=== PATIENT | male | born 1935 | race Caucasian/White ===

== ENCOUNTER 2017-01-06 14:02 | Emergency (ER) | payer OTHER ==
[~2017-01-06] VITALS: Ht 182.9 cm; Wt 70.0 kg
[~2017-01-06 14:02] MED LIST: FENO145T26 PO; FERR1TAB13 PO; GABA-113 PO; LNX125 PO; LPR25 PO; LPT40 PO; NRV5 PO; PLV75 PO; VALS320T PO
[2017-01-06 14:04] VITALS: TEMP 36.6; Ht 182.9 cm; Wt 70.0 kg
[2017-01-06] MEDS ORDERED: FOLI1TAB7 PO (15:15)
[2017-01-06] MEDS ORDERED: ASPI-435 PO (15:15)
[2017-01-06 15:21] LABS: BASO % 0.4 %; BASO ABS # 0.02 K/uL (0-0.2); COMPLETE YES; EOS % 1.8 %; HEMATOCRIT 36.4 % (42-52); IG% 0.2 %; LYMPH % 31.1 %; LYMPH ABS # 1.71 K/uL (1.2-3.4); MEAN CELL VOLUME 93.3 fL (80-100); MEAN CORPUSCULAR HGB CONC 32.1 g/dl (32-36); MEAN PLATELET VOLUME 10.1 fL (7.4-10.4); MONO % 9.7 %; NEUT % 56.8 %; PLATELET COUNT 312 K/uL (130-400); WHITE BLOOD COUNT 5.49 K/uL (4.8-10.8)
[2017-01-06] MEDS ORDERED: AMLO-110 PO (15:25)
[2017-01-06] MEDS ORDERED: CLOP1TAB15 PO (15:25)
[2017-01-06] MEDS ORDERED: FENO145T26 PO (15:25)
[2017-01-06] MEDS ORDERED: VALS320T PO (15:25)
[2017-01-06] MEDS ORDERED: ATOR-24 PO (15:25)
[2017-01-06] MEDS ORDERED: METO25TA56 PO (15:25)
[2017-01-06] MEDS ORDERED: LNX125 PO (15:25)
[2017-01-06] MEDS ORDERED: NRN/300 PO (15:25)
[2017-01-06 15:37] LABS: BUN/CREATININE RATIO 13.9 (10-20); CALCIUM 9.1 mg/dl (8.5-10.1); CREATININE 1.5 mg/dl (0.60-1.40); POTASSIUM 5.3 mmol/L (3.5-5.1)
[2017-01-06] MEDS ORDERED: SODIUM CHLORIDE 0.9% 500ML 500 ML IV STA (15:41)
[2017-01-06 16:03] VITALS: BP 170/72; PULSE 49; O2SAT 98
--- NOTE | 2017-01-06 21:47 | EMERGENCY ROOM VISIT NOTE ---
History Report prepared by Roxie: Irene Ventura Under the Supervision of: Dr. Nathen Rojas D.O. First contact with patient: 14:46 Chief Complaint: GROIN PAIN Stated Complaint: HERNIA History of Present Illness The patient is an 81 year old male who presents to the Emergency Room with complaints of intermittent groin pain for the past 3 years. He has had a hernia for the past 3 years. The hernia has gotten bigger. His PCP told him that nothing had to be done for his hernia as long as it was not causing him pain. He reports some pain on occasion, but no pain today. His last normal bowel movement was this morning. He is normally able to reduce his hernia when he lays down. He has absolutely no abdominal pain at this time he came in to see if he should follow-up with a surgeon for this. He denies any dysuria, nausea, vomiting, or diarrhea. He denies any previous abdominal surgeries. He is on Plavix. Source of History: patient Onset: 3 years ago Position: other (groin) Quality: other (pain from hernia) Timing: intermittent Associated Symptoms: No diarrhea, No nausea, No urinary symptoms, No vomiting Review of Systems See HPI for pertinent positives & negatives. A total of 10 systems reviewed and were otherwise negative. Past Medical & Surgical Medical Problems: (1) Abscess of right foot (2) Altered mental status (3) Cellulitis of right foot (4) Dehydration (5) Encounter for wound re-check (6) Fall (7) Hypertension (8) Neuropathy (9) Non-ST elevation [place] (NSTEMI) (10) Paroxysmal Atrial Fibrillation (11) Pure Hypercholesterolemia (12) S/p bare metal coronary artery stent Family History Patient reports no known family medical history. Non contributory secondary to age. Social History Smoking Status: Former Smoker Drug Use: none Marital Status: Occupation Status: retired Current/Historical Medications Scheduled Amlodipine (Norvasc), 5 MG PO DAILY Aspirin (Aspirin 81), 81 MG PO QAM Atorvastatin (Lipitor), 40 MG PO DAILY Clopidogrel (Plavix), 75 MG PO DAILY Digoxin (Digoxin), 0.125 MG PO DAILY Fenofibrate (Tricor ), 145 MG PO DAILY Folic Acid (Folvite), 1 MG PO QAM Gabapentin (Neurontin), 300 MG PO BID Metoprolol Tartrate (Lopressor) (Lopressor), 25 MG PO BID Valsartan (Diovan), 320 MG PO DAILY Allergies Coded Allergies: No Known Allergies (Unverified , 12/18/16) Physical Exam Vital Signs Date Time Temp Pulse Resp B/P Pulse Ox O2 Delivery O2 Flow Rate FiO2 01/06/17 16:03 49 18 170/72 98 Room Air 01/06/17 14:04 36.6 68 20 152/69 97 Room Air Physical Exam GENERAL: alert, well appearing, well nourished, no distress, non-toxic EYE EXAM: normal conjunctiva, PERRL and EOM's grossly intact OROPHARYNX: no exudate, no erythema, lips, buccal mucosa, and tongue normal and mucous membranes are moist NECK: supple, no nuchal rigidity, no adenopathy, non-tender LUNGS: Clear to auscultation. Normal chest wall mechanics HEART: no murmurs, S1 normal and S2 normal ABDOMEN: right groin with large mass with audible bowel sounds, nontender BACK: Back is symmetrical on inspection and there is no deformity, no midline tenderness, no CVA tenderness. SKIN: no rashes and no bruising UPPER EXTREMITIES: upper extremities are grossly normal. LOWER EXTREMITIES: No pitting edema. NEURO EXAM: Normal sensorium, cranial nerves II-XII grossly intact, normal speech, no gross weakness of arms, no gross weakness of legs. Medical Decision & Procedures Laboratory Results 01/06/17 15:11 Red Blood Count 3.90, Mean Corpuscular Volume 93.3, Mean Corpuscular Hemoglobin 30.0, Mean Corpuscular Hemoglobin Concent 32.1, Mean Platelet Volume 10.1, Neutrophils (%) (Auto) 56.8, Lymphocytes (%) (Auto) 31.1, Monocytes (%) (Auto) 9.7, Eosinophils (%) (Auto) 1.8, Basophils (%) (Auto) 0.4, Neutrophils # (Auto) 3.12, Lymphocytes # (Auto) 1.71, Monocytes # (Auto) 0.53, Eosinophils # (Auto) 0.10, Basophils # (Auto) 0.02 01/06/17 15:11 Test 01/06/17 15:11 White Blood Count 5.49 K/uL (4.8-10.8) Red Blood Count 3.90 M/uL (4.7-6.1) Hemoglobin 11.7 g/dL (14.0-18.0) Hematocrit 36.4 % (42-52) Mean Corpuscular Volume 93.3 fL (80-100) Mean Corpuscular Hemoglobin 30.0 pg (25-34) Mean Corpuscular Hemoglobin Concent 32.1 g/dl (32-36) Platelet Count 312 K/uL (130-400) Mean Platelet Volume 10.1 fL (7.4-10.4) Neutrophils (%) (Auto) 56.8 % Lymphocytes (%) (Auto) 31.1 % Monocytes (%) (Auto) 9.7 % Eosinophils (%) (Auto) 1.8 % Basophils (%) (Auto) 0.4 % Neutrophils # (Auto) 3.12 K/uL (1.4-6.5) Lymphocytes # (Auto) 1.71 K/uL (1.2-3.4) Monocytes # (Auto) 0.53 K/uL (0.11-0.59) Eosinophils # (Auto) 0.10 K/uL (0-0.5) Basophils # (Auto) 0.02 K/uL (0-0.2) RDW Standard Deviation 48.6 fL (36.4-46.3) RDW Coefficient of Variation 14.1 % (11.5-14.5) Immature Granulocyte % (Auto) 0.2 % Immature Granulocyte # (Auto) 0.01 K/uL (0.00-0.02) Anion Gap 4.0 mmol/L (3-11) Est Creatinine Clear Calc Drug Dose 36.9 ml/min Estimated GFR () 49.2 Estimated GFR (Non- 42.4 BUN/Creatinine Ratio 13.9 (10-20) Calcium Level 9.1 mg/dl (8.5-10.1) Total Bilirubin 0.6 mg/dl (0.2-1) Direct Bilirubin 0.2 mg/dl (0-0.2) Aspartate Amino Transf (AST/SGOT) 24 U/L (15-37) Alanine Aminotransferase (ALT/SGPT) 23 U/L (12-78) Alkaline Phosphatase 55 U/L (45-117) Total Protein 7.4 gm/dl (6.4-8.2) Albumin 4.2 gm/dl (3.4-5.0) Lipase 262 U/L (73-393) Laboratory results per my review. ED Course ED COURSE: Vital signs were reviewed and showed hypertension. The patients medical record was reviewed The above diagnostic studies were performed and reviewed. ED treatments and interventions as stated above. 1451: The patient was evaluated in room C10. A complete history and physical examination was performed. 1705: The patient has eloped. Medical Decision Differential diagnoses includes but is not limited to gastritis, peptic ulcer disease, GERD, gallbladder disease, pancreatitis, small bowel obstruction, acute coronary syndrome, pericarditis, ischemic bowel, irritable bowel disease, irritable bowel syndrome, appendicitis, diverticulitis, malignancy, hernia, urinary tract infection, torsion, perforation, trauma, infectious. Patient is an 81-year-old male who presents the ER for right groin mass. He notes that this has been present for the past 3 years and gradually getting bigger. He currently has no abdominal pain. He notes that it only bothers him when he walks long distances. He came in today to see if he should have this followed up by a surgeon. Labs and ultrasound were obtained. CBC was unremarkable. BMP was remarkable for potassium of 5.3 along with a creatinine of 1.5. Creatinine was slightly elevated at 1.5 off of the baseline of 1. LFTs and bilirubin were normal. Lipase is normal. I was going into reevaluate him following his ultrasound that he had but he had eloped. Skin no chest pain or shortness of breath. He has been moving his bowels without difficulty. Ultrasound of his abdomen was unremarkable. Patient eloped and nursing staff noted that he became impatient and left. He was not called back as he had no acute medical issues and no complaints. Prior to him eloping I did stress the importance of him following back up with a general surgeon Impression Primary Impression: Right inguinal hernia Additional Impression: Hyperkalemia Scribe Attestation The scribe's documentation has been prepared under my direction and personally reviewed by me in its entirety. I confirm that the note above accurately reflects all work, treatment, procedures, and medical decision making performed by me. Departure Information Dispostion Other (elopement) Referrals No Doctor, Assigned (PCP) Patient Instructions My [facility] Problem Qualifiers
--- NOTE | 2017-01-06 22:03 | DIAGNOSTIC IMAGING REPORT ---
Limited abdominal ultrasound ABDOMEN FOR HERNIA CLINICAL HISTORY: right groin mass mass TECHNIQUE: Real-time ultrasound COMPARISON STUDY: None FINDINGS: Right inguinal hernia containing a combination of fat and bowel. This is a nonobstructive finding. No free fluid is seen. The hernia is reducible IMPRESSION: 1. Reducible fat and bowel containing right inguinal hernia. 2. No free fluid is identified Electronically signed by: Hira Matthews M.D. 01/06/2017 10:01 PM Dictated Date/Time: 01/06/2017 10:00 PM
== END 2017-01-06 17:00 | disposition left against medical advice (07) ==
LOC: C.EDB 14:03 → C.EDC 17:00
DX: K40.90 Unilateral inguinal hernia, without obstruction or gangrene, not specified as recurrent (principal); E87.5 Hyperkalemia; I10 Essential (primary) hypertension; I21.4 Non-ST elevation (NSTEMI) myocardial infarction; I48.0 Paroxysmal atrial fibrillation; Z87.891 Personal history of nicotine dependence; Z79.82 Long term (current) use of aspirin

== ENCOUNTER 2017-05-23 20:51 | Inpatient (IN) | payer OTHER ==
[~2017-05-23] VITALS: Ht 182.9 cm; Wt 67.9 kg
[~2017-05-23 20:51] MED LIST changes: +AMLO-110 PO; +ASPI-435 PO; +ATOR-24 PO; +CLOP1TAB15 PO; -FERR1TAB13 PO; +FOLI1TAB7 PO; -GABA-113 PO; -LPR25 PO; -LPT40 PO; +METO25TA56 PO; +NRN/300 PO; -NRV5 PO; -PLV75 PO
[2017-05-23 22:03] LABS: BUN/CREATININE RATIO 19.2 (10-20); CALCIUM 10.1 mg/dl (8.5-10.1); CREATININE 2.3 mg/dl (0.60-1.40)
[2017-05-23 22:30] LABS: BENZODIAZEPINE, URINE NEG (NEG); COCAINE,URINE NEG (NEG); PHENCYCLIDINE, URINE NEG (NEG)
[2017-05-23 22:33] LABS: BASO % 0.1 %; BASO ABS # 0.01 K/uL (0-0.2); COMPLETE YES; EOS % 0.1 %; HEMATOCRIT 33.9 % (42-52); IG% 0.3 %; LYMPH % 6.5 %; LYMPH ABS # 1.11 K/uL (1.2-3.4); MEAN CELL VOLUME 91.9 fL (80-100); MEAN CORPUSCULAR HEMOGLOBIN 30.4 pg (25-34); MEAN PLATELET VOLUME 10.8 fL (7.4-10.4); PLATELET COUNT 336 K/uL (130-400); RED BLOOD COUNT 3.69 M/uL (4.7-6.1); WHITE BLOOD COUNT 17.16 K/uL (4.8-10.8)
[2017-05-23 22:36] LABS: PARTIAL THROMBOPLASTIN RATIO 1.3; PROTHROMBIN TIME (PATIENT) 10.6 SECONDS (9.0-12.0)
[2017-05-23 22:38] LABS: MANUAL MICROSCOPIC REQUIRED? NO; REVIEW REQ? YES; URINE APPEARANCE TURBID (CLEAR); URINE COLOR DK YELLOW; URINE EPITHELIAL CELL AUTO 20-30 /lpf (0-5); URINE NITRITE POS (NEG); URINE SPECIFIC GRAVITY 1.023 (1.000-1.030); UROBILINOGEN NEG (NEG)
--- NOTE | 2017-05-23 22:38 | DIAGNOSTIC IMAGING REPORT ---
CHEST ONE VIEW PORTABLE CLINICAL HISTORY: 81 years-old Male presenting with eval for pna; GI bleed, altered mental status. TECHNIQUE: Portable upright AP view of the chest was obtained. COMPARISON: 05/24/2016. FINDINGS: The patient is BENJAMIN rotated. Atherosclerosis of aortic arch. Cardiac silhouette normal in size. Mild hyperinflation. Lungs and pleural spaces clear. Osseous structures normal. Upper abdomen normal. IMPRESSION: 1. No acute cardiopulmonary disease. Electronically signed by: Freddie Guevara M.D. 05/23/2017 10:37 PM Dictated Date/Time: 05/23/2017 10:36 PM
[2017-05-23 22:40] LABS: URINE BILIRUBIN NEG (NEG)
--- NOTE | 2017-05-23 22:42 | DIAGNOSTIC IMAGING REPORT ---
HEAD WITHOUT CONTRAST (CT) CLINICAL HISTORY: 81 years-old Male presenting with AMS eval for bleed. TECHNIQUE: Multidetector CT imaging of the head was performed without the use of intravenous contrast. IV contrast: None. A dose lowering technique was used consistent with the principles of ALARA (as low as reasonably achievable). COMPARISON: 05/24/2016. CT DOSE (mGy.cm): The estimated cumulative dose is 614.27 mGy.cm. 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 Proportional ventricular and sulcal prominence except at the vertex, which demonstrates gyral crowding with relative sulcal effacement. Slight decreased callosal angle. Brain parenchyma normal in appearance with preserved barksdale-white differentiation. No mass effect or midline shift. No hemorrhage or acute territorial infarct. Mucosal thickening of the left maxillary sinus. Paranasal sinuses and mastoid air cells clear. Calvarium intact. IMPRESSION: 1. No acute intracranial pathology. 2. Findings could raise suspicion for normal pressure hydrocephalus. Correlate clinically. Electronically signed by: Freddie Guevara M.D. 05/23/2017 10:41 PM Dictated Date/Time: 05/23/2017 10:37 PM
[2017-05-23] MEDS ORDERED: IMIPENEM/CILASTATIN IV 500 MG in DEXTROSE 5% 100ML 100 ML IV STA (22:50)
[2017-05-23 22:55] LABS: ACETAMINOPHEN < 2 ug/ml (10-30)
--- NOTE | 2017-05-23 23:16 | History and Physical ---
History & Physical Date & Time of Service: May 23, 2017 at 23:16 Chief Complaint: Gi Bleed Primary Care Physician: No Doctor, Assigned Past Medical/Surgical History Medical Problems: (1) Abscess of right foot Status: Resolved (2) Altered mental status Status: Resolved (3) Cellulitis of right foot Status: Resolved (4) Dehydration Status: Resolved (5) Encounter for wound re-check Status: Resolved (6) Fall Status: Resolved (7) Hypertension Status: Chronic (8) Neuropathy Status: Chronic (9) Non-ST elevation [place] (NSTEMI) Status: Resolved (10) Paroxysmal Atrial Fibrillation Status: Chronic (11) Pure Hypercholesterolemia Status: Chronic (12) S/p bare metal coronary artery stent Status: Chronic Family History Patient reports no known family medical history. Allergies Coded Allergies: No Known Allergies (Unverified , 12/18/16) Home Medications Scheduled Amlodipine (Norvasc), 5 MG PO DAILY Aspirin (Aspirin 81), 81 MG PO QAM Atorvastatin (Lipitor), 40 MG PO DAILY Clopidogrel (Plavix), 75 MG PO DAILY Digoxin (Digoxin), 0.125 MG PO DAILY Fenofibrate (Tricor ), 145 MG PO DAILY Folic Acid (Folvite), 1 MG PO QAM Gabapentin (Neurontin), 300 MG PO BID Metoprolol Tartrate (Lopressor) (Lopressor), 25 MG PO BID Valsartan (Diovan), 320 MG PO DAILY Physical Exam Vital Signs Date Time Temp Pulse Resp B/P (MAP) Pulse Ox O2 Delivery O2 Flow Rate FiO2 05/23/17 21:18 74 18 129/50 97 Room Air 05/23/17 21:01 96 Room Air 05/23/17 21:01 36.9 80 16 110/56 96 Room Air Diagnostics Laboratory Results Results Past 24 Hours Test 05/23/17 20:30 05/23/17 21:43 05/23/17 21:58 05/23/17 22:01 Range/Units Sodium Level 139 136-145 mmol/L Potassium Level 4.0 3.5-5.1 mmol/L Chloride Level 106 98-107 mmol/L Carbon Dioxide Level 24 21-32 mmol/L Anion Gap 10.0 3-11 mmol/L Blood Urea Nitrogen 44 7-18 mg/dl Creatinine 2.30 0.60-1.40 mg/dl Est Creatinine Clear Calc Drug Dose 23.8 ml/min Estimated GFR () 29.3 Estimated GFR (Non- 25.3 BUN/Creatinine Ratio 19.2 10-20 Random Glucose 149 70-99 mg/dl Calcium Level 10.1 8.5-10.1 mg/dl Total Bilirubin 0.7 0.2-1 mg/dl Direct Bilirubin 0.3 0-0.2 mg/dl Aspartate Amino Transf (AST/SGOT) 71 15-37 U/L Alanine Aminotransferase (ALT/SGPT) 35 12-78 U/L Alkaline Phosphatase 51 45-117 U/L Total Protein 7.2 6.4-8.2 gm/dl Albumin 3.6 3.4-5.0 gm/dl Bedside Glucose 123 70-99 mg/dl Urine Color DK YELLOW Urine Appearance TURBID CLEAR Urine pH 5.0 4.5-7.5 Urine Specific [place] 1.023 1.000-1.030 Urine Protein 2+ NEG Urine Glucose (UA) NEG NEG Urine Ketones TRACE NEG Urine Occult Blood 3+ NEG Urine Nitrite POS NEG Urine Bilirubin NEG NEG Urine Urobilinogen NEG NEG Urine Leukocyte Esterase LARGE NEG Urine WBC (Auto) >30 0-5 /hpf Urine RBC (Auto) 10-30 0-4 /hpf Urine Hyaline Casts (Auto) 10-30 0-5 /lpf Urine Epithelial Cells (Auto) 20-30 0-5 /lpf Urine Bacteria (Auto) 4+ NEG Urine Pathogenic Casts 0 /lpf Urine Yeast (Auto) PRESENT NONE PRSENT Urine Opiates Screen NEG NEG Urine Methadone, Qualitative NEG NEG Urine Barbiturates NEG NEG Urine Phencyclidine (PCP) Level NEG NEG Ur Amphetamine/Methamphetamine NEG NEG MDMA (Ecstasy) Screen NEG NEG Urine Benzodiazepines Screen NEG NEG Urine Cocaine Metabolite NEG NEG Urine Marijuana (THC) NEG NEG Bedside Troponin I 0.110 0-0.045 ng/ml Test 05/23/17 22:09 Range/Units White Blood Count 17.16 4.8-10.8 K/uL Red Blood Count 3.69 4.7-6.1 M/uL Hemoglobin 11.2 14.0-18.0 g/dL Hematocrit 33.9 42-52 % Mean Corpuscular Volume 91.9 80-100 fL Mean Corpuscular Hemoglobin 30.4 25-34 pg Mean Corpuscular Hemoglobin Concent 33.0 32-36 g/dl Platelet Count 336 130-400 K/uL Mean Platelet Volume 10.8 7.4-10.4 fL Neutrophils (%) (Auto) 83.0 % Lymphocytes (%) (Auto) 6.5 % Monocytes (%) (Auto) 10.0 % Eosinophils (%) (Auto) 0.1 % Basophils (%) (Auto) 0.1 % Neutrophils # (Auto) 14.26 1.4-6.5 K/uL Lymphocytes # (Auto) 1.11 1.2-3.4 K/uL Monocytes # (Auto) 1.71 0.11-0.59 K/uL Eosinophils # (Auto) 0.01 0-0.5 K/uL Basophils # (Auto) 0.01 0-0.2 K/uL RDW Standard Deviation 46.0 36.4-46.3 fL RDW Coefficient of Variation 13.7 11.5-14.5 % Immature Granulocyte % (Auto) 0.3 % Immature Granulocyte # (Auto) 0.06 0.00-0.02 K/uL Prothrombin Time 10.6 9.0-12.0 SECONDS Prothromb Time International Ratio 1.0 0.9-1.1 Activated Partial Thromboplast Time 32.9 21.0-31.0 SECONDS Partial Thromboplastin Ratio 1.3 Salicylates Level < 1.7 2.8-20 mg/dl Acetaminophen Level < 2 10-30 ug/ml Ethyl Alcohol mg/dL < 3.0 0-3 mg/dl Microbiology Results 05/23/17 Blood Culture, Ordered Pending 05/23/17 Blood Culture, Ordered Pending
[2017-05-24] VITALS (7 sets, daily range): BP systolic 136–170; BP diastolic 52–80; PULSE 51–82; TEMP 36.4–37; O2SAT 97–100; Ht 182.9 cm; Wt 67.9 kg
[2017-05-24] MEDS ORDERED: VANCOMYCIN INJ 1,000 MG in SODIUM CHLORIDE 0.9% 250ML 250 ML IV STA (00:06)
--- NOTE | 2017-05-24 00:22 | EMERGENCY ROOM VISIT NOTE ---
History Report prepared by Roxie: Irene Ventura Under the Supervision of: Dr. Rigo Contreras M.D. First contact with patient: 21:30 Chief Complaint: WEAKNESS Stated Complaint: GI BLEED Nursing Triage Summary: Patient arrived via EMS from home. EMS reports patient has had increased weakness over the past three days. Patient was unable to walk from couch to stretcher for EMS. Patient had episodes of incontinence of urine and stool in his home. Patient stated this has only started today. Patient has history of stent and hiatal hernia. Patient stool darker than usual, patient states he recently started taking two medicines that would darken his stool. He can only remember that one is Iron suppliment. History of Present Illness The patient is an 81 year old male who presents to the Emergency Room with complaints of persistent weakness starting today. The patient presents to the ED by EMS. EMS reports that there was stool on the floor. The patient told them that he was feeling too weak to clean it up. He was unable to get up from the couch. He states that two nights ago, he went to sleep in [email or web address] in [place] and woke up in his home office. He is unsure where he went to sleep last night, but he again woke up in his office. He has abdominal pain at times, but currently does not have any. He denies any headache, chest pain, fever, numbness, or weakness on one side of his body. He has a history of stents. The history is limited due to the patient's altered mental status. Source of History: patient, EMS History Limited By: AMS Onset: today Position: other (global) Quality: other (weakness) Timing: other (persistent) Associated Symptoms: No fevers, No headache, No chest pain, No abdominal pain, No weakness (on one side), No numbness Review of Systems See HPI for pertinent positives & negatives. A total of 10 systems reviewed and were otherwise negative. Past Medical & Surgical Medical Problems: (1) Abscess of right foot (2) Altered mental status (3) Cellulitis of right foot (4) Dehydration (5) Elevated troponin I level (6) Encounter for wound re-check (7) Fall (8) Hypertension (9) Neuropathy (10) Non-ST elevation ME (NSTEMI) (11) Paroxysmal Atrial Fibrillation (12) Pure Hypercholesterolemia (13) S/p bare metal coronary artery stent (14) Sepsis secondary to UTI Family History Patient reports no known family medical history. Social History Smoking Status: Never Smoker Drug Use: none Marital Status: Occupation Status: retired Current/Historical Medications Scheduled Amlodipine (Norvasc), 5 MG PO DAILY Aspirin (Aspirin 81), 81 MG PO QAM Atorvastatin (Lipitor), 40 MG PO DAILY Clopidogrel (Plavix), 75 MG PO DAILY Digoxin (Digoxin), 0.125 MG PO DAILY Fenofibrate (Tricor ), 145 MG PO DAILY Folic Acid (Folvite), 1 MG PO QAM Gabapentin (Neurontin), 300 MG PO BID Metoprolol Tartrate (Lopressor) (Lopressor), 25 MG PO BID Valsartan (Diovan), 320 MG PO DAILY Allergies Coded Allergies: No Known Allergies (Unverified , 12/18/16) Physical Exam Vital Signs Date Time Temp Pulse Resp B/P (MAP) Pulse Ox O2 Delivery O2 Flow Rate FiO2 05/23/17 23:24 73 14 141/69 96 Nasal Cannula 2.0 05/23/17 22:50 77 05/23/17 21:18 74 18 129/50 97 Room Air 05/23/17 21:01 96 Room Air 05/23/17 21:01 36.9 80 16 110/56 96 Room Air Physical Exam Constitutional: Vital signs reviewed. Eyes: Pupils are equal round reactive to light. Conjunctiva are noninjected. ENT: Pharynx is clear without erythema or exudate. Mucous membranes are moist. Neck supple without meningeal signs. Respiratory: Clear to auscultation bilaterally. Breath sounds are equal bilaterally. Cardiovascular: Regular rate and rhythm. No rubs or gallops. GI: Soft, nondistended and nontender. Bowel sounds are present. Musculoskeletal: No peripheral edema. No lower extremity tenderness. Integumentary: No cyanosis. Neurological: The patient is awake and alert. Cranial nerves II-XII are intact. Motor is 4 out of 5 all extremities. Sensation is intact to light touch all extremities. Normal speech. No pronator drift. Psychiatric: Normal affect. Medical Decision & Procedures ER Provider Diagnostic Interpretation: X-ray results as stated below per interpretation by me and the radiologist. Radiology results as stated below per my review and the radiologist's interpretation: CHEST ONE VIEW PORTABLE CLINICAL HISTORY: 81 years-old Male presenting with eval for pna; GI bleed, altered mental status. TECHNIQUE: Portable upright AP view of the chest was obtained. COMPARISON: 05/24/2016. FINDINGS: The patient is BENJAMIN rotated. Atherosclerosis of aortic arch. Cardiac silhouette normal in size. Mild hyperinflation. Lungs and pleural spaces clear. Osseous structures normal. Upper abdomen normal. IMPRESSION: 1. No acute cardiopulmonary disease. Electronically signed by: Freddie Guevara M.D. 05/23/2017 10:37 PM Dictated Date/Time: 05/23/2017 10:36 PM HEAD WITHOUT CONTRAST (CT) CLINICAL HISTORY: 81 years-old Male presenting with AMS eval for bleed. TECHNIQUE: Multidetector CT imaging of the head was performed without the use of intravenous contrast. IV contrast: None. A dose lowering technique was used consistent with the principles of ALARA (as low as reasonably achievable). COMPARISON: 05/24/2016. CT DOSE (mGy.cm): The estimated cumulative dose is 614.27 mGy.cm. FINDINGS: Outboard [employer] topogram: Unremarkable. Proportional ventricular and sulcal prominence except at the vertex, which demonstrates gyral crowding with relative sulcal effacement. Slight decreased callosal angle. Brain parenchyma normal in appearance with preserved barksdale-white differentiation. No mass effect or midline shift. No hemorrhage or acute territorial infarct. Mucosal thickening of the left maxillary sinus. Paranasal sinuses and mastoid air cells clear. Calvarium intact. IMPRESSION: 1. No acute intracranial pathology. 2. Findings could raise suspicion for normal pressure hydrocephalus. Correlate clinically. Electronically signed by: Freddie Guevara M.D. 05/23/2017 10:41 PM Dictated Date/Time: 05/23/2017 10:37 PM Laboratory Results 05/23/17 22:09 Red Blood Count 3.69, Mean Corpuscular Volume 91.9, Mean Corpuscular Hemoglobin 30.4, Mean Corpuscular Hemoglobin Concent 33.0, Mean Platelet Volume 10.8, Neutrophils (%) (Auto) 83.0, Lymphocytes (%) (Auto) 6.5, Monocytes (%) (Auto) 10.0, Eosinophils (%) (Auto) 0.1, Basophils (%) (Auto) 0.1, Neutrophils # (Auto ) 14.26, Lymphocytes # (Auto) 1.11, Monocytes # (Auto) 1.71, Eosinophils # (Auto ) 0.01, Basophils # (Auto) 0.01 05/23/17 20:30 Test 05/23/17 20:30 05/23/17 21:43 05/23/17 21:58 05/23/17 22:01 Anion Gap 10.0 mmol/L (3-11) Est Creatinine Clear Calc Drug Dose 23.8 ml/min Estimated GFR () 29.3 Estimated GFR (Non- 25.3 BUN/Creatinine Ratio 19.2 (10-20) Calcium Level 10.1 mg/dl (8.5-10.1) Total Bilirubin 0.7 mg/dl (0.2-1) Direct Bilirubin 0.3 mg/dl (0-0.2) Aspartate Amino Transf (AST/SGOT) 71 U/L (15-37) Alanine Aminotransferase (ALT/SGPT) 35 U/L (12-78) Alkaline Phosphatase 51 U/L (45-117) Total Protein 7.2 gm/dl (6.4-8.2) Albumin 3.6 gm/dl (3.4-5.0) Bedside Glucose 123 mg/dl (70-99) Urine Color DK YELLOW Urine Appearance TURBID (CLEAR) Urine pH 5.0 (4.5-7.5) Urine Specific [place] 1.023 (1.000-1.030) Urine Protein 2+ (NEG) Urine Glucose (UA) NEG (NEG) Urine Ketones TRACE (NEG) Urine Occult Blood 3+ (NEG) Urine Nitrite POS (NEG) Urine Bilirubin NEG (NEG) Urine Urobilinogen NEG (NEG) Urine Leukocyte Esterase LARGE (NEG) Urine WBC (Auto) >30 /hpf (0-5) Urine RBC (Auto) 10-30 /hpf (0-4) Urine Hyaline Casts (Auto) 10-30 /lpf (0-5) Urine Epithelial Cells (Auto) 20-30 /lpf (0-5) Urine Bacteria (Auto) 4+ (NEG) Urine Pathogenic Casts /lpf (0) Urine Yeast (Auto) PRESENT (NONE PRSENT) Urine Opiates Screen NEG (NEG) Urine Methadone, Qualitative NEG (NEG) Urine Barbiturates NEG (NEG) Urine Phencyclidine (PCP) Level NEG (NEG) Ur Amphetamine/Methamphetamine NEG (NEG) MDMA (Ecstasy) Screen NEG (NEG) Urine Benzodiazepines Screen NEG (NEG) Urine Cocaine Metabolite NEG (NEG) Urine Marijuana (THC) NEG (NEG) Bedside Troponin I 0.110 ng/ml (0-0.045) Test 05/23/17 22:09 05/23/17 23:28 White Blood Count 17.16 K/uL (4.8-10.8) Red Blood Count 3.69 M/uL (4.7-6.1) Hemoglobin 11.2 g/dL (14.0-18.0) Hematocrit 33.9 % (42-52) Mean Corpuscular Volume 91.9 fL (80-100) Mean Corpuscular Hemoglobin 30.4 pg (25-34) Mean Corpuscular Hemoglobin Concent 33.0 g/dl (32-36) Platelet Count 336 K/uL (130-400) Mean Platelet Volume 10.8 fL (7.4-10.4) Neutrophils (%) (Auto) 83.0 % Lymphocytes (%) (Auto) 6.5 % Monocytes (%) (Auto) 10.0 % Eosinophils (%) (Auto) 0.1 % Basophils (%) (Auto) 0.1 % Neutrophils # (Auto) 14.26 K/uL (1.4-6.5) Lymphocytes # (Auto) 1.11 K/uL (1.2-3.4) Monocytes # (Auto) 1.71 K/uL (0.11-0.59) Eosinophils # (Auto) 0.01 K/uL (0-0.5) Basophils # (Auto) 0.01 K/uL (0-0.2) RDW Standard Deviation 46.0 fL (36.4-46.3) RDW Coefficient of Variation 13.7 % (11.5-14.5) Immature Granulocyte % (Auto) 0.3 % Immature Granulocyte # (Auto) 0.06 K/uL (0.00-0.02) Prothrombin Time 10.6 SECONDS (9.0-12.0) Prothromb Time International Ratio 1.0 (0.9-1.1) Activated Partial Thromboplast Time 32.9 SECONDS (21.0-31.0) Partial Thromboplastin Ratio 1.3 Salicylates Level < 1.7 mg/dl (2.8-20) Acetaminophen Level < 2 ug/ml (10-30) Ethyl Alcohol mg/dL < 3.0 mg/dl (0-3) Bedside Lactic Acid Venous 1.11 mmol/L (0.90-1.70) Laboratory results as reviewed by me. Medications Administered Medications (Trade) Dose Ordered Sig/Brian Route Start Time Stop Time Status Last Admin Dose Admin Imipenem/ Cilastatin Sodium 500 mg/Dextrose 110 ml @ 100 mls/hr NOW STAT IV 05/23/17 22:50 05/23/17 23:55 DC 05/23/17 23:27 100 MLS/HR ECG Indication: weakness Rate (beats per minute): 78 Rhythm: normal sinus Findings: Q waves (Inferior), left axis deviation ED Course 2130: The patient was evaluated in room C1B. A complete history and physical exam was performed. 2249: Imipenem/Cilastatin Sodium 500 mg/Dextrose 110 ml @ 100 mls/hr IV. 2304: I reevaluated the patient. He has no complaints. He is still confused. I discussed the results with him. He will be evaluated for further management. 2306: I spoke with Dr. Romero of [facility] hospitalist service. We discussed the patient and his results. The patient will be further evaluated by him. Medical Decision This is an 81-year-old male who presents with altered mental status and weakness. Differential diagnosis includes intracranial hemorrhage, CVA, metabolic derangement, infection, sepsis, UTI, pneumonia. I did perform a limited focused review of portions of the patient's old chart on the electronic medical record. The patient's hemoglobin in December was 11.7. I did evaluate the patient as noted above. The patient is presenting with generalized weakness but he is also confused. He thinks he woke up in [place]. He has no focal neurologic deficits other than some generalized weakness throughout his extremities. IV access was established. The patient was placed on a continuous zoning assistant. I did order and personally review the patient' s 12-lead EKG and chest x-ray as described above. I did order and review the patient's blood work as noted in the electronic medical record. He does have acute kidney injury with an elevated troponin. He did not have any chest pain or shortness of breath. The troponin elevation is likely secondary to his acute kidney injury. His 12-lead EKG did not show any acute ischemic changes. I did order a CT of the head. I did review the images myself as well as the radiology report as described above. There is no evidence of acute process. There is a question of possible normal pressure hydrocephalus. I did check a urinalysis which did show significant signs of infection. It seems most likely that his altered mental status is secondary to his infection. Blood cultures were obtained. PSA lactic acid was not elevated. I did treat patient with Primaxin IV. I did discuss the case with the hospitalist and case technician. Medication Reconcilliation Current Medication List: was personally reviewed by me Blood Pressure Screening Patient's blood pressure: Normal blood pressure Blood pressure disposition: Did not require urgent referral Consults Time Called: [phone] Consulting Physician: Dr. Romero of [facility] hospitalist service Returned Call: [phone] I spoke with him. We discussed the patient and his results. The patient will be further evaluated by him. Impression Primary Impression: Altered mental status Additional Impressions: UTI (urinary tract infection) SELINA (acute kidney injury) Elevated troponin Scribe Attestation The scribe's documentation has been prepared under my direct and personally reviewed by me in its entirety. I confirm that the note above accurately reflects all work, treatment, procedures, and medical decision making performed by me. Departure Information Dispostion Being Evaluated By Hospitalist Referrals No Doctor, Assigned (PCP) Patient Instructions My [facility] Problem Qualifiers Primary Impression: Altered mental status Altered mental status type: unspecified Qualified Codes: R41.82 - Altered mental status, unspecified Additional Impressions: UTI (urinary tract infection) Urinary tract infection type: site unspecified Hematuria presence: without hematuria Qualified Codes: N39.0 - Urinary tract infection, site not specified
[2017-05-24] MEDS ORDERED: VANCOMYCIN INJ 1,500 MG in SODIUM CHLORIDE 0.9% 500ML 500 ML IV SCH (01:30)
[2017-05-24] MEDS ORDERED: PIPERACILL/TAZOBAC CONSULT ACTIVE PRN (01:45)
[2017-05-24] MEDS: SODIUM CHLORIDE 0.9% 1000ML 1,000 ML IV SCH ×3 (01:49→22:29)
[2017-05-24] MEDS ORDERED: VANCOMYCIN CONSULT ACTIVE PRN (02:00)
[2017-05-24] MEDS ORDERED: PIPERACILL/TAZOBAC IV 3.375 GM in DEXTROSE 5% 100ML IV ONE (02:00)
[2017-05-24] MEDS ORDERED: INFLUENZA VACCINE HIGH DOSE 65+ 0.5 ML SYR IM. ONE (02:30)
[2017-05-24] MEDS ORDERED: INFLUENZA ADMINISTRATION CHARGE ONE (02:30)
[2017-05-24] MEDS: PIPERACILL/TAZOBAC IV 3.375 GM in DEXTROSE 5% 100ML IV SCH ×3 (05:46→22:29)
[2017-05-24] MEDS ORDERED: PIPERACILL/TAZOBAC IV 3.375 GM in DEXTROSE 5% 100ML 100 ML IV SCH (06:00)
[2017-05-24 07:20] LABS: CREATININE 1.9 mg/dl (0.60-1.40)
--- NOTE | 2017-05-24 07:34 | History and Physical ---
History & Physical Date & Time of Service: May 24, 2017 at 07:10 Chief Complaint: Elevated Troponin I Level, Sepsis Secondary To Uti Primary Care Physician: No Doctor, Assigned History of Present Illness Source: patient The patient is an 81-year-old male who presented to the Emergency Department via EMS with complaint of persistent weakness that began earlier in the day. EMS reports that when they arrived at his home there was stool on the floor that the patient reports he was feeling too weak to clean up. When he awoke night before last, he thought he was at a [email or web address] estate in [place], however he was still asleep in his office. Last night, he again woke up in his office. By the time I interviewed the patient, he had been sedated and somnolent, and therefore his history of present illness was severely limited. Past Medical/Surgical History Medical Problems: (1) Abscess of right foot Status: Resolved (2) Altered mental status Status: Resolved (3) Cellulitis of right foot Status: Resolved (4) Dehydration Status: Resolved (5) Encounter for wound re-check Status: Resolved (6) Fall Status: Resolved (7) Hypertension Status: Chronic (8) Neuropathy Status: Chronic (9) Non-ST elevation [place] (NSTEMI) Status: Resolved (10) Paroxysmal Atrial Fibrillation Status: Chronic (11) Pure Hypercholesterolemia Status: Chronic (12) S/p bare metal coronary artery stent Status: Chronic Family History Patient reports no known family medical history. Social History Smoking Status: Former Smoker Smokeless Tobacco Use: No Alcohol Use: none Drug Use: none Marital Status: Housing status: lives alone Occupational Status: retired Immunizations History of Influenza Vaccine: Unknown History of Tetanus Vaccine?: Unknown History of Pneumococcal: Unknown History of Hepatitis B Vaccine: Unknown Multi-Drug Resistant Organisms History of MDRO: No Allergies Coded Allergies: No Known Allergies (Unverified , 12/18/16) Home Medications Scheduled Amlodipine (Norvasc), 5 MG PO DAILY Aspirin (Aspirin 81), 81 MG PO QAM Atorvastatin (Lipitor), 40 MG PO DAILY Clopidogrel (Plavix), 75 MG PO DAILY Digoxin (Digoxin), 0.125 MG PO DAILY Fenofibrate (Tricor ), 145 MG PO DAILY Folic Acid (Folvite), 1 MG PO QAM Gabapentin (Neurontin), 300 MG PO BID Metoprolol Tartrate (Lopressor) (Lopressor), 25 MG PO BID Valsartan (Diovan), 320 MG PO DAILY Review of Systems Review of systems is severely limited due to altered mental state. Physical Exam Vital Signs Date Time Temp Pulse Resp B/P (MAP) Pulse Ox O2 Delivery O2 Flow Rate FiO2 05/24/17 04:00 Nasal Cannula 2.0 05/24/17 03:50 36.8 66 20 137/80 (99) 98 Nasal Cannula 2.0 05/24/17 02:00 Nasal Cannula 2.0 05/24/17 01:27 36.5 70 16 168/56 Nasal Cannula 2.0 05/24/17 00:47 79 14 147/69 96 05/23/17 23:24 73 14 141/69 96 Nasal Cannula 2.0 05/23/17 22:50 77 05/23/17 21:18 74 18 129/50 97 Room Air 05/23/17 21:01 96 Room Air 05/23/17 21:01 36.9 80 16 110/56 96 Room Air The patient is somnolent, normocephalic and atraumatic, lying in bed and in no acute distress. HEENT--PERRL, EOMI, mucous membranes and oropharynx dry. Neck--supple, no JVD or bruits, thyroid normal, trachea midline, no adenopathy. Heart--normal S1 and S2, no extra beats, no murmurs, rubs or gallops. Lungs--decreased breath sounds throughout , no respiratory distress, no accessory muscle use. Abdomen--normal bowel sounds and soft, nontender and nondistended, no hernias or masses, no organomegaly. Extremities--no cyanosis, clubbing or edema. There are good distal pulses b/l. Dermatologic--normal skin turgor, normal color, warm and dry, no abnormal lymph nodes, no rash. Neurologic--cranial nerves II through XII grossly intact, motor and sensory examination normal. Rheumatologic--normal range of motion, nontender, muscles and joints. Psychiatric--somnolent Diagnostics Laboratory Results Results Past 24 Hours Test 05/23/17 20:30 05/23/17 21:43 05/23/17 21:58 05/23/17 22:01 Range/Units Sodium Level 139 136-145 mmol/L Potassium Level 4.0 3.5-5.1 mmol/L Chloride Level 106 98-107 mmol/L Carbon Dioxide Level 24 21-32 mmol/L Anion Gap 10.0 3-11 mmol/L Blood Urea Nitrogen 44 7-18 mg/dl Creatinine 2.30 0.60-1.40 mg/dl Est Creatinine Clear Calc Drug Dose 23.8 ml/min Estimated GFR () 29.3 Estimated GFR (Non- 25.3 BUN/Creatinine Ratio 19.2 10-20 Random Glucose 149 70-99 mg/dl Calcium Level 10.1 8.5-10.1 mg/dl Total Bilirubin 0.7 0.2-1 mg/dl Direct Bilirubin 0.3 0-0.2 mg/dl Aspartate Amino Transf (AST/SGOT) 71 15-37 U/L Alanine Aminotransferase (ALT/SGPT) 35 12-78 U/L Alkaline Phosphatase 51 45-117 U/L Total Protein 7.2 6.4-8.2 gm/dl Albumin 3.6 3.4-5.0 gm/dl Bedside Glucose 123 70-99 mg/dl Urine Color DK YELLOW Urine Appearance TURBID CLEAR Urine pH 5.0 4.5-7.5 Urine Specific [place] 1.023 1.000-1.030 Urine Protein 2+ NEG Urine Glucose (UA) NEG NEG Urine Ketones TRACE NEG Urine Occult Blood 3+ NEG Urine Nitrite POS NEG Urine Bilirubin NEG NEG Urine Urobilinogen NEG NEG Urine Leukocyte Esterase LARGE NEG Urine WBC (Auto) >30 0-5 /hpf Urine RBC (Auto) 10-30 0-4 /hpf Urine Hyaline Casts (Auto) 10-30 0-5 /lpf Urine Epithelial Cells (Auto) 20-30 0-5 /lpf Urine Bacteria (Auto) 4+ NEG Urine Pathogenic Casts 0 /lpf Urine Yeast (Auto) PRESENT NONE PRSENT Urine Opiates Screen NEG NEG Urine Methadone, Qualitative NEG NEG Urine Barbiturates NEG NEG Urine Phencyclidine (PCP) Level NEG NEG Ur Amphetamine/Methamphetamine NEG NEG MDMA (Ecstasy) Screen NEG NEG Urine Benzodiazepines Screen NEG NEG Urine Cocaine Metabolite NEG NEG Urine Marijuana (THC) NEG NEG Bedside Troponin I 0.110 0-0.045 ng/ml Test 05/23/17 22:09 05/23/17 23:28 05/24/17 06:21 Range/Units White Blood Count 17.16 4.8-10.8 K/uL Red Blood Count 3.69 4.7-6.1 M/uL Hemoglobin 11.2 14.0-18.0 g/dL Hematocrit 33.9 42-52 % Mean Corpuscular Volume 91.9 80-100 fL Mean Corpuscular Hemoglobin 30.4 25-34 pg Mean Corpuscular Hemoglobin Concent 33.0 32-36 g/dl Platelet Count 336 130-400 K/uL Mean Platelet Volume 10.8 7.4-10.4 fL Neutrophils (%) (Auto) 83.0 % Lymphocytes (%) (Auto) 6.5 % Monocytes (%) (Auto) 10.0 % Eosinophils (%) (Auto) 0.1 % Basophils (%) (Auto) 0.1 % Neutrophils # (Auto) 14.26 1.4-6.5 K/uL Lymphocytes # (Auto) 1.11 1.2-3.4 K/uL Monocytes # (Auto) 1.71 0.11-0.59 K/uL Eosinophils # (Auto) 0.01 0-0.5 K/uL Basophils # (Auto) 0.01 0-0.2 K/uL RDW Standard Deviation 46.0 36.4-46.3 fL RDW Coefficient of Variation 13.7 11.5-14.5 % Immature Granulocyte % (Auto) 0.3 % Immature Granulocyte # (Auto) 0.06 0.00-0.02 K/uL Prothrombin Time 10.6 9.0-12.0 SECONDS Prothromb Time International Ratio 1.0 0.9-1.1 Activated Partial Thromboplast Time 32.9 21.0-31.0 SECONDS Partial Thromboplastin Ratio 1.3 Salicylates Level < 1.7 2.8-20 mg/dl Acetaminophen Level < 2 10-30 ug/ml Ethyl Alcohol mg/dL < 3.0 0-3 mg/dl Bedside Lactic Acid Venous 1.11 0.90-1.70 mmol/L Microbiology Results 05/23/17 Blood Culture, Received Pending 05/23/17 Blood Culture, Received Pending Diagnostic Radiology Patient Name: BLANCA MURDOCK Unit Number: [id number] Dictated: 05/23/172236 Transcribed: 05/23/172236 PBS Printed Date/Time: [~ rep prt dt]/[~ rep prt tm] [~ rep ct labl] - [~ rep ct ivnm] [facility] Radiology Department [place], [place] [id number] Dictated: 05/23/172236 Transcribed: 05/23/172236 PBS Printed Date/Time: [~ rep prt dt]/[~ rep prt tm] [~ rep ct labl] - [~ rep ct ivnm] DIAGNOSTIC IMAGING [~ rep ct add3]] HEAD WITHOUT CONTRAST (CT) CLINICAL HISTORY: 81 years-old Male presenting with AMS eval for bleed. TECHNIQUE: Multidetector CT imaging of the head was performed without the use of intravenous contrast. IV contrast: None. A dose lowering technique was used consistent with the principles of ALARA (as low as reasonably achievable). COMPARISON: 05/24/2016. CT DOSE (mGy.cm): The estimated cumulative dose is 614.27 mGy.cm. 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 Proportional ventricular and sulcal prominence except at the vertex, which demonstrates gyral crowding with relative sulcal effacement. Slight decreased callosal angle. Brain parenchyma normal in appearance with preserved barksdale-white differentiation. No mass effect or midline shift. No hemorrhage or acute territorial infarct. Mucosal thickening of the left maxillary sinus. Paranasal sinuses and mastoid air cells clear. Calvarium intact. IMPRESSION: 1. No acute intracranial pathology. 2. Findings could raise suspicion for normal pressure hydrocephalus. Correlate clinically. Electronically signed by: Freddie Guevara M.D. 05/23/2017 10:41 PM Dictated Date/Time: 05/23/2017 10:37 PM The status of this report is Signed. Draft = Not yet reviewed or approved by Radiologist. Signed = Reviewed and approved by Radiologist. <AttendingPhy></AttendingPhy> <FamilyPhy>No Doctor, Assigned</FamilyPhy> < PrimaryPhy>No Doctor, Assigned</PrimaryPhy> <UnitNumber>[id number]</UnitNumber> <VisitNumber>[id number]</VisitNumber> <PatientName>BLANCA MURDOCK</ PatientName> <DateOfBirth>1935</DateOfBirth> <Location>[facility]</Location> < ServiceDate>05/23/17</ServiceDate> <MNE>ESINDI</MNE> <OrderingPhy>Rigo Contreras MD</OrderingPhy> <OrderingPhyMNE>f rep ord dr parham</OrderingPhyMNE> < DictatingPhyMNE>f rep dict dr parham</DictatingPhyMNE> <CCListMNE>f rep ct mne</ CCListMNE> <AdmittingPhyMNE>f pt admit dr parham</AdmittingPhyMNE> <AttendingPhyMNE >f pt attend dr parham</AttendingPhyMNE> <ConsultingPhyMNE>f pt consult dr parham</ConsultingPhyMNE> <FamilyPhyMNE>f pt fam dr parham</FamilyPhyMNE> <OtherPhyMNE>f pt other dr parham</OtherPhyMNE> < PrimaryPhyMNE>f pt prim care dr parham</PrimaryPhyMNE> <ReferringPhyMNE>f pt referring dr parham</ReferringPhyMNE> Patient Name: BLANCA MURDOCK Unit Number: [id number] Dictated: 05/23/172235 Transcribed: 05/23/172235 PBS Printed Date/Time: [~ rep prt dt]/[~ rep prt tm] [~ rep ct labl] - [~ rep ct ivnm] [facility] [place] [place] [address] Dictated: 05/23/172235 Transcribed: 05/23/172235 PBS Printed Date/Time: [~ rep prt dt]/[~ rep prt tm] [~ rep ct labl] - [~ rep ct ivnm] CHEST ONE VIEW PORTABLE CLINICAL HISTORY: 81 years-old Male presenting with eval for pna; GI bleed, altered mental status. TECHNIQUE: Portable upright AP view of the chest was obtained. COMPARISON: 05/24/2016. FINDINGS: The patient is BENJAMIN rotated. Atherosclerosis of aortic arch. Cardiac silhouette normal in size. Mild hyperinflation. Lungs and pleural spaces clear. Osseous structures normal. Upper abdomen normal. IMPRESSION: 1. No acute cardiopulmonary disease. Electronically signed by: Freddie Guevara M.D. 05/23/2017 10:37 PM Dictated Date/Time: 05/23/2017 10:36 PM The status of this report is Signed. Draft = Not yet reviewed or approved by Radiologist. Signed = Reviewed and approved by Radiologist. <AttendingPhy></AttendingPhy> <FamilyPhy>No Doctor, Assigned</FamilyPhy> < PrimaryPhy>No Doctor, Assigned</PrimaryPhy> <UnitNumber>[id number]</UnitNumber> <VisitNumber>[id number]</VisitNumber> <PatientName>BLANCA MURDOCK</ PatientName> <DateOfBirth>1935</DateOfBirth> <Location>[facility]</Location> < ServiceDate>05/23/17</ServiceDate> <MNE>ESINDI</MNE> <OrderingPhy>Rigo Contreras MD</OrderingPhy> <OrderingPhyMNE>f rep ord dr parham</OrderingPhyMNE> < DictatingPhyMNE>f rep dict dr parham</DictatingPhyMNE> <CCListMNE>f rep ct mne</ CCListMNE> <AdmittingPhyMNE>f pt admit dr parham</AdmittingPhyMNE> <AttendingPhyMNE >f pt attend dr parham</AttendingPhyMNE> <ConsultingPhyMNE>f pt consult dr parham</ConsultingPhyMNE> <FamilyPhyMNE>f pt fam dr parham</FamilyPhyMNE> <OtherPhyMNE>f pt other dr parham</OtherPhyMNE> < PrimaryPhyMNE>f pt prim care dr parham</PrimaryPhyMNE> <ReferringPhyMNE>f pt referring dr parham</ReferringPhyMNE> EKG EKG shows normal sinus rhythm at 70 bpm, left axis deviation, no acute ST-T changes. Impression Assessment and Plan Sepsis secondary to Urinary tract infection/acute kidney injury-- Vancomycin IV, Zosyn IV. Follow urine culture and sensitivity report. Normal saline at 100 mils per hour. Ulloa catheter. Creatinine baseline is 0.91,and upon entry was 2.30. Follow serial BMP and magnesium levels. CAD/hypertension/history of NSTEMI/paroxysmal atrial fibrillation/coronary artery stents-- Troponin mildly elevated at 0.110. Follow serial troponins. Likely an issue of supply demand mismatch. Continue aspirin 81 mg by mouth daily, clopidogrel 75 mg by mouth daily, amlodipine 5 mg by mouth daily, digoxin 0.125 mg by mouth daily, and metoprolol tartrate 25 mg by mouth twice a day, and split losartan from 320 mg by mouth daily to 160 mg by mouth twice a day. Hyperlipidemia-- Continue atorvastatin 40 mg by mouth daily and fenofibrate 145 mg by mouth daily. Peripheral neuropathy--Pilgrim continue gabapentin 3 mg by mouth twice a day. Level of Care Telemetry Advanced Directives Existing Advance Directive: No Existing Living Will: No Existing Power of Industrial Boilermaker: Yes (Earnest Murdock) Resuscitation Status FULL RESUSCITATION VTE Prophylaxis VTE Risk Assessment Done? Y/N: Yes Risk Level: High Given or contraindicated: Enoxaparin (Lovenox)SQ, SCD's
[2017-05-24 09:23] LABS: BASO % 0.2 %; BASO ABS # 0.02 K/uL (0-0.2); COMPLETE YES; EOS % 0.2 %; HEMATOCRIT 30.1 % (42-52); IG% 0.5 %; LYMPH % 12.3 %; LYMPH ABS # 1.54 K/uL (1.2-3.4); MEAN CELL VOLUME 91.5 fL (80-100); MEAN CORPUSCULAR HEMOGLOBIN 30.7 pg (25-34); MEAN CORPUSCULAR HGB CONC 33.6 g/dl (32-36); MEAN PLATELET VOLUME 10.4 fL (7.4-10.4); MONO % 11.6 %; NEUT % 75.2 %; PLATELET COUNT 311 K/uL (130-400); RED BLOOD COUNT 3.29 M/uL (4.7-6.1); WHITE BLOOD COUNT 12.53 K/uL (4.8-10.8)
[2017-05-24] MEDS: AMLODIPINE BESYLATE 5 MG TAB PO SCH (09:52)
[2017-05-24] MEDS: FENOFIBRATE 145 MG TAB PO SCH (09:52)
[2017-05-24] MEDS: VALSARTAN 80 MG TAB PO SCH ×2 (09:53→20:31)
[2017-05-24] MEDS: GABAPENTIN 300 MG CAP PO SCH ×2 (09:53→20:31)
[2017-05-24] MEDS: METOPROLOL TARTRATE 25 MG TAB PO SCH ×2 (09:53→20:31)
[2017-05-24] MEDS: ATORVASTATIN 20 MG TAB PO SCH (09:53)
[2017-05-24 09:59] LABS: CKMB/CK RATIO 0.5 (0-3.0)
[2017-05-24] MEDS: ACETAMINOPHEN 325 MG TAB PO PRN (10:02)
[2017-05-24 16:07] LABS: CKMB/CK RATIO 0.5 (0-3.0)
[2017-05-24] MEDS: DIGOXIN 0.125 MG TAB PO SCH (17:02)
[2017-05-24] MEDS ORDERED: NURSING VERBAL MED ORDER ONE (17:15)
[2017-05-24] MEDS: CLOPIDOGREL BISULFATE 75 MG TAB PO SCH (18:09)
[2017-05-24] MEDS: ASPIRIN 81 MG ECTAB PO SCH (18:09)
--- NOTE | 2017-05-24 20:06 | Hospitalist Progress Note ---
Hospitalist Progress Note Date of Service May 24, 2017. Subjective Pt evaluation today including: conversation w/ patient Voiding: no voiding problems Pt feeling better. Denies any problems. No chest pain, not SOB, no abd pain. Is making urine and one episode of incontinence today as per RN. Afebrile. NSR on tele All Other Systems: Reviewed and Negative Objective Vital Signs Date Time Temp Pulse Resp B/P (MAP) Pulse Ox O2 Delivery O2 Flow Rate FiO2 05/24/17 19:16 36.8 62 18 157/71 (99) 100 Nasal Cannula 2.0 05/24/17 17:02 63 05/24/17 16:00 Room Air 05/24/17 15:45 36.6 51 19 170/65 (100) 100 Nasal Cannula 2.0 05/24/17 12:23 36.6 53 17 136/57 (83) 99 Nasal Cannula 2.0 05/24/17 12:00 Room Air 05/24/17 09:00 Room Air 05/24/17 08:00 36.4 61 18 155/52 (86) 100 Room Air 05/24/17 04:00 Nasal Cannula 2.0 05/24/17 03:50 36.8 66 20 137/80 (99) 98 Nasal Cannula 2.0 05/24/17 02:00 Nasal Cannula 2.0 05/24/17 01:27 36.5 70 16 168/56 Nasal Cannula 2.0 05/24/17 00:47 79 14 147/69 96 05/23/17 23:24 73 14 141/69 96 Nasal Cannula 2.0 05/23/17 22:50 77 05/23/17 21:18 74 18 129/50 97 Room Air 05/23/17 21:01 96 Room Air 05/23/17 21:01 36.9 80 16 110/56 96 Room Air Physical Exam General Appearance: WD/WN, no apparent distress Eyes: normal inspection, sclerae normal ENT: hearing grossly normal Neck: trachea midline Respiratory/Chest: lungs clear, normal breath sounds, no respiratory distress, no accessory muscle use Cardiovascular: regular rate, rhythm, no edema, no gallop, + systolic murmur (2 /6 at LUSB) Abdomen: normal bowel sounds, non tender, soft, + hernia (large RIH) Extremities: non-tender, normal inspection, no pedal edema, no calf tenderness Neurologic/Psychiatric: alert, + disoriented (oriented to person, place, but off on Month and date, got year) Skin: normal color, warm/dry, no rash Laboratory Results Last 24 Hours Test 05/23/17 20:30 05/23/17 21:43 05/23/17 21:58 05/23/17 22:01 Sodium Level 139 mmol/L Potassium Level 4.0 mmol/L Chloride Level 106 mmol/L Carbon Dioxide Level 24 mmol/L Anion Gap 10.0 mmol/L Blood Urea Nitrogen 44 mg/dl Creatinine 2.30 mg/dl Est Creatinine Clear Calc Drug Dose 23.8 ml/min Estimated GFR () 29.3 Estimated GFR (Non- 25.3 BUN/Creatinine Ratio 19.2 Random Glucose 149 mg/dl Calcium Level 10.1 mg/dl Total Bilirubin 0.7 mg/dl Direct Bilirubin 0.3 mg/dl Aspartate Amino Transf (AST/SGOT) 71 U/L Alanine Aminotransferase (ALT/SGPT) 35 U/L Alkaline Phosphatase 51 U/L Total Protein 7.2 gm/dl Albumin 3.6 gm/dl Bedside Glucose 123 mg/dl Urine Color DK YELLOW Urine Appearance TURBID Urine pH 5.0 Urine Specific [place] 1.023 Urine Protein 2+ Urine Glucose (UA) NEG Urine Ketones TRACE Urine Occult Blood 3+ Urine Nitrite POS Urine Bilirubin NEG Urine Urobilinogen NEG Urine Leukocyte Esterase LARGE Urine WBC (Auto) >30 /hpf Urine RBC (Auto) 10-30 /hpf Urine Hyaline Casts (Auto) 10-30 /lpf Urine Epithelial Cells (Auto) 20-30 /lpf Urine Bacteria (Auto) 4+ Urine Pathogenic Casts /lpf Urine Yeast (Auto) PRESENT Urine Opiates Screen NEG Urine Methadone, Qualitative NEG Urine Barbiturates NEG Urine Phencyclidine (PCP) Level NEG Ur Amphetamine/Methamphetamine NEG MDMA (Ecstasy) Screen NEG Urine Benzodiazepines Screen NEG Urine Cocaine Metabolite NEG Urine Marijuana (THC) NEG Bedside Troponin I 0.110 ng/ml Test 05/23/17 22:09 05/23/17 23:28 05/24/17 06:21 05/24/17 08:51 White Blood Count 17.16 K/uL 12.53 K/uL Red Blood Count 3.69 M/uL 3.29 M/uL Hemoglobin 11.2 g/dL 10.1 g/dL Hematocrit 33.9 % 30.1 % Mean Corpuscular Volume 91.9 fL 91.5 fL Mean Corpuscular Hemoglobin 30.4 pg 30.7 pg Mean Corpuscular Hemoglobin Concent 33.0 g/dl 33.6 g/dl Platelet Count 336 K/uL 311 K/uL Mean Platelet Volume 10.8 fL 10.4 fL Neutrophils (%) (Auto) 83.0 % 75.2 % Lymphocytes (%) (Auto) 6.5 % 12.3 % Monocytes (%) (Auto) 10.0 % 11.6 % Eosinophils (%) (Auto) 0.1 % 0.2 % Basophils (%) (Auto) 0.1 % 0.2 % Neutrophils # (Auto) 14.26 K/uL 9.44 K/uL Lymphocytes # (Auto) 1.11 K/uL 1.54 K/uL Monocytes # (Auto) 1.71 K/uL 1.45 K/uL Eosinophils # (Auto) 0.01 K/uL 0.02 K/uL Basophils # (Auto) 0.01 K/uL 0.02 K/uL RDW Standard Deviation 46.0 fL 46.6 fL RDW Coefficient of Variation 13.7 % 13.9 % Immature Granulocyte % (Auto) 0.3 % 0.5 % Immature Granulocyte # (Auto) 0.06 K/uL 0.06 K/uL Prothrombin Time 10.6 SECONDS Prothromb Time International Ratio 1.0 Activated Partial Thromboplast Time 32.9 SECONDS Partial Thromboplastin Ratio 1.3 Salicylates Level < 1.7 mg/dl Acetaminophen Level < 2 ug/ml Ethyl Alcohol mg/dL < 3.0 mg/dl Bedside Lactic Acid Venous 1.11 mmol/L Creatinine 1.90 mg/dl Est Creatinine Clear Calc Drug Dose 28.3 ml/min Estimated GFR () 37.0 Estimated GFR (Non- 31.9 Total Creatine Kinase 404 U/L Creatine Kinase MB 2.0 ng/ml Creatine Kinase MB Ratio 0.5 Troponin I 0.045 ng/ml Test 05/24/17 15:11 Total Creatine Kinase 327 U/L Creatine Kinase MB 1.7 ng/ml Creatine Kinase MB Ratio 0.5 Troponin I 0.030 ng/ml Assessment and Plan The patient is an 81-year-old male who presented via EMS with complaint of persistent weakness that began earlier in the day. EMS reports that when they arrived at his home there was stool on the floor that the patient reports he was feeling too weak to clean up. When he awoke night before last, he thought he was at a [employer] estate in [place], however he was still asleep in his office. Last night, he again woke up in his office. He was found to have a UTI and leukocytosis with WBC count 17k. No fevers, no sepsis. He did also have SELINA with household appliance assembler 2.3 on admission up from baseline of 0.9. Acute metabolic encephalopathy, UTI--> UA grossly abnormal, Ur cx not collected prior to starting abx. WBC count trending downward from 17k-->12k. Remains afebrile. Mentation improved today as per RN who had him on admission last night. 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 could be dehydration as BUN/household appliance assembler ration increased at 19.3. With UTI, could be some intrinsic renal failure as well. Improved to household appliance assembler 1.9 today -continue treating UTI -continue IVFs -follow PRP -renally dose meds and avoid nephrotoxins -check renal US CAD/hypertension/history of NSTEMI with BMS placement/paroxysmal atrial fibrillation--remains in NSR here on tele Troponin mildly elevated at 0.110 and trended downward for next 2 sets-likely demand ischemia and also with decreased renal function Continue aspirin 81, clopidogrel 75 -continue amlodipine 5 mg by mouth daily and split losartan from 320 mg by mouth daily to 160 mg by mouth twice a day in acute setting -for A-fib, continue digoxin 0.125 mg by mouth daily, and metoprolol tartrate 25 mg by mouth twice a day, Hyperlipidemia-- Continue atorvastatin 40 mg by mouth daily and fenofibrate 145 mg by mouth daily. Peripheral neuropathy--stable - continue gabapentin 3 mg by mouth twice a day. 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 Could be followed as an outpatient but will need more accurate history, pt still a bit confused today -follow as outpt -consider Neuro consult Elevated AST-mild elevateion at 71, could be from mild rhabdo -follow LFTs in AM -IVF hydration Proph-heparin SQ Dispo-PT/OT consults, may need SNF or acute rehab but pt delcining at this time , son does not want pt living alone Full CODE
[2017-05-24] MEDS: HEPARIN SOD 5000 UNIT/0.5 ML CARP SQ SCH (22:31)
[2017-05-25] VITALS (8 sets, daily range): BP systolic 149–183; BP diastolic 63–76; PULSE 54–62; TEMP 36.2–36.8; O2SAT 97–99
--- NOTE | 2017-05-25 05:44 | DIAGNOSTIC IMAGING REPORT ---
(RENAL)RETROPERITON COMP CLINICAL HISTORY: 81 years-old Male presenting with acute kidney injury. TECHNIQUE: Real-time grayscale and limited color Doppler ultrasound imaging of the kidneys and bladder was performed. COMPARISON: None. FINDINGS: Right kidney: Mildly increased parenchymal echogenicity. Right kidney measures 11.3 cm. No hydronephrosis. 2.8 cm lower pole well-defined simple appearing cyst. Normal perfusion. Left kidney: Mildly increased parenchymal echogenicity. Left kidney measures 10.9 cm. No hydronephrosis. 3.1 cm anechoic well-defined lesion consistent with a simple cyst. Normal perfusion. Bladder: No bladder wall thickening. Bilateral ureteral jets not visualized. Other: None. IMPRESSION: 1. Mildly increased renal parenchymal echogenicity could suggest medical renal disease. No obstruction. Electronically signed by: Freddie Guevara M.D. 05/25/2017 5:43 AM Dictated Date/Time: 05/25/2017 5:41 AM
[2017-05-25] MEDS: PIPERACILL/TAZOBAC IV 3.375 GM in DEXTROSE 5% 100ML IV SCH ×3 (06:06→22:16)
[2017-05-25] MEDS: HEPARIN SOD 5000 UNIT/0.5 ML CARP SQ SCH ×3 (06:08→21:04)
[2017-05-25 07:54] LABS: BUN/CREATININE RATIO 23.5 (10-20); CREATININE 1.5 mg/dl (0.60-1.40); MAGNESIUM 2.2 mg/dl (1.8-2.4); POTASSIUM 3.9 mmol/L (3.5-5.1)
[2017-05-25 08:23] LABS: BASO % 0.1 %; BASO ABS # 0.01 K/uL (0-0.2); COMPLETE YES; EOS % 1.9 %; HEMATOCRIT 32.6 % (42-52); IG% 0.1 %; LYMPH % 16.6 %; LYMPH ABS # 1.24 K/uL (1.2-3.4); MEAN CELL VOLUME 92.9 fL (80-100); MEAN CORPUSCULAR HEMOGLOBIN 30.2 pg (25-34); MEAN CORPUSCULAR HGB CONC 32.5 g/dl (32-36); MEAN PLATELET VOLUME 10.6 fL (7.4-10.4); MONO % 12.9 %; NEUT % 68.4 %; PLATELET COUNT 330 K/uL (130-400); RED BLOOD COUNT 3.51 M/uL (4.7-6.1); WHITE BLOOD COUNT 7.45 K/uL (4.8-10.8)
[2017-05-25] MEDS: METOPROLOL TARTRATE 25 MG TAB PO SCH ×2 (09:00→21:03)
[2017-05-25] MEDS: ATORVASTATIN 20 MG TAB PO SCH (09:23)
[2017-05-25] MEDS: CLOPIDOGREL BISULFATE 75 MG TAB PO SCH (09:24)
[2017-05-25] MEDS: ASPIRIN 81 MG ECTAB PO SCH (09:24)
[2017-05-25] MEDS: VALSARTAN 80 MG TAB PO SCH ×2 (09:24→21:04)
[2017-05-25] MEDS: GABAPENTIN 300 MG CAP PO SCH ×2 (09:25→21:04)
[2017-05-25] MEDS: AMLODIPINE BESYLATE 5 MG TAB PO SCH (09:25)
[2017-05-25] MEDS: FENOFIBRATE 145 MG TAB PO SCH (09:25)
[2017-05-25] MEDS ORDERED: METOPROLOL TARTRATE 1 MG/ML VIAL ONE (10:29)
--- NOTE | 2017-05-25 11:49 | Hospitalist Progress Note ---
Hospitalist Progress Note Date of Service May 25, 2017. Subjective Pt evaluation today including: conversation w/ patient, conversation w/ family Voiding: no voiding problems (no further incontinence) Feeling much better today, is OOB to chair, mentally clear, son present and says his dad is back to his normal mental status. Pt denies any pain except in knees at site of abrasions from fall. Afebrile. All Other Systems: Reviewed and Negative Objective Vital Signs Date Time Temp Pulse Resp B/P (MAP) Pulse Ox O2 Delivery O2 Flow Rate FiO2 05/25/17 08:00 Nasal Cannula 2.0 05/25/17 07:40 36.3 58 16 151/63 (92) 99 2.0 05/25/17 04:08 36.2 59 20 159/65 (96) 98 Nasal Cannula 2.0 05/25/17 04:00 Nasal Cannula 2.0 05/25/17 00:00 Nasal Cannula 2.0 05/24/17 23:27 37.0 55 20 160/54 (89) 99 Nasal Cannula 2.0 160/70 (100) 05/24/17 20:00 Nasal Cannula 2.0 05/24/17 19:16 36.8 62 18 157/71 (99) 100 Nasal Cannula 2.0 05/24/17 17:02 63 05/24/17 16:00 Room Air 05/24/17 15:45 36.6 51 19 170/65 (100) 100 Nasal Cannula 2.0 05/24/17 12:23 36.6 53 17 136/57 (83) 99 Nasal Cannula 2.0 05/24/17 12:00 Room Air Physical Exam General Appearance: WD/WN, no apparent distress Eyes: normal inspection, sclerae normal ENT: hearing grossly normal Neck: trachea midline Respiratory/Chest: lungs clear, normal breath sounds, no respiratory distress, no accessory muscle use Cardiovascular: regular rate, rhythm, no edema, no murmur Abdomen: normal bowel sounds, non tender, soft, no organomegaly Extremities: normal range of motion, no pedal edema, no calf tenderness, + pertinent finding (right knee with abrasion and scab, left knee with small ecchymosis, mild tenderness) Neurologic/Psychiatric: alert, normal mood/affect, oriented x 3 Skin: normal color, warm/dry Laboratory Results Last 24 Hours Test 05/24/17 15:11 05/25/17 07:01 05/25/17 09:14 Total Creatine Kinase 327 U/L Creatine Kinase MB 1.7 ng/ml Creatine Kinase MB Ratio 0.5 Troponin I 0.030 ng/ml White Blood Count 7.45 K/uL Red Blood Count 3.51 M/uL Hemoglobin 10.6 g/dL Hematocrit 32.6 % Mean Corpuscular Volume 92.9 fL Mean Corpuscular Hemoglobin 30.2 pg Mean Corpuscular Hemoglobin Concent 32.5 g/dl Platelet Count 330 K/uL Mean Platelet Volume 10.6 fL Neutrophils (%) (Auto) 68.4 % Lymphocytes (%) (Auto) 16.6 % Monocytes (%) (Auto) 12.9 % Eosinophils (%) (Auto) 1.9 % Basophils (%) (Auto) 0.1 % Neutrophils # (Auto) 5.09 K/uL Lymphocytes # (Auto) 1.24 K/uL Monocytes # (Auto) 0.96 K/uL Eosinophils # (Auto) 0.14 K/uL Basophils # (Auto) 0.01 K/uL RDW Standard Deviation 47.4 fL RDW Coefficient of Variation 14.0 % Immature Granulocyte % (Auto) 0.1 % Immature Granulocyte # (Auto) 0.01 K/uL Sodium Level 142 mmol/L Potassium Level 3.9 mmol/L Chloride Level 110 mmol/L Carbon Dioxide Level 26 mmol/L Anion Gap 6.0 mmol/L Blood Urea Nitrogen 35 mg/dl Creatinine 1.50 mg/dl Est Creatinine Clear Calc Drug Dose 35.8 ml/min Estimated GFR () 49.2 Estimated GFR (Non- 42.4 BUN/Creatinine Ratio 23.5 Random Glucose 91 mg/dl Calcium Level 9.0 mg/dl Magnesium Level 2.2 mg/dl Total Bilirubin 0.5 mg/dl Direct Bilirubin 0.2 mg/dl Aspartate Amino Transf (AST/SGOT) 47 U/L Alanine Aminotransferase (ALT/SGPT) 26 U/L Alkaline Phosphatase 37 U/L Total Protein 5.7 gm/dl Albumin 2.7 gm/dl Stool Occult Blood POSITIVE Assessment and Plan The patient is an 81-year-old male who presented via EMS with complaint of persistent weakness that began earlier in the day. EMS reports that when they arrived at his home there was urine and stool all over the floor that the patient reports he was feeling too weak to clean up. When he awoke, he thought he was at a [employer] [place] in [place], however he was still asleep in his office. He was found to have a UTI and leukocytosis with WBC count 17k. No fevers, no sepsis. He did also have SELINA with hotel director 2.3 on admission up from baseline of 0.9. Acute metabolic encephalopathy, UTI--> UA grossly abnormal, Ur cx not collected prior to starting abx. WBC count trending downward from 17k-->12k->7. Remains afebrile. Mentation completely improved today CPK mildly elevated at 404 and now trending downward, likely from being found down on ground for unknown length of time-mild rhabdomyolysis -follow Ur cx and BCxs -continue Zosyn, dcd Vanco--> will switch to po abx after Ur cx resulted likely tomorrow -dc IVFs Acute kidney injury--hotel director 2.3 on admission up from baseline 0.9. could be dehydration as BUN/hotel director ration increased at 19.3. With UTI, could be some intrinsic renal failure as well. Improved to hotel director 1.5 today after IVFs and tx UTI Renal US medical renal disease, no obstruction -continue treating UTI -dc IVFs, taking po -follow PRP -renally dose meds and avoid nephrotoxins CAD/hypertension/history of NSTEMI with BMS placement 05/2016/paroxysmal atrial fibrillation--continues to remain in NSR here on tele with occasional PVCs, some SB mid-high 50s Troponin mildly elevated at 0.110 and trended downward for next 2 sets-likely demand ischemia and also with decreased renal function Not on AC for PAF as per Cardiology notes 05/2016 for fall risk, remains in NSR here anyway so will not introduce AC at this time -Continue aspirin 81, clopidogrel 75 -continue amlodipine 5 mg by mouth daily and split losartan from 320 mg by mouth daily to 160 mg by mouth twice a day in acute setting -for A-fib, continue digoxin 0.125 mg by mouth daily, and metoprolol tartrate 25 mg by mouth twice a day Hyperlipidemia-- Continue atorvastatin 40 mg by mouth daily and fenofibrate 145 mg by mouth daily. Peripheral neuropathy--stable - continue gabapentin 3 mg by mouth twice a day. 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 Could be followed as an outpatient -follow as outpt -consider Neuro consult/referral as outpt Elevated AST-mild elevation at 71, could be from mild rhabdo--> now improved to 41 Received IVF hydration with improvement -no need to repeat LFTs Normocytic anemia- Heme+ stool today occult, never had colonoscopy and does not want one, stable for the most part since Hgb last year. Had GI consult last year and determined no need for scopes unless had heavy gross bleeding. -Discussed with pt and his son today who are in agreement -he is on Fe pill at home and has dark stools -Fe tab not on home med rec? -restart Fe tab here -check Fe studies, B12, folate although normal 1 yr ago Proph-heparin SQ Dispo-PT/OT consults, will need SNF or rehab--> pt and son requesting [facility] in [place] near where son lives which is where he went last year after an admission here Likely dc tomorrow if possible and if Ur cx returned and renal function continues to improve Full CODE
[2017-05-25] MEDS: DIGOXIN 0.125 MG TAB PO SCH (15:53)
[2017-05-26] VITALS (8 sets, daily range): BP systolic 143–180; BP diastolic 66–73; PULSE 57–98; TEMP 36.4–37; O2SAT 95–98
[2017-05-26] MEDS: PIPERACILL/TAZOBAC IV 3.375 GM in DEXTROSE 5% 100ML IV SCH ×3 (05:22→21:31)
[2017-05-26] MEDS: HEPARIN SOD 5000 UNIT/0.5 ML CARP SQ SCH ×3 (05:29→20:16)
[2017-05-26 06:35] LABS: BASO % 0.5 %; BASO ABS # 0.03 K/uL (0-0.2); COMPLETE YES; EOS % 4.1 %; HEMATOCRIT 29.8 % (42-52); IG% 0.7 %; LYMPH % 28.8 %; LYMPH ABS # 1.61 K/uL (1.2-3.4); MEAN CELL VOLUME 92.5 fL (80-100); MEAN CORPUSCULAR HEMOGLOBIN 31.4 pg (25-34); MEAN CORPUSCULAR HGB CONC 33.9 g/dl (32-36); MEAN PLATELET VOLUME 10.3 fL (7.4-10.4); MONO % 16.3 %; NEUT % 49.6 %; PLATELET COUNT 313 K/uL (130-400); RED BLOOD COUNT 3.22 M/uL (4.7-6.1)
[2017-05-26 06:58] LABS: BUN/CREATININE RATIO 23.2 (10-20); CREATININE 1.4 mg/dl (0.60-1.40); POTASSIUM 4.1 mmol/L (3.5-5.1)
[2017-05-26 07:07] LABS: FERRITIN 323.8 ng/ml (8.0-388.0); MAGNESIUM 2.1 mg/dl (1.8-2.4)
[2017-05-26] MEDS: FENOFIBRATE 145 MG TAB PO SCH (07:59)
[2017-05-26] MEDS: AMLODIPINE BESYLATE 5 MG TAB PO SCH (08:00)
[2017-05-26] MEDS: CLOPIDOGREL BISULFATE 75 MG TAB PO SCH (08:00)
[2017-05-26] MEDS: ASPIRIN 81 MG ECTAB PO SCH (08:01)
[2017-05-26] MEDS: ATORVASTATIN 20 MG TAB PO SCH (08:01)
[2017-05-26] MEDS: METOPROLOL TARTRATE 25 MG TAB PO SCH ×2 (08:02→20:14)
[2017-05-26] MEDS: GABAPENTIN 300 MG CAP PO SCH ×2 (08:02→20:14)
[2017-05-26] MEDS: VALSARTAN 80 MG TAB PO SCH (08:03)
--- NOTE | 2017-05-26 08:14 | Family Medicine Progress Note ---
Progress Note Date of Service May 26, 2017. Subjective Pt evaluation today including: conversation w/ patient, physical exam, chart review, lab review, review of studies, conversation w/ client support consultant, review of inpatient medication list patient doing well, denies daily acute overnight events. he is alert and oriented today, and denies any chest pain, shortness of breath, abdominal pain or back pain. plans of rehabilitation were discussed and patient believes that a short time incidence during rehabilitation would be beneficial for him. Otherwise patient is tolerating diet, voiding and stooling appropriately. All Other Systems: Reviewed and Negative Objective Vital Signs Date Time Temp Pulse Resp B/P (MAP) Pulse Ox O2 Delivery O2 Flow Rate FiO2 05/26/17 07:26 36.8 59 20 176/69 (104) 97 Room Air 05/26/17 00:18 37.0 71 16 143/72 (95) 95 Room Air 05/25/17 23:45 Room Air 05/25/17 21:02 62 183/65 (104) 05/25/17 16:21 97 Room Air 05/25/17 15:53 54 05/25/17 15:53 54 05/25/17 15:49 36.4 58 18 149/76 (100) 97 Room Air 05/25/17 14:52 36.8 61 16 97 2.0 05/25/17 12:00 Room Air 05/25/17 11:45 36.8 61 16 149/67 (94) 97 Room Air Physical Exam General Appearance: WD/WN, no apparent distress ENT: hearing grossly normal Neck: supple, no adenopathy Respiratory/Chest: lungs clear, normal breath sounds, no respiratory distress, no accessory muscle use Cardiovascular: regular rate, rhythm, no murmur Abdomen: normal bowel sounds, non tender, soft Extremities: normal inspection, no pedal edema, no calf tenderness Neurologic/Psychiatric: alert, normal mood/affect, oriented x 3 Skin: normal color, warm/dry, no rash Laboratory Results Results Past 24 Hours Test 05/26/17 06:03 05/26/17 19:35 05/27/17 04:44 Range/Units White Blood Count 5.60 4.8-10.8 K/uL Red Blood Count 3.22 4.7-6.1 M/uL Hemoglobin 10.1 14.0-18.0 g/dL Hematocrit 29.8 42-52 % Mean Corpuscular Volume 92.5 80-100 fL Mean Corpuscular Hemoglobin 31.4 25-34 pg Mean Corpuscular Hemoglobin Concent 33.9 32-36 g/dl Platelet Count 313 130-400 K/uL Mean Platelet Volume 10.3 7.4-10.4 fL Neutrophils (%) (Auto) 49.6 % Lymphocytes (%) (Auto) 28.8 % Monocytes (%) (Auto) 16.3 % Eosinophils (%) (Auto) 4.1 % Basophils (%) (Auto) 0.5 % Neutrophils # (Auto) 2.78 1.4-6.5 K/uL Lymphocytes # (Auto) 1.61 1.2-3.4 K/uL Monocytes # (Auto) 0.91 0.11-0.59 K/uL Eosinophils # (Auto) 0.23 0-0.5 K/uL Basophils # (Auto) 0.03 0-0.2 K/uL RDW Standard Deviation 46.9 36.4-46.3 fL RDW Coefficient of Variation 13.7 11.5-14.5 % Immature Granulocyte % (Auto) 0.7 % Immature Granulocyte # (Auto) 0.04 0.00-0.02 K/uL Sodium Level 142 136-145 mmol/L Potassium Level 4.1 3.5-5.1 mmol/L Chloride Level 109 98-107 mmol/L Carbon Dioxide Level 25 21-32 mmol/L Anion Gap 8.0 3-11 mmol/L Blood Urea Nitrogen 33 7-18 mg/dl Creatinine 1.40 0.60-1.40 mg/dl Est Creatinine Clear Calc Drug Dose 38.4 ml/min Estimated GFR () 53.5 Estimated GFR (Non- 46.1 BUN/Creatinine Ratio 23.2 10-20 Random Glucose 106 70-99 mg/dl Calcium Level 9.0 8.5-10.1 mg/dl Magnesium Level 2.1 1.8-2.4 mg/dl Iron Level 87 35-175 mcg/dl Total Iron Binding Capacity 193 250-450 mcg/dl Transferrin 156 200-360 mg/dl Transferrin % Saturation 40 20-50 % Ferritin 323.8 8.0-388.0 ng/ml Vitamin B12 Level 286 211-911 pg/mL Folate 16.30 >5.38 ng/mL Bedside Glucose 125 70-99 mg/dl Assessment and Plan 81 year old male who presented via EMS with complaint of persistent weakness that began earlier in the day. EMS reports that when they arrived at his home there was urine and stool all over the floor that the patient reports he was feeling too weak to clean up. When he awoke, he thought he was at a [employer] estate in [place], however he was still asleep in his office. He was found to have a UTI and leukocytosis with WBC count 17k. No fevers, no sepsis. He did also have SELINA with Cr 2.3 on admission up from baseline of 0.9. Empiric antibiotics have led to improved cell count and improved mentation. Acute metabolic encephalopathy likely secondary to UTI --> UA grossly abnormal, Ur cx not collected prior to starting abx, and thus cultures show little growth. Prelim BCx negative. WBC count trending downward from 17k-->12k->7. Remains afebrile. Mentation completely improved today CPK mildly elevated at 404 and now trending downward, likely from being found down on ground for unknown length of time-mild rhabdomyolysis -continue Zosyn, dc'd Vanco, with plans to switch to po Levaquin for 14 day course total -dc IVFs Acute kidney injury--> Cr 2.3 on admission up from baseline 0.9. 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 With UTI, could be some intrinsic renal failure as well. Renal US medical renal disease, no obstruction. Cr continues to improve after IVFs and tx UTI -continue UTI treatment -trend BMP -renally dose meds and avoid nephrotoxins Normocytic anemia- Heme+ stool today occult, never had colonoscopy and does not want one, stable for the most part since Hgb last year. Had GI consult last year and determined no need for scopes unless had heavy gross bleeding. Discussed with pt and his son who are in agreement. He is on Fe pill at home and has dark stools -Fe tab not on home med rec? Fe studies consistent with anemia of chronic disease and B12 deficiency -continue Fe supplementation -IM B12 supplementation given today, and for PO cobalamin 1000mcg daily CAD/hypertension/history of NSTEMI s/p BMS placement (05/2016)/paroxysmal atrial fibrillation--continues to remain in NSR here on tele with occasional PVCs, some SB mid-high 50s. Troponin mildly elevated at 0.110 and trended downward for next 2 sets-likely demand ischemia and also with decreased renal function Not on AC for PAF as per Cardiology notes 05/2016 for fall risk, remains in NSR here anyway so will not introduce AC at this time -continue aspirin 81mg, clopidogrel 75mg -continue PO amlodipine 5mg and losartan 160 mg BID in acute setting. Change back to losartan 320mg daily on dc. -for A-fib, continue digoxin 0.125mg daily and metoprolol tartrate 25 mg BID Hyperlipidemia-- -continue atorvastatin 40mg daily and fenofibrate 145mg daily. Peripheral neuropathy--stable -continue gabapentin 3mg BID. 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 Could be followed as an outpatient -Neuro consult/referral as outpt for further evaluation in 1-2 weeks from discharge Elevated AST-mild elevation at 71, could be from mild rhabdo--> now improved to 41. Received IVF hydration with improvement -no need to repeat LFTs VTE PPx -heparin SQ Dispo -PT/OT consults, will need SNF or rehab--> pt and son requesting [facility] in [place] near where son lives which is where he went last year after an admission here -dc pending insurance approval Full CODE Continued [facility] stay due to: home environment unsafe for pt Discharge planning: long-term facility Resident Tracking Resident Involvement: Resident Care Provided Care Provided: Adult Hospital Medicine Reviewed: Pt Seen/Exam by Me History Resident Physician Supervision Note: I interviewed and examined the patient. Discussed with Dr. Beckwith and agree with findings and plan as documented in the note. Any exceptions or clarifications are listed here: Pt doing very well, no complaints, anxious for discharge Vitals reviewed Physical Exam General Appearance: WD/WN, no apparent distress Eyes: normal inspection, sclerae normal ENT: hearing grossly normal Neck: trachea midline Respiratory/Chest: lungs clear, normal breath sounds, no respiratory distress, no accessory muscle use Cardiovascular: regular rate, rhythm, no edema, no murmur Abdomen: normal bowel sounds, non tender, soft, no organomegaly Extremities: normal range of motion, no pedal edema, no calf tenderness, + pertinent finding (right knee with abrasion and scab, left knee with small ecchymosis, mild tenderness) Neurologic/Psychiatric: alert, normal mood/affect, oriented x 3 Skin: normal color, warm/dry 81 yo male here with acute encephalopathy and UTI, sepsis. Greatly improved -discharge as soon as arrangements can be made on po Levaquin for total 14 days -all other plan as per Resident note Documented by Joyce Howard M.D.
[2017-05-26] MEDS ORDERED: FERROUS SULFATE 325 MG TAB PO SCH (09:00)
[2017-05-26] MEDS ORDERED: VALSARTAN 80 MG TAB PO ONE (11:30)
[2017-05-26] MEDS ORDERED: CYANOCOBALAMIN 1000 MCG/ML VIAL IM ONE (11:30)
[2017-05-26] MEDS: DIGOXIN 0.125 MG TAB PO SCH (15:27)
[2017-05-27] VITALS (8 sets, daily range): BP systolic 114–176; BP diastolic 63–73; PULSE 56–67; TEMP 36.6–36.8; O2SAT 95–98
[2017-05-27] MEDS: PIPERACILL/TAZOBAC IV 3.375 GM in DEXTROSE 5% 100ML IV SCH ×3 (05:57→21:49)
[2017-05-27] MEDS: HEPARIN SOD 5000 UNIT/0.5 ML CARP SQ SCH ×3 (06:00→21:52)
[2017-05-27 07:58] LABS: BASO % 0.2 %; BASO ABS # 0.01 K/uL (0-0.2); COMPLETE YES; IG% 1.3 %; LYMPH % 32.8 %; LYMPH ABS # 2.03 K/uL (1.2-3.4); MEAN CELL VOLUME 92.5 fL (80-100); MEAN CORPUSCULAR HEMOGLOBIN 30.9 pg (25-34); MEAN CORPUSCULAR HGB CONC 33.4 g/dl (32-36); MEAN PLATELET VOLUME 10.1 fL (7.4-10.4); MONO % 12.1 %; NEUT % 49.6 %; PLATELET COUNT 363 K/uL (130-400); RED BLOOD COUNT 3.46 M/uL (4.7-6.1); WHITE BLOOD COUNT 6.18 K/uL (4.8-10.8)
[2017-05-27] MEDS: GABAPENTIN 300 MG CAP PO SCH ×2 (08:11→21:49)
[2017-05-27] MEDS: VALSARTAN 80 MG TAB PO SCH (08:11)
[2017-05-27] MEDS: ATORVASTATIN 20 MG TAB PO SCH (08:12)
[2017-05-27] MEDS: FENOFIBRATE 145 MG TAB PO SCH (08:12)
[2017-05-27] MEDS: AMLODIPINE BESYLATE 5 MG TAB PO SCH (08:12)
[2017-05-27] MEDS: CYANOCOBALAMIN 500 MCG TAB (VIT B-12) PO SCH (08:12)
[2017-05-27] MEDS: CLOPIDOGREL BISULFATE 75 MG TAB PO SCH (08:13)
[2017-05-27] MEDS: ASPIRIN 81 MG ECTAB PO SCH (08:13)
[2017-05-27] MEDS: ACETAMINOPHEN 325 MG TAB PO PRN (08:17)
[2017-05-27 08:41] LABS: BUN/CREATININE RATIO 14.6 (10-20); CALCIUM 9.8 mg/dl (8.5-10.1); CREATININE 1.5 mg/dl (0.60-1.40); POTASSIUM 4.1 mmol/L (3.5-5.1)
[2017-05-27] MEDS: METOPROLOL TARTRATE 25 MG TAB PO SCH ×2 (11:27→21:49)
--- NOTE | 2017-05-27 11:48 | Clinical Documentation Query ---
Dr. CONSTANTINO, [facility] : CLINICAL DOCUMENTATION QUERY Please document the POA status of the diagnosis of "sepsis". In your clinical opinion is this patient being managed for: ( x ) Sepsis secondary to UTI, POA ( ) Sepsis secondary to UTI, not POA The medical record reflects the following clinical findings, treatment, and risk factors. Please clarify and document your clinical opinion in the progress notes and discharge summary. Terms such as "probable", "suspected", "likely", "questionable", "possible", or "still to be ruled out" are acceptable. IF IN AGREEMENT, YOU MUST DOCUMENT ABOVE DIAGNOSTIC STATEMENT IN DAILY PROGRESS NOTES AND DISCHARGE SUMMARY. This document is not part of the patient's record. Thank You, Jamir Boyer RN [phone]
[2017-05-27] MEDS ORDERED: DIGOXIN 0.125 MG TAB PO SCH (16:00)
[2017-05-28 00:44] VITALS: BP 138/62; PULSE 57; TEMP 36.4; O2SAT 94
--- NOTE | 2017-05-28 03:35 | Family Medicine Progress Note ---
Progress Note Date of Service May 27, 2017. Subjective Pt evaluation today including: conversation w/ patient, physical exam, chart review, lab review, review of studies, conversation w/ [employer] ebs consultant, review of inpatient medication list Patient is well this morning,he denies acute overnight events. He is slightly agitated at still being in the hospital and says that he would like to get to a SNF so he can be rehabilitated, as he does not feel that he is getting adequate rehabilitation here. He otherwise denies chest pain, shortness of breath, abdominal pain, back pain, or urinary symptoms. All Other Systems: Reviewed and Negative Objective Vital Signs Date Time Temp Pulse Resp B/P (MAP) Pulse Ox O2 Delivery O2 Flow Rate FiO2 05/28/17 00:44 36.4 57 18 138/62 (87) 94 Room Air 05/28/17 00:00 Room Air 05/27/17 19:59 36.8 67 20 154/66 (95) 96 Room Air 05/27/17 16:00 98 Room Air 05/27/17 16:00 59 05/27/17 15:28 36.6 62 20 114/65 (81) 96 Room Air 05/27/17 11:43 98 Room Air 05/27/17 09:41 36.7 66 18 162/64 (96) 98 Room Air 05/27/17 08:00 95 Room Air 05/27/17 07:18 36.7 56 18 176/63 (100) 95 Room Air Physical Exam General Appearance: WD/WN, no apparent distress Eyes: normal inspection ENT: hearing grossly normal Neck: supple Respiratory/Chest: lungs clear, normal breath sounds, no respiratory distress, no accessory muscle use Cardiovascular: regular rate, rhythm, no edema, no murmur Abdomen: normal bowel sounds, non tender, soft Extremities: no pedal edema, no calf tenderness, + pertinent finding (scabbed abrasions on both knees) Neurologic/Psychiatric: alert, normal mood/affect, oriented x 3 Skin: normal color, warm/dry, no rash Laboratory Results Results Past 24 Hours Test 05/27/17 07:17 05/27/17 11:06 Range/Units White Blood Count 6.18 4.8-10.8 K/uL Red Blood Count 3.46 4.7-6.1 M/uL Hemoglobin 10.7 14.0-18.0 g/dL Hematocrit 32.0 42-52 % Mean Corpuscular Volume 92.5 80-100 fL Mean Corpuscular Hemoglobin 30.9 25-34 pg Mean Corpuscular Hemoglobin Concent 33.4 32-36 g/dl Platelet Count 363 130-400 K/uL Mean Platelet Volume 10.1 7.4-10.4 fL Neutrophils (%) (Auto) 49.6 % Lymphocytes (%) (Auto) 32.8 % Monocytes (%) (Auto) 12.1 % Eosinophils (%) (Auto) 4.0 % Basophils (%) (Auto) 0.2 % Neutrophils # (Auto) 3.06 1.4-6.5 K/uL Lymphocytes # (Auto) 2.03 1.2-3.4 K/uL Monocytes # (Auto) 0.75 0.11-0.59 K/uL Eosinophils # (Auto) 0.25 0-0.5 K/uL Basophils # (Auto) 0.01 0-0.2 K/uL RDW Standard Deviation 47.0 36.4-46.3 fL RDW Coefficient of Variation 13.8 11.5-14.5 % Immature Granulocyte % (Auto) 1.3 % Immature Granulocyte # (Auto) 0.08 0.00-0.02 K/uL Sodium Level 142 136-145 mmol/L Potassium Level 4.1 3.5-5.1 mmol/L Chloride Level 108 98-107 mmol/L Carbon Dioxide Level 29 21-32 mmol/L Anion Gap 6.0 3-11 mmol/L Blood Urea Nitrogen 22 7-18 mg/dl Creatinine 1.50 0.60-1.40 mg/dl Est Creatinine Clear Calc Drug Dose 35.8 ml/min Estimated GFR () 49.2 Estimated GFR (Non- 42.4 BUN/Creatinine Ratio 14.6 10-20 Random Glucose 98 70-99 mg/dl Calcium Level 9.8 8.5-10.1 mg/dl Digoxin Level 0.5 0.8-2.0 ng/ml Assessment and Plan 81 year old male who presented via EMS with complaint of persistent weakness that began earlier in the day. EMS reports that when they arrived at his home there was urine and stool all over the floor that the patient reports he was feeling too weak to clean up. When he awoke, he thought he was at a [employer] in [place], however he was still asleep in his office. He was found to have a UTI and leukocytosis with WBC count 17k. No fevers, no sepsis. He did also have SELINA with Cr 2.3 on admission up from baseline of 0.9. Empiric antibiotics have led to improved cell count and improved mentation. Acute metabolic encephalopathy likely secondary to UTI --> UA grossly abnormal, Ur cx not collected prior to starting abx, and thus cultures show little growth. Prelim BCx negative. WBC count trending downward from 17k-->12k->7. Remains afebrile. Mentation completely improved today CPK mildly elevated at 404 and now trending downward, likely from being found down on ground for unknown length of time-mild rhabdomyolysis. dc'd IVFs -continue Zosyn, dc'd Vanco, with plans to switch to PO Levaquin for 14 day course total Acute kidney injury--> Cr 2.3 on admission up from baseline 0.9. 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 With UTI, could be some intrinsic renal failure as well. Renal US medical renal disease, no obstruction. Cr continues to improve after IVFs and tx UTI -continue UTI treatment -trend BMP -renally dose meds and avoid nephrotoxins Normocytic anemia- Heme+ stool today occult, never had colonoscopy and does not want one, stable for the most part since Hgb last year. Had GI consult last year and determined no need for scopes unless had heavy gross bleeding. Discussed with pt and his son who are in agreement. He is on Fe pill at home and has dark stools -Fe tab not on home med rec? Fe studies consistent with anemia of chronic disease and B12 deficiency -continue Fe supplementation -continue PO cobalamin 1000mcg daily CAD/hypertension/history of NSTEMI s/p BMS placement (05/2016)/paroxysmal atrial fibrillation--continues to remain in NSR here on tele with occasional PVCs, some SB mid-high 50s. Troponin mildly elevated at 0.110 and trended downward for next 2 sets-likely demand ischemia and also with decreased renal function. Not on AC for PAF as per Cardiology notes 05/2016 for fall risk, remains in NSR here anyway so will not introduce AC at this time -continue aspirin 81mg, clopidogrel 75mg -continue PO amlodipine 5mg and losartan 320mg daily -for A-fib, continue digoxin 0.125mg daily and metoprolol tartrate 25 mg BID -check dig level tomorrow Hyperlipidemia-- -continue atorvastatin 40mg daily and fenofibrate 145mg daily. Peripheral neuropathy--stable -continue gabapentin 3mg BID. 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 Could be followed as an outpatient -Neuro consult/referral as outpt for further evaluation in 1-2 weeks from discharge Elevated AST-mild elevation at 71, could be from mild rhabdo--> now improved to 41. Received IVF hydration with improvement -no need to repeat LFTs VTE PPx -heparin SQ Dispo -PT/OT consults, will need SNF or rehab--> pt and son requesting [facility] in [place] near where son lives which is where he went last year after an admission here -dc pending insurance approval Full CODE Continued [facility] stay due to: home environment unsafe for pt Discharge planning: snf facility Continued [facility] stay due to: home environment unsafe for pt Discharge planning: snf facility Resident Tracking Resident Involvement: Resident Care Provided Care Provided: Adult Hospital Medicine Reviewed: Pt Seen/Exam by Me History Resident Physician Supervision Note: I interviewed and examined the patient. Discussed with Dr. Beckwith and agree with findings and plan as documented in the note. Any exceptions or clarifications are listed here: Pt doing very well, no complaints, still awaiting placement. Still feeling weak with ambulation Vitals reviewed Physical Exam General Appearance: WD/WN, no apparent distress Eyes: normal inspection, sclerae normal ENT: hearing grossly normal Neck: trachea midline Respiratory/Chest: lungs clear, normal breath sounds, no respiratory distress, no accessory muscle use Cardiovascular: regular rate, rhythm, no edema, no murmur Abdomen: normal bowel sounds, non tender, soft, no organomegaly Extremities: normal range of motion, no pedal edema, no calf tenderness, + pertinent finding (right knee with abrasion and scab, left knee with small ecchymosis, mild tenderness) Neurologic/Psychiatric: alert, normal mood/affect, oriented x 3 Skin: normal color, warm/dry 81 yo male here with acute encephalopathy and UTI, sepsis. Greatly improved but deconditioned, awaiting placement for PT -discharge as soon as arrangements can be made on po Levaquin for total 14 days -all other plan as per Resident note Documented by Joyce Howard M.D.
[2017-05-28] MEDS: HEPARIN SOD 5000 UNIT/0.5 ML CARP SQ SCH (05:54)
[2017-05-28] MEDS: PIPERACILL/TAZOBAC IV 3.375 GM in DEXTROSE 5% 100ML IV SCH (05:54)
[2017-05-28 07:02] VITALS: BP 144/65; PULSE 58; TEMP 36.6; O2SAT 95
[2017-05-28] MEDS ORDERED: VTMB12 PO (07:37)
[2017-05-28] MEDS ORDERED: LEVO-17 PO (07:37)
--- NOTE | 2017-05-28 07:48 | Discharge Instructions ---
Discharge Instructions Date of Service May 28, 2017. Admission Reason for Admission: Elevated Troponin I Level, Sepsis Secondary To Uti Discharge Discharge Diagnosis / Problem: UTI with sepsis Discharge Goals Goal(s): Decrease discomfort, Diagnostic testing, Therapeutic intervention Activity Recommendations Activity Limitations: resume your previous activity . Instructions / Follow-Up Instructions / Follow-Up 81 year old male who presented via EMS with complaint of persistent weakness that began earlier in the day. EMS reports that when they arrived at his home there was urine and stool all over the floor that the patient reports he was feeling too weak to clean up. When he awoke, he thought he was at a [employer] estate in [place], however he was still asleep in his office. He was found to have a UTI and leukocytosis with WBC count 17k. No fevers, no sepsis. He did also have SELINA with Cr 2.3 on admission up from baseline of 0.9. Empiric antibiotics have led to improved cell count and improved mentation. Acute metabolic encephalopathy likely secondary to UTI --> UA grossly abnormal, Ur cx not collected prior to starting abx, and thus cultures show little growth. Prelim BCx negative. WBC count trending downward from 17k-->12k->7. Remains afebrile. Mentation completely improved today CPK mildly elevated at 404 and now trending downward, likely from being found down on ground for unknown length of time-mild rhabdomyolysis. dc'd IVFs. Treated with Zosyn empirically. - On discharge transitioned to PO Levaquin 250mg daily (renally dosed) x 10 days (for 14 day course total) Acute kidney injury--> Cr 2.3 on admission up from baseline 0.9. Could be dehydration as BUN/mural painter ratio increased at 19.3. With UTI, could be some intrinsic renal failure as well. Renal US medical renal disease, no obstruction. Cr continues to improve after IVFs and tx UTI - On discharge, continue UTI treatment, check BMP in 1 week, encourage oral hydration, renally dose meds and avoid nephrotoxins Normocytic anemia- Heme+ stool today occult, never had colonoscopy and does not want one, stable for the most part since Hgb last year. Had GI consult last year and determined no need for scopes unless had heavy gross bleeding. Discussed with pt and his son who are in agreement. He is on Fe pill at home and has dark stools -Fe tab not on home med rec? Fe studies consistent with anemia of chronic disease and B12 deficiency - On discharge, continue Fe and B12 supplementation CAD/hypertension/history of NSTEMI s/p BMS placement (05/2016)/paroxysmal atrial fibrillation--continues to remain in NSR here on tele with occasional PVCs, some SB mid-high 50s. Troponin mildly elevated at 0.110 and trended downward for next 2 sets-likely demand ischemia and also with decreased renal function. Not on AC for PAF as per Cardiology notes 05/2016 for fall risk, remains in NSR here anyway so will not introduce AC at this time - On discharge, continue aspirin 81mg, clopidogrel 75mg for CAD. Continue amlodipine 5mg and losartan 320mg daily for HTN. For A-fib, continue digoxin 0.125mg daily and metoprolol tartrate 25 mg BID. Dig level was mildly low, likely due to several doses skipped second to bradycardia. Monitor HR, recheck dig level in ~2 weeks (post acute illness) Hyperlipidemia-- -continue atorvastatin 40mg daily and fenofibrate 145mg daily. Peripheral neuropathy--stable -continue gabapentin 3mg BID. 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 - Neuro consult/referral as outpatient for further evaluation in 1-2 weeks from discharge Elevated AST - mild elevation at 71, could be from mild rhabdo--> now improved to 41. Received IVF hydration with improvement -no need to repeat LFTs VTE PPx -heparin SQ Current Hospital Diet Patient's current hospital diet: AHA Diet (Heart Healthy) Discharge Diet Recommended Diet: AHA Diet (Heart Healthy) Pending Studies Studies pending at discharge: yes List of pending studies: Final blood culture report (prelim x 4 days) Medical Emergencies . Who to Call and When: Medical Emergencies: If at any time you feel your situation is an emergency, please call 911 immediately. . Non-Emergent Contact Non-Emergency issues call your: Primary Care Provider . . "Provider Documentation" section prepared by Sandy Beckwith. . VTE Core Measure Inpt VTE Proph given/why not?: Enoxaparin (Lovenox)SQ, SCD's
--- NOTE | 2017-05-28 07:48 | Discharge Summary ---
Discharge Summary Date of Service May 28, 2017. Discharge Summary Admission Date: May 23, 2017 at 23:17 Discharge Date: May 26, 2017 Discharge Disposition: Home Principal Diagnosis: UTI with sepsis Problems/Secondary Diagnoses: (1) Hypertension Status: Chronic (2) Neuropathy Status: Chronic (3) Paroxysmal Atrial Fibrillation Status: Chronic (4) Pure Hypercholesterolemia Status: Chronic (5) S/p bare metal coronary artery stent Status: Chronic Immunizations: Have You Had Influenza Vaccine: Unknown History of Tetanus Vaccine?: Unknown History of Pneumococcal: Unknown History of Hepatitis B Vaccine: Unknown Medication Reconciliation New Medications: Levofloxacin (Levaquin) 250 Mg Tab 250 MG PO DAILY for 10 Days, #10 TAB Cyanocobalamin (Vitamin B-12) 500 Mcg Tab 1000 MCG PO QAM, #30 TAB 2 Refills Continued Medications: Amlodipine (Norvasc) 5 Mg Tab 5 MG PO DAILY, TAB Aspirin (Aspirin 81) 81 Mg Tab 81 MG PO QAM Atorvastatin (Lipitor) 40 Mg Tab 40 MG PO DAILY, TAB Clopidogrel (Plavix) 75 Mg Tab 75 MG PO DAILY, TAB Digoxin (Digoxin) 0.125 Mg Tab 0.125 MG PO DAILY Fenofibrate (Tricor ) 145 Mg Tab 145 MG PO DAILY, TAB Folic Acid (Folvite) 1 Mg Tab 1 MG PO QAM, TAB Gabapentin (Neurontin) 300 Mg Cap 300 MG PO BID, CAP Metoprolol Tartrate (Lopressor) (Lopressor) 25 Mg Tab 25 MG PO BID, TAB Valsartan (Diovan) 320 Mg Tab 320 MG PO DAILY, TAB Discharge Exam Patient well, lying comfortably in bed. He denies acute overnight events. In fact he is bored and keen to be discharged to SNF. He denies chest pain, shortness of breath, abdominal pain, back pain or urinary symptoms. Bowels are moving and he is tolerating diet. ROS unremarkable except as noted above. Physical Exam: General Appearance: WD/WN, no apparent distress Eyes: normal inspection ENT: hearing grossly normal Neck: supple Respiratory/Chest: lungs clear, normal breath sounds, no respiratory distress, no accessory muscle use Cardiovascular: regular rate, rhythm, no murmur, normal peripheral pulses Abdomen / GI: normal bowel sounds, non tender, soft, + pertinent finding ( no CVA tenderness) Extremities: no calf tenderness, normal capillary refill, no pedal edema, + pertinent finding (scabbed abrasions on knees bilaterally) Neurologic/Psychiatric: alert, normal mood/affect, oriented x 3 Skin: normal color, warm/dry Hospital Course 81 year old male who presented via EMS with complaint of persistent weakness that began earlier in the day. EMS reports that when they arrived at his home there was urine and stool all over the floor that the patient reports he was feeling too weak to clean up. When he awoke, he thought he was at a [employer] estate in [place], however he was still asleep in his office. He was found to have a UTI and leukocytosis with WBC count 17k. No fevers, no sepsis. He did also have SELINA with Cr 2.3 on admission up from baseline of 0.9. Empiric antibiotics have led to improved cell count and improved mentation. Acute metabolic encephalopathy likely secondary to UTI --> UA grossly abnormal, Ur cx not collected prior to starting abx, and thus cultures show little growth. Prelim BCx negative. WBC count trending downward from 17k-->12k->7. Remains afebrile. Mentation completely improved today CPK mildly elevated at 404 and now trending downward, likely from being found down on ground for unknown length of time-mild rhabdomyolysis. dc'd IVFs. Treated with Zosyn empirically. - On discharge transitioned to PO Levaquin 250mg daily (renally dosed) x 10 days (for 14 day course total) Acute kidney injury--> Cr 2.3 on admission up from baseline 0.9. 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 With UTI, could be some intrinsic renal failure as well. Renal US medical renal disease, no obstruction. Cr continues to improve after IVFs and tx UTI - On discharge, continue UTI treatment, check BMP in 1 week, encourage oral hydration, renally dose meds and avoid nephrotoxins Normocytic anemia- Heme+ stool today occult, never had colonoscopy and does not want one, stable for the most part since Hgb last year. Had GI consult last year and determined no need for scopes unless had heavy gross bleeding. Discussed with pt and his son who are in agreement. He is on Fe pill at home and has dark stools -Fe tab not on home med rec? Fe studies consistent with anemia of chronic disease and B12 deficiency - On discharge, continue Fe and B12 supplementation CAD/hypertension/history of NSTEMI s/p BMS placement (05/2016)/paroxysmal atrial fibrillation--continues to remain in NSR here on tele with occasional PVCs, some SB mid-high 50s. Troponin mildly elevated at 0.110 and trended downward for next 2 sets-likely demand ischemia and also with decreased renal function. Not on AC for PAF as per Cardiology notes 05/2016 for fall risk, remains in NSR here anyway so will not introduce AC at this time - On discharge, continue aspirin 81mg, clopidogrel 75mg for CAD. Continue amlodipine 5mg and losartan 320mg daily for HTN. For A-fib, continue digoxin 0.125mg daily and metoprolol tartrate 25 mg BID. Dig level was mildly low, likely due to several doses skipped second to bradycardia. Monitor HR, recheck dig level in ~2 weeks (post acute illness) Hyperlipidemia-- -continue atorvastatin 40mg daily and fenofibrate 145mg daily. Peripheral neuropathy--stable -continue gabapentin 3mg BID. 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 - Neuro consult/referral as outpatient for further evaluation in 1-2 weeks from discharge Elevated AST - mild elevation at 71, could be from mild rhabdo--> now improved to 41. Received IVF hydration with improvement -no need to repeat LFTs VTE PPx -heparin SQ Total Time Spent: Less than 30 minutes This includes examination of the patient, discharge planning, medication reconciliation, and communication with other providers. Discharge Instructions Please refer to the electronic Patient Visit Report (Discharge Instructions) for additional information. Resident Tracking Resident Involvement: Resident Care Provided Care Provided: Adult Hospital Medicine
[2017-05-28] MEDS: AMLODIPINE BESYLATE 5 MG TAB PO SCH (07:52)
[2017-05-28] MEDS: CYANOCOBALAMIN 500 MCG TAB (VIT B-12) PO SCH (07:52)
[2017-05-28] MEDS: FENOFIBRATE 145 MG TAB PO SCH (07:52)
[2017-05-28] MEDS: CLOPIDOGREL BISULFATE 75 MG TAB PO SCH (07:52)
[2017-05-28] MEDS: VALSARTAN 80 MG TAB PO SCH (07:53)
[2017-05-28] MEDS: METOPROLOL TARTRATE 25 MG TAB PO SCH (07:53)
[2017-05-28] MEDS: ASPIRIN 81 MG ECTAB PO SCH (07:53)
[2017-05-28] MEDS: ATORVASTATIN 20 MG TAB PO SCH (07:53)
[2017-05-28] MEDS: GABAPENTIN 300 MG CAP PO SCH (07:53)
[2017-05-28 14:07] VITALS: BP 144/65; PULSE 58; TEMP 36.6; O2SAT 95
== END 2017-05-28 15:09 | DRG 871 ==
LOC: EDBD 20:51 → C.EDC 20:52 → C.2T 23:17 → ENRESERV 05-24 00:37 → C.MED 05-25 15:05 → C.MS2W 05-27 22:02
PROVIDERS: ADMIT Hospitalist; ATTEND Family Medicine
DX: A41.9 Sepsis, unspecified organism (principal); G93.41 Metabolic encephalopathy; N39.0 Urinary tract infection, site not specified; N17.9 Acute kidney failure, unspecified; M62.82 Rhabdomyolysis; I10 Essential (primary) hypertension; I48.0 Paroxysmal atrial fibrillation; I25.2 Old myocardial infarction; E78.5 Hyperlipidemia, unspecified; D64.9 Anemia, unspecified; G62.9 Polyneuropathy, unspecified; Z79.82 Long term (current) use of aspirin; Z79.899 Other long term (current) drug therapy; Z79.02 Long term (current) use of antithrombotics/antiplatelets; Z95.5 Presence of coronary angioplasty implant and graft

== ENCOUNTER → 2017-07-31 | Day surgery (SDC) | payer OTHER ==
[~2017-07-31] VITALS: Ht 373.4 cm; Wt 74.0 kg
[~2017-07-31] MED LIST changes: +ATROPINE SULFATE 0.1 MG/ML 5ML SYR IV PRN; +BUPIVACAINE/EPINEPHRINE 0.5% MPF 1:200,000 30 ML VIAL ONE; +CEFAZOLIN 2000MG IV PUSH 10 ML IV SCH; +DEXAMETHASONE SOD INJ 4 MG/ML VIAL ONE; +EpHEDrine SULFATE 50MG/5ML SYR ONE; +EpHEDrine SULFATE INJ 50 MG/ML AMP IV PRN; +FENTANYL CITRATE INJ 50 MCG/1 ML 2 ML VIAL ONE; -FOLI1TAB7 PO; +FOLI1TAB8 PO; +HYDR-5688 PO; +HYDROCODONE/ACETAMOPHEN 5/325MG TAB PO PRN; +LACTATED RINGER'S 1000ML 1,000 ML IV SCH; +LIDOCAINE HCL 2% 2 ML VIAL (20MG/ML) ONE; +MoRPHine SULFATE 2 MG/ML CARP IV PRN; +ONDANSETRON INJ 2 MG/ML 2 ML VIAL IV PRN; +ONDANSETRON INJ 2 MG/ML 2 ML VIAL ONE; +PROMETHAZINE HCL INJ 6.25 MG in SODIUM CHLORIDE 0.9% 50ML 50 ML IV PRN; +PROPOFOL IV EMULSION 10 MG/ML 20 ML VIAL IV ONE; +SODIUM CHLORIDE 0.9% 1000ML 1,000 ML IV SCH; +SODIUM CHLORIDE 0.9% INJ 10 ML VIAL ONE
[2017-07-31 12:25] VITALS: BP 176/74; PULSE 52; TEMP 36.4; O2SAT 98; Ht 373.4 cm; Wt 74.0 kg
--- NOTE | 2017-07-31 13:30 | History & Physical Bridge Note ---
H&P Re-Evaluation Bridge Note: I have examined the patient, reviewed the History & Physical and in the interval since the performance of the History & Physical I have noted the following changes of clinical significance: No changes noted
--- NOTE | 2017-07-31 15:00 | Anesthesiology Progress Note ---
Anesthesia Post Op Note Date & Time Jul 31, 2017 at 15:00 Vital Signs Vital Signs Past 12 Hours Date Time Temp Pulse Resp B/P (MAP) Pulse Ox O2 Delivery O2 Flow Rate FiO2 07/31/17 12:25 36.4 52 22 176/74 (108) 98 Room Air Notes Mental Status: alert / awake / arousable, participated in evaluation Pt Amnestic to Procedure: Yes Nausea / Vomiting: adequately controlled Pain: adequately controlled Airway Patency, RR, SpO2: stable & adequate BP & HR: stable & adequate Hydration State: stable & adequate Anesthetic Complications: no major complications apparent
--- NOTE | 2017-07-31 15:15 | Discharge Instructions ---
Discharge Instructions Date of Service Jul 31, 2017. Visit Reason for Visit: Right Inguinal Hernia Discharge Discharge Diagnosis / Problem: Right Inguinal Hernia Discharge Goals Goal(s): Decrease discomfort, Improve function Activity Recommendations Activity Limitations: as noted below Lifting Limitations: no more than 10 pounds, until after follow-up appointment Exercise/Sports Limitations: until after follow-up appointment Shower/Bathe: tomorrow Driving or Machine Use: resume 3 days after discharge (Do not drive while using narcotic pain medication) Anesthesia . Post Anesthesia Instructions: If you have had General Anesthesia or IV Sedation: * Do not drive today. * Resume driving when surgeon permits. * Do not make important decisions or sign legal documents today. * Call surgeon for: 1. Temperature elevations greater than 101 degrees F. 2. Uncontrollable pain. 3. Excessive bleeding. 4. Persistent nausea and vomiting. 5. Medication intolerance (nausea, vomiting or rash). * For nausea and vomiting use only clear liquids such as: tea, soda, bouillon until nausea subsides, then gradually increase diet as tolerated. * If you have any concerns or questions, call your surgeon's office. If physician is unavailable and it is an emergency, call 911 or go to the nearest emergency room. . Instructions / Follow-Up Instructions / Follow-Up You have surgical glue covering your incision. Please allow this to fall off on its own. You have been prescribed [place] which you may use as needed for pain relief. You may alternate this with ibuprofen for better pain relief if needed. You may ice your incision site as needed to reduce swelling and pain. 20 minutes on, 20 minutes off. Please follow-up with Dr. Shields in 2 weeks. Please contact our office at to schedule an appointment if you have not done so already. Please contact our office with any questions or concerns. [facility]. [address] [place] [address] Diet Recommendations Recommended Home Diet: no limitations, resume previous diet Procedures Procedures Performed: Right inguinal hernia repair with mesh Pending Studies Studies pending at discharge: no Medical Emergencies . Who to Call and When: Medical Emergencies: If at any time you feel your situation is an emergency, please call 911 immediately. . Non-Emergent Contact Non-Emergency issues call your: Primary Care Provider, Surgeon Call Non-Emergent contact if: you have a fever, temperature is above 101.5, your pain is not controlled, your pain is worsening, wound has increased drainage, wound has increased redness, you have any medication questions . . "Provider Documentation" section prepared by Jamir De La Rosa. . [place] Drug Monitoring [place] Search Results: patient reviewed within database, no issues identified
--- NOTE | 2017-07-31 16:30 | [facility] Operative Report ---
Operative Report Operative Date Jul 31, 2017. Pre-Operative Diagnosis right inguinal hernia Post-Operative Diagnosis right inguinal hernia Procedure(s) Performed open right inguinal hernia with plug/patch mesh Surgeon Dr. Tavon Shields [employer] Director Surgeon(s) Jamir HAYWARD Estimated Blood Loss 5ML Findings very large indirect inguinal hernia Specimens none per surgeon Anesthesia LMA Complication(s) None Disposition Recovery Room / PACU Description of Procedure After informed consent was obtained the patient was taken the operating room and placed in supine position. After successful placement of the laryngeal mask airway attempt was made by nursing staff at [place] catheter placement. There was no urine return so we opted to remove the [place] catheter. We then shaved and sterilely prepped and draped the lower abdomen. A right inguinal incision was made with a 10 blade scalpel and carried down through the soft tissues electrocautery. The external oblique aponeurosis was skeletonized and opened with a fresh blade. This was extended through the external ring distally as well as for several centimeters proximally with a Metzenbaum scissor. Once in the inguinal canal we used primarily blunt dissection to delineate the cord and cord structures. I gently elevated them with a Christiano and brought a blunt finger to tease them off the pubic bone. A [place] drain was placed around the cord structures to help with manipulation and identification. There was no evidence of a direct hernia. We inspected the cord structures with traction and small amounts electrocautery and found extremely large hernia sac was some bowel incarceration. We able to take down the sac from surrounding structures again using light cautery. Once we had it dissected back to its neck we were able to easily reduce it into the abdominal cavity however it was extremely large defect and and kept reincarcerating. I therefore opted to use a plug and patch technique. I will note that his cord structures and blood supply to testicle were extremely thin and tenuous. I did have Dr. Villavicencio evaluate this and he had atrophic testicles which would explain this finding. We placed a polypropylene plug into the large defect and secured it to the shelving portion of Poupart's ligament laterally and the midline musculature medially. We then used a keyhole piece of polypropylene mesh as an onlay secured it distally to Domenic's ligament laterally along the shelving portion of Poupart's ligament and medially along the midline musculature. The "arms" of the mesh were wrapped around behind the cord and cord structures and again secured underlying muscle. We used 0 Ethibond for the suturing. It laid nice and tension free and did not appear to impinge on the cord and cord structures. There was adequate hemostasis. We thoroughly irrigated the wound. I closed the external oblique aponeurosis with 2-0 Vicryl and running fashion. Soft tissue was irrigated and closed with 3-0 Vicryl and 4 -0 Monocryl for the skin. Marcaine was injected around the area for postoperative analgesia and Dermabond glue used as a dressing. The patient was awaken extubated and transferred recovery in stable condition I attest to the content of the Intraoperative Record and any orders documented therein. Any exceptions are noted below.
[2017-07-31] MEDS: FENTANYL CITRATE INJ 50 MCG/1 ML 2 ML VIAL IV PRN ×2 (17:00→17:05)
--- NOTE | 2017-07-31 17:02 | Anesthesiology Progress Note ---
Anesthesia Post Op Note Date & Time Jul 31, 2017 at 17:02 Vital Signs Pain Intensity: 0 Vital Signs Past 12 Hours Date Time Temp Pulse Resp B/P (MAP) Pulse Ox O2 Delivery O2 Flow Rate FiO2 07/31/17 16:56 160/85 07/31/17 16:54 75 17 100 07/31/17 16:54 74 17 07/31/17 16:53 77 17 100 07/31/17 16:53 76 17 07/31/17 16:51 156/61 07/31/17 16:48 70 23 100 07/31/17 16:48 71 23 07/31/17 16:46 157/57 07/31/17 16:44 169/61 07/31/17 16:43 36.9 69 16 169/61 100 Oxymask 10 07/31/17 12:25 36.4 52 22 176/74 (108) 98 Room Air Notes Mental Status: alert / awake / arousable, participated in evaluation Pt Amnestic to Procedure: Yes Nausea / Vomiting: adequately controlled Pain: adequately controlled Airway Patency, RR, SpO2: stable & adequate BP & HR: stable & adequate Hydration State: stable & adequate Anesthetic Complications: no major complications apparent
[2017-07-31 17:30] VITALS: BP 165/55; PULSE 81; TEMP 36.4; O2SAT 98
[2017-07-31 18:00] VITALS: BP 166/62; PULSE 78; O2SAT 96
[2017-07-31 18:30] VITALS: BP 165/65; PULSE 93; TEMP 36.6; O2SAT 96
== END | disposition home or self-care (01) ==
LOC: C.ACU 11:48
PROVIDERS: ATTEND Surgery
DX: K40.90 Unilateral inguinal hernia, without obstruction or gangrene, not specified as recurrent (principal); I48.91 Unspecified atrial fibrillation; I25.2 Old myocardial infarction; I10 Essential (primary) hypertension; E78.00 Pure hypercholesterolemia, unspecified; G62.9 Polyneuropathy, unspecified; Z79.82 Long term (current) use of aspirin; Z79.899 Other long term (current) drug therapy; I25.10 Atherosclerotic heart disease of native coronary artery without angina pectoris; Z95.5 Presence of coronary angioplasty implant and graft; D64.9 Anemia, unspecified; N40.0 Benign prostatic hyperplasia without lower urinary tract symptoms; Z87.891 Personal history of nicotine dependence

== ENCOUNTER 2017-08-07 21:13 | Inpatient (IN) | payer OTHER ==
[~2017-08-07] VITALS: Ht 182.9 cm; Wt 67.3 kg
[~2017-08-07 21:13] MED LIST changes: -ATROPINE SULFATE 0.1 MG/ML 5ML SYR IV PRN; -BUPIVACAINE/EPINEPHRINE 0.5% MPF 1:200,000 30 ML VIAL ONE; -CEFAZOLIN 2000MG IV PUSH 10 ML IV SCH; -DEXAMETHASONE SOD INJ 4 MG/ML VIAL ONE; -EpHEDrine SULFATE 50MG/5ML SYR ONE; -EpHEDrine SULFATE INJ 50 MG/ML AMP IV PRN; -FENTANYL CITRATE INJ 50 MCG/1 ML 2 ML VIAL ONE; -HYDROCODONE/ACETAMOPHEN 5/325MG TAB PO PRN; -LACTATED RINGER'S 1000ML 1,000 ML IV SCH; -LIDOCAINE HCL 2% 2 ML VIAL (20MG/ML) ONE; -MoRPHine SULFATE 2 MG/ML CARP IV PRN; -ONDANSETRON INJ 2 MG/ML 2 ML VIAL IV PRN; -ONDANSETRON INJ 2 MG/ML 2 ML VIAL ONE; -PROMETHAZINE HCL INJ 6.25 MG in SODIUM CHLORIDE 0.9% 50ML 50 ML IV PRN; -PROPOFOL IV EMULSION 10 MG/ML 20 ML VIAL IV ONE; -SODIUM CHLORIDE 0.9% 1000ML 1,000 ML IV SCH; -SODIUM CHLORIDE 0.9% INJ 10 ML VIAL ONE
[2017-08-07] MEDS ORDERED: HYDR-5688 PO (21:51)
[2017-08-07] MEDS ORDERED: SODIUM CHLORIDE 0.9% 1000ML 1,000 ML IV STA (21:52)
[2017-08-07] MEDS ORDERED: FENTANYL CITRATE INJ 50 MCG/1 ML 2 ML VIAL IV STA (21:52)
[2017-08-07] MEDS ORDERED: OPTIRAY 320 IV PRN (22:00)
--- NOTE | 2017-08-07 22:44 | EMERGENCY ROOM VISIT NOTE ---
History Report prepared by Roxie: Irene Ventura Under the Supervision of: Dr. Wilfred Gunderson M.D. First contact with patient: 21:37 Chief Complaint: OTHER COMPLAINT Stated Complaint: UNABLE TO AMBULATE,WEAK History of Present Illness The patient is an 82 year old male who presents to the Emergency Room with complaints of worsening lower abdominal pain starting 1 week ago. The patient had hernia surgery 1 week ago. He was feeling well for a couple days, but then started feeling unwell. He is having pain around the surgical site. He has not felt a pop. He has been taking O[place] to no significant relief. He has not contacted his surgeon. He reports feeling weak. He has been unable to eat. The patient denies any nausea, vomiting, chest pain, SOB, black stools, or bloody stools. His last bowel movement was harder than usual. Source of History: patient Onset: 1 week ago Position: abdomen (lower) Quality: other (pain) Timing: worsening Associated Symptoms: + weakness, No chest pain, No SOB, No nausea, No vomiting, No melena, No hematochezia Note: Pt reports hard stool. Review of Systems See HPI for pertinent positives and negatives. A total of ten systems were reviewed and were otherwise negative. Past Medical & Surgical Medical Problems: (1) Abscess of right foot (2) Altered mental status (3) Cellulitis of right foot (4) Dehydration (5) Elevated troponin I level (6) Encounter for wound re-check (7) Fall (8) Fluid collection at surgical site (9) Hypertension (10) Neuropathy (11) Non-ST elevation [place] (NSTEMI) (12) Paroxysmal Atrial Fibrillation (13) Pure Hypercholesterolemia (14) S/p bare metal coronary artery stent (15) Sepsis secondary to UTI (16) Weakness Family History Patient reports no known family medical history. Social History Smoking Status: Former Smoker Drug Use: none Marital Status: Occupation Status: retired Current/Historical Medications Scheduled Amlodipine (Norvasc), 5 MG PO DAILY Aspirin (Aspirin 81), 81 MG PO QAM Atorvastatin (Lipitor), 40 MG PO DAILY Clopidogrel (Plavix), 75 MG PO DAILY Digoxin (Digoxin), 0.125 MG PO DAILY Fenofibrate (Tricor ), 145 MG PO DAILY Folic Acid (Folvite), 1 MG PO QAM Gabapentin (Neurontin), 300 MG PO BID Metoprolol Tartrate (Lopressor) (Lopressor), 25 MG PO BID Valsartan (Diovan), 320 MG PO DAILY Scheduled PRN Hydrocodone/Acetaminophen 5MG/325MG ([place] 5MG/325MG), 1-2 TABLETS PO Q4H PRN for Pain Allergies Coded Allergies: No Known Allergies (Unverified , 08/07/17) Physical Exam Vital Signs Date Time Temp Pulse Resp B/P (MAP) Pulse Ox O2 Delivery O2 Flow Rate FiO2 08/08/17 01:22 65 18 182/63 97 Room Air 08/08/17 01:10 62 08/08/17 00:00 70 18 103/65 96 Room Air 08/07/17 23:08 64 18 172/63 97 Room Air 08/07/17 21:33 67 08/07/17 21:14 36.6 78 18 159/75 98 Room Air Physical Exam GENERAL: Awake, alert, uncomfortable-appearing, in no distress HENT: Normocephalic, atraumatic. Dry cracked mucous membranes. EYES: Normal conjunctiva. Sclera non-icteric. NECK: Supple. No nuchal rigidity. FROM. No JVD. RESPIRATORY: Clear to auscultation. CARDIAC: Regular rate, normal rhythm. Extremities warm and well perfused. Pulses equal. ABDOMEN: Soft, non-distended. Mild lower abdominal tenderness to palpation. Mild fullness around the surgical site, but no erythema or warmth. No rebound or guarding. No masses. RECTAL: Deferred. MUSCULOSKELETAL: Chest examination reveals no tenderness. The back is symmetrical on inspection without obvious abnormality. There is no CVA tenderness to palpation. No joint edema. LOWER EXTREMITIES: Calves are equal size bilaterally and non-tender. No edema. No discoloration. NEURO: Normal sensorium. No sensory or motor deficits noted. SKIN: No rash or jaundice noted. Medical Decision & Procedures ER Provider Diagnostic Interpretation: Radiology results as stated below per my review and radiologist interpretation: CHEST ONE VIEW PORTABLE HISTORY: Generalized abdominal pain. COMPARISON: Chest 05/23/2017. FINDINGS: The lungs are clear. Cardiac silhouette is normal in size. No pleural effusions. No pneumothorax. IMPRESSION: No acute process. Electronically signed by: Jitendra Ingram M.D. 08/07/2017 11:04 PM Dictated Date/Time: 08/07/2017 11:[address] abd/pelvis - STATRAD read: Preliminary Findings Only See Final Report For Complete Findings CT ABDOMEN & PELVIS With Contrast: Right inguinal hernia repair. Loculated fluid in the right inguinal canal and the scrotum. Fluid collection fluid also in the right groin. Small collection of fluid and air in the pelvis near the iliac vessels. May be postsurgical. Infection can be considered in the proper clinical setting. Query of region of inflammation or ischemia in the fat in the right pelvis. Gallbladder distention. No radiodense gallstones. Renal cysts. Heterogeneous prostate. Colonic tic colonic diverticula without diverticulitis. Appendix not identified. 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 Laboratory Results 08/07/17 22:49 Red Blood Count 3.10, Mean Corpuscular Volume 94.8, Mean Corpuscular Hemoglobin 30.3, Mean Corpuscular Hemoglobin Concent 32.0, Mean Platelet Volume 10.2, Neutrophils (%) (Auto) 60.7, Lymphocytes (%) (Auto) 23.7, Monocytes (%) (Auto) 12.8, Eosinophils (%) (Auto) 2.2, Basophils (%) (Auto) 0.2, Neutrophils # (Auto ) 4.86, Lymphocytes # (Auto) 1.90, Monocytes # (Auto) 1.03, Eosinophils # (Auto ) 0.18, Basophils # (Auto) 0.02 08/07/17 22:49 Test 08/07/17 22:46 08/07/17 22:49 08/07/17 23:35 Lactic Acid Level 0.4 mmol/L (0.4-2.0) White Blood Count 8.02 K/uL (4.8-10.8) Red Blood Count 3.10 M/uL (4.7-6.1) Hemoglobin 9.4 g/dL (14.0-18.0) Hematocrit 29.4 % (42-52) Mean Corpuscular Volume 94.8 fL (80-100) Mean Corpuscular Hemoglobin 30.3 pg (25-34) Mean Corpuscular Hemoglobin Concent 32.0 g/dl (32-36) Platelet Count 333 K/uL (130-400) Mean Platelet Volume 10.2 fL (7.4-10.4) Neutrophils (%) (Auto) 60.7 % Lymphocytes (%) (Auto) 23.7 % Monocytes (%) (Auto) 12.8 % Eosinophils (%) (Auto) 2.2 % Basophils (%) (Auto) 0.2 % Neutrophils # (Auto) 4.86 K/uL (1.4-6.5) Lymphocytes # (Auto) 1.90 K/uL (1.2-3.4) Monocytes # (Auto) 1.03 K/uL (0.11-0.59) Eosinophils # (Auto) 0.18 K/uL (0-0.5) Basophils # (Auto) 0.02 K/uL (0-0.2) RDW Standard Deviation 47.4 fL (36.4-46.3) RDW Coefficient of Variation 13.8 % (11.5-14.5) Immature Granulocyte % (Auto) 0.4 % Immature Granulocyte # (Auto) 0.03 K/uL (0.00-0.02) Anion Gap 6.0 mmol/L (3-11) Estimated GFR () 61.5 Estimated GFR (Non- 53.1 BUN/Creatinine Ratio 21.0 (10-20) Calcium Level 8.7 mg/dl (8.5-10.1) Total Bilirubin 0.8 mg/dl (0.2-1) Direct Bilirubin 0.2 mg/dl (0-0.2) Aspartate Amino Transf (AST/SGOT) 25 U/L (15-37) Alanine Aminotransferase (ALT/SGPT) 26 U/L (12-78) Alkaline Phosphatase 75 U/L (45-117) Troponin I < 0.015 ng/ml (0-0.045) Total Protein 6.1 gm/dl (6.4-8.2) Albumin 3.1 gm/dl (3.4-5.0) Lipase 138 U/L (73-393) Urine Color YELLOW Urine Appearance CLEAR (CLEAR) Urine pH 5.0 (4.5-7.5) Urine Specific [place] 1.018 (1.000-1.030) Urine Protein NEG (NEG) Urine Glucose (UA) NEG (NEG) Urine Ketones NEG (NEG) Urine Occult Blood NEG (NEG) Urine Nitrite NEG (NEG) Urine Bilirubin NEG (NEG) Urine Urobilinogen NEG (NEG) Urine Leukocyte Esterase SMALL (NEG) Urine WBC (Auto) 1-5 /hpf (0-5) Urine RBC (Auto) 0-4 /hpf (0-4) Urine Hyaline Casts (Auto) 1-5 /lpf (0-5) Urine Epithelial Cells (Auto) 5-10 /lpf (0-5) Urine Bacteria (Auto) NEG (NEG) Laboratory results reviewed by me Medications Administered Medications (Trade) Dose Ordered Sig/Brian Route Start Time Stop Time Status Last Admin Dose Admin Sodium Chloride 1,000 ml @ 999 mls/hr Q1H1M STAT IV 08/07/17 21:52 08/07/17 22:52 DC 08/07/17 22:26 999 MLS/HR Fentanyl Citrate (Fentanyl Inj) 50 mcg NOW STAT IV 08/07/17 21:52 08/07/17 21:58 DC 08/07/17 22:25 50 MCG ECG Indication: weakness Rate (beats per minute): 58 Rhythm: sinus bradycardia Findings: 1st degree AV block, no acute ischemic change, other (normal axis) ED Course 2150: The patient was evaluated in room B7. A complete history and physical exam was performed. 00:55: discussed case with Dr. Lozada, general surgery on-call. 01:10: discussed [place] Wel[place], [facility] who will evaluate the patient for admission. Medical Decision I reviewed the patient's past medical history, medications, and the nursing notes as described above. Differential diagnosis: post surgical complication, infection, intraabdominal infection/abscess, obstruction. The patient is a 82-year-old gentleman with a past medical history of a open right inguinal hernia repair on 08/[address] Shields who presents emergency Department with persistent worsening abdominal pain since his surgery with decreased appetite 2/2 unable to eat per hpi. Ill the patient is uncomfortable and cachectic-appearing, dry cracked mucous membranes right hernia repair site with mild fullness but no discrete tenderness or fluctuance, no warmth. WBC and lactate wnl. CT abdomen and pelvis demonstrates patient's prior recent right inguinal hernia repair and identifies a loculated fluid in the right inguinal canal and scrotum. Also small collection of fluid and air in the pelvis and iliac vessels but could be postsurgical. Question of region of inflammation vs ischemia in the fat in the right pelvis. Case was discussed with Dr. Lozada general surgery on-call, although he is the [facility] surgeon and patient's surgery was done by Dr. Shields with [facility]. He agrees that admission for pain control and observation is reasonable given the findings of the CT scan , patient can then be evaluated by his surgeon Dr. Shields in the morning. Given the patient is afebrile and has reassuring lab work including WBC and lactate within normal limits no need for surgical intervention and will defer antibiotics at this time. Case d/w [place] Wel[place], [facility] [place], who will admit the patient for further management. Medication Reconcilliation Current Medication List: was personally reviewed by me Blood Pressure Screening Patient's blood pressure: Elevated blood pressure Impression Primary Impression: Abdominal pain Scribe Attestation The scribe's documentation has been prepared under my direction and personally reviewed by me in its entirety. I confirm that the note above accurately reflects all work, treatment, procedures, and medical decision making performed by me. Departure Information Referrals No Doctor, Assigned (PCP) Patient Instructions My [facility]
[2017-08-07 23:03] LABS: BASO % 0.2 %; BASO ABS # 0.02 K/uL (0-0.2); EOS % 2.2 %; EOS ABS # 0.18 K/uL (0-0.5); HEMATOCRIT 29.4 % (42-52); HEMOGLOBIN 9.4 g/dL (14.0-18.0); IG# 0.03 K/uL (0.00-0.02); LYMPH % 23.7 %; MEAN CELL VOLUME 94.8 fL (80-100); MEAN CORPUSCULAR HEMOGLOBIN 30.3 pg (25-34); MEAN PLATELET VOLUME 10.2 fL (7.4-10.4); MONO % 12.8 %; MONO ABS # 1.03 K/uL (0.11-0.59); NEUT % 60.7 %; NEUT ABS # 4.86 K/uL (1.4-6.5); PLATELET COUNT 333 K/uL (130-400); RED CELL DISTRIBUTION WIDTH CV 13.8 % (11.5-14.5); RED CELL DISTRIBUTION WIDTH SD 47.4 fL (36.4-46.3); WHITE BLOOD COUNT 8.02 K/uL (4.8-10.8)
--- NOTE | 2017-08-07 23:05 | DIAGNOSTIC IMAGING REPORT ---
CHEST ONE VIEW PORTABLE HISTORY: Generalized abdominal pain. COMPARISON: Chest 05/23/2017. FINDINGS: The lungs are clear. Cardiac silhouette is normal in size. No pleural effusions. No pneumothorax. IMPRESSION: No acute process. Electronically signed by: Jitendra Ingram M.D. 08/07/2017 11:04 PM Dictated Date/Time: 08/07/2017 11:03 PM
[2017-08-07 23:22] LABS: ALBUMIN 3.1 gm/dl (3.4-5.0); ALT/SGPT 26 U/L (12-78); BLOOD UREA NITROGEN 26 mg/dl (7-18); CALCIUM 8.7 mg/dl (8.5-10.1); CARBON DIOXIDE 25 mmol/L (21-32); CREATININE 1.24 mg/dl (0.60-1.40); GLUCOSE 103 mg/dl (70-99); LIPASE 138 U/L (73-393); POTASSIUM 4.4 mmol/L (3.5-5.1); SODIUM 142 mmol/L (136-145)
[2017-08-07 23:27] LABS: ALKALINE PHOSPHATASE 75 U/L (45-117); AST/SGOT 25 U/L (15-37); TOTAL PROTEIN 6.1 gm/dl (6.4-8.2)
--- NOTE | 2017-08-08 01:32 | History and Physical ---
History & Physical Date & Time of Service: Aug 08, 2017 at 01:16 Chief Complaint: Unable To Ambulate,Weak Primary Care Physician: No Doctor, Assigned History of Present Illness Source: patient 82 y/o M Hx CAD, HTN, HPL, PAF. Underwent R inguinal hernia repair 08/01. Presents with progressive weakness and pain at the surgical site. A CT obtained in the ER reveals a loculated fluid collection in the inguinal canal and scrotum in addition to fluid and air in the R pelvis proximal to the iliac vessel. This may represent infection or more likely a seroma. The pt denies SOB, CP, nausea/vomiting, fevers or dysuria. He is unable to ambulate at present as it greatly exacerbated the pain in his groin. Past Medical/Surgical History 1) CAD - NSTEMI 06/02 - underwent PCI and a stent was placed in the RCA 2) HTN 3) HPL 4) PAF 5) Neuropathy 6) R inguinal hernia repair - outpatient procedure 08/01/17 7) Chronic anemia - Hb - Family History Patient reports no known family medical history. 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 - does not smoke or drink - maintains independence Smoking Status: Former Smoker Drug Use: none Marital Status: Housing status: lives alone Occupational Status: retired Immunizations History of Influenza Vaccine: Unknown History of Tetanus Vaccine?: Unknown History of Pneumococcal: Unknown History of Hepatitis B Vaccine: Unknown Multi-Drug Resistant Organisms History of MDRO: No Allergies Coded Allergies: No Known Allergies (Unverified , 08/07/17) Home Medications Scheduled Amlodipine (Norvasc), 5 MG PO DAILY Aspirin (Aspirin 81), 81 MG PO QAM Atorvastatin (Lipitor), 40 MG PO DAILY Clopidogrel (Plavix), 75 MG PO DAILY Digoxin (Digoxin), 0.125 MG PO DAILY Fenofibrate (Tricor ), 145 MG PO DAILY Folic Acid (Folvite), 1 MG PO QAM Gabapentin (Neurontin), 300 MG PO BID Metoprolol Tartrate (Lopressor) (Lopressor), 25 MG PO BID Valsartan (Diovan), 320 MG PO DAILY Scheduled PRN Hydrocodone/Acetaminophen 5MG/325MG ([place] 5MG/325MG), 1-2 TABLETS PO Q4H PRN for Pain Review of Systems Constitutional: + weakness, + problem reported (Mobility is very limited due to groin pain), No fever, No chills, No sweats Eyes: No worsening of vision ENT: No hearing loss, No nasal symptoms Respiratory: No cough, No sputum, No wheezing Cardiovascular: No chest pain, No orthopnea, No PND Abdomen: No pain, No nausea, No vomiting Musculoskeletal: + problem reported (R groin pain), No joint pain Genitourinary - Male: No hematuria, No dysuria Neurologic: + weakness, No memory loss, No paralysis Endocrine: + fatigue Integumentary: No rash Allergic / Immunologic: No environmental allergies Physical Exam Vital Signs Date Time Temp Pulse Resp B/P (MAP) Pulse Ox O2 Delivery O2 Flow Rate FiO2 08/08/17 01:10 62 08/08/17 00:00 70 18 103/65 96 Room Air 08/07/17 23:08 64 18 172/63 97 Room Air 08/07/17 21:33 67 08/07/17 21:14 36.6 78 18 159/75 98 Room Air General Appearance: WD/WN, no apparent distress, + pertinent finding (Irritable , elderly male in no distress - awake and oriented) Head: normocephalic Eyes: normal inspection ENT: normal ENT inspection, pharynx normal Neck: supple, no JVD Respiratory/Chest: chest non-tender, lungs clear, normal breath sounds Cardiovascular: regular rate, rhythm, no edema, no gallop Abdomen/GI: normal bowel sounds, non tender, soft Genitourinary - Male: + pertinent finding (Incision is clean - there is swelling at the R groin and minimal overlying erythema - the area is tender to palpation) Back: normal inspection, no CVA tenderness Extremities/Musculoskelatal: normal inspection, no calf tenderness Neurologic/Psych: carbon brush maker II-XII nml as tested, no motor/sensory deficits, alert Skin: + pertinent finding Diagnostics Laboratory Results Results Past 24 Hours Test 08/07/17 22:46 08/07/17 22:49 08/07/17 23:35 Range/Units Lactic Acid Level 0.4 0.4-2.0 mmol/L White Blood Count 8.02 4.8-10.8 K/uL Red Blood Count 3.10 4.7-6.1 M/uL Hemoglobin 9.4 14.0-18.0 g/dL Hematocrit 29.4 42-52 % Mean Corpuscular Volume 94.8 80-100 fL Mean Corpuscular Hemoglobin 30.3 25-34 pg Mean Corpuscular Hemoglobin Concent 32.0 32-36 g/dl Platelet Count 333 130-400 K/uL Mean Platelet Volume 10.2 7.4-10.4 fL Neutrophils (%) (Auto) 60.7 % Lymphocytes (%) (Auto) 23.7 % Monocytes (%) (Auto) 12.8 % Eosinophils (%) (Auto) 2.2 % Basophils (%) (Auto) 0.2 % Neutrophils # (Auto) 4.86 1.4-6.5 K/uL Lymphocytes # (Auto) 1.90 1.2-3.4 K/uL Monocytes # (Auto) 1.03 0.11-0.59 K/uL Eosinophils # (Auto) 0.18 0-0.5 K/uL Basophils # (Auto) 0.02 0-0.2 K/uL RDW Standard Deviation 47.4 36.4-46.3 fL RDW Coefficient of Variation 13.8 11.5-14.5 % Immature Granulocyte % (Auto) 0.4 % Immature Granulocyte # (Auto) 0.03 0.00-0.02 K/uL Sodium Level 142 136-145 mmol/L Potassium Level 4.4 3.5-5.1 mmol/L Chloride Level 111 98-107 mmol/L Carbon Dioxide Level 25 21-32 mmol/L Anion Gap 6.0 3-11 mmol/L Blood Urea Nitrogen 26 7-18 mg/dl Creatinine 1.24 0.60-1.40 mg/dl Estimated GFR () 61.5 Estimated GFR (Non- 53.1 BUN/Creatinine Ratio 21.0 10-20 Random Glucose 103 70-99 mg/dl Calcium Level 8.7 8.5-10.1 mg/dl Total Bilirubin 0.8 0.2-1 mg/dl Direct Bilirubin 0.2 0-0.2 mg/dl Aspartate Amino Transf (AST/SGOT) 25 15-37 U/L Alanine Aminotransferase (ALT/SGPT) 26 12-78 U/L Alkaline Phosphatase 75 45-117 U/L Troponin I < 0.015 0-0.045 ng/ml Total Protein 6.1 6.4-8.2 gm/dl Albumin 3.1 3.4-5.0 gm/dl Lipase 138 73-393 U/L Urine Color YELLOW Urine Appearance CLEAR CLEAR Urine pH 5.0 4.5-7.5 Urine Specific [place] 1.018 1.000-1.030 Urine Protein NEG NEG Urine Glucose (UA) NEG NEG Urine Ketones NEG NEG Urine Occult Blood NEG NEG Urine Nitrite NEG NEG Urine Bilirubin NEG NEG Urine Urobilinogen NEG NEG Urine Leukocyte Esterase SMALL NEG Urine WBC (Auto) 1-5 0-5 /hpf Urine RBC (Auto) 0-4 0-4 /hpf Urine Hyaline Casts (Auto) 1-5 0-5 /lpf Urine Epithelial Cells (Auto) 5-10 0-5 /lpf Urine Bacteria (Auto) NEG NEG Diagnostic Radiology CT pelvis: R inguinal hernia repair - loculated fluid in R inguinal canal and scrotum - fluid and air in pelvis near iliac vessel - inflammation or ischemia in fat R pelvis EKG Sinus tom - 1st degree AV block Impression Assessment and Plan 82 y/o M Hx CAD, HTN, HPL, PAF. Underwent R inguinal hernia repair 08/01. Presents with progressive weakness and pain at the surgical site. A CT obtained in the ER reveals a loculated fluid collection in the inguinal canal and scrotum in addition to fluid and air in the R pelvis proximal to the iliac vessel. This may represent infection or more likely a seroma. The pt denies SOB, CP, nausea/vomiting, fevers or dysuria. He is unable to ambulate at present as it greatly exacerbated the pain in his groin. 1) Post-op pain - fluid collection - possible seroma - there is no clinical evidence of acute infection. He will be evaluated by surgery AM and the surgeon fashion journalist has reviewed the CT result. We will provide pain control and IVF. He will be kept NPO pending surgery evaluation as he may require drainage and revision. 2) CAD - no evidence of ACS - we will continue a B alexander and Statin - ASA and Plavix held pending surgery eval and should be resumed at the earliest possible time. 3) PAF - sinus rhythm at present - does not take anticoagulation despite a high CJ score - cont B alexander and Dig - ASA held 4) HTN - cont Metoprolol, Norvasc - Valsartan held pending possible procedure 5) HPL - cont Statin 6) There is anemia on current labs which appears to be chronic and approximately a unit off baseline - this is expected as he had recent surgery Level of Care Med/Surg Resuscitation Status FULL RESUSCITATION VTE Prophylaxis Given or contraindicated: SCD's
--- NOTE | 2017-08-08 01:41 | EMERGENCY ROOM VISIT NOTE ---
ED Visit Note This case was signed out to me at change of shift awaiting evaluation by Dr. Lozada. Dr. winston spoke with Dr. Lozada with regards to this patient and the CAT scan. Dr. Lozada evaluated the patient's CAT scan and felt that the findings are most likely postsurgical and not infectious. He reviewed the patient's chart and felt that he could be admitted to medicine with a surgical consult. I discussed those thoughts with Dr. Weldon and he will admit the patient in the hospital.
[2017-08-08] MEDS ORDERED: ONDANSETRON INJ 2 MG/ML 2 ML VIAL IV PRN (01:45)
[2017-08-08] MEDS ORDERED: ZOLPIDEM TARTRATE 5 MG TAB PO PRN (01:45)
[2017-08-08] MEDS ORDERED: ACETAMINOPHEN 325 MG TAB PO PRN (01:45)
[2017-08-08] MEDS ORDERED: ALUMINUM/MAGNESIUM/SIMETH (MAALOX MAX) 30 ML UDC PO PRN (01:45)
[2017-08-08] MEDS ORDERED: MAGNESIUM HYDROXIDE SUSP 30 ML UDC PO PRN (01:45)
[2017-08-08] MEDS ORDERED: POLYETHYLENE (MIRALAX) 17 GM PACK PO PRN (02:00)
[2017-08-08] MEDS ORDERED: IV FLUIDS COMPLETED PRN (03:00)
[2017-08-08 03:07] VITALS: BP 198/62; PULSE 72; TEMP 36.6; O2SAT 99; Ht 182.9 cm; Wt 67.3 kg
[2017-08-08] MEDS ORDERED: HYDROmorphone INJ 0.5 MG/0.5 ML SYR IV PRN (03:15)
[2017-08-08] MEDS ORDERED: PNEUMOCOCCAL POLYSACCHARIDES 25 MCG/0.5 ML VIAL/SYR IM. ONE (04:30)
[2017-08-08] MEDS ORDERED: PNEUMOCOCCAL ADMINISTRATION CHARGE ONE (04:30)
[2017-08-08 05:10] VITALS: BP 158/62
[2017-08-08 07:01] VITALS: BP 158/63; PULSE 59; TEMP 36.6; O2SAT 96
--- NOTE | 2017-08-08 07:10 | DIAGNOSTIC IMAGING REPORT ---
ABD/PELVIS IV CONTRAST ONLY CLINICAL HISTORY: 82 years-old Male presenting with abd pain s/p hernia repair. TECHNIQUE: Multidetector CT of the abdomen and pelvis was performed after the administration of intravenous contrast. IV contrast: 93 mL of Optiray 320. A dose lowering technique was used consistent with the principles of ALARA (as low as reasonably achievable). COMPARISON: Ultrasound from 01/06/2017. CT DOSE (mGy.cm): The estimated cumulative dose is 293.76 mGy.cm. FINDINGS: Net Making Supervisor topogram: Unremarkable. Lung bases: Minimal basilar opacities. No pleural effusion or pneumothorax. Coronary artery calcification. Normal heart size. No pericardial or pleural effusion. Liver: Normal morphology. No liver lesion. Patent hepatic vasculature. Biliary: Minimal central intrahepatic bladder ductal dilatation suggested. No extra hepatobiliary ductal dilatation. Gallbladder physiologically distended. Pancreas: Normal. Spleen: Normal. Adrenal glands: Normal. Kidneys and ureters: Exophytic hypodensity arising from the posterior interpolar region of the left kidney likely simple cyst. Additional simple cyst likely at the lower pole of the right kidney. No hydronephrosis. Mild urothelial thickening suggested right greater than left. Ureters not dilated. No nephrolithiasis. Bladder: Circumferential bladder wall thickening. Pelvic organs: Prostate enlargement likely secondary to benign prostatic hyperplasia. Bowel: Diverticulosis of the descending and proximal sigmoid colon. Focal encapsulated fat in the right lower quadrant with a thin rim of soft tissue density and minimal inflammatory change. Foci of gas noted in this region and extending towards the right inguinal canal. Fluid in the right inguinal canal as well as superficial to the anterior abdominal wall in the right lower quadrant. Fluid more distally in the right inguinal canal also noted. Varicocele may be present. Thickening of the patent processes vaginalis likely reactive. No bowel obstruction. Duodenal diverticulum noted at the level of the pancreatic head as well as a second diverticulum near the junction of the third and fourth portions of the duodenum. Peritoneal cavity: No free fluid or intraperitoneal gas. Lymph nodes: No enlarged lymph nodes in the abdomen or pelvis. Vasculature: Atherosclerosis of the normal caliber abdominal aorta. IVC patent. Abdominal wall: Abnormality of the right lower quadrant as above mild subcutaneous edema in the right lower quadrant. Musculoskeletal: Degenerative changes of the spine. Bilateral pars defects of L5 with resultant anterolisthesis of L5 on S1. IMPRESSION: 1. Extensive changes in the right lower quadrant of the abdomen and right lower quadrant abdominal wall. Possible omental infarct in the right lower quadrant associated with trace gas and fluid, which may be reactive in the reported postsurgical setting. However, a greater amount of fluid and reactive change in the right inguinal canal is noted that expected status post right internal hernia repair. This could suggest exuberant reactive postsurgical change versus developing infection. No radiopaque mass or other foreign body is evident. 2. Suggestion of right varicocele. Electronically signed by: Freddie Guevara M.D. 08/08/2017 7:09 AM Dictated Date/Time: 08/08/2017 6:39 AM
[2017-08-08] MEDS: AMLODIPINE BESYLATE 5 MG TAB PO SCH (10:06)
[2017-08-08] MEDS: ATORVASTATIN 40 MG TAB PO SCH (10:07)
[2017-08-08] MEDS: METOPROLOL TARTRATE 25 MG TAB PO SCH ×2 (10:07→21:23)
[2017-08-08] MEDS: ASPIRIN 81 MG ECTAB PO SCH (10:07)
[2017-08-08] MEDS: GABAPENTIN 300 MG CAP PO SCH ×2 (10:07→21:23)
--- NOTE | 2017-08-08 11:42 | Medical Consult ---
Consultation Date of Consultation: Aug 08, 2017. Attending Physician: Joyce Howard MD History of Present Illness 82 y/o male returned to ED 1 week s/p open repair of large right inguinal hernia with plug and patch complaining of groin pain, decreased appetite. Does not feel as though he was making any progress at home, where he is primarily alone. No N/V, no fevers or chills. no urinary complaints. Has been taking norco as prescribed. Admitted last evening, CT shows fluid collection at operative site. Past Medical/Surgical History Medical Problems: (1) Abscess of right foot (2) Altered mental status (3) Cellulitis of right foot (4) Dehydration (5) Elevated troponin I level (6) Encounter for wound re-check (7) Fall (8) Fluid collection at surgical site (9) Hypertension (10) Neuropathy (11) Non-ST elevation [place] (NSTEMI) (12) Paroxysmal Atrial Fibrillation (13) Pure Hypercholesterolemia (14) S/p bare metal coronary artery stent (15) Sepsis secondary to UTI (16) Weakness Family History Patient reports no known family medical history. Social History Smoking Status: Former Smoker Drug Use: none Marital Status: Occupation Status: retired Allergies Coded Allergies: No Known Allergies (Unverified , 08/07/17) Current Inpatient Medications Current Inpatient Medications Medications (Trade) Dose Ordered Sig/Brian Route Start Time Stop Time Status Last Admin Dose Admin Ioversol (Optiray 320) 100 ml UD PRN IV 08/07/17 22:00 08/11/17 21:59 Amlodipine Besylate (Norvasc Tab) 5 mg DAILY PO 08/08/17 09:00 09/07/17 08:59 08/08/17 10:06 5 MG Aspirin (Ecotrin Tab) 81 mg QAM PO 08/08/17 09:00 09/07/17 08:59 08/08/17 10:07 81 MG Atorvastatin Calcium (Lipitor Tab) 40 mg DAILY PO 08/08/17 09:00 09/07/17 08:59 08/08/17 10:07 40 MG Clopidogrel Bisulfate (plAVix TAB) 75 mg DAILY PO 08/08/17 09:00 09/07/17 08:59 Digoxin (Lanoxin Tab) 0.125 mg DAILY@1600 PO 08/08/17 16:00 09/07/17 15:59 Folic Acid (Folvite Tab) 1 mg QAM PO 08/08/17 09:00 09/07/17 08:59 08/08/17 10:08 1 MG Gabapentin (Neurontin Cap) 300 mg BID PO 08/08/17 09:00 09/07/17 08:59 08/08/17 10:07 300 MG Metoprolol Tartrate (Lopressor Tab) 25 mg BID PO 08/08/17 09:00 09/07/17 08:59 08/08/17 10:07 25 MG Acetaminophen (Tylenol Tab) 650 mg Q4H PRN PO 08/08/17 01:45 09/07/17 01:44 Al Hydrox/Mg Hydrox/Simethicone (Maalox Max Susp) 15 ml Q4H PRN PO 08/08/17 01:45 09/07/17 01:44 Magnesium Hydroxide (Milk Of Magnesia Susp) 30 ml Q6H PRN PO 08/08/17 01:45 09/07/17 01:44 Polyethylene (Miralax Powder Packet) 17 gm DAILY PRN PO 08/08/17 02:00 09/07/17 01:59 Zolpidem Tartrate (Ambien Tab) 5 mg HSZ PRN PO 08/08/17 01:45 09/07/17 01:44 Ondansetron HCl (Zofran Inj) 4 mg Q6H PRN IV 08/08/17 01:45 09/07/17 01:44 Miscellaneous (Iv Fluids Completed) 1 ea PRN PRN N/A 08/08/17 03:00 08/08/18 02:59 Hydromorphone HCl (Dilaudid Inj) 0.5 mg Q3H PRN IV 08/08/17 03:15 08/22/17 03:14 08/08/17 08:18 0.5 MG Ciprofloxacin/ Dextrose 400 mg/ Prmx 200 ml @ 100 mls/hr Q12 IV 08/08/17 21:00 08/18/17 20:59 UNV Ibuprofen (Motrin Tab) 600 mg TID PO 08/08/17 12:00 09/07/17 11:59 UNV Review of Systems Constitutional: No fever, No chills Abdomen: + constipation, No diarrhea Physical Exam Date Time Temp Pulse Resp B/P (MAP) Pulse Ox O2 Delivery O2 Flow Rate FiO2 08/08/17 07:01 36.6 59 16 158/63 (94) 96 Room Air 08/08/17 05:10 158/62 (94) 08/08/17 03:13 Room Air 08/08/17 03:07 36.6 72 20 198/62 99 Room Air 08/08/17 02:31 65 18 182/63 97 08/08/17 01:22 65 18 182/63 97 Room Air 08/08/17 01:10 62 08/08/17 00:00 70 18 103/65 96 Room Air 08/07/17 23:08 64 18 172/63 97 Room Air 08/07/17 21:33 67 08/07/17 21:14 36.6 78 18 159/75 98 Room Air General Appearance: no apparent distress Abdomen/GI: non tender, soft Genitourinary - Male: + testicular tenderness (right), + pertinent finding ( incision is healing well, no erythema, scrotum and testes appear normal although tender on the right, swelling along inguinal canal) Laboratory Results Last 24 Hours Test 08/07/17 22:46 08/07/17 22:49 08/07/17 23:35 08/08/17 07:07 Lactic Acid Level 0.4 mmol/L White Blood Count 8.02 K/uL Red Blood Count 3.10 M/uL Hemoglobin 9.4 g/dL 9.4 g/dL Hematocrit 29.4 % Mean Corpuscular Volume 94.8 fL Mean Corpuscular Hemoglobin 30.3 pg Mean Corpuscular Hemoglobin Concent 32.0 g/dl Platelet Count 333 K/uL Mean Platelet Volume 10.2 fL Neutrophils (%) (Auto) 60.7 % Lymphocytes (%) (Auto) 23.7 % Monocytes (%) (Auto) 12.8 % Eosinophils (%) (Auto) 2.2 % Basophils (%) (Auto) 0.2 % Neutrophils # (Auto) 4.86 K/uL Lymphocytes # (Auto) 1.90 K/uL Monocytes # (Auto) 1.03 K/uL Eosinophils # (Auto) 0.18 K/uL Basophils # (Auto) 0.02 K/uL RDW Standard Deviation 47.4 fL RDW Coefficient of Variation 13.8 % Immature Granulocyte % (Auto) 0.4 % Immature Granulocyte # (Auto) 0.03 K/uL Sodium Level 142 mmol/L Potassium Level 4.4 mmol/L Chloride Level 111 mmol/L Carbon Dioxide Level 25 mmol/L Anion Gap 6.0 mmol/L Blood Urea Nitrogen 26 mg/dl Creatinine 1.24 mg/dl Estimated GFR () 61.5 Estimated GFR (Non- 53.1 BUN/Creatinine Ratio 21.0 Random Glucose 103 mg/dl Calcium Level 8.7 mg/dl Total Bilirubin 0.8 mg/dl Direct Bilirubin 0.2 mg/dl Aspartate Amino Transf (AST/SGOT) 25 U/L Alanine Aminotransferase (ALT/SGPT) 26 U/L Alkaline Phosphatase 75 U/L Troponin I < 0.015 ng/ml Total Protein 6.1 gm/dl Albumin 3.1 gm/dl Lipase 138 U/L Urine Color YELLOW Urine Appearance CLEAR Urine pH 5.0 Urine Specific [place] 1.018 Urine Protein NEG Urine Glucose (UA) NEG Urine Ketones NEG Urine Occult Blood NEG Urine Nitrite NEG Urine Bilirubin NEG Urine Urobilinogen NEG Urine Leukocyte Esterase SMALL Urine WBC (Auto) 1-5 /hpf Urine RBC (Auto) 0-4 /hpf Urine Hyaline Casts (Auto) 1-5 /lpf Urine Epithelial Cells (Auto) 5-10 /lpf Urine Bacteria (Auto) NEG CT IMPRESSION: 1. Extensive changes in the right lower quadrant of the abdomen and right lower quadrant abdominal wall. Possible omental infarct in the right lower quadrant associated with trace gas and fluid, which may be reactive in the reported postsurgical setting. However, a greater amount of fluid and reactive change in the right inguinal canal is noted that expected status post right internal hernia repair. This could suggest exuberant reactive postsurgical change versus developing infection. No radiopaque mass or other foreign body is evident. 2. Suggestion of right varicocele. Electronically signed by: Freddie Guevara M.D. 08/08/2017 7:09 AM Dictated Date/Time: 08/08/2017 6:39 AM Assessment & Plan s/p right inguinal hernia repair, likely seroma ? epididymitis/orchitis does not have an acute surgical issue, ok to resume diet will start on NSAIDS and cipro, discussed with Dr. Shields also seen this morning by Dr. Delong who will be covering the weekend pt seen as above. pt was doing well until about 3 days post opt then began having worse pain. per son, he has not been eating/ambulating well on his own. no sign of infection but there is considerable swelling/fluid/pain. I spoke regarding the case with Dr. Burns. US of testicle was done which shows normal blood flow to atrophic testes. for now, will try anti-inflammatories, pain control, PT/OT. I spoke with son who plans on re-securing patients prior assisted living arrangements which is in [place]. I agree pt should be placed somewhere and should not be discharged to home alone. occ confused per nursing. will likely need to stay over the weekend for symptom control and for son to obtain assisted living arrangements.
[2017-08-08] MEDS ORDERED: HydrALAZINE HCL 20 MG/ML VIAL IV. PRN (12:45)
--- NOTE | 2017-08-08 13:07 | Hospitalist Progress Note ---
Hospitalist Progress Note Date of Service Aug 08, 2017. (Yamileth Singh ., TERRY) Subjective Pt evaluation today including: conversation w/ patient, physical exam, lab review, review of studies, review of inpatient medication list Voiding: no voiding problems Patient is resting in bed. No signs of acute distress. Eating and drinking OK. Notes significant pain to R hernia repair site with movement/activity. Denies any pain with movement. Patient denies any fever, chills, sweats, lightheadedness, dizziness, vision changes, CP, palpitations, edema, SOB, wheezing, cough, nausea, vomiting, diarrhea, urinary symptoms, melena, numbness/tingling, weakness, muscle/joint pain, anxiety/depression, active bleeding, or new skin discoloration/changes. (Yamileth Singh ., REC) Medications Current Inpatient Medications Medications (Trade) Dose Ordered Sig/Brian Route Start Time Stop Time Status Last Admin Dose Admin Ioversol (Optiray 320) 100 ml UD PRN IV 08/07/17 22:00 08/11/17 21:59 Amlodipine Besylate (Norvasc Tab) 5 mg DAILY PO 08/08/17 09:00 09/07/17 08:59 08/08/17 10:06 5 MG Aspirin (Ecotrin Tab) 81 mg QAM PO 08/08/17 09:00 09/07/17 08:59 08/08/17 10:07 81 MG Atorvastatin Calcium (Lipitor Tab) 40 mg DAILY PO 08/08/17 09:00 09/07/17 08:59 08/08/17 10:07 40 MG Clopidogrel Bisulfate (plAVix TAB) 75 mg DAILY PO 08/08/17 09:00 09/07/17 08:59 Digoxin (Lanoxin Tab) 0.125 mg DAILY@1600 PO 08/08/17 16:00 09/07/17 15:59 Folic Acid (Folvite Tab) 1 mg QAM PO 08/08/17 09:00 09/07/17 08:59 08/08/17 10:08 1 MG Gabapentin (Neurontin Cap) 300 mg BID PO 08/08/17 09:00 09/07/17 08:59 08/08/17 10:07 300 MG Metoprolol Tartrate (Lopressor Tab) 25 mg BID PO 08/08/17 09:00 09/07/17 08:59 08/08/17 10:07 25 MG Acetaminophen (Tylenol Tab) 650 mg Q4H PRN PO 08/08/17 01:45 09/07/17 01:44 Al Hydrox/Mg Hydrox/Simethicone (Maalox Max Susp) 15 ml Q4H PRN PO 08/08/17 01:45 09/07/17 01:44 Magnesium Hydroxide (Milk Of Magnesia Susp) 30 ml Q6H PRN PO 08/08/17 01:45 09/07/17 01:44 Polyethylene (Miralax Powder Packet) 17 gm DAILY PRN PO 08/08/17 02:00 09/07/17 01:59 Zolpidem Tartrate (Ambien Tab) 5 mg HSZ PRN PO 08/08/17 01:45 09/07/17 01:44 Ondansetron HCl (Zofran Inj) 4 mg Q6H PRN IV 08/08/17 01:45 09/07/17 01:44 Miscellaneous (Iv Fluids Completed) 1 ea PRN PRN N/A 08/08/17 03:00 08/08/18 02:59 Hydromorphone HCl (Dilaudid Inj) 0.5 mg Q3H PRN IV 08/08/17 03:15 08/22/17 03:14 08/08/17 08:18 0.5 MG Ciprofloxacin/ Dextrose 400 mg/ Prmx 200 ml @ 100 mls/hr Q12H IV 08/08/17 12:00 08/18/17 11:59 Ibuprofen (Motrin Tab) 600 mg TID PO 08/08/17 12:00 09/07/17 11:59 (Yamileth Singh, TERRY) Objective Vital Signs Date Time Temp Pulse Resp B/P (MAP) Pulse Ox O2 Delivery O2 Flow Rate FiO2 08/08/17 07:01 36.6 59 16 158/63 (94) 96 Room Air 08/08/17 05:10 158/62 (94) 08/08/17 03:13 Room Air 08/08/17 03:07 36.6 72 20 198/62 99 Room Air 08/08/17 02:31 65 18 182/63 97 08/08/17 01:22 65 18 182/63 97 Room Air 08/08/17 01:10 62 08/08/17 00:00 70 18 103/65 96 Room Air 08/07/17 23:08 64 18 172/63 97 Room Air 08/07/17 21:33 67 08/07/17 21:14 36.6 78 18 159/75 98 Room Air (Yamileth Singh, PA-C) Physical Exam General Appearance: no apparent distress Eyes: normal inspection, PERRL ENT: hearing grossly normal Neck: supple Respiratory/Chest: lungs clear, no respiratory distress, no accessory muscle use Cardiovascular: regular rate, rhythm Abdomen: normal bowel sounds, soft, + tenderness (around incision site ), + pertinent finding (RLQ incision site C/D/I- no obvious erythema, warmth, or drainage- noted swelling below incision site ) Extremities: no pedal edema, no calf tenderness Neurologic/Psychiatric: alert, normal mood/affect, oriented x 3 Skin: normal color, warm/dry, no rash (Yamileth Singh ., PA-C) Laboratory Results Last 24 Hours Test 08/07/17 22:46 08/07/17 22:49 08/07/17 23:35 08/08/17 07:07 Lactic Acid Level 0.4 mmol/L White Blood Count 8.02 K/uL Red Blood Count 3.10 M/uL Hemoglobin 9.4 g/dL 9.4 g/dL Hematocrit 29.4 % Mean Corpuscular Volume 94.8 fL Mean Corpuscular Hemoglobin 30.3 pg Mean Corpuscular Hemoglobin Concent 32.0 g/dl Platelet Count 333 K/uL Mean Platelet Volume 10.2 fL Neutrophils (%) (Auto) 60.7 % Lymphocytes (%) (Auto) 23.7 % Monocytes (%) (Auto) 12.8 % Eosinophils (%) (Auto) 2.2 % Basophils (%) (Auto) 0.2 % Neutrophils # (Auto) 4.86 K/uL Lymphocytes # (Auto) 1.90 K/uL Monocytes # (Auto) 1.03 K/uL Eosinophils # (Auto) 0.18 K/uL Basophils # (Auto) 0.02 K/uL RDW Standard Deviation 47.4 fL RDW Coefficient of Variation 13.8 % Immature Granulocyte % (Auto) 0.4 % Immature Granulocyte # (Auto) 0.03 K/uL Sodium Level 142 mmol/L Potassium Level 4.4 mmol/L Chloride Level 111 mmol/L Carbon Dioxide Level 25 mmol/L Anion Gap 6.0 mmol/L Blood Urea Nitrogen 26 mg/dl Creatinine 1.24 mg/dl Estimated GFR () 61.5 Estimated GFR (Non- 53.1 BUN/Creatinine Ratio 21.0 Random Glucose 103 mg/dl Calcium Level 8.7 mg/dl Total Bilirubin 0.8 mg/dl Direct Bilirubin 0.2 mg/dl Aspartate Amino Transf (AST/SGOT) 25 U/L Alanine Aminotransferase (ALT/SGPT) 26 U/L Alkaline Phosphatase 75 U/L Troponin I < 0.015 ng/ml Total Protein 6.1 gm/dl Albumin 3.1 gm/dl Lipase 138 U/L Urine Color YELLOW Urine Appearance CLEAR Urine pH 5.0 Urine Specific [place] 1.018 Urine Protein NEG Urine Glucose (UA) NEG Urine Ketones NEG Urine Occult Blood NEG Urine Nitrite NEG Urine Bilirubin NEG Urine Urobilinogen NEG Urine Leukocyte Esterase SMALL Urine WBC (Auto) 1-5 /hpf Urine RBC (Auto) 0-4 /hpf Urine Hyaline Casts (Auto) 1-5 /lpf Urine Epithelial Cells (Auto) 5-10 /lpf Urine Bacteria (Auto) NEG (Yamileth Singh, PA-C) Assessment and Plan 82 y/o male Hx CAD, HTN, HPL, PAF. Underwent R inguinal hernia repair 08/01. Presents with progressive weakness and pain at the surgical site. A CT obtained in the ER reveals a loculated fluid collection in the inguinal canal and scrotum in addition to fluid and air in the R pelvis proximal to the iliac vessel. This may represent infection or more likely a seroma. The pt denies SOB, CP, nausea/vomiting, fevers or dysuria. He is unable to ambulate at present as it greatly exacerbated the pain in his groin. s/p R inguinal hernia repair by Dr. Shields on 07/31, post-op pain w/ fluid collection, ?possible seroma vs infection: - Admitted to med/surg - IV Dilaudid PRN - General surgery consulted, appreciate recommendations -- No acute surgical need at this time -- IV Cipro BID- started on 08/08 -- Motrin 600 mg TID CAD s/p STEMI w/ BMS stenting, paroxysmal a.fib, HTN, HLD- follows w/ Dr. Davey : - Continue Lopressor 25 mg BID, Lipitor 40 mg daily, Digoxin 0.125 mg daily, ASA 81 mg daily, Norvasc 5 mg daily - Plavix 75 mg daily and Valsartan 320 mg daily held due to ?need for surgical intervention -- Will resume Valsartan at this time due to elevating BPs -- Continue to hold Plavix CKD, stage III- STABLE Neuropathy: Continue Gabapentin 300 mg BID Chronic anemia, baseline hgb 10-11- STABLE DVT prophylaxis: TEDs/SCDs, ambulation; hold chemical anticoagulation pending ? need for surgical intervention Code Status: LEVEL I, FULL Dispo: From personal care, lives alone- PT/OT and CM consulted (Yamileth Singh, PA-C) Reviewed: Pt Seen/Exam by Me (Joyce Howard MD) History Physician [employer] Supervision Note: I interviewed and examined the patient. Discussed with and agree with findings and plan as documented in the note. Any exceptions or clarifications are listed here: Patient still having pain in the right groin that is the same as when he arrived. Testicular ultrasound results was reviewed and nothing urgent is present. He denies any chest pain or shortness of breath. Vitals reviewed NAD, alert and awake Regular rate and rhythm, no murmurs gallops rubs Lungs clear to auscultation bilaterally, no wheezes crackles or rhonchi Abdomen positive hyperactive bowel sounds, soft, right inguinal region with open hernia repair incision with scab in place and no drainage, moderate amount of edema and exquisite tenderness to palpation in the right inguinal region with no erythema Extremities no edema 82-year-old male with history as above, here 1 week status post open right inguinal hernia repair with increased pain and swelling in the area, with loculated fluid collection-infection versus seroma present on CT scan. -Appreciate surgery recommendations for IV Cipro and NSAIDs at this time, no surgery planned at this time -Continue [place] and IV Dilaudid as needed for pain -Bowel regimen as he has not had a bowel movement in several days - Documented By: Joyce Howard (Joyce Howard MD)
[2017-08-08] MEDS: IBUPROFEN 600 MG TAB PO SCH ×2 (13:20→21:22)
[2017-08-08] MEDS: CIPROFLOXACIN / D5W 400 MG in PREMIXED IN D5W 200 ML IV SCH (13:20)
[2017-08-08] MEDS: CLOPIDOGREL BISULFATE 75 MG TAB PO SCH (13:25)
[2017-08-08] MEDS ORDERED: NURSING VERBAL MED ORDER ONE (13:45)
[2017-08-08 15:29] VITALS: BP 147/50; PULSE 58; TEMP 36.9; O2SAT 99
--- NOTE | 2017-08-08 15:44 | DIAGNOSTIC IMAGING REPORT ---
TESTICULAR ULTRASOUND HISTORY: testicular pain COMPARISON: None. FINDINGS: Right testis: 4.0 x 2.3 x 3.1 cm. Heterogeneous testis with normal color flow. No definite testicular masses. Small hydrocele. Small appendix testis. A 3 mm epididymal head cyst. Left testis: 3.8 x 2.1 x 1.8 cm. Heterogeneous testis with normal blood flow. 6 mm cystic focus along the periphery which may represent a tunica albuginea cyst given the location. Trace hydrocele. Normal epididymis. There is diffuse scrotal thickening/edema. IMPRESSION: 1. Heterogeneous and slightly atrophic testes which may be age-related. No definite masses. There is symmetric color flow. 2. Diffuse scrotal thickening/edema. 3. Small right and trace left hydrocele. Electronically signed by: Jitendra Ingram M.D. 08/08/2017 3:43 PM Dictated Date/Time: 08/08/2017 3:40 PM
[2017-08-08] MEDS: DIGOXIN 0.125 MG TAB PO SCH (15:49)
[2017-08-08] MEDS: BOOST VANILLA PO SCH (17:15)
[2017-08-08 21:24] VITALS: BP 167/64; PULSE 58
[2017-08-08] MEDS ORDERED: DOCUSATE SODIUM/SENNA 50/8.6MG TAB PO ONE (21:30)
[2017-08-08 22:46] VITALS: BP 161/64; PULSE 58; TEMP 36.7; O2SAT 97
[2017-08-09] MEDS: CIPROFLOXACIN / D5W 400 MG in PREMIXED IN D5W 200 ML IV SCH (00:27)
[2017-08-09 08:17] VITALS: BP 148/63; PULSE 55; TEMP 36.3; O2SAT 97
[2017-08-09] MEDS: GABAPENTIN 300 MG CAP PO SCH ×2 (08:52→21:33)
[2017-08-09] MEDS: DOCUSATE SODIUM/SENNA 50/8.6MG TAB PO SCH (08:52)
[2017-08-09] MEDS: METOPROLOL TARTRATE 25 MG TAB PO SCH ×2 (08:52→21:33)
[2017-08-09] MEDS: BOOST VANILLA PO SCH ×3 (08:52→17:15)
[2017-08-09] MEDS: ATORVASTATIN 40 MG TAB PO SCH (08:53)
[2017-08-09] MEDS: AMLODIPINE BESYLATE 5 MG TAB PO SCH (08:53)
[2017-08-09] MEDS: IBUPROFEN 600 MG TAB PO SCH ×3 (08:53→21:33)
[2017-08-09] MEDS: ASPIRIN 81 MG ECTAB PO SCH (08:53)
[2017-08-09] MEDS: VALSARTAN 80 MG TAB PO SCH (08:54)
[2017-08-09 09:15] LABS: BASO % 0.2 %; BASO ABS # 0.01 K/uL (0-0.2); EOS % 5.2 %; HEMATOCRIT 31.6 % (42-52); HEMOGLOBIN 10.1 g/dL (14.0-18.0); LYMPH % 23.1 %; LYMPH ABS # 1.33 K/uL (1.2-3.4); MEAN CORPUSCULAR HEMOGLOBIN 30.1 pg (25-34); MEAN PLATELET VOLUME 9.4 fL (7.4-10.4); MONO % 11.6 %; MONO ABS # 0.67 K/uL (0.11-0.59); NEUT % 59.9 %; NEUT ABS # 3.45 K/uL (1.4-6.5); PLATELET COUNT 325 K/uL (130-400); RED CELL DISTRIBUTION WIDTH CV 13.4 % (11.5-14.5); RED CELL DISTRIBUTION WIDTH SD 46.1 fL (36.4-46.3); WHITE BLOOD COUNT 5.76 K/uL (4.8-10.8)
[2017-08-09 09:31] LABS: CALCIUM 9.1 mg/dl (8.5-10.1); CREATININE 1.45 mg/dl (0.60-1.40); POTASSIUM 4.1 mmol/L (3.5-5.1)
--- NOTE | 2017-08-09 09:36 | Surgery Progress Note ---
Surgery Progress Note Date of Service Aug 09, 2017. Subjective + feeling well, + pain controlled, No nausea, No vomiting Patient in bed for examination- reports no new concerns or issues overnight. Objective Vital Signs: Date Time Temp Pulse Resp B/P (MAP) Pulse Ox O2 Delivery O2 Flow Rate FiO2 08/09/17 08:17 36.3 55 18 148/63 (91) 97 Room Air 08/08/17 23:45 Room Air 08/08/17 22:46 36.7 58 16 161/64 (96) 97 Room Air 08/08/17 21:24 58 167/64 (98) 08/08/17 15:49 56 08/08/17 15:29 36.9 58 18 147/50 (82) 99 Room Air 08/08/17 15:25 Room Air General Appearance: WD/WN, no apparent distress Head: normocephalic, atraumatic Abdomen: non tender, non distended, soft Incision(s): clean, dry, intact, no drainage, findings (scrotum and testes continue to appear normal- tenderness improving on right. Swelling improving along inguinal canal. ) Laboratory Results: Results Past 24 Hours Test 08/09/17 09:04 Range/Units White Blood Count 5.76 4.8-10.8 K/uL Red Blood Count 3.36 4.7-6.1 M/uL Hemoglobin 10.1 14.0-18.0 g/dL Hematocrit 31.6 42-52 % Mean Corpuscular Volume 94.0 80-100 fL Mean Corpuscular Hemoglobin 30.1 25-34 pg Mean Corpuscular Hemoglobin Concent 32.0 32-36 g/dl Platelet Count 325 130-400 K/uL Mean Platelet Volume 9.4 7.4-10.4 fL Neutrophils (%) (Auto) 59.9 % Lymphocytes (%) (Auto) 23.1 % Monocytes (%) (Auto) 11.6 % Eosinophils (%) (Auto) 5.2 % Basophils (%) (Auto) 0.2 % Neutrophils # (Auto) 3.45 1.4-6.5 K/uL Lymphocytes # (Auto) 1.33 1.2-3.4 K/uL Monocytes # (Auto) 0.67 0.11-0.59 K/uL Eosinophils # (Auto) 0.30 0-0.5 K/uL Basophils # (Auto) 0.01 0-0.2 K/uL RDW Standard Deviation 46.1 36.4-46.3 fL RDW Coefficient of Variation 13.4 11.5-14.5 % Immature Granulocyte % (Auto) 0.0 % Immature Granulocyte # (Auto) 0.00 0.00-0.02 K/uL Assessment & Plan s/p Right Inguinal Hernia Repair with Likely Seroma Patient seen and examined with Dr. Delong. Testicular US reviewed- IMPRESSION: 1. Heterogeneous and slightly atrophic testes which may be age-related. No definite masses. There is symmetric color flow. 2. Diffuse scrotal thickening/edema. 3. Small right and trace left hydrocele. Discussed patient with Dr. Shields. Dr. Shields has been in contact with patient's son. Will continue to keep patient through weekend for pain control and monitoring. PT consult. We will continue to follow.
--- NOTE | 2017-08-09 14:24 | Hospitalist Progress Note ---
Hospitalist Progress Note Date of Service Aug 09, 2017. Subjective Pt evaluation today including: conversation w/ patient, conversation w/ family (Son) Pt says pain in rt inguinal region is improved, he is walking more around room but PT recommending supervision. Afebrile. Discussed case with his son on phone who lives in [place], pt lives alone and appeared dehydrated on admission as per ER notes. Son reports he probably wasn' t taking any of his heart meds prior to arrival either. I have great concern about pt going home alone. Son says he can probably drive up tomorrow and pick him up to bring him back to [place] [facility]. Pt reports he planned on driving to [place] himself if he were to be discharged today. I advised strongly against this given his seroma and pain, as well as some intermittent confusion and memory problems. All Other Systems: Reviewed and Negative Objective Vital Signs Date Time Temp Pulse Resp B/P (MAP) Pulse Ox O2 Delivery O2 Flow Rate FiO2 08/09/17 08:17 36.3 55 18 148/63 (91) 97 Room Air 08/09/17 07:30 Room Air 08/08/17 23:45 Room Air 08/08/17 22:46 36.7 58 16 161/64 (96) 97 Room Air 08/08/17 21:24 58 167/64 (98) 08/08/17 15:49 56 08/08/17 15:29 36.9 58 18 147/50 (82) 99 Room Air 08/08/17 15:25 Room Air Physical Exam General Appearance: WD/WN, no apparent distress (sitting in chair with rtight LE crossed over left) Eyes: normal inspection, sclerae normal ENT: hearing grossly normal Neck: trachea midline Respiratory/Chest: lungs clear, normal breath sounds, no respiratory distress, no accessory muscle use Cardiovascular: regular rate, rhythm, no edema, no gallop, no murmur Abdomen: normal bowel sounds, + pertinent finding (Right inguinal region with reduced edema, only minimal tenderness to palpation, no erythema) Extremities: normal inspection, no pedal edema, no calf tenderness Neurologic/Psychiatric: alert Skin: normal color, warm/dry, + pertinent finding (RIH repair incision is scabbed, Dermabond in place, no drainage or erythema) Laboratory Results Last 24 Hours Test 08/09/17 09:04 White Blood Count 5.76 K/uL Red Blood Count 3.36 M/uL Hemoglobin 10.1 g/dL Hematocrit 31.6 % Mean Corpuscular Volume 94.0 fL Mean Corpuscular Hemoglobin 30.1 pg Mean Corpuscular Hemoglobin Concent 32.0 g/dl Platelet Count 325 K/uL Mean Platelet Volume 9.4 fL Neutrophils (%) (Auto) 59.9 % Lymphocytes (%) (Auto) 23.1 % Monocytes (%) (Auto) 11.6 % Eosinophils (%) (Auto) 5.2 % Basophils (%) (Auto) 0.2 % Neutrophils # (Auto) 3.45 K/uL Lymphocytes # (Auto) 1.33 K/uL Monocytes # (Auto) 0.67 K/uL Eosinophils # (Auto) 0.30 K/uL Basophils # (Auto) 0.01 K/uL RDW Standard Deviation 46.1 fL RDW Coefficient of Variation 13.4 % Immature Granulocyte % (Auto) 0.0 % Immature Granulocyte # (Auto) 0.00 K/uL Sodium Level 140 mmol/L Potassium Level 4.1 mmol/L Chloride Level 107 mmol/L Carbon Dioxide Level 27 mmol/L Anion Gap 6.0 mmol/L Blood Urea Nitrogen 25 mg/dl Creatinine 1.45 mg/dl Est Creatinine Clear Calc Drug Dose 36.1 ml/min Estimated GFR () 50.9 Estimated GFR (Non- 43.9 BUN/Creatinine Ratio 17.4 Random Glucose 133 mg/dl Calcium Level 9.1 mg/dl Magnesium Level 2.1 mg/dl Assessment and Plan 82 y/o male Hx CAD with bare metal stent, HTN, HPL, PAF not on AC for fall risk , normocytic anemia. Underwent R inguinal hernia repair 08/01. Presents with progressive weakness and pain at the surgical site. A CT obtained in the ER reveals a loculated fluid collection in the inguinal canal and scrotum in addition to fluid and air in the R pelvis proximal to the iliac vessel. This may represent infection or more likely a seroma. The pt denies SOB, CP, nausea/ vomiting, fevers or dysuria. S/p R inguinal hernia repair by Dr. Shields on 07/31, post-op pain w/ fluid collection, ?possible seroma vs infection: Improved today -Appreciate surgery recommendations for Cipro and NSAIDs at this time, no surgery planned at this time -Continue pain control as needed-advised not to drive on opioids-but not even requiring opioids today, only ibuprofen -continue Bowel regimen as he has not had a bowel movement in several days -can likely be discharged tomorrow if continues to improve CAD s/p STEMI w/ BMS stenting, paroxysmal a.fib, HTN, HLD- follows w/ Dr. 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 -caution with NSAIDs but angie continue to watch -follow PRP Neuropathy: Continue Gabapentin 300 mg BID Chronic anemia, baseline hgb 10-11- STABLE DVT prophylaxis: TEDs/SCDs, ambulation; hold chemical anticoagulation pending ? need for surgical intervention Code Status: LEVEL I, FULL Dispo: lives alone, will return to [facility] in [place] tomorrow but I advised son to pick him up as I do not feel pt should be driving to [facility] tomorrow given his condition
[2017-08-09 15:05] VITALS: BP 114/69; PULSE 56; TEMP 36.6; O2SAT 98
[2017-08-09] MEDS: DIGOXIN 0.125 MG TAB PO SCH (16:00)
[2017-08-09] MEDS: CIPROFLOXACIN 500 MG TAB PO SCH (21:33)
[2017-08-09 23:40] VITALS: BP 117/75; PULSE 66; TEMP 36.6; O2SAT 99
[2017-08-10 00:10] VITALS: O2SAT 99
[2017-08-10 06:05] LABS: CALCIUM 8.9 mg/dl (8.5-10.1); CREATININE 1.68 mg/dl (0.60-1.40)
--- NOTE | 2017-08-10 07:25 | Surgery Progress Note ---
Surgery Progress Note Date of Service Aug 10, 2017. Subjective + feeling well, + flatus, + pain controlled, No complaints, No nausea, No vomiting Was sleeping when I entered the room- took a few minutes for him to realize that he was in the hospital. Discussed son who may be coming up today from [place]- patient unsure and unable to give me a definite answer. Objective Vital Signs: Date Time Temp Pulse Resp B/P (MAP) Pulse Ox O2 Delivery O2 Flow Rate FiO2 08/10/17 00:10 99 Room Air 08/09/17 23:40 36.6 66 17 117/75 (89) 99 Room Air 08/09/17 16:25 Room Air 08/09/17 16:00 57 08/09/17 15:05 36.6 56 16 114/69 (84) 98 Room Air 08/09/17 08:17 36.3 55 18 148/63 (91) 97 Room Air 08/09/17 07:30 Room Air General Appearance: WD/WN, no apparent distress Head: normocephalic, atraumatic Respiratory/Chest: no respiratory distress, no accessory muscle use Incision(s): clean, dry, intact, no drainage, findings (swelling near inguinal canal still present, but continues to improve. ) Laboratory Results: Results Past 24 Hours Test 08/09/17 09:04 08/10/17 05:03 Range/Units White Blood Count 5.76 4.8-10.8 K/uL Red Blood Count 3.36 4.7-6.1 M/uL Hemoglobin 10.1 14.0-18.0 g/dL Hematocrit 31.6 42-52 % Mean Corpuscular Volume 94.0 80-100 fL Mean Corpuscular Hemoglobin 30.1 25-34 pg Mean Corpuscular Hemoglobin Concent 32.0 32-36 g/dl Platelet Count 325 130-400 K/uL Mean Platelet Volume 9.4 7.4-10.4 fL Neutrophils (%) (Auto) 59.9 % Lymphocytes (%) (Auto) 23.1 % Monocytes (%) (Auto) 11.6 % Eosinophils (%) (Auto) 5.2 % Basophils (%) (Auto) 0.2 % Neutrophils # (Auto) 3.45 1.4-6.5 K/uL Lymphocytes # (Auto) 1.33 1.2-3.4 K/uL Monocytes # (Auto) 0.67 0.11-0.59 K/uL Eosinophils # (Auto) 0.30 0-0.5 K/uL Basophils # (Auto) 0.01 0-0.2 K/uL RDW Standard Deviation 46.1 36.4-46.3 fL RDW Coefficient of Variation 13.4 11.5-14.5 % Immature Granulocyte % (Auto) 0.0 % Immature Granulocyte # (Auto) 0.00 0.00-0.02 K/uL Sodium Level 140 139 136-145 mmol/L Potassium Level 4.1 4.0 3.5-5.1 mmol/L Chloride Level 107 109 98-107 mmol/L Carbon Dioxide Level 27 26 21-32 mmol/L Anion Gap 6.0 4.0 3-11 mmol/L Blood Urea Nitrogen 25 37 7-18 mg/dl Creatinine 1.45 1.68 0.60-1.40 mg/dl Est Creatinine Clear Calc Drug Dose 36.1 31.2 ml/min Estimated GFR () 50.9 42.6 Estimated GFR (Non- 43.9 36.7 BUN/Creatinine Ratio 17.4 22.1 10-20 Random Glucose 133 103 70-99 mg/dl Calcium Level 9.1 8.9 8.5-10.1 mg/dl Magnesium Level 2.1 1.8-2.4 mg/dl Assessment & Plan 08/10/17 s/p Right Inguinal Hernia Repair with Seroma Pain controlled at this time. Patient tolerating diet. PO antibiotics- continue outpatient Cipro and NSAID for pain. Discharge pending discussion with son- called this AM to speak with son, but no answer- will attempt later. Please wait to discharge until definite plans are made after speaking with son. Patient seen and examined with Dr. Delong. 08/09/17 s/p Right Inguinal Hernia Repair with Likely Seroma Patient seen and examined with Dr. Delong. Testicular US reviewed- IMPRESSION: 1. Heterogeneous and slightly atrophic testes which may be age-related. No definite masses. There is symmetric color flow. 2. Diffuse scrotal thickening/edema. 3. Small right and trace left hydrocele. Discussed patient with Dr. Shields. Dr. Shields has been in contact with patient's son. Will continue to keep patient through weekend for pain control and monitoring. PT consult. We will continue to follow.
[2017-08-10 07:40] VITALS: BP 164/69; PULSE 47; TEMP 36.3; O2SAT 97
[2017-08-10] MEDS: CIPROFLOXACIN 500 MG TAB PO SCH (07:43)
[2017-08-10] MEDS: METOPROLOL TARTRATE 25 MG TAB PO SCH ×2 (07:44→20:47)
[2017-08-10] MEDS: DOCUSATE SODIUM/SENNA 50/8.6MG TAB PO SCH (07:44)
[2017-08-10] MEDS: IBUPROFEN 600 MG TAB PO SCH (07:44)
[2017-08-10] MEDS: AMLODIPINE BESYLATE 5 MG TAB PO SCH (07:45)
[2017-08-10] MEDS: ATORVASTATIN 40 MG TAB PO SCH (07:45)
[2017-08-10] MEDS: GABAPENTIN 300 MG CAP PO SCH ×2 (07:45→20:47)
[2017-08-10] MEDS: ASPIRIN 81 MG ECTAB PO SCH (07:45)
[2017-08-10] MEDS: VALSARTAN 80 MG TAB PO SCH (07:45)
[2017-08-10] MEDS: BOOST VANILLA PO SCH ×3 (07:49→17:15)
[2017-08-10] MEDS: CLOPIDOGREL BISULFATE 75 MG TAB PO SCH (09:00)
[2017-08-10] MEDS ORDERED: SODIUM CHLORIDE 0.9% 1000ML 500 ML IV ONE (13:00)
[2017-08-10] MEDS ORDERED: IBUPROFEN 600 MG TAB PO PRN (14:00)
--- NOTE | 2017-08-10 14:34 | Hospitalist Progress Note ---
Hospitalist Progress Note Date of Service Aug 10, 2017. (Yamileth Singh ., PA-C) Subjective Pt evaluation today including: conversation w/ patient, physical exam, lab review, review of inpatient medication list Voiding: no voiding problems Patient resting in bed. Alert/oriented w/ times of confusion. Discussed discharge plans w/ patient States he does NOT want his son to come and get him, and would go to his apartment here in counts include [facility] beds [facility] Discussed the need for patient to go back to personal care with family close - patient states he would prefer rehab at this time PT is recommending rehab- discussed w/ CM, going to start process and look for places close to [place] Eating and drinking OK. Denies any current pain. Had a BM today. Patient denies any fever, chills, sweats, lightheadedness, dizziness, vision changes, CP, palpitations, edema, SOB, wheezing, cough, abdominal pain, nausea, vomiting, diarrhea, urinary symptoms, melena, numbness/tingling, weakness, muscle/joint pain, anxiety/depression, active bleeding, or new skin discoloration/changes. (Yamileth Singh ., PA-C) Medications Current Inpatient Medications Medications (Trade) Dose Ordered Sig/Brian Route Start Time Stop Time Status Last Admin Dose Admin Ioversol (Optiray 320) 100 ml UD PRN IV 08/07/17 22:00 08/11/17 21:59 Amlodipine Besylate (Norvasc Tab) 5 mg DAILY PO 08/08/17 09:00 09/07/17 08:59 08/10/17 07:45 5 MG Aspirin (Ecotrin Tab) 81 mg QAM PO 08/08/17 09:00 09/07/17 08:59 08/10/17 07:45 81 MG Atorvastatin Calcium (Lipitor Tab) 40 mg DAILY PO 08/08/17 09:00 09/07/17 08:59 08/10/17 07:45 40 MG Clopidogrel Bisulfate (plAVix TAB) 75 mg DAILY PO 08/08/17 09:00 09/07/17 08:59 Future hold 08/08/17 13:25 75 MG Digoxin (Lanoxin Tab) 0.125 mg DAILY@1600 PO 08/08/17 16:00 09/07/17 15:59 Folic Acid (Folvite Tab) 1 mg QAM PO 08/08/17 09:00 09/07/17 08:59 08/10/17 07:44 1 MG Gabapentin (Neurontin Cap) 300 mg BID PO 08/08/17 09:00 09/07/17 08:59 08/10/17 07:45 300 MG Metoprolol Tartrate (Lopressor Tab) 25 mg BID PO 08/08/17 09:00 09/07/17 08:59 08/10/17 07:44 25 MG Acetaminophen (Tylenol Tab) 650 mg Q4H PRN PO 08/08/17 01:45 09/07/17 01:44 Al Hydrox/Mg Hydrox/Simethicone (Maalox Max Susp) 15 ml Q4H PRN PO 08/08/17 01:45 09/07/17 01:44 Magnesium Hydroxide (Milk Of Magnesia Susp) 30 ml Q6H PRN PO 08/08/17 01:45 09/07/17 01:44 Polyethylene (Miralax Powder Packet) 17 gm DAILY PRN PO 08/08/17 02:00 09/07/17 01:59 Zolpidem Tartrate (Ambien Tab) 5 mg HSZ PRN PO 08/08/17 01:45 09/07/17 01:44 Ondansetron HCl (Zofran Inj) 4 mg Q6H PRN IV 08/08/17 01:45 09/07/17 01:44 Miscellaneous (Iv Fluids Completed) 1 ea PRN PRN N/A 08/08/17 03:00 08/08/18 02:59 Hydromorphone HCl (Dilaudid Inj) 0.5 mg Q3H PRN IV 08/08/17 03:15 08/22/17 03:14 08/08/17 08:18 0.5 MG Hydralazine HCl (HydrALAZINE INJ) 10 mg Q6H PRN IV. 08/08/17 12:45 09/07/17 12:44 Valsartan (Diovan Tab) 320 mg DAILY PO 08/09/17 09:00 09/08/17 08:59 08/10/17 07:45 320 MG Enteral Nutritional Formula (Boost) 1 can AC PO 08/08/17 17:15 09/07/17 17:14 08/09/17 08:52 1 CAN Acetaminophen/ Hydrocodone Bitart (Ozawkie 5/325 Tab) `1-2 tabs for pain 1 tab ... Q4H PRN PO 08/08/17 14:00 08/22/17 13:59 Senna/Docusate Sodium (Senokot S Tab) 1 tab QAM PO 08/09/17 09:00 09/08/17 08:59 08/10/17 07:44 1 TAB Ciprofloxacin (Cipro Tab) 500 mg BID PO 08/09/17 21:00 08/10/17 20:59 08/10/17 07:43 500 MG Ibuprofen (Motrin Tab) 600 mg TID PRN PO 08/10/17 14:00 09/07/17 11:59 Sodium Chloride 500 ml @ 100 mls/hr Q5H ONCE IV 08/10/17 13:00 08/10/17 17:59 08/10/17 13:00 100 MLS/HR (Yamileth Singh PA-C) Objective Vital Signs Date Time Temp Pulse Resp B/P (MAP) Pulse Ox O2 Delivery O2 Flow Rate FiO2 08/10/17 08:31 Room Air 08/10/17 07:40 36.3 47 16 164/69 (100) 97 Room Air 08/10/17 00:10 99 Room Air 08/09/17 23:40 36.6 66 17 117/75 (89) 99 Room Air 08/09/17 16:25 Room Air 08/09/17 16:00 57 08/09/17 15:05 36.6 56 16 114/69 (84) 98 Room Air (Yamileth Singh PA-C) Physical Exam General Appearance: no apparent distress Eyes: normal inspection, PERRL ENT: hearing grossly normal Neck: supple Respiratory/Chest: lungs clear, no respiratory distress, no accessory muscle use Cardiovascular: regular rate, rhythm Abdomen: normal bowel sounds, non tender, soft, + pertinent [facility] ) Extremities: no pedal edema, no calf tenderness Neurologic/Psychiatric: alert, normal mood/affect, oriented x 3 Skin: normal color, warm/dry, no rash (Yamileth Singh PA-C) Laboratory Results Last 24 Hours Test 08/10/17 05:03 Sodium Level 139 mmol/L Potassium Level 4.0 mmol/L Chloride Level 109 mmol/L Carbon Dioxide Level 26 mmol/L Anion Gap 4.0 mmol/L Blood Urea Nitrogen 37 mg/dl Creatinine 1.68 mg/dl Est Creatinine Clear Calc Drug Dose 31.2 ml/min Estimated GFR () 42.6 Estimated GFR (Non- 36.7 BUN/Creatinine Ratio 22.1 Random Glucose 103 mg/dl Calcium Level 8.9 mg/dl (Yamileth Singh, PA-C) Assessment and Plan 82 y/o male Hx CAD, HTN, HPL, PAF. Underwent R inguinal hernia repair 08/01. Presents with progressive weakness and pain at the surgical site. A CT obtained in the ER reveals a loculated fluid collection in the inguinal canal and scrotum in addition to fluid and air in the R pelvis proximal to the iliac vessel. This may represent infection or more likely a seroma. The pt denies SOB, CP, nausea/vomiting, fevers or dysuria. He is unable to ambulate at present as it greatly exacerbated the pain in his groin. s/p R inguinal hernia repair by Dr. Shields on 07/31, post-op pain w/ fluid collection, ?possible seroma vs infection: - Admitted to med/surg - IV Dilaudid PRN - General surgery consulted, appreciate recommendations -- No acute surgical need at this time -- IV Cipro BID- started on 08/08 -- Motrin 600 mg TID changed to PRN CAD s/p STEMI w/ BMS stenting, paroxysmal a.fib, HTN, HLD- follows w/ Dr. Davey : - Continue Lopressor 25 mg BID, Lipitor 40 mg daily, Digoxin 0.125 mg daily, ASA 81 mg daily, Norvasc 5 mg daily, Plavix 75 mg daily - Valsartan 320 mg daily held due SELINA SELINA on CKD, stage III- zinc etcher 1.68 today, ?secondary to scheduled Motrin: - IV NSS @ 100 ml/hr x 500cc today - Changed Motrin to PRN and discussed w/ nursing to use Tylenol first, then Motrin if needed - Hold ARB - Follow PRP Neuropathy: Continue Gabapentin 300 mg BID Chronic anemia, baseline hgb 10-11- STABLE DVT prophylaxis: TEDs/SCDs, ambulation Code Status: LEVEL I, FULL Dispo: From personal care, lives alone- PT/OT recommending rehab- CM following (Yamileth Singh ., PAZahiraC) Reviewed: Pt Seen/Exam by Me (Sienna Berumen, DO) History Pt is feeling improved, but still with ambulation limitations due to pain related to R inguinal hernia repair and subsequent hematoma formation. Pt is very concerned about "not bothering my son" due to some social situations that the son has had recently. He would like to d/c to rehab, but prefers this to be near [place] where his son lives. Otherwise stable. No chest pain or SOB. Tolerating PO without issue. Agree with HPI/ROS as noted by PAC. (Sienna Berumen, ) General Appearance: no apparent distress, thin Respiratory: normal breath sounds, no respiratory distress Cardiovascular: normal peripheral pulses, regular rate, rhythm Gastrointestinal: non tender, soft Extremities: non-tender, no pedal edema Neurologic/Psychiatric: alert, normal mood/affect, oriented x 3 Skin Characteristics: normal color, warm/dry (Sienna Berumen, ) Assessment/Plan Agree with plan as outlined above R inguinal hernia repair on 08/01, now with hematoma Ambulation restricted due to pain Planning for rehab, prefers near [place] if able. ARF: hx of same, however cr is somewhat higher today than from admission Pt has been on scheduled motrin, will change to PRN and give 500cc IVF, monitor cr d/c to rehab once stable Multiple attempts to contact son by surgery, medicine, CM and all calls have gone unanswered. (Sienna Berumen, DO)
[2017-08-10 15:25] VITALS: PULSE 56
[2017-08-10] MEDS: DIGOXIN 0.125 MG TAB PO SCH (15:26)
[2017-08-10 15:45] VITALS: BP 124/58; PULSE 57; TEMP 36.8; O2SAT 96
[2017-08-10 20:43] VITALS: BP 156/62; PULSE 60
[2017-08-11 00:14] VITALS: BP 161/66; PULSE 63; TEMP 36.6; O2SAT 98
[2017-08-11] MEDS: HYDROCODONE/ACETAMOPHEN 5/325MG TAB PO PRN (05:36)
[2017-08-11 06:12] LABS: CALCIUM 8.7 mg/dl (8.5-10.1); CREATININE 1.65 mg/dl (0.60-1.40); POTASSIUM 4.2 mmol/L (3.5-5.1)
--- NOTE | 2017-08-11 07:27 | Surgery Progress Note ---
Surgery Progress Note Date of Service Aug 11, 2017. Subjective + feeling well, + bowel movement, + flatus, + pain controlled, No complaints, No nausea, No vomiting Objective Vital Signs: Date Time Temp Pulse Resp B/P (MAP) Pulse Ox O2 Delivery O2 Flow Rate FiO2 08/11/17 00:14 36.6 63 16 161/66 (97) 98 Room Air 08/10/17 23:15 Room Air 08/10/17 20:43 60 156/62 (93) 08/10/17 15:45 36.8 57 16 124/58 (80) 96 Room Air 08/10/17 15:32 Room Air 08/10/17 15:26 56 08/10/17 15:25 56 08/10/17 08:31 Room Air 08/10/17 07:40 36.3 47 16 164/69 (100) 97 Room Air General Appearance: WD/WN, no apparent distress Head: normocephalic, atraumatic Respiratory/Chest: no respiratory distress, no accessory muscle use Incision(s): clean, dry, intact, findings (dermabond still intact- no signs of infection. Swelling improving gradually each day. ) Laboratory Results: Results Past 24 Hours Test 08/11/17 05:17 Range/Units Sodium Level 141 136-145 mmol/L Potassium Level 4.2 3.5-5.1 mmol/L Chloride Level 111 98-107 mmol/L Carbon Dioxide Level 25 21-32 mmol/L Anion Gap 5.0 3-11 mmol/L Blood Urea Nitrogen 37 7-18 mg/dl Creatinine 1.65 0.60-1.40 mg/dl Est Creatinine Clear Calc Drug Dose 31.7 ml/min Estimated GFR () 43.5 Estimated GFR (Non- 37.6 BUN/Creatinine Ratio 22.3 10-20 Random Glucose 98 70-99 mg/dl Calcium Level 8.7 8.5-10.1 mg/dl Assessment & Plan 08/11/2017-s/p Right Inguinal Hernia Repair with Seroma No new concerns or complaints overnight. Pain controlled, swelling improving. Called Son several times yesterday with no response and no return phone call. Discharge date still uncertain. Case management on board- per PT, patient will require rehab at discharge. Will continue to follow. 08/10/17 s/p Right Inguinal Hernia Repair with Seroma Pain controlled at this time. Patient tolerating diet. PO antibiotics- continue outpatient Cipro and NSAID for pain. Discharge pending discussion with son- called this AM to speak with son, but no answer- will attempt later. Please wait to discharge until definite plans are made after speaking with son. Patient seen and examined with Dr. Delong. 08/09/17 s/p Right Inguinal Hernia Repair with Likely Seroma Patient seen and examined with Dr. Delong. Testicular US reviewed- IMPRESSION: 1. Heterogeneous and slightly atrophic testes which may be age-related. No definite masses. There is symmetric color flow. 2. Diffuse scrotal thickening/edema. 3. Small right and trace left hydrocele. Discussed patient with Dr. Shields. Dr. Shields has been in contact with patient's son. Will continue to keep patient through weekend for pain control and monitoring. PT consult. We will continue to follow.
[2017-08-11 07:43] VITALS: BP 132/54; PULSE 53; TEMP 36.3; O2SAT 97
[2017-08-11] MEDS: DOCUSATE SODIUM/SENNA 50/8.6MG TAB PO SCH (08:42)
[2017-08-11] MEDS: ASPIRIN 81 MG ECTAB PO SCH (08:42)
[2017-08-11] MEDS: ATORVASTATIN 40 MG TAB PO SCH (08:43)
[2017-08-11] MEDS: GABAPENTIN 300 MG CAP PO SCH (08:47)
[2017-08-11] MEDS: METOPROLOL TARTRATE 25 MG TAB PO SCH ×2 (08:47→21:14)
[2017-08-11] MEDS: AMLODIPINE BESYLATE 5 MG TAB PO SCH (08:48)
[2017-08-11] MEDS: CLOPIDOGREL BISULFATE 75 MG TAB PO SCH (08:48)
[2017-08-11] MEDS: BOOST VANILLA PO SCH ×3 (08:53→17:15)
--- NOTE | 2017-08-11 10:01 | Hospitalist Progress Note ---
Hospitalist Progress Note Date of Service Aug 11, 2017. (Yamileth Singh ., PA-C) Subjective Pt evaluation today including: conversation w/ patient, physical exam, lab review, review of inpatient medication list Voiding: no voiding problems Patient resting in bed. Eating and drinking OK. Denies any pain. Pain has decreased significantly with ambulation. Waiting for rehab placement. Patient notes worsening numbness/tingling in bilateral feet. Has h/o neuropathy. States he was on 400 mg Gabapentin BID, currently on 300 mg BID here. Will increase. Patient denies any fever, chills, sweats, lightheadedness, dizziness, vision changes, CP, palpitations, edema, SOB, wheezing, cough, abdominal pain, nausea, vomiting, diarrhea, urinary symptoms, melena, weakness, muscle/joint pain, anxiety/depression, active bleeding, or new skin discoloration/changes. (Yamileth Singh ., PA-C) Medications Current Inpatient Medications Medications (Trade) Dose Ordered Sig/Brian Route Start Time Stop Time Status Last Admin Dose Admin Ioversol (Optiray 320) 100 ml UD PRN IV 08/07/17 22:00 08/11/17 21:59 Amlodipine Besylate (Norvasc Tab) 5 mg DAILY PO 08/08/17 09:00 09/07/17 08:59 08/11/17 08:48 5 MG Aspirin (Ecotrin Tab) 81 mg QAM PO 08/08/17 09:00 09/07/17 08:59 08/11/17 08:42 81 MG Atorvastatin Calcium (Lipitor Tab) 40 mg DAILY PO 08/08/17 09:00 09/07/17 08:59 08/11/17 08:43 40 MG Clopidogrel Bisulfate (plAVix TAB) 75 mg DAILY PO 08/08/17 09:00 09/07/17 08:59 Future hold 08/11/17 08:48 75 MG Digoxin (Lanoxin Tab) 0.125 mg DAILY@1600 PO 08/08/17 16:00 09/07/17 15:59 Folic Acid (Folvite Tab) 1 mg QAM PO 08/08/17 09:00 09/07/17 08:59 08/11/17 08:42 1 MG Gabapentin (Neurontin Cap) 300 mg BID PO 08/08/17 09:00 09/07/17 08:59 08/11/17 08:47 300 MG Metoprolol Tartrate (Lopressor Tab) 25 mg BID PO 08/08/17 09:00 09/07/17 08:59 08/10/17 20:47 25 MG Acetaminophen (Tylenol Tab) 650 mg Q4H PRN PO 08/08/17 01:45 09/07/17 01:44 Al Hydrox/Mg Hydrox/Simethicone (Maalox Max Susp) 15 ml Q4H PRN PO 08/08/17 01:45 09/07/17 01:44 Magnesium Hydroxide (Milk Of Magnesia Susp) 30 ml Q6H PRN PO 08/08/17 01:45 09/07/17 01:44 Polyethylene (Miralax Powder Packet) 17 gm DAILY PRN PO 08/08/17 02:00 09/07/17 01:59 Zolpidem Tartrate (Ambien Tab) 5 mg HSZ PRN PO 08/08/17 01:45 09/07/17 01:44 Ondansetron HCl (Zofran Inj) 4 mg Q6H PRN IV 08/08/17 01:45 09/07/17 01:44 Miscellaneous (Iv Fluids Completed) 1 ea PRN PRN N/A 08/08/17 03:00 08/08/18 02:59 Hydromorphone HCl (Dilaudid Inj) 0.5 mg Q3H PRN IV 08/08/17 03:15 08/22/17 03:14 08/08/17 08:18 0.5 MG Hydralazine HCl (HydrALAZINE INJ) 10 mg Q6H PRN IV. 08/08/17 12:45 09/07/17 12:44 Valsartan (Diovan Tab) 320 mg DAILY PO 08/09/17 09:00 09/08/17 08:59 Future Hold 08/10/17 07:45 320 MG Enteral Nutritional Formula (Boost) 1 can AC PO 08/08/17 17:15 09/07/17 17:14 08/11/17 08:53 1 CAN Acetaminophen/ Hydrocodone Bitart ([place] 5/325 Tab) `1-2 tabs for pain 1 tab ... Q4H PRN PO 08/08/17 14:00 08/22/17 13:59 08/11/17 05:36 1 TAB Senna/Docusate Sodium (Senokot S Tab) 1 tab QAM PO 08/09/17 09:00 09/08/17 08:59 08/11/17 08:42 1 TAB Ibuprofen (Motrin Tab) 600 mg TID PRN PO 08/10/17 14:00 09/07/17 11:59 (Yamileth Singh PA-C) Objective Vital Signs Date Time Temp Pulse Resp B/P (MAP) Pulse Ox O2 Delivery O2 Flow Rate FiO2 08/11/17 09:26 Room Air 08/11/17 07:43 36.3 53 18 132/54 (80) 97 Room Air 08/11/17 00:14 36.6 63 16 161/66 (97) 98 Room Air 08/10/17 23:15 Room Air 08/10/17 20:43 60 156/62 (93) 08/10/17 15:45 36.8 57 16 124/58 (80) 96 Room Air 08/10/17 15:32 Room Air 08/10/17 15:26 56 08/10/17 15:25 56 (Yamileth Singh, PA-C) Physical Exam General Appearance: no apparent distress Eyes: normal inspection, PERRL ENT: hearing grossly normal Neck: supple Respiratory/Chest: lungs clear, no respiratory distress, no accessory muscle use Cardiovascular: regular rate, rhythm Abdomen: normal bowel sounds, non tender, soft, + pertinent finding (RLQ incision site C/D/I- no surrounding erythema or drainage ) Extremities: no pedal edema, no calf tenderness Neurologic/Psychiatric: alert, normal mood/affect, oriented x 3 Skin: normal color, warm/dry, no rash (Yamileth Singh, PA-C) Laboratory Results Last 24 Hours Test 08/11/17 05:17 Sodium Level 141 mmol/L Potassium Level 4.2 mmol/L Chloride Level 111 mmol/L Carbon Dioxide Level 25 mmol/L Anion Gap 5.0 mmol/L Blood Urea Nitrogen 37 mg/dl Creatinine 1.65 mg/dl Est Creatinine Clear Calc Drug Dose 31.7 ml/min Estimated GFR () 43.5 Estimated GFR (Non- 37.6 BUN/Creatinine Ratio 22.3 Random Glucose 98 mg/dl Calcium Level 8.7 mg/dl (Yamileth Singh, REC) Assessment and Plan 82 y/o male Hx CAD, HTN, HPL, PAF. Underwent R inguinal hernia repair 08/01. Presents with progressive weakness and pain at the surgical site. A CT obtained in the ER reveals a loculated fluid collection in the inguinal canal and scrotum in addition to fluid and air in the R pelvis proximal to the iliac vessel. This may represent infection or more likely a seroma. The pt denies SOB, CP, nausea/vomiting, fevers or dysuria. He is unable to ambulate at present as it greatly exacerbated the pain in his groin. s/p R inguinal hernia repair by Dr. Shields on 07/31, post-op pain w/ fluid collection, ?possible seroma vs infection: - Admitted to med/surg - IV Dilaudid PRN, Tylenol PO PRN for pain management - Motrin PO TID PRN- did not require pain medication yesterday, will discontinue Motrin due to kidney function - General surgery consulted, appreciate recommendations -- No acute surgical need at this time -- IV Cipro BID- started on 08/08 CAD s/p STEMI w/ BMS stenting, paroxysmal a.fib, HTN, HLD- follows w/ Dr. 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 Ongoing groin pain that is improving and not requiring pain medications. Does have pain with ambulation but has been resting. Tolerating PO without issue. Agree with HPI/ROS as noted by PAC (Sienna Berumen, DO) General Appearance: no apparent distress, thin Respiratory: normal breath sounds, no respiratory distress Cardiovascular: normal peripheral pulses, regular rate, rhythm Gastrointestinal: non tender, soft Extremities: non-tender, no pedal edema Neurologic/Psychiatric: alert, normal mood/affect, oriented x 3 Skin Characteristics: normal color, warm/dry (Sienna Berumen, DO) Assessment/Plan Agree with plan as outlined above R inguinal hernia repair on 08/01, now with hematoma Ambulation restricted due to pain Planning for rehab, prefers near [place] if able. Increase neurontin to home dose ARF: hx of same, however cr is somewhat higher than from admission and baseline , likely related to motrin use Repeat 500cc bolus and monitor d/c to rehab once stable Multiple attempts to contact son by surgery, medicine, CM and all calls have gone unanswered. (Sienna Berumen, DO)
[2017-08-11] MEDS ORDERED: SODIUM CHLORIDE 0.9% 500ML 500 ML IV ONE (11:00)
[2017-08-11 16:00] VITALS: BP 140/52; TEMP 36.7; O2SAT 97
[2017-08-11] MEDS: DIGOXIN 0.125 MG TAB PO SCH (16:00)
[2017-08-11] MEDS: GABAPENTIN 400 MG CAP PO SCH (21:14)
[2017-08-11 21:16] VITALS: BP 152/64; PULSE 60
[2017-08-11 22:55] VITALS: BP 150/65; PULSE 56; TEMP 36.7; O2SAT 97
[2017-08-12 06:46] VITALS: BP 145/59; PULSE 50; TEMP 36.5; O2SAT 98
[2017-08-12] MEDS: HYDROCODONE/ACETAMOPHEN 5/325MG TAB PO PRN (07:36)
[2017-08-12 08:10] LABS: CALCIUM 8.8 mg/dl (8.5-10.1); CREATININE 1.27 mg/dl (0.60-1.40); POTASSIUM 4.1 mmol/L (3.5-5.1)
[2017-08-12] MEDS: BOOST VANILLA PO SCH ×3 (08:58→17:15)
[2017-08-12] MEDS: METOPROLOL TARTRATE 25 MG TAB PO SCH (09:00)
[2017-08-12] MEDS: ATORVASTATIN 40 MG TAB PO SCH (09:01)
[2017-08-12] MEDS: ASPIRIN 81 MG ECTAB PO SCH (09:01)
[2017-08-12] MEDS: GABAPENTIN 400 MG CAP PO SCH (09:02)
[2017-08-12] MEDS: AMLODIPINE BESYLATE 5 MG TAB PO SCH (09:03)
[2017-08-12] MEDS: DOCUSATE SODIUM/SENNA 50/8.6MG TAB PO SCH (09:04)
[2017-08-12] MEDS: CLOPIDOGREL BISULFATE 75 MG TAB PO SCH (09:04)
--- NOTE | 2017-08-12 09:22 | Surgery Progress Note ---
Surgery Progress Note Date of Service Aug 12, 2017. Subjective + feeling well, + bowel movement, + flatus, + pain controlled, No complaints, No nausea, No vomiting Objective Vital Signs: Date Time Temp Pulse Resp B/P (MAP) Pulse Ox O2 Delivery O2 Flow Rate FiO2 08/12/17 06:46 36.5 50 17 145/59 (87) 98 Room Air 08/11/17 23:30 Room Air 08/11/17 22:55 36.7 56 18 150/65 (93) 97 Room Air 08/11/17 21:16 60 152/64 (93) 08/11/17 16:00 36.7 16 140/52 (81) 97 Room Air 08/11/17 16:00 58 08/11/17 16:00 97 Room Air 08/11/17 09:26 Room Air General Appearance: WD/WN, no apparent distress Abdomen: non tender, non distended, soft Incision(s): clean, dry, intact, no erythema, no drainage, findings (swelling at inguinal canal continues to improve. ) Laboratory Results: Results Past 24 Hours Test 08/12/17 07:26 Range/Units Sodium Level 141 136-145 mmol/L Potassium Level 4.1 3.5-5.1 mmol/L Chloride Level 109 98-107 mmol/L Carbon Dioxide Level 26 21-32 mmol/L Anion Gap 6.0 3-11 mmol/L Blood Urea Nitrogen 31 7-18 mg/dl Creatinine 1.27 0.60-1.40 mg/dl Est Creatinine Clear Calc Drug Dose 41.2 ml/min Estimated GFR () 59.7 Estimated GFR (Non- 51.5 BUN/Creatinine Ratio 24.0 10-20 Random Glucose 88 70-99 mg/dl Calcium Level 8.8 8.5-10.1 mg/dl Assessment & Plan 08/12/2017- s/p Right Inguinal Hernia Repair with Seroma Patient continues to improve- no new concerns or complaints. Pain controlled, tolerating diet, moving bowels, passing flatus. Doing well from surgical standpoint. Still no return phone call from patient's son. Patient does not want son to be bothered with discharge issue. Case management is involved and is working on proper discharge plan for patient. 08/11/2017-s/p Right Inguinal Hernia Repair with Seroma No new concerns or complaints overnight. Pain controlled, swelling improving. Called Son several times yesterday with no response and no return phone call. Discharge date still uncertain. Case management on board- per PT, patient will require rehab at discharge. Will continue to follow. 08/10/17 s/p Right Inguinal Hernia Repair with Seroma Pain controlled at this time. Patient tolerating diet. PO antibiotics- continue outpatient Cipro and NSAID for pain. Discharge pending discussion with son- called this AM to speak with son, but no answer- will attempt later. Please wait to discharge until definite plans are made after speaking with son. Patient seen and examined with Dr. Delong. 08/09/17 s/p Right Inguinal Hernia Repair with Likely Seroma Patient seen and examined with Dr. Delong. Testicular US reviewed- IMPRESSION: 1. Heterogeneous and slightly atrophic testes which may be age-related. No definite masses. There is symmetric color flow. 2. Diffuse scrotal thickening/edema. 3. Small right and trace left hydrocele. Discussed patient with Dr. Shields. Dr. Shields has been in contact with patient's son. Will continue to keep patient through weekend for pain control and monitoring. PT consult. We will continue to follow.
[2017-08-12 15:04] VITALS: BP 138/52; PULSE 54; TEMP 36.6; O2SAT 96
[2017-08-12] MEDS: DIGOXIN 0.125 MG TAB PO SCH (15:51)
--- NOTE | 2017-08-12 16:16 | Discharge Instructions ---
Discharge Instructions Date of Service Aug 12, 2017. Admission Reason for Admission: Fluid Collection At Surgical Site, Weakness Discharge Discharge Diagnosis / Problem: Hematoma Discharge Goals Goal(s): Decrease discomfort, Improve function, Increase independence Activity Recommendations Activity Level: Up Ad Stephanie Therapies: Physical Therapy, Occupational Therapy . Additional Information Patient informed of condition: Yes Advance Directives: No DNR: No Level of Care: Other ([facility]) Communicable Disease: No Prognosis: Improving [place] Catheter: No Current Hospital Diet Patient's current hospital diet: AHA Diet (Heart Healthy) Discharge Diet Recommended Diet: Regular Diet Pending Studies Studies pending at discharge: no Physician Orders On Transfer Additional Orders: Pt should be seen by PCP to check hematoma progress late this week or early next week Medical Emergencies . Who to Call and When: Medical Emergencies: If at any time you feel your situation is an emergency, please call 911 immediately. . Non-Emergent Contact Non-Emergency issues call your: Primary Care Provider, Surgeon . . "Provider Documentation" section prepared by Sienna Berumen. . Core Measure Problem Core Measures: None
--- NOTE | 2017-08-12 16:23 | Discharge Summary ---
Discharge Summary Date of Service Aug 12, 2017. Discharge Summary Admission Date: Aug 08, 2017 at 15:10 Discharge Date: Aug 12, 2017 Discharge Disposition: Personal care Principal Diagnosis: Hematoma s/p inguinal hernia repair Problems/Secondary Diagnoses: (1) Hypertension Status: Chronic (2) Neuropathy Status: Chronic (3) Paroxysmal Atrial Fibrillation Status: Chronic (4) Pure Hypercholesterolemia Status: Chronic (5) S/p bare metal coronary artery stent Status: Chronic Immunizations: Have You Had Influenza Vaccine: Unknown History of Tetanus Vaccine?: Unknown History of Pneumococcal: Unknown History of Hepatitis B Vaccine: Unknown Consultations: General surgery, Dr. Shields Medication Reconciliation Continued Medications: Amlodipine (Norvasc) 5 Mg Tab 5 MG PO DAILY, TAB Aspirin (Aspirin 81) 81 Mg Tab 81 MG PO QAM Atorvastatin (Lipitor) 40 Mg Tab 40 MG PO DAILY, TAB Clopidogrel (Plavix) 75 Mg Tab 75 MG PO DAILY, TAB Digoxin (Digoxin) 0.125 Mg Tab 0.125 MG PO DAILY Fenofibrate (Tricor ) 145 Mg Tab 145 MG PO DAILY, TAB Folic Acid (Folvite) 1 Mg Tab 1 MG PO QAM, TAB Gabapentin (Neurontin) 300 Mg Cap 300 MG PO BID, CAP Hydrocodone/Acetaminophen 5MG/325MG ([place] 5MG/325MG) Tab 1-2 TABLETS PO Q4H PRN for Pain, TAB PRN PAIN Metoprolol Tartrate (Lopressor) (Lopressor) 25 Mg Tab 25 MG PO BID, TAB Valsartan (Diovan) 320 Mg Tab 320 MG PO DAILY, TAB Discharge Exam Pt is continuing to feel improved. He has been able to ambulate a bit better, but still with pain that is somewhat limiting. No chest pain or SOB. Pt denies fever, abd pain, n/v/c/d, LE pain or swelling. Tolerating PO without issue. Pt's main concern is the status of his car once his son takes him back to [place]. Physical Exam: General Appearance: no apparent distress, + thin Eyes: normal inspection, EOMI Respiratory/Chest: normal breath sounds, no respiratory distress Cardiovascular: regular rate, rhythm, no edema Abdomen / GI: non tender, soft Extremities: no calf tenderness, no pedal edema Neurologic/Psychiatric: alert, normal mood/affect, oriented x 3 Skin: normal color, warm/dry Hospital Course 82 y/o male Hx CAD, HTN, HPL, PAF. Underwent R inguinal hernia repair 08/01. Presents with progressive weakness and pain at the surgical site. A CT obtained in the ER reveals a loculated fluid collection in the inguinal canal and scrotum in addition to fluid and air in the R pelvis proximal to the iliac vessel. This may represent infection or more likely a seroma. The pt denies SOB, CP, nausea/vomiting, fevers or dysuria. He is unable to ambulate at present as it greatly exacerbated the pain in his groin. s/p R inguinal hernia repair by Dr. Shields on 07/31, post-op pain w/ fluid collection, hematoma noted - General surgery: -- No acute surgical need at this time -- IV Cipro BID- started on 08/08, however not felt to be an abscess and d/c' d without issue CAD s/p STEMI w/ BMS stenting, paroxysmal a.fib, HTN, HLD- follows w/ Dr. 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 Discharge Instructions Please refer to the electronic Patient Visit Report (Discharge Instructions) for additional information. Follow-Up PCP in [place] in 3-5 days
[2017-08-12 18:55] VITALS: BP 138/52; PULSE 56; TEMP 36.6; O2SAT 96
--- NOTE | 2017-08-16 06:51 | EDITING REQUIRED CODING QUERY ---
CODING QUERY To promote full compliance with coding requirements relating to patient care, provider participation is requested in all cases of infirmary attendant uncertainty. Please assist us with the question(s) below: Coding Question(s): Patient status post inguinal hernia repair - presents with abdominal pain. Surgery states patient with Seroma; D/S mentions postoperative hematoma. Please check below the diagnosis that was treated during this Inpatient stay. Thank you! DONA Gil [facility] Physician's Response(s): ____x____ Postoperative Seroma Postoperative Hematoma Cannot Clinically Correlate Other: Please document: Principal Diagnosis: "_that condition established after study, to be chiefly responsible for occasioning the admission of the patient to the hospital for care." Co-Existing Principal Diagnosis: "_when two or more diagnoses equally meet the criteria for principal diagnosis as determined by the circumstances of admission, diagnostic work up, and/or therapy provided, and the Alphabetic Index, Tabular List, or another coding guideline does not provide sequencing direction, any one of the diagnoses may be sequenced first." "When the physician has documented what appears to be a current diagnosis in the body of the record, but has not included the diagnosis in the final diagnostic statement, the physician should be asked whether the diagnosis should be added." (Source Coding [facility] 2 QTR90. p3-4)
== END 2017-08-12 19:36 | disposition home or self-care (01) | DRG 920 ==
LOC: C.EDB 21:14 → C.MSW 08-08 01:36 → EDBEDREQ 08-08 01:40 → ENRESERV 08-08 01:46 → OBSVTOIN 08-08 15:10
PROVIDERS: ADMIT Internal Medicine; ATTEND Family Medicine
DX: L76.34 Postprocedural seroma of skin and subcutaneous tissue following other procedure (principal); N17.9 Acute kidney failure, unspecified; I12.9 Hypertensive chronic kidney disease with stage 1 through stage 4 chronic kidney disease, or unspecified chronic kidney disease; G62.9 Polyneuropathy, unspecified; I25.2 Old myocardial infarction; I48.0 Paroxysmal atrial fibrillation; Z95.5 Presence of coronary angioplasty implant and graft; Z87.891 Personal history of nicotine dependence; Z79.82 Long term (current) use of aspirin; I25.10 Atherosclerotic heart disease of native coronary artery without angina pectoris; E78.00 Pure hypercholesterolemia, unspecified; D64.9 Anemia, unspecified; N18.3 Chronic kidney disease, stage 3 (moderate); Y83.8 Other surgical procedures as the cause of abnormal reaction of the patient, or of later complication, without mention of misadventure at the time of the procedure; Y92.019 Unspecified place in single-family (private) house as the place of occurrence of the external cause

== ENCOUNTER 2019-04-08 11:34 | Inpatient (IN) ==
--- OUTSIDE RECORDS SUMMARY | 2019-04-08 11:37 | External Medical Summary | Continuity of Care Document ---
:1935 Author Name Kar Littlejohn, Provider Address Unavailable Unavailable , Care Team Providers Name Role Phone Suma Littlejohn, Edgar Unavailable [email or web address], NO Unavailable Unavailable Unavailable Unavailable Unavailable Assessments Assessment Narrative:Stable coronary artery diseaseAssessed Problems:History of non-ST elevation myocardial infarction (NSTEMI) Problems Right inguinal hernia (550.90) (K40.90) History of non-ST elevation myocardial infarction (NSTEMI) ( 412) (I25.2) Afib (427.31) (I48.91) Neuropathy, peripheral (356.9) (G62.9) Hypertension (401.9) (I10) Hypercholesterolemia (272.0) (E78.00) Allergies and Adverse Reactions No Known Drug Allergies (Allergy) Medications amLODIPine Besylate 5 MG Oral Tablet; TAKE 1 TABLET DAILY. Start: 01-Apr-2017 Refills: 0 90 Tablet Bottle Aspirin 81 MG Oral Tablet Delayed Release; TAKE 1 TABLET MOISES LY. Start: 01-Apr-2017 Refills: 0 Atorvastatin Calcium 40 MG Oral Tablet; TAKE 1 TABLET DAILY. Start: 01-Apr-2017 Refills: 0 90 Tablet Bottle Plavix 75 MG Oral Tablet; TAKE 1 TABLET DAILY. Start: 01-Apr-2017 Refills: 0 Digoxin 125 MCG Oral Tablet; TAKE 1 TABLET DAILY. Start: 01-Apr-2017 Refills: 0 Fenofibrate 145 MG Oral Tablet; TAKE 1 TABLET DAILY. Start: 01-Apr-2017 Refills: 0 Folic Acid 1 MG Oral Tablet; TAKE 1 TABLET DAILY. Start: 01-Apr-2017 Refills: 0 Gabapentin 300 MG Oral Capsule; TAKE 1 CAPSULE Bedtime Start: 01-Apr-2017 Quantity: 90 Refills: 3 Valsartan 320 MG Oral Tablet; TAKE 1 TABLET ONCE DAILY. Start: 01-Apr-2017 Refills: 0 Metoprolol Succinate ER 25 MG Oral Table t Extended Release 24 Hour; TAKE 1 TABLET DAILY. Eron Moise Start: 14-Oct-2017 Quantity: 1 100 Tablet Bottle Refills: 2 Procedures History of coronary artery stent placement Status: Completed Immunizations Immunizations not documented Family History Mother Family history of No known health problems (V49.89) (Z78.9) Status: Active Father Family history of No known health problems (V49.89) (Z78.9) Status: Active Social History - Smoking Status Never smoker Interventions Medication ChangesMetoprolol Succinate ER 25 MG Oral Tablet Extended Release 24 Hour - StartDiscussion/Summary1. Coronary artery disease: No recurrent symptoms of angina or coronary insufficiency. He is on a good regimen for secondary prevention to include high-dose atorvastatin, fenofibrate, beta-alexander, ARBand dual anti-platelet therapy. Given the remote nature of his percutaneous intervention he can stopPlavix at this point. I suggested he discontinue the Plavix but he feels more comfortable continuingthis medication. 2. Atrial fibrillation: This was noted at the time of his acute illness 2 years ago. There has been no clinical recurrence. He was not started on anticoagulation at that time due to unsteadiness and falls. I do not feel that he requires anticoagulation currently in the absence of documented recurrence. Also, I suggested he stop digoxin as a not clear this has any definite benefit and there is a finite risk of toxicity. 3. Hypertension: Blood pressure well controlled today. Continue current medications. He was takingmetoprolol tartrate once daily. This appears to be under dosed. I suggested switching to a once a day formulation such as metoprolol succinate 4. Hyperlipidemia: Patient will continue on high-dose atorvastatin and fenofibrate. Plan of Treatment Planned Observations Planned Goals not documented Results No Known Results Results not documented Encounters Appointment; Tavon Shields DO 31-Jul-2017 10:00 Encounter Diagnosis: Problem not documented Appointment; Tavon Shields DO 16-Jul-2017 8:40 Encounter Diagnosis: Problem not documented Appointment; Echo/Stress, Echo/Stress 05-May-2017 13:00 Encounter Diagnosis: Problem not documented Appointment; Barbra Rao PA-C 10-Apr-2017 11:00 Encounter Diagnosis: Problem not documented Appointment; Edgar Moise M.D. 14-Oct-2017 10:15 Encounter Diagnosis: Problem not documented
[2019-04-08 12:33] LABS: Basophils # (auto) 0.01 K/uL (0-0.2); Basophils % (auto) 0.1 %; Eosinophils # (auto) 0.05 K/uL (0-0.5); Eosinophils % (auto) 0.7 %; Hematocrit (blood only) 36.3 % (42-52); Hemoglobin 12.5 g/dL (14.0-18.0); Immature Granulocytes # (auto) 0.01 K/uL (0.00-0.02); Immature Granulocytes % (auto) 0.1 %; Lymphocytes # (auto) 1.52 K/uL (1.2-3.4); Lymphocytes % (auto) 20.8 %; Mean Corpuscular Hemoglobin 31.2 pg (25-34); Mean Corpuscular Hgb Conc 34.4 g/dL (32-36); Mean Corpuscular Volume 90.5 fL (80-100); Mean Platelet Volume 10.2 fL (7.4-10.4); Monocytes # (auto) 0.54 K/uL (0.11-0.59); Monocytes % (auto) 7.4 %; Neutrophils # (auto) 5.17 K/uL (1.4-6.5); Neutrophils % (auto) 70.9 %; Platelet Count 285 K/uL (130-400); RDW Coefficient of Variation 13.3 % (11.5-14.5); RDW Standard Deviation 44.4 fL (36.4-46.3); Red Blood Count 4.01 M/uL (4.7-6.1)
--- NOTE | 2019-04-08 12:36 | XRay Report ---
SINGLE VIEW CHEST CLINICAL HISTORY: Generalized weakness. FINDINGS: An AP, portable, upright chest radiograph is compared to study dated 08/07/2017. The examin ation is degraded by portable technique and patient rotation. The cardiomediastinal silhouette is u nremarkable noting atherosclerotic calcification of the thoracic aorta. The lungs and pleural spaces are clear. No pneumothorax is seen. The skeletal structures are osteopenic. The bony thorax is grossl y intact. IMPRESSION: No active disease in the chest. Electronically signed by: Amor Peterson M.D. 04/08/2019 12:34 PM
--- NOTE | 2019-04-08 12:38 | XRay Report ---
XR foot RT min 3V routine CLINICAL HISTORY: Right foot pain COMPARISON: 01/16/2018 DISCUSSION: There is a plantar calcaneal spur. There are calcifications within the plantar fascia. Cl inical correlation regards to plantar fasciitis is recommended. The metatarsal phalangeal joints are in extension with slight flexion of the interphalangeal joints. This makes evaluation of the phalange s difficult. There are mild degenerative changes. No acute fractures are visualized. There is a stabl e nonaggressive cystic lucency identified within the distal phalanx of the great toe. IMPRESSION: 1. Degenerative change 2. No acute fractures 3. Stable plantar calcaneal spur and plantar fascial calcification 4. Stable lytic focus involving the distal phalanx of the great toe. This has nonaggressive features Electronically signed by: Osmany Agustin M.D. 04/08/2019 12:37 PM
[2019-04-08 12:43] LABS: INR 1.1 (0.9-1.1); Partial Thromboplastin Time 26.2 Seconds (21.0-31.0); Prothrombin Time 10.8 Seconds (9.0-12.0)
[2019-04-08 12:50] LABS: Albumin Level 4.3 gm/dl (3.4-5.0); Aspartate Aminotransferase 20 U/L (15-37); BUN Creatinine Ratio 24.6 (10-20); Blood Urea Nitrogen 34 mg/dl (7-18); Calcium 9.5 mg/dl (8.5-10.1); Carbon Dioxide 26 mmol/L (21-32); Chloride 112 mmol/L (98-107); Creatinine Clr Calc Pharmacy 37.2 ml/min; Est GFR (African American) 54.1; Est GFR (Non-African American) 46.7; Glucose 93 mg/dl (70-99); Magnesium 2.3 mg/dl (1.8-2.4); Potassium 4.3 mmol/L (3.5-5.1); Sodium 144 mmol/L (136-145)
[2019-04-08 13:01] LABS: Alanine Aminotransferase 17 U/L (12-78); Albumin Globulin Ratio 1.4 (0.9-2); Alkaline Phosphatase 84 U/L (45-117); Bilirubin,Total 0.8 mg/dl (0.2-1); Creatine Kinase 42 U/L (39-308); Total Protein 7.3 gm/dl (6.4-8.2); Troponin I < 0.015 ng/ml (0-0.045)
--- NOTE | 2019-04-08 13:49 | Emergency Department Note ---
Entered by Arlin Alexander acting as a scribe for Harry Spencer DO History of Present Illness General Chief complaint: Weakness Stated complaint: bilateral knee pain Time Seen by Provider: 04/08/19 11:35 Source: patient History of Present Illness Provider complaint: bilateral knee pain Onset (ago): month(s) 4 Location: lower extremity, left and right Radiation: other (feet) Pain Consistency: + other (worsening) Maximum Pain Intensity: 8 Associated symptoms: + denies other symptoms (back pain), + weakness and + other (bleeding calluses on bottom of feet, right foot hurts worse than left, numbness in legs, uses walker to move); no fever/chills and no headaches The patient is an 83 year old male who presents to the ED with complaints of worsening bilateral knee pain that started 4 months ago. The patient states that this pain radiates into his feet. The patient states that he has had calluses on the bottom of his feet 4 months ago which have been continuously bleeding ever since. The patient notes that his right foot hurts more than the left. The p atient states that his legs feel weak and numb. The patient states that he uses a walker to move. The patient denies headache, back pain, fever and chills. Home Medications Home Medications Medication Instructions Recorded Confirmed Type amlodipine 5 mg PO DAILY 04/08/19 04/08/19 History aspirin [Aspirin Low Dose] 81 mg PO DAILY 04/08/19 04/08/19 History atorvastatin 40 mg PO DAILY 04/08/19 04/08/19 History clopidogrel [Plavix] 75 mg PO DAILY 04/08/19 04/08/19 History digoxin 125 mcg PO DAILY 04/08/19 04/08/19 History fenofibrate nanocrystallized 145 mg PO DAILY 04/08/19 04/08/19 History folic acid 1 mg PO DAILY 04/08/19 04/08/19 History gabapentin 300 mg PO HS 04/08/19 04/08/19 History metoprolol succinate 25 mg PO DAILY 04/08/19 04/08/19 History valsartan 320 mg PO DAILY 04/08/19 04/08/19 History Allergies Allergy/AdvReac Type Severity Reaction Status Date / Time No Known Allergies Allergy Unverified 01/15/18 18:03 Past Med/Surg History Medical History Right foot ulcer Neuropathy Paroxysmal A-fib HLD (hyperlipidemia) History of non-ST elevation myocardial infarction (NSTEMI) CAD (coronary artery disease) Hypertensive urgency Callus of foot Family History Other Family history non-contributory Social History Preferred Language: [place] Communication Ability: Effective Labourers Required: No Beliefs That Will Affect Care: None Current Living Situation: Alone Other Information That Helps Us Care for You: No Feels Safe at Home: Yes Safety Concerns: Feels Safe At This Time Smoking Status: Former smoker Do You Dip or Chew Tobacco: No ; Second Hand Exposure: No ; Tobacco Cessation Education Requested by Patient: No Hx Alcohol Use: No Hx Substance Use: No Review of Systems See HPI for pertinent positives & negatives. and A total of 10 systems reviewed and were otherwise negative Physical Exam Vital Signs Vital Signs - 24 hr 04/08/19 11:46 04/08/19 14:27 Temperature 36.6 C Temperature Source Oral Sepsis Recent Fever Within 48 Hours No Sepsis Action Taken by Nursing No Action Required Pulse Rate 69 Pulse Rate [Right Finger] 62 Pulse Rhythm Regular Pulse Rhythm [Right Finger] Regular Pulse Strength Normal Pulse Strength [Right Finger] Normal Respiratory Rate 18 16 Respiratory Effort / Characteristics Non-Labored Non-Labored Respiratory Depth Normal Normal Respiratory Pattern Regular Regular Blood Pressure 217/84 H Blood Pressure [Right Arm] 224/113 H Blood Pressure Mean 128 Blood Pressure Mean [Right Arm] 150 Blood Pressure Position Sitting Blood Pressure Position [Right Arm] Lying Pulse Oximetry 98 97 Oxygen Delivery Method Room Air Room Air GENERAL: Patient is awake alert in no acute distress patient is resting comfortably and showing no signs of anxiety EYES: The conjunctivae are clear. The pupils are round and reactive. EARS, NOSE, MOUTH AND THROAT: The nose is without any evidence of any deformity. Mucous membranes are moist tongue is midline NECK: The neck is nontender and supple. RESPIRATORY: Normal respiratory effort is noted there is no evidence of wheezing rhonchi or rales CARDIOVASCULAR: Regular rate and rhythm noted there no murmurs rubs or gallops normal S1 normal S2 GASTROINTESTINAL: The abdomen is soft. Bowel sounds are present in all quadrants. Abdomen is nontender BACK: No midline tenderness or or step-off noted range of motion in flexion extension as well as rotation no signs of muscle spasm noted MUSCULOSKELETAL/EXTREMITIES: There is no evidence of gross deformity full range of motion is noted in the hips and shoulders SKIN: There is no obvious evidence of any rash. Trace pedal edema was noted bilaterally. There are ulcerations at the ball of each foot. The one on the right appears erythematous and swollen. There is minimal drainage noted. NEUROLOGIC: Patient is awake alert and oriented x3 strength is symmetric patellar reflexes are 1+ bilaterally Course 1136: Past medical records reviewed. The patient was evaluated in room C7. A complete history and physical exam was performed. 1451: I discussed the patient's case with Ness Gonzales IATERRY SYED. She will evaluate the patient for further management. Consultations Consultation #1: I discussed the patient's case with RE Loew. She will evaluate the patient for further management. Time: 14:51 Administered Medications Aspirin (Ecotrin Ectab) 81 mg PO DAILY DOROTHY Stop: 05/09/19 08:59 Last Admin: 04/09/19 10:08 Dose: 81 mg Documented by: [id number] Enoxaparin Sodium (Lovenox) 40 mg SQ QAM DOROTHY Stop: 05/09/19 08:59 Last Admin: 04/09/19 10:08 Dose: 40 mg Documented by: [id number] Hydralazine HCl (Hydralazine Hcl) 10 mg IV Q3H PRN PRN Reason: Hypertension Stop: 05/08/19 20:14 Last Admin: 04/09/19 03:20 Dose: 10 mg Documented by: [id number] Admin: 04/08/19 20:50 Dose: 10 mg Documented by: [id number] Discontinued Medications Hydralazine HCl (Hydralazine Hcl) 10 mg IV NOW STA Stop: 04/08/19 15:31 Last Admin: 04/08/19 15:42 Dose: 10 mg Documented by: [id number] Ceftriaxone Sodium (Rocephin) 1,000 mg in 50 mls @ 100 mls/hr IV NOW STA Stop: 04/08/19 14:41 Last Infusion: 04/08/19 15:42 Dose: 0 mls/hr Documented by: [id number] Admin: 04/08/19 15:01 Dose: 100 mls/hr Documented by: [id number] Metoprolol Tartrate (Lopressor) 12.5 mg PO NOW STA Stop: 04/08/19 15:31 Last Admin: 04/08/19 15:42 Dose: 12.5 mg Documented by: [id number] Medical Decision Making Differential Diagnosis Differential diagnosis: Etiologies such as metabolic, infection, hypo/hyperglycemia, electrolyte abnormalities, cardiac sources, intracerebral event, toxicologic, neurologic, as well as others were entertained. Medical Records Attestation: I reviewed the patient's medical records. Home Medications Current Medication List: was personally reviewed by me Laboratory Data Attestation: I reviewed the patient's lab results. Result diagrams: 04/09/19 06:55 04/09/19 06:55 Lab Results 04/08/19 04/08/19 04/08/19 Range/Units 12:20 12:20 12:20 WBC 7.30 (4.8-10.8) K/uL RBC 4.01 L (4.7-6.1) M/uL Hgb 12.5 L (14.0-18.0) g/dL Hct 36.3 L (42-52) % MCV 90.5 (80-100) fL MCH 31.2 (25-34) pg MCHC 34.4 (32-36) g/dL RDW Std Deviation 44.4 (36.4-46.3) fL RDW Coeff of Allison 13.3 (11.5-14.5) % Plt Count 285 (130-400) K/uL MPV 10.2 (7.4-10.4) fL Immature Gran % (Auto) 0.1 % Neut % (Auto) 70.9 % Lymph % (Auto) 20.8 % Towns % (Auto) 7.4 % Eos % (Auto) 0.7 % Baso % (Auto) 0.1 % Immature Gran # (Auto) 0.01 (0.00-0.02) K/uL Neut # (Auto) 5.17 (1.4-6.5) K/uL Lymph # (Auto) 1.52 (1.2-3.4) K/uL Towns # (Auto) 0.54 (0.11-0.59) K/uL Eos # (Auto) 0.05 (0-0.5) K/uL Baso # (Auto) 0.01 (0-0.2) K/uL ESR (0-14) mm/hr PT 10.8 (9.0-12.0) Seconds INR 1.1 (0.9-1.1) APTT 26.2 (21.0-31.0) Seconds PTT Ratio 1.0 Sodium 144 (136-145) mmol/L Potassium 4.3 (3.5-5.1) mmol/L Chloride 112 H (98-107) mmol/L Carbon Dioxide 26 (21-32) mmol/L Anion Gap 6.0 (3-11) BUN 34 H (7-18) mg/dl Creatinine 1.37 (0.6-1.4) mg/dl Est Cr Clr Drug Dosing 37.2 ml/min Est GFR ( Amer) 54.1 Est GFR (Non-Af Amer) 46.7 BUN/Creatinine Ratio 24.6 H (10-20) Glucose 93 (70-99) mg/dl Calcium 9.5 (8.5-10.1) mg/dl Magnesium 2.3 (1.8-2.4) mg/dl Total Bilirubin 0.8 (0.2-1) mg/dl AST 20 (15-37) U/L ALT 17 (12-78) U/L Alkaline Phosphatase 84 (45-117) U/L Total Creatine Kinase 42 (39-308) U/L Troponin I < 0.015 (0-0.045) ng/ml C-Reactive Protein (0-0.29) mg/dl Total Protein 7.3 (6.4-8.2) gm/dl Albumin 4.3 (3.4-5.0) gm/dl Globulin 3.0 (2.5-4.0) gm/dl Albumin/Globulin Ratio 1.4 (0.9-2) TSH 0.610 (0.300-4.500) uIu/ml Urine Color Urine Appearance (Clear) Urine pH (4.5-7.5) Ur Specific [place] (1.000-1.030) Urine Protein (Negative) Urine Glucose (UA) (Negative) Urine Ketones (Negative) Urine Blood (Negative) Urine Nitrite (Negative) Urine Bilirubin (Negative) Urine Urobilinogen (Negative) Ur Leukocyte Esterase (Negative) Urine WBC (Auto) (0-5) /hpf Urine RBC (Auto) (0-4) /hpf U Hyaline Cast (Auto) (0-5) /lpf U Epithel Cells (Auto) (0-5) /lpf Urine Bacteria (Auto) (Negative) Digoxin (0.8-2.0) ng/ml 04/08/19 04/08/19 04/08/19 Range/Units 12:20 13:47 14:44 WBC (4.8-10.8) K/uL RBC (4.7-6.1) M/uL Hgb (14.0-18.0) g/dL Hct (42-52) % MCV (80-100) fL MCH (25-34) pg MCHC (32-36) g/dL RDW Std Deviation (36.4-46.3) fL RDW Coeff of Allison (11.5-14.5) % Plt Count (130-400) K/uL MPV (7.4-10.4) fL Immature Gran % (Auto) % Neut % (Auto) % Lymph % (Auto) % Towns % (Auto) % Eos % (Auto) % Baso % (Auto) % Immature Gran # (Auto) (0.00-0.02) K/uL Neut # (Auto) (1.4-6.5) K/uL Lymph # (Auto) (1.2-3.4) K/uL Towns # (Auto) (0.11-0.59) K/uL Eos # (Auto) (0-0.5) K/uL Baso # (Auto) (0-0.2) K/uL ESR 8 (0-14) mm/hr PT (9.0-12.0) Seconds INR (0.9-1.1) APTT (21.0-31.0) Seconds PTT Ratio Sodium (136-145) mmol/L Potassium (3.5-5.1) mmol/L Chloride (98-107) mmol/L Carbon Dioxide (21-32) mmol/L Anion Gap (3-11) BUN (7-18) mg/dl Creatinine (0.6-1.4) mg/dl Est Cr Clr Drug Dosing ml/min Est GFR ( Amer) Est GFR (Non-Af Amer) BUN/Creatinine Ratio (10-20) Glucose (70-99) mg/dl Calcium (8.5-10.1) mg/dl Magnesium (1.8-2.4) mg/dl Total Bilirubin (0.2-1) mg/dl AST (15-37) U/L ALT (12-78) U/L Alkaline Phosphatase (45-117) U/L Total Creatine Kinase (39-308) U/L Troponin I (0-0.045) ng/ml C-Reactive Protein (0-0.29) mg/dl Total Protein (6.4-8.2) gm/dl Albumin (3.4-5.0) gm/dl Globulin (2.5-4.0) gm/dl Albumin/Globulin Ratio (0.9-2) TSH (0.300-4.500) uIu/ml Urine Color Yellow Urine Appearance Clear (Clear) Urine pH 5.0 (4.5-7.5) Ur Specific [place] 1.023 (1.000-1.030) Urine Protein 1+ H (Negative) Urine Glucose (UA) Negative (Negative) Urine Ketones Trace H (Negative) Urine Blood Negative (Negative) Urine Nitrite Negative (Negative) Urine Bilirubin Negative (Negative) Urine Urobilinogen Negative (Negative) Ur Leukocyte Esterase Negative (Negative) Urine WBC (Auto) 1-5 (0-5) /hpf Urine RBC (Auto) 0-4 (0-4) /hpf U Hyaline Cast (Auto) 5-10 H (0-5) /lpf U Epithel Cells (Auto) 5-10 H (0-5) /lpf Urine Bacteria (Auto) Negative (Negative) Digoxin 0.1 L (0.8-2.0) ng/ml 04/08/19 Range/Units 14:44 WBC (4.8-10.8) K/uL RBC (4.7-6.1) M/uL Hgb (14.0-18.0) g/dL Hct (42-52) % MCV (80-100) fL MCH (25-34) pg MCHC (32-36) g/dL RDW Std Deviation (36.4-46.3) fL RDW Coeff of Allison (11.5-14.5) % Plt Count (130-400) K/uL MPV (7.4-10.4) fL Immature Gran % (Auto) % Neut % (Auto) % Lymph % (Auto) % Towns % (Auto) % Eos % (Auto) % Baso % (Auto) % Immature Gran # (Auto) (0.00-0.02) K/uL Neut # (Auto) (1.4-6.5) K/uL Lymph # (Auto) (1.2-3.4) K/uL Towns # (Auto) (0.11-0.59) K/uL Eos # (Auto) (0-0.5) K/uL Baso # (Auto) (0-0.2) K/uL ESR (0-14) mm/hr PT (9.0-12.0) Seconds INR (0.9-1.1) APTT (21.0-31.0) Seconds PTT Ratio Sodium (136-145) mmol/L Potassium (3.5-5.1) mmol/L Chloride (98-107) mmol/L Carbon Dioxide (21-32) mmol/L Anion Gap (3-11) BUN (7-18) mg/dl Creatinine (0.6-1.4) mg/dl Est Cr Clr Drug Dosing ml/min Est GFR ( Amer) Est GFR (Non-Af Amer) BUN/Creatinine Ratio (10-20) Glucose (70-99) mg/dl Calcium (8.5-10.1) mg/dl Magnesium (1.8-2.4) mg/dl Total Bilirubin (0.2-1) mg/dl AST (15-37) U/L ALT (12-78) U/L Alkaline Phosphatase (45-117) U/L Total Creatine Kinase (39-308) U/L Troponin I (0-0.045) ng/ml C-Reactive Protein < 0.29 (0-0.29) mg/dl Total Protein (6.4-8.2) gm/dl Albumin (3.4-5.0) gm/dl Globulin (2.5-4.0) gm/dl Albumin/Globulin Ratio (0.9-2) TSH (0.300-4.500) uIu/ml Urine Color Urine Appearance (Clear) Urine pH (4.5-7.5) Ur Specific [place] (1.000-1.030) Urine Protein (Negative) Urine Glucose (UA) (Negative) Urine Ketones (Negative) Urine Blood (Negative) Urine Nitrite (Negative) Urine Bilirubin (Negative) Urine Urobilinogen (Negative) Ur Leukocyte Esterase (Negative) Urine WBC (Auto) (0-5) /hpf Urine RBC (Auto) (0-4) /hpf U Hyaline Cast (Auto) (0-5) /lpf U Epithel Cells (Auto) (0-5) /lpf Urine Bacteria (Auto) (Negative) Digoxin (0.8-2.0) ng/ml Imaging Data Radiologist's Impression: Radiology results as stated below per my review and the radiologist's interpretation: SINGLE VIEW CHEST CLINICAL HISTORY: Generalized weakness. FINDINGS: An AP, portable, upright chest radiograph is compared to study dated 08/07/2017. The examination is degraded by portable technique and patient rotation. The cardiomediastinal silhouette is unremarkable noting atherosclerotic calcification of the thoracic aorta. The lungs and pleural spaces are clear. No pneumothorax is seen. The skeletal structures are osteopenic. The bony thorax is grossly intact. IMPRESSION: No active disease in the chest. Electronically signed by: Amor Peterson M.D. 04/08/2019 12:34 PM XR foot RT min 3V routine CLINICAL HISTORY: Right foot pain COMPARISON: 01/16/2018 DISCUSSION: There is a plantar calcaneal spur. There are calcifications within the plantar fascia. Clinical correlation regards to plantar fasciitis is recommended. The metatarsal phalangeal joints are in extension with slight flexion of the interphalangeal joints. This makes evaluation of the phalanges difficult. There are mild degenerative changes. No acute fractures are visualized. There is a stable nonaggressive cystic lucency identified within the distal phalanx of the great toe. IMPRESSION: 1. Degenerative change 2. No acute fractures 3. Stable plantar calcaneal spur and plantar fascial calcification 4. Stable lytic focus involving the distal phalanx of the great toe. This has nonaggressive features Electronically signed by: Osmany Agustin M.D. 04/08/2019 12:37 PM ECG Data Attestation: I personally reviewed and interpreted this ECG as follows: Indication: weakness Rate (beats per minute): 65 Rhythm: sinus rhythm Findings: + PVC (frequent); no ST depression and no ST elevation Comparison ECG Date: from (01/15/2018) Change: the following changes noted (PVC new) Blood Pressure Blood Pressure Findings: Elevated blood pressure Blood Pressure Disposition: further management by hospitalist KARIN Narrative The patient is an 83-year-old male who presented to the emergency department for an evaluation of right foot pain and generalized weakness. The patient has had ongoing symptoms for quite some time. The patient does not have a stable primary care physician. The patient does not have significant social or medical back-up at this time. He does appear to have an ulceration on his right foot which could be infected. There is some erythema and drainage. I discussed the patient's laboratory and radiographic studies with him. He was started on IV antibiotics in the emergency department. I discussed his case with the on-call [facility] hospitalist. They have agreed to evaluate the patient in the emergency department for further management disposition. It is possible the patient may require some degree of social follow-up as well as may be some placement for short period of time. Impression & Plan Cellulitis of right foot, Right foot ulcer, Hypertension, Impaired ambulation Discharge Plan Visit Data *Final* Discharge Date/Time: 04/08/19 17:58 Chief Complaint: Weakness Stated Complaint: bilateral knee pain ED Provider: Harry Spencer Discharge Problem: Cellulitis of right foot, Right foot ulcer, Hypertension, Impaired ambulation Patient Disposition: Admitted As Inpatient Discharge Instructions Interventions: ED Discharge Assessment Last Done: 04/08/19 17:58 Discharge Problem: Right foot ulcer Qualifiers: Non-pressure ulcer stage: unspecified non-pressure ulcer stage Qualified Code(s): L97.519 - Non-pressure chronic ulcer of other part of right foot with unspecified severity Hypertension Qualifiers: Hypertension type: unspecified Qualified Code(s): I10 - Essential (primary) hypertension The scribe's documentation has been prepared under my direction and personally reviewed by me in its entirety. I confirm that the note above accurately reflects all work, treatment, procedures, and medical decision making performed by me.
[2019-04-08] MEDS ORDERED: cefTRIAXone SODIUM 1,000 MG/50 ML BAG IV STA (14:12)
[2019-04-08 14:38] LABS: Appearance Urine Clear (Clear); Bacteria Urine Automated Negative (Negative); Bilirubin Urine Negative (Negative); Blood Urine Negative (Negative); Color Urine Yellow; Glucose Urine UA Negative (Negative); Ketones Urine Trace (Negative); Leukocyte Esterase Urine Negative (Negative); Nitrite Urine Negative (Negative); Protein Urine 1+ (Negative); RBC Urine Automated 0-4 /hpf (0-4); Specific Gravity Urine 1.023 (1.000-1.030); Urobilinogen Urine Negative (Negative)
[2019-04-08] MEDS ORDERED: HydrALAZINE HCL 20 MG/ML VIAL IV STA (15:30)
[2019-04-08] MEDS ORDERED: METOPROLOL TARTRATE 50 MG TAB PO STA (15:30)
--- NOTE | 2019-04-08 15:41 | History & Physical Report ---
Date of Service April 08, 2019 Assessment & Plan (1) Hypertensive urgency: - Admit to pcu - Negative troponin - EKG reviewed as above -Patient has not taken any of his antihypertensives listed on home medication for over 1 year, likely since discharge from our facility in January 2018 -Cardiology consulted -Will give IV hydralazine now, metoprolol tartrate 12.5 mg p.o. now, will allow additional Lopressor versus IV hydralazine pending pulse which is currently at 62. - PT/OT consulted (2) History of non-ST elevation myocardial infarction (NSTEMI): (3) HLD (hyperlipidemia): (4) CAD (coronary artery disease): History of an STEMI many years ago - We will resume aspirin 81 mg daily - giving metoprolol 12.5 mg p.o. now, likely can increase this to 25 mg twice daily or can use metoprolol succinate 25 mg starting tomorrow morning - Check lipid panel with a.m. labs, consider resuming statin at that point (5) Paroxysmal A-fib: - Currently in normal sinus rhythm, -Appears that this was only documented one time per cardiology records when he was acutely ill prior to his last admission in January 2018 (6) Neuropathy: -Has not been using any medication for this -PT and OT consulted -Consider resuming gabapentin if the patient is agreeable to this (7) Right foot ulcer: -Wound culture -Wound consulted, 500 -X-ray without signs of osteomyelitis -ER administered 1 dose of ceftriaxone for possible cellulitis, does not appear to have any surrounding erythema, limited pain-no further antibiotics for now -Follow blood cultures x2 (8) DVT prophylaxis: -Teds -Lovenox subcu Disposition: Patient from home, lives alone CM consulted for placement as it appears he is unable to care for himself well at home. History of Present Illness Primary Care Provider: NO PCP This is a 83-year-old male with possible history of retention, hypertensive emergency/urgency, CAD, history of end STEMI, HLD, paroxysmal A. fib, neuropathy who presents via EMS for right foot plantar surface ulceration which has been increasingly painful and difficult for him to walk on. Anything on the foot ulcer for pain relief were ointment chamorro. He notes that there has not been any drainage coming out from it. He denies any redness spreading up his leg. He denies any fevers, chills or sweats. The patient upon coming to the ER was noted to have an elevated blood pressure and during my examination at bedside is systolically greater than 210, diastolically greater than 110. Patient tells me that he has not been taking any medication for about a year, only vitamins. He has not followed with his PCP as he is located in [place]. Patient was previously seen here in January 2018 for similar presentation involving right foot cellulitis and hypertensive emergency. Pertinent social history: Patient previously lived in [place] in an assisted living home with his , who approximately 6 months ago. He is now living in his home which he owns in [place], alone, as this is a cheaper alternative for him. He has had difficulty taking care of himself, does not cook many meals therefore eats out pizza versus Slovak on most evenings. He does use a walker at baseline for ambulation assistance. In the past 6 months he has fallen what he can remember 3 times. Allergies Allergy/AdvReac Type Severity Reaction Status Date / Time No Known Allergies Allergy Unverified 01/15/18 18:03 Home Medications Home Medications Medication Instructions Recorded Confirmed Type amlodipine 5 mg PO DAILY 04/08/19 04/08/19 History aspirin [Aspirin Low Dose] 81 mg PO DAILY 04/08/19 04/08/19 History atorvastatin 40 mg PO DAILY 04/08/19 04/08/19 History clopidogrel [Plavix] 75 mg PO DAILY 04/08/19 04/08/19 History digoxin 125 mcg PO DAILY 04/08/19 04/08/19 History fenofibrate nanocrystallized 145 mg PO DAILY 04/08/19 04/08/19 History folic acid 1 mg PO DAILY 04/08/19 04/08/19 History gabapentin 300 mg PO HS 04/08/19 04/08/19 History metoprolol succinate 25 mg PO DAILY 04/08/19 04/08/19 History valsartan 320 mg PO DAILY 04/08/19 04/08/19 History Past Med/Surg History Medical History Right foot ulcer Neuropathy Paroxysmal A-fib HLD (hyperlipidemia) History of non-ST elevation myocardial infarction (NSTEMI) CAD (coronary artery disease) Hypertensive urgency Callus of foot Family History Other Family history non-contributory Social History Preferred Language: Palauan Communication Ability: Effective Mushroom Grower Required: No Beliefs That Will Affect Care: None Current Living Situation: Alone Other Information That Helps Us Care for You: No Feels Safe at Home: Yes Safety Concerns: Feels Safe At This Time Smoking Status: Former smoker Do You Dip or Chew Tobacco: No ; Second Hand Exposure: No ; Tobacco Cessation Education Requested by Patient: No Hx Alcohol Use: No Hx Substance Use: No Review of Systems Review of Systems: Constitutional: No fever, sweats or chills Eyes: No diplopia, no worsening or blurred vision ENT: normal hearing, no trouble swallowing Respiratory: No cough, sputum, dyspnea at rest or on exertion Cardiovascular: No chest pain, tightness or palpitations Abdomen: No pain, nausea, vomiting, diarrhea or constipation Musculoskeletal: Right foot ulceration pain, no other joint pain, calf pain, swelling Neurologic: No weakness, numbness/tingling, + balance problems, uses a walker for ambulation Psychiatric: No anxiety or depression Skin: No rash or itch Physical Exam Physical Exam: General: awake, alert, no apparent distress Head: Normocephalic, atraumatic ENT: PERRL, EOMI, no pharyngeal exudate, mucous membranes moist Chest: Clear to auscultation, on room air, no adventitious breath sounds Cardiac: Regular rate and rhythm, faint murmur, no JVD, normal peripheral pulses, good capillary refill Abdominal: NABS x 4 quadrants, soft, nontender to palpation, no rebound, guarding or tenderness Extremities: Right foot, plantar surface of the great toe with ulceration which appears to be the size of a silver dollar, surrounding erythema, no drainage from the wound, erythema is nearly absent, slight warmth. Otherwise normal inspection, no peripheral edema or erythema, calfs nontender to palpation Psych: Normal mood and affect Neuro: AAO x 3, strength intact bilaterally and related 5/5, no motor deficits, speech is clear, no peripheral sensory deficits Skin: no rash or erythema Results & Data Vital Signs (Past 12 Hours) Vital Signs Temp Pulse Pulse Resp BP BP Pulse Ox 04/08/19 14:27 62 16 224/113 H 97 04/08/19 11:46 36.6 C 69 18 217/84 H 98 Diagnostic Findings XR foot RT min 3V routine CLINICAL HISTORY: Right foot pain COMPARISON: 01/16/2018 DISCUSSION: There is a plantar calcaneal spur. There are calcifications within the plantar fascia. Clinical correlation regards to plantar fasciitis is recommended. The metatarsal phalangeal joints are in extension with slight flexion of the interphalangeal joints. This makes evaluation of the phalanges difficult. There are mild degenerative changes. No acute fractures are visualized. There is a stable nonaggressive cystic lucency identified within the distal phalanx of the great toe. IMPRESSION: 1. Degenerative change 2. No acute fractures 3. Stable plantar calcaneal spur and plantar fascial calcification 4. Stable lytic focus involving the distal phalanx of the great toe. This has nonaggressive features SINGLE VIEW CHEST CLINICAL HISTORY: Generalized weakness. FINDINGS: An AP, portable, upright chest radiograph is compared to study dated 08/07/2017. The examination is degraded by portable technique and patient rotation. The cardiomediastinal silhouette is unremarkable noting atherosclerotic calcification of the thoracic aorta. The lungs and pleural spaces are clear. No pneumothorax is seen. The skeletal structures are osteopenic. The bony thorax is grossly intact. IMPRESSION: No active disease in the chest. ECG Additional Comments: 08-APR-2019 12:20:22 [facility]-EDSTAT ROUTINE RETRIEVAL Poor data quality, interpretation may be adversely affected Sinus rhythm with frequent Premature ventricular complexes Otherwise normal ECG When compared with ECG of 15-JAN-2018 19:55, Premature ventricular complexes are now Present WA interval has decreased Confirmed by Harry Davey ([id number]) on 04/08/2019 3:37:02 PM 25mm/s 10mm/mV 150Hz 9.0.9 12SL 241 HD BERENICE: 12 Confirmed By: Harry Ortega. rate 65 BPM WA interval 174 ms QRS duration 92 ms QT/QTc 400/416 ms P-R-T axes 3 21 70 Code Status & VTE Plan Code Status DNR- VTE Prophylaxis Plan VTE Prophylaxis will be ordered: Yes Supervising Physician Co-Signing Physician Notes I have seen the patient with Ness Llanos and agree with exam , assessment and plan. PG Care Time/CCT Total # of Minutes Spent Total Time Spent with Patient: Total time spent is greater than 50% in coordination of care (as documented) at patient's floor/unit and/or counseling patient:
[2019-04-08] MEDS ORDERED: METOPROLOL TARTRATE 1 MG/ML VIAL IV PRN (18:19)
[2019-04-08] MEDS ORDERED: ACETAMINOPHEN 325 MG TAB PO PRN (18:19)
[2019-04-08] MEDS ORDERED: ONDANSETRON INJ 2 MG/ML 2 ML VIAL IV PRN (18:19)
[2019-04-08] MEDS: HydrALAZINE HCL 20 MG/ML VIAL IV PRN (20:50)
[2019-04-09] MEDS: HydrALAZINE HCL 20 MG/ML VIAL IV PRN (03:20)
[2019-04-09 07:11] LABS: Hematocrit (blood only) 37.5 % (42-52); Hemoglobin 12.7 g/dL (14.0-18.0); Mean Corpuscular Hemoglobin 30.8 pg (25-34); Mean Corpuscular Hgb Conc 33.9 g/dL (32-36); Mean Platelet Volume 10.5 fL (7.4-10.4); Platelet Count 260 K/uL (130-400); RDW Coefficient of Variation 13.5 % (11.5-14.5); RDW Standard Deviation 44.9 fL (36.4-46.3); Red Blood Count 4.12 M/uL (4.7-6.1); White Blood Count 5.88 K/uL (4.8-10.8)
[2019-04-09 07:47] LABS: Albumin Level 3.7 gm/dl (3.4-5.0); BUN Creatinine Ratio 24.1 (10-20); Calcium 9.1 mg/dl (8.5-10.1); Creatinine Clr Calc Pharmacy 39.8 ml/min; Est GFR (African American) 62.3; Est GFR (Non-African American) 53.7
[2019-04-09 07:50] LABS: Albumin Globulin Ratio 1.2 (0.9-2); Bilirubin,Total 0.8 mg/dl (0.2-1); Total Protein 6.7 gm/dl (6.4-8.2)
[2019-04-09] MEDS: ASPIRIN 81 MG ECTAB PO SCH (10:08)
[2019-04-09] MEDS: ENOXAPARIN INJ 40 MG/0.4 ML SYR SQ SCH (10:08)
[2019-04-09] MEDS ORDERED: VANCOMYCIN CONSULT ACTIVE PRN (10:45)
[2019-04-09] MEDS ORDERED: PIPERACILL/TAZOBAC CONSULT ACTIVE PRN (10:46)
--- NOTE | 2019-04-09 10:57 | Pharmacy Report ---
Pharmacy Abx Initial Consult - Date of Service April 09, 2019 - Pharmacy Dosing Scope Date of Consult: 04/09/19 Consultation requested by: Dr. Keane Pharmacy is consulted to initiate Vancomycin and Zosyn IV dosing therapy, order appropriate labs and adjust drug dose/frequency. - Subjective The patient is a 83 year old M admitted on 04/08/19 15:30. - Objective Height: 6 ft Weight: 63.5 kg Vital Signs (Past 12hrs): Vital Signs Temp Pulse Pulse Resp BP BP Pulse Ox 04/09/19 07:40 36.5 C 66 16 174/71 H 96 04/09/19 04:15 63 164/64 H 04/09/19 03:08 36.4 C L 61 17 200/77 H 200/77 H 97 04/08/19 23:35 68 04/08/19 23:29 36.4 C L 66 19 160/71 H 97 Lab Results (24hrs): Laboratory Tests (24 Hours) 04/09/19 04/09/19 04/08/19 06:55 06:55 14:44 WBC 5.88 Neut # (Auto) ESR Creatinine 1.22 Est Cr Clr Drug Dosing 39.8 Total Creatine Kinase C-Reactive Protein < 0.29 04/08/19 04/08/19 04/08/19 14:44 12:20 12:20 WBC 7.30 Neut # (Auto) 5.17 ESR 8 Creatinine 1.37 Est Cr Clr Drug Dosing 37.2 Total Creatine Kinase 42 C-Reactive Protein Micro Results: Microbiology 04/08/19 13:00 Foot,Right Gram Stain - Final 04/08/19 13:00 Foot,Right Wound Culture - Preliminary Staphylococcus aureus 04/08/19 13:00 Gram Stain - Final Foot,Right 04/08/19 14:44 Aerobic Blood Culture - Pending Blood Anaerobic Blood Culture - Pending 04/08/19 14:52 Aerobic Blood Culture - Pending Blood Anaerobic Blood Culture - Pending - Risk Factors for Resistance * None - Assessment & Plan Assessment 83 year old M admitted 04/08/19 for painful ulcer on R foot Pertinent PMHx includes neuropathy and residing in an assisted living facility within the past 6 months Renal function appears to be at baseline (SCr 1.22 mg/dL), no leukocytosis, afebrile Received one dose of Ceftriaxone 1000 mg IV in the ED R foot wound culture growing S. aureus, susceptibilities pending Blood cultures still pending Plan IV Vancomycin and Zosyn for treatment of cellulitis Vancomycin IV * Estimated PK Parameters: Vd 0.7 L/kg, Kuldip 0.037 hr-1, t1/2 ~19 hrs * Loading dose: 1500 mg (~ 24 mg/kg) * Maintenance dose: 1000 mg IV (~ 16 mg/kg) every 20 hours * Goal trough level for cellulitis: 10 to 20 mcg/mL * No trough was ordered yet given long dosing interval Piperacillin/tazobactam * 3.375 g bolus administered over 30 minutes, then 3.375 g IV extended infusion every 8 hours for CrCl greater than 20 mL/min Pharmacy will continue to follow and will adjust dose/frequency as necessary. Thank you.
[2019-04-09] MEDS ORDERED: PIPERACILLIN/TAZOBACTAM 3.375 GM in DEXTROSE 5% 100 ML IV ONE (11:00)
[2019-04-09] MEDS ORDERED: VANCOMYCIN HCL 1,500 MG in SODIUM CHLORIDE 0.9% 500 ML IV ONE (11:00)
--- NOTE | 2019-04-09 14:43 | Cardiology Consultation ---
Date of Consultation April 09, 2019 Assessment & Plan (1) Hypertensive urgency: (2) CAD (coronary artery disease): (3) HLD (hyperlipidemia): (4) Paroxysmal A-fib: (5) Right foot ulcer: Patient was admitted with right foot ulceration and associated cellulitis. He is asymptomatic from a cardiac standpoint. His blood pressure has been significantly elevated secondary to noncompliance with outpatient antihypertensives. His diet is also high in sodium as he eats take out for most meals. On exam he appears well perfused without signs of heart failure or significant peripheral vascular disease. Blood pressure remains uncontrolled. Recommend resuming home medications including: metoprolol succinate 25 mg daily, valsartan 320 mg daily and amlodipine 5 mg daily. Also recommend resuming aspirin 81 mg daily in the setting of prior coronary stent placement. Concerned about patient's medication compliance after discharge. Cardiology will sign off. Call with any further questions. Supervising Physician Co-Signing Physician Notes Patient was seen and examined on 04/09/2019. Agree with plan as stated with following additions: He reported to the emergency department due to his wound. He denies chest pain or shortness of breath. He admits that he does not take his antihypertensive agents but also admits that he tolerated them well and they control his blood pressure when taking them in the past. He has remains significantly hypertensive throughout this hospital stay. Exam notable for: General: No acute distress. Alert. Cardiac: Regular. No audible murmur. Lungs: Clear to auscultation bilaterally. ECG reviewed. ASSESSMENT/PLAN: 1. Hypertension: Uncontrolled hypertension as he is noncompliant with medical therapy as an outpatient. He tolerated prior regimen well. Restart home medi cations (done earlier today by Ms Ari STEWART). His blood pressure has improved following these medications. If he has any evidence of hypotension, can adjust medications going forward. He is asymptomatic. 2. CAD: Reported prior PCI. Agree with aspirin 81 mg daily. Agree with beta- alexander. High-intensity statin therapy. He is asymptomatic. 3. Disposition: Cardiology will sign off. Please call with any other questions or concerns. History of Present Illness Attending Physician: Peter Keane MD History of Present Illness Mr. Crooks is an 83 year old male medical history significant for coronary artery disease with STEMI status post RCA PCI 05/2016, hypertension, history of atrial fibrillation and dyslipidemia. He was admitted yesterday with a right foot ulceration with associated cellulitis. He states the ulceration has been present for about 6 months and he has had worsening pain with walking which prompted him to seek medical care. He has been significantly hypertensive with blood pressures in the 200s/100s. Patient admits to not taking his outpatient antihypertensives including metoprolol succinate 20 mg daily, valsartan 320 mg daily and amlodipine 5 mg daily for at least 1 year. He did not have any side effects of the medications he just felt he no longer needed them. He is also not taking any anti-platelet therapy on a regular basis. He states "I am 82, I don't care if I tomorrow and I don't anyone anything." We discussed placing him back on his home antihypertensive medications and he states he will probably take them once he is discharged. He currently has no acute complaints. He lives at home and is able to perform his housework and activities of daily living without exertional chest pain or limiting dyspnea. No orthopnea, PND or peripheral edema. No palpitations, lightheadedness, near-syncope or syncope. No abnormal bleeding. He eats take out frequently including pizza and Bangl[place]. Blood pressure currently remains uncontrolled but so far has only been given metoprolol tartrate 12.5 mg and hydralazine 10 mg IV. Social history: . Lives alone. Denies tobacco, alcohol or drug use. Allergies Allergy/AdvReac Type Severity Reaction Status Date / Time No Known Allergies Allergy Unverified 01/15/18 18:03 Home Medications Home Medications Medication Instructions Recorded Confirmed Type amlodipine 5 mg PO DAILY 04/08/19 04/08/19 History aspirin [Aspirin Low Dose] 81 mg PO DAILY 04/08/19 04/08/19 History atorvastatin 40 mg PO DAILY 04/08/19 04/08/19 History clopidogrel [Plavix] 75 mg PO DAILY 04/08/19 04/08/19 History digoxin 125 mcg PO DAILY 04/08/19 04/08/19 History fenofibrate nanocrystallized 145 mg PO DAILY 04/08/19 04/08/19 History folic acid 1 mg PO DAILY 04/08/19 04/08/19 History gabapentin 300 mg PO HS 04/08/19 04/08/19 History metoprolol succinate 25 mg PO DAILY 04/08/19 04/08/19 History valsartan 320 mg PO DAILY 04/08/19 04/08/19 History Patient History Medical History Right foot ulcer Neuropathy Paroxysmal A-fib HLD (hyperlipidemia) History of non-ST elevation myocardial infarction (NSTEMI) CAD (coronary artery disease) Hypertensive urgency Callus of foot Family History Other Family history non-contributory Social History Preferred Language: Qatari Communication Ability: Effective Load Manager Required: No Beliefs That Will Affect Care: None Current Living Situation: Alone Feels Safe at Home: Yes Smoking Status: Former smoker Second Hand Exposure: No ; Hx Alcohol Use: No Hx Substance Use: No Review of Systems Review of Systems: All systems reviewed & are unremarkable except as noted in HPI & below Physical Exam Physical Exam: General: No acute distress, comfortable. HEENT: Head is normal. PERRLA. EOMI. Sclerae anicteric. Ears, nose and throat unremarkable. Mucous membranes moist. Neck: Normal carotid upstrokes, no bruits. No appreciable JVD. Lungs: Clear to auscultation bilaterally without rales, rhonchi or wheezes. Cardiac: Regular rate and rhythm. S1-S2 normal. No appreciable murmur, gallop or rub. Abdomen: Soft and nontender. Bowel sounds normal. No mass or organomegaly. No abdominal bruit. Extremities/vascular: -- Well perfused. No peripheral edema. --Radial, DP, PT, popliteal and femoral pulses 2+ bilaterally --ulceration plantar aspect base of right great toe, no drainage, periwound erythema Skin: No rash or abnormal lesions. Normal turgor. Neurologic: Nonfocal Psychiatric: Affect appropriate. Alert and oriented. Results & Data Vital Signs (Past 12 Hours) Vital Signs Temp Pulse Resp BP BP Pulse Ox 04/09/19 11:30 36.8 C 71 18 181/67 H 97 04/09/19 07:40 36.5 C 66 16 174/71 H 96 04/09/19 04:15 63 164/64 H 04/09/19 03:08 36.4 C L 61 17 200/77 H 200/77 H 97 Laboratory Results Laboratory Results - last 24 hr 04/08/19 04/08/19 04/09/19 14:44 14:44 06:55 WBC 5.88 RBC 4.12 L Hgb 12.7 L Hct 37.5 L MCV 91.0 MCH 30.8 MCHC 33.9 RDW Std Deviation 44.9 RDW Coeff of Allison 13.5 Plt Count 260 MPV 10.5 H ESR 8 Sodium Potassium Chloride Carbon Dioxide Anion Gap BUN Creatinine Est Cr Clr Drug Dosing Est GFR ( Amer) Est GFR (Non-Af Amer) BUN/Creatinine Ratio Glucose Calcium Total Bilirubin AST ALT Alkaline Phosphatase C-Reactive Protein < 0.29 Total Protein Albumin Globulin Albumin/Globulin Ratio 04/09/19 04/09/19 04/09/19 06:55 11:51 11:51 WBC RBC Hgb Hct MCV MCH MCHC RDW Std Deviation RDW Coeff of Allison Plt Count MPV ESR 23 H Sodium 142 Potassium 4.0 Chloride 111 H Carbon Dioxide 25 Anion Gap 6.0 BUN 29 H Creatinine 1.22 Est Cr Clr Drug Dosing 39.8 Est GFR ( Amer) 62.3 Est GFR (Non-Af Amer) 53.7 BUN/Creatinine Ratio 24.1 H Glucose 85 Calcium 9.1 Total Bilirubin 0.8 AST 14 L ALT 16 Alkaline Phosphatase 77 C-Reactive Protein < 0.29 Total Protein 6.7 Albumin 3.7 Globulin 3.0 Albumin/Globulin Ratio 1.2 Diagnostic Findings Right foot x-ray--degenerative changes. No fracture. Stable plantar calcaneal spur and plantar fascia calcification. Stable lytic focus involving distal phalanx of great toe with nonaggressive features. Chest x-ray--no active disease. ECG Additional Comments: EKG--sinus rhythm with PVCs. Telemetry reviewed--sinus rhythm, no events. PG Care Time/CCT Total # of Minutes Spent Total Time Spent with Patient: Total time spent is greater than 50% in coordination of care (as documented) at patient's floor/unit and/or counseling patient:
[2019-04-09] MEDS ORDERED: GADOBUTROL 65ML VIAL IV PRN (15:03)
--- NOTE | 2019-04-09 15:44 | Magnetic Resonance Report ---
MR foot RT wo/w con HISTORY: ulcer of the right foot TECHNIQUE: Multiplanar multisequence MRI of the right forefoot was performed both before and after th e intravenous administration of 6.3 cc of Gadavist contrast. COMPARISON STUDY: Right foot radiograph 04/08/2019. FINDINGS: No fracture or dislocation within the right forefoot. Normal marrow signal intensity seen t hroughout the visualized osseous structures. Specifically, no evidence for osteomyelitis. Focal skin ulceration along the plantar surface at the first MTP joint. Mild edema and enhancement within the un derlying soft tissues of the medial and plantar surface of the first MTP joint suggestive of a cellul itis. However, no loculated fluid collections to suggest an abscess. The sesamoid bones appear intact . Mild nonspecific soft tissue edema surrounding the second and third metatarsals. This could represe nt developing stress-related changes, however, the bones appear within normal limits at this location . IMPRESSION: 1. No evidence for osteomyelitis. 2. Focal skin ulceration along the plantar surface of the first MTP joint. There is also mild edema a nd enhancement within the medial and plantar surface of the first MTP joint suggestive of a celluliti s. No abscess identified. 3. Mild soft tissue edema surrounding the shafts of the second third metatarsals. This is nonspecific but could represent early stress-related changes. No fractures identified. Electronically signed by: Jitendra Ingram M.D. 04/09/2019 3:43 PM
[2019-04-09] MEDS ORDERED: PIPERACILLIN/TAZOBACTAM 3.375 GM in DEXTROSE 5% 100 ML IV SCH (16:00)
[2019-04-09] MEDS: METOPROLOL SUCC 25MG EXT REL TAB PO SCH (16:01)
[2019-04-09] MEDS: VALSARTAN 80 MG TAB PO SCH (16:01)
[2019-04-09] MEDS: AMLODIPINE BESYLATE 5 MG TAB PO SCH (16:01)
--- NOTE | 2019-04-09 17:00 | Hospitalist Progress Note ---
Date of Service April 09, 2019 Assessment & Plan (1) Right foot ulcer: -Wound culture -Wound consulted -Wound MD consulted -X-ray without signs of osteomyelitis-MRI confirmed cellulitis, wound culture -ER administered 1 dose of ceftriaxone, wound culture grew Staphylococcus aureus sensitivity pending -Started vancomycin and Zosyn. -blood cultures x2 negative so far Present on Admission?: Yes (2) Hypertensive urgency: - Continue admit to pcu on telemetry - Cardiology consulted and patient is back on his home medication: Continue metoprolol succinate 25 mg daily, valsartan 320 mg daily, amlodipine 5 mg daily aspirin 81 mg daily and in the setting of the prior stent placement. - No and other than ischemia - Negative troponin - EKG reviewed as above paroxysmal A. fib now in normal sinus rhythm. - Patient has not taken any of his antihypertensives listed on home medication for over 1 year, likely since discharge from our facility in January 2018 - Prophylaxis Lovenox -DNR/DNI (3) History of non-ST elevation myocardial infarction (NSTEMI): As the above Present on Admission?: Yes (4) HLD (hyperlipidemia): (5) CAD (coronary artery disease): History of an STEMI many years ago - We will resume aspirin 81 mg daily - giving metoprolol succinate 25 mg twice daily - lipid panel pending -will check A1c (6) Paroxysmal A-fib: - Currently in normal sinus rhythm, -Appears that this was only documented one time per cardiology records when he was acutely ill prior to his last admission in January 2018 (7) Neuropathy: -Has not been using any medication for this -PT and OT consulted -Consider resuming gabapentin if the patient is agreeable to this (8) DVT prophylaxis: -Teds -Lovenox subcu Disposition: Patient from home, lives alone CM consulted for placement as it appears he is unable to care for himself well at home. Subjective Patient seen and examined at the bedside. Comfortably resting in the bed. He reports having a deep ulcer in his right foot being there for approximately 6 months. 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 Wound is deep approximately 0.5 and size of the wound approximately 4 cm x 2.5. Surrounding tissue is inflamed as well patient reports pain. Patient denies fever chills chest pain shortness of breath, headache hemoptysis hematuria dysuria, nausea or vomiting abdominal discomfort bowel changes. Afebrile cooperative. Review of Systems Review of Systems: All systems reviewed & are unremarkable except as noted in HPI & below Physical Exam Constitutional: WD/WN, vitals as above + frail appearing Eyes: PERRL, conjunctivae normal, anicteric sclerae ENMT: external ear and nose normal, oropharynx normal Neck: trachea midline, no thyromegaly Respiratory: normal respiratory effort, lungs clear to auscultation Cardiovascular: RRR, no murmur, no edema Chest (Breasts): normal inspection/palpation of breasts Gastrointestinal (Abdomen): normal bowel sounds, soft, nontender, no hepatosplenomegaly Musculoskeletal: Wound is approximately 2.5 x 4 cm in size and that is 0.5 cm crater looking wide open with significant amount of necrotic tissue, does not probe to the bone, no palpable or visible tracks. No fluctuating mass. It is located below first metatarsal bone of the right lower extremity foot. Skin: + dry skin Neurologic: patellar DTR's 2+ bilat, sensation intact Psychiatric: A+Ox3, euthymic affect Genitourinary: no testicular masses, no penis abnormality Lymphatic: no cervical or axillary lymphadenopathy Results & Data Vital Signs (Past 12 Hours) Vital Signs Temp Pulse Resp BP Pulse Ox 04/09/19 11:30 36.8 C 71 18 181/67 H 97 04/09/19 07:40 36.5 C 66 16 174/71 H 96 PG Care Time/CCT Total # of Minutes Spent Total Time Spent with Patient: Total time spent is greater than 50% in coordination of care (as documented) at patient's floor/unit and/or counseling patient:
[2019-04-09] MEDS: PIPERACILLIN/TAZOBACTAM 3.375 GM in DEXTROSE 5% 100 ML IV SCH (18:27)
[2019-04-09] MEDS: CLOPIDOGREL BISULFATE 75 MG TAB PO SCH (18:27)
[2019-04-09] MEDS: GABAPENTIN 300 MG CAP PO SCH (20:12)
[2019-04-10] MEDS: PIPERACILLIN/TAZOBACTAM 3.375 GM in DEXTROSE 5% 100 ML IV SCH ×3 (02:39→17:34)
[2019-04-10 06:54] LABS: Hematocrit (blood only) 35.6 % (42-52); Hemoglobin 11.9 g/dL (14.0-18.0); Mean Corpuscular Hemoglobin 30.4 pg (25-34); Mean Corpuscular Hgb Conc 33.4 g/dL (32-36); Mean Platelet Volume 10.5 fL (7.4-10.4); Platelet Count 232 K/uL (130-400); RDW Coefficient of Variation 13.6 % (11.5-14.5); RDW Standard Deviation 44.5 fL (36.4-46.3); Red Blood Count 3.91 M/uL (4.7-6.1); White Blood Count 5.21 K/uL (4.8-10.8)
[2019-04-10 07:30] LABS: Albumin Level 3.5 gm/dl (3.4-5.0); BUN Creatinine Ratio 21.4 (10-20); Calcium 9.2 mg/dl (8.5-10.1); Creatinine Clr Calc Pharmacy 37.3 ml/min; Est GFR (African American) 57.7; Est GFR (Non-African American) 49.8; Potassium 3.9 mmol/L (3.5-5.1)
[2019-04-10 07:33] LABS: Albumin Globulin Ratio 1.3 (0.9-2); Bilirubin,Total 0.9 mg/dl (0.2-1); Globulin 2.7 gm/dl (2.5-4.0); Total Protein 6.2 gm/dl (6.4-8.2)
[2019-04-10] MEDS: CLOPIDOGREL BISULFATE 75 MG TAB PO SCH ×2 (07:44→09:11)
[2019-04-10] MEDS ORDERED: VANCOMYCIN HCL 1,000 MG in SODIUM CHLORIDE 0.9% 250 ML IV SCH (08:00)
[2019-04-10] MEDS: VANCOMYCIN HCL 1,000 MG in SODIUM CHLORIDE 0.9% 250 ML IV SCH (09:04)
[2019-04-10] MEDS: VALSARTAN 80 MG TAB PO SCH (09:08)
[2019-04-10] MEDS: ENOXAPARIN INJ 40 MG/0.4 ML SYR SQ SCH (09:09)
[2019-04-10] MEDS: ASPIRIN 81 MG ECTAB PO SCH (09:09)
[2019-04-10] MEDS: METOPROLOL SUCC 25MG EXT REL TAB PO SCH (09:10)
[2019-04-10] MEDS: AMLODIPINE BESYLATE 5 MG TAB PO SCH (09:11)
--- NOTE | 2019-04-10 14:26 | Ultrasound Report ---
US ankle/brachial index comp CLINICAL HISTORY: right foot ulcer COMPARISON STUDY: Ankle to brachial indices May 26, 2016. FINDINGS: The right ankle to brachial index measured 1.05 when using posterior tibial artery and 1.04 when using the dorsalis pedis. The left ankle-brachial index measured 1.05 when using the posterior tibial artery 1.09 when using the dorsalis pedis. IMPRESSION: Normal bilateral ankle to brachial indices. Electronically signed by: Trell Ruiz M.D. 04/10/2019 2:25 PM
--- NOTE | 2019-04-10 16:06 | Hospitalist Progress Note ---
Date of Service April 10, 2019 Assessment & Plan (1) Right foot ulcer: -Wound culture-is on Staphylococcus aureus -Blood culture x2- in 48 hours -Wound consulted -Wound MD consulted -X-ray without signs of osteomyelitis-MRI confirmed cellulitis, wound culture -ER administered 1 dose of ceftriaxone, wound culture grew Staphylococcus aureus sensitivity pending -Continue vancomycin and Zosyn. -DVT prophylaxis Lovenox 40 mg subcu every morning -PT OT pending evaluation -DNR/DNI (2) Hypertensive urgency: - Continue admit to pcu on telemetry - Cardiology consulted and patient is back on his home medication: Continue metoprolol succinate 25 mg daily, valsartan 320 mg daily, amlodipine 5 mg daily aspirin 81 mg daily and in the setting of the prior stent placement. - No and other than ischemia - Negative troponin - EKG reviewed as above paroxysmal A. fib now in normal sinus rhythm. - Patient has not taken any of his antihypertensives listed on home medication for over 1 year, likely since discharge from our facility in January 2018 - Prophylaxis Lovenox -DNR/DNI (3) History of non-ST elevation myocardial infarction (NSTEMI): As the above (4) HLD (hyperlipidemia): (5) CAD (coronary artery disease): History of an STEMI many years ago - We will resume aspirin 81 mg daily - giving metoprolol succinate 25 mg twice daily - lipid panel pending -will check A1c (6) Paroxysmal A-fib: - Currently in normal sinus rhythm, -Appears that this was only documented one time per cardiology records when he was acutely ill prior to his last admission in January 2018 (7) Neuropathy: -Has not been using any medication for this -PT and OT consulted -Consider resuming gabapentin if the patient is agreeable to this (8) DVT prophylaxis: -Teds -Lovenox subcu Disposition: Patient from home, lives alone CM consulted for placement as it abby ears he is unable to care for himself well at home. Subjective Patient seen and examined at the bedside. Comfortably resting in the bed.Patient denies fever chills chest pain shortness of breath, headache hemoptysis hematuria dysuria, nausea or vomiting abdominal discomfort bowel changes. Afebrile cooperative. Review of Systems Review of Systems: All systems reviewed & are unremarkable except as noted in HPI & below Physical Exam Constitutional: WD/WN, vitals as above well developed and + frail appearing Eyes: PERRL, conjunctivae normal, anicteric sclerae ENMT: external ear and nose normal, oropharynx normal Neck: trachea midline, no thyromegaly Respiratory: normal respiratory effort, lungs clear to auscultation Cardiovascular: RRR, no murmur, no edema Chest (Breasts): normal inspection/palpation of breasts Gastrointestinal (Abdomen): normal bowel sounds, soft, nontender, no hepatosplenomegaly Musculoskeletal: Wound is deep approximately 0.5 and size of the wound approximately 4 cm x 2.5. Results & Data Vital Signs (Past 12 Hours) Vital Signs Temp Pulse Pulse Resp BP BP Pulse Ox 04/10/19 15:33 36.8 C 60 19 139/67 97 04/10/19 11:44 36.6 C 58 L 18 162/65 H 97 04/10/19 08:00 55 L 04/10/19 07:25 36.5 C 57 L 20 127/64 97 04/10/19 04:40 36.5 C 58 L 19 153/68 H 97 PG Care Time/CCT Total # of Minutes Spent Total Time Spent with Patient: Total time spent is greater than 50% in coordination of care (as documented) at patient's floor/unit and/or counseling patient:
[2019-04-10] MEDS: GABAPENTIN 300 MG CAP PO SCH (20:02)
[2019-04-11] MEDS: PIPERACILLIN/TAZOBACTAM 3.375 GM in DEXTROSE 5% 100 ML IV SCH ×2 (02:24→09:45)
[2019-04-11] MEDS: VANCOMYCIN HCL 1,000 MG in SODIUM CHLORIDE 0.9% 250 ML IV SCH (03:31)
[2019-04-11 06:45] LABS: Hematocrit (blood only) 33.7 % (42-52); Hemoglobin 11.6 g/dL (14.0-18.0); Mean Corpuscular Hemoglobin 31.2 pg (25-34); Mean Corpuscular Hgb Conc 34.4 g/dL (32-36); Mean Corpuscular Volume 90.6 fL (80-100); Mean Platelet Volume 10.2 fL (7.4-10.4); Platelet Count 227 K/uL (130-400); RDW Coefficient of Variation 13.6 % (11.5-14.5); RDW Standard Deviation 45.5 fL (36.4-46.3); Red Blood Count 3.72 M/uL (4.7-6.1); White Blood Count 4.42 K/uL (4.8-10.8)
[2019-04-11 07:19] LABS: Albumin Level 3.1 gm/dl (3.4-5.0); BUN Creatinine Ratio 22.7 (10-20); C Reactive Protein 0.43 mg/dl (0-0.29); Calcium 8.9 mg/dl (8.5-10.1); Creatinine Clr Calc Pharmacy 37.5 ml/min; Est GFR (African American) 56.6; Est GFR (Non-African American) 48.8; Potassium 3.9 mmol/L (3.5-5.1)
[2019-04-11 07:22] LABS: Albumin Globulin Ratio 1.1 (0.9-2); Bilirubin,Total 0.6 mg/dl (0.2-1); Globulin 2.9 gm/dl (2.5-4.0); Total Protein 6.1 gm/dl (6.4-8.2)
[2019-04-11] MEDS: METOPROLOL SUCC 25MG EXT REL TAB PO SCH (08:35)
[2019-04-11] MEDS: VALSARTAN 80 MG TAB PO SCH (08:35)
[2019-04-11] MEDS: AMLODIPINE BESYLATE 5 MG TAB PO SCH (08:35)
[2019-04-11] MEDS: ENOXAPARIN INJ 40 MG/0.4 ML SYR SQ SCH (08:36)
[2019-04-11] MEDS: ASPIRIN 81 MG ECTAB PO SCH (08:36)
[2019-04-11] MEDS ORDERED: HydrALAZINE 10 MG TAB PO PRN (12:11)
--- NOTE | 2019-04-11 15:50 | Hospitalist Progress Note ---
Date of Service April 11, 2019 Assessment & Plan (1) Right foot ulcer: -Wound culture-is on Staphylococcus aureus -No MRSA -Sensitive to doxycycline -Stopped vancomycin and Zosyn. Plan to continue with doxycycline for 14 days. -Blood culture x2- in 48 hours-negative -Wound consulted -Wound MD consulted -X-ray without signs of osteomyelitis-MRI confirmed cellulitis, wound culture -DVT prophylaxis Lovenox 40 mg subcu every morning -PT OT pending evaluation -DNR/DNI (2) Hypertensive urgency: - Continue admit to pcu on telemetry - Cardiology consulted and patient is back on his home medication: Continue metoprolol succinate 25 mg daily, valsartan 320 mg daily, amlodipine 5 mg daily aspirin 81 mg daily and in the setting of the prior stent placement. - No and other than ischemia - Negative troponin - EKG reviewed as above paroxysmal A. fib now in normal sinus rhythm. - Patient has not taken any of his antihypertensives listed on home medication for over 1 year, likely since discharge from our facility in January 2018 - Prophylaxis Lovenox -DNR/DNI (3) History of non-ST elevation myocardial infarction (NSTEMI): As the above (4) HLD (hyperlipidemia): Continue low-fat diet Present on Admission?: Yes (5) CAD (coronary artery disease): History of an STEMI many years ago - We will resume aspirin 81 mg daily - giving metoprolol succinate 25 mg twice daily - lipid panel pending -will check A1c (6) Paroxysmal A-fib: - Currently in normal sinus rhythm, -Appears that this was only documented one time per cardiology records when he was acutely ill prior to his last admission in January 2018 (7) Neuropathy: -Has not been using any medication for this -PT and OT consulted -Consider resuming gabapentin if the patient is agreeable to this (8) DVT prophylaxis: -Teds -Lovenox subcu Disposition: Patient from home, lives alone CM consulted for placement as it appears he is unable to care for himself well at home. (9) Diarrhea: Patient had 2 watery diarrhea is Sent stool culture and C. difficile result pending. Not clear origin until the results are available Present on Admission?: Yes Subjective Patient seen and examined at the bedside. Comfortably resting in the bed.Patient denies fever chills chest pain shortness of breath, headache hemoptysis hematuria dysuria, nausea or vomiting abdominal discomfort bowel changes. Afebrile cooperative. Physical Exam Constitutional: WD/WN, vitals as above well developed and + frail appearing Eyes: PERRL, conjunctivae normal, anicteric sclerae ENMT: external ear and nose normal, oropharynx normal Neck: trachea midline, no thyromegaly Respiratory: normal respiratory effort, lungs clear to auscultation Cardiovascular: RRR, no murmur, no edema Chest (Breasts): normal inspection/palpation of breasts Gastrointestinal (Abdomen): normal bowel sounds, soft, nontender, no hepatosplenomegaly Skin: + dry skin Neurologic: patellar DTR's 2+ bilat, sensation intact Psychiatric: A+Ox3, euthymic affect Genitourinary: no testicular masses, no penis abnormality Lymphatic: no cervical or axillary lymphadenopathy Results & Data Vital Signs (Past 12 Hours) Vital Signs Temp Pulse Pulse Resp BP BP Pulse Ox 04/11/19 14:36 36.4 C L 53 L 18 130/57 L 98 04/11/19 11:37 36.4 C L 52 L 18 191/62 H 93 04/11/19 08:35 62 04/11/19 08:00 58 L 04/11/19 07:52 36.2 C L 50 L 18 176/55 H 97 04/11/19 04:00 36.3 C L 52 L 16 153/59 H 98 PG Care Time/CCT Total # of Minutes Spent Total Time Spent with Patient: Total time spent is greater than 50% in coordination of care (as documented) at patient's floor/unit and/or counseling patient:
[2019-04-11] MEDS: GABAPENTIN 300 MG CAP PO SCH (19:47)
[2019-04-11] MEDS: DOXYCYCLINE HYCLATE 100 MG CAP PO SCH (19:47)
[2019-04-12 07:09] LABS: Basophils # (auto) 0.02 K/uL (0-0.2); Basophils % (auto) 0.4 %; Eosinophils # (auto) 0.23 K/uL (0-0.5); Eosinophils % (auto) 4.3 %; Hematocrit (blood only) 35.3 % (42-52); Hemoglobin 11.8 g/dL (14.0-18.0); Immature Granulocytes # (auto) 0.01 K/uL (0.00-0.02); Immature Granulocytes % (auto) 0.2 %; Lymphocytes # (auto) 1.62 K/uL (1.2-3.4); Lymphocytes % (auto) 30.5 %; Mean Corpuscular Hemoglobin 30.8 pg (25-34); Mean Corpuscular Hgb Conc 33.4 g/dL (32-36); Mean Corpuscular Volume 92.2 fL (80-100); Mean Platelet Volume 10.4 fL (7.4-10.4); Monocytes # (auto) 0.75 K/uL (0.11-0.59); Monocytes % (auto) 14.1 %; Neutrophils # (auto) 2.68 K/uL (1.4-6.5); Neutrophils % (auto) 50.5 %; Platelet Count 246 K/uL (130-400); RDW Coefficient of Variation 13.7 % (11.5-14.5); RDW Standard Deviation 46.1 fL (36.4-46.3); Red Blood Count 3.83 M/uL (4.7-6.1); White Blood Count 5.31 K/uL (4.8-10.8)
[2019-04-12 07:41] LABS: Alanine Aminotransferase 18 U/L (12-78); Albumin Globulin Ratio 1.1 (0.9-2); Albumin Level 3.3 gm/dl (3.4-5.0); Alkaline Phosphatase 65 U/L (45-117); Aspartate Aminotransferase 22 U/L (15-37); Bilirubin,Total 0.4 mg/dl (0.2-1); Blood Urea Nitrogen 26 mg/dl (7-18); C Reactive Protein < 0.29 mg/dl (0-0.29); Calcium 9.1 mg/dl (8.5-10.1); Carbon Dioxide 28 mmol/L (21-32); Chloride 109 mmol/L (98-107); Creatinine Clr Calc Pharmacy 34.4 ml/min; Globulin 2.9 gm/dl (2.5-4.0); Glucose 85 mg/dl (70-99); Potassium 4.1 mmol/L (3.5-5.1); Sodium 142 mmol/L (136-145); Total Protein 6.2 gm/dl (6.4-8.2)
[2019-04-12] MEDS: AMLODIPINE BESYLATE 5 MG TAB PO SCH (08:29)
[2019-04-12] MEDS: DOXYCYCLINE HYCLATE 100 MG CAP PO SCH ×2 (08:29→20:56)
[2019-04-12] MEDS: METOPROLOL SUCC 25MG EXT REL TAB PO SCH (08:30)
[2019-04-12] MEDS: VALSARTAN 80 MG TAB PO SCH (08:30)
[2019-04-12] MEDS: ASPIRIN 81 MG ECTAB PO SCH (08:30)
[2019-04-12] MEDS: ENOXAPARIN INJ 40 MG/0.4 ML SYR SQ SCH (08:30)
[2019-04-12] MEDS: CLOPIDOGREL BISULFATE 75 MG TAB PO SCH (08:30)
[2019-04-12 12:41] LABS: Cdiff Antigen Positive
[2019-04-12 12:43] LABS: Cdiff Toxin A+B Positive Cdiff Toxin (Negative)
--- NOTE | 2019-04-12 14:27 | Wound Consultation ---
Date of Consultation April 12, 2019 Assessment & Plan (1) Right foot ulcer: Wound needed debridement. After obtaining permission topical Xylocaine was applied. Using a curette, scissors and forceps, the wound was debrided of fibrin, slough and callus. There was scant bleeding which was controlled with pressure. Patient tolerated the procedure well with no complications. This represents a non-excisional debridement of less than 20 cm. Wound will be dressed with Aquacel Ag and changed every other day. Agree with doxycycline. We will have OT see the patient to evaluate for offloading. We will see patient in the office week after discharge. Thank you for allowing us to participate in the care of this patient. Please do not hesitate to call with any questions. (2) Cellulitis of right foot: History of Present Illness Reason for Consultation: Neuropathic foot ulcer Attending Physician: and MRI of the footPeter Keane MD This 83-year-old male with a history of hypertension, hyperlipidemia, CAD, proximal A. fib and neuropathy who was admitted with hypertensive urgency and found to have a right foot ulcer. Patient was given a dose of Rocephin in the ER and then was placed on Zosyn and vancomycin. Wound culture result today was positive for staph aureus and patient was switched to doxycycline. X-ray foot showed no evidence of osteomyelitis. MRI showed focal skin ulceration along the plantar surface of the first MTP joint. There is also mild edema and enhancement within the medial and plantar surface of the first MTP joint suggestive of cellulitis. There is no abscess identified. Allergies Allergy/AdvReac Type Severity Reaction Status Date / Time No Known Allergies Allergy Unverified 01/15/18 18:03 Home Medications Home Medications Medication Instructions Recorded Confirmed Type amlodipine 5 mg PO DAILY 04/08/19 04/08/19 History aspirin [Aspirin Low Dose] 81 mg PO DAILY 04/08/19 04/08/19 History atorvastatin 40 mg PO DAILY 04/08/19 04/08/19 History clopidogrel [Plavix] 75 mg PO DAILY 04/08/19 04/08/19 History digoxin 125 mcg PO DAILY 04/08/19 04/08/19 History fenofibrate nanocrystallized 145 mg PO DAILY 04/08/19 04/08/19 History folic acid 1 mg PO DAILY 04/08/19 04/08/19 History gabapentin 300 mg PO HS 04/08/19 04/08/19 History metoprolol succinate 25 mg PO DAILY 04/08/19 04/08/19 History valsartan 320 mg PO DAILY 04/08/19 04/08/19 History Patient History Medical History Right foot ulcer Neuropathy Paroxysmal A-fib HLD (hyperlipidemia) History of non-ST elevation myocardial infarction (NSTEMI) CAD (coronary artery disease) Hypertensive urgency Callus of foot Family History Other Family history non-contributory Social History Preferred Language: [place] Communication Ability: Effective Provider Relations Coordinator Required: No Beliefs That Will Affect Care: None Current Living Situation: Alone Feels Safe at Home: Yes Smoking Status: Former smoker Second Hand Exposure: No ; Hx Alcohol Use: No Hx Substance Use: No Review of Systems Review of Systems: All systems reviewed & are unremarkable except as noted in HPI & below Physical Exam Skin: Wound measuring 0.6 x 0.4 x 0.4 cm. Wound is covered with fibrin and slough. Periwound is macerated with thick callus formation. There is moderate drainage and foul odor. Neurologic: awake; not confused Psychiatric: Orientation: alert, oriented to person, oriented to place, oriented to time and cooperative Results & Data Vital Signs (Past 12 Hours) Vital Signs Temp Pulse Pulse Resp BP BP Pulse Ox 04/12/19 12:33 36.5 C 60 18 154/66 H 99 04/12/19 07:57 62 04/12/19 07:00 36.5 C 56 L 18 138/67 97 04/12/19 05:23 36.3 C L 55 L 20 137/72 96 PG Care Time/CCT Total # of Minutes Spent Total Time Spent with Patient: Total time spent is greater than 50% in coordination of care (as documented) at patient's floor/unit and/or counseling patient: (1) Right foot ulcer Non-pressure ulcer stage: unspecified non-pressure ulcer stage Qualified Code(s): L97.519 - Non-pressure chronic ulcer of other part of right foot with unspecified severity
--- NOTE | 2019-04-12 16:49 | Hospitalist Progress Note ---
Date of Service April 12, 2019 Assessment & Plan (1) Right foot ulcer: Continue doxycycline Continue wound care as per recommendation of Dr. Stout wound MD consult X-ray no osteomyelitis which was confirmed by MRI DVT prophylaxis with Lovenox 40 mg subcu with every morning Follow-up with Dr. Stout in 1 week after discharge Patient had debridement today and tolerated well PT OT DNR (2) Cellulitis of right foot: As the above Present on Admission?: Yes (3) Hypertensive urgency: Resolved .Continue home medicine metoprolol succinate 25 mg daily, valsartan 320 mg daily, amlodipine 5 mg daily, aspirin 81 mg daily DVT prophylaxis Lovenox. Present on Admission?: Yes (4) HLD (hyperlipidemia): Stable continue low-fat diet Present on Admission?: Yes (5) Paroxysmal A-fib: Currently normal sinus rhythm Present on Admission?: Yes Subjective Patient seen and examined at the bedside. Comfortably resting in the bed.Patient denies fever chills chest pain shortness of breath, headache hemoptysis hematuria dysuria, nausea or vomiting abdominal discomfort bowel changes. Afebrile cooperative. Right foot ulcer wound debrided by Dr. Stout. And dressed with Aquacel AG every other day. Continue doxycycline. Patient would need OT training for offloading. Wound care will follow in the office 1 week after discharge they agreed to continue antibiotics. Patient tolerated procedure well. Review of Systems Review of Systems: All systems reviewed & are unremarkable except as noted in HPI & below Physical Exam Constitutional: WD/WN, vitals as above well developed and + frail appearing Eyes: PERRL, conjunctivae normal, anicteric sclerae ENMT: external ear and nose normal, oropharynx normal Neck: trachea midline, no thyromegaly Respiratory: normal respiratory effort, lungs clear to auscultation Cardiovascular: RRR, no murmur, no edema Chest (Breasts): normal inspection/palpation of breasts Gastrointestinal (Abdomen): normal bowel sounds, soft, nontender, no hepatosplenomegaly Skin: + dry skin Wound measuring 0.6 x 0.4 x 0.4 cm. Wound is covered with fibrin and slough. Periwound is macerated with thick callus formation. There is moderate drainage and foul odor. Neurologic: patellar DTR's 2+ bilat, sensation intact Psychiatric: A+Ox3, euthymic affect Genitourinary: no testicular masses, no penis abnormality Lymphatic: no cervical or axillary lymphadenopathy Results & Data Vital Signs (Past 12 Hours) Vital Signs Temp Pulse Pulse Resp BP BP Pulse Ox 04/12/19 15:40 36.7 C 72 18 121/58 L 97 04/12/19 12:33 36.5 C 60 18 154/66 H 99 04/12/19 07:57 62 04/12/19 07:00 36.5 C 56 L 18 138/67 97 04/12/19 05:23 36.3 C L 55 L 20 137/72 96 PG Care Time/CCT Total # of Minutes Spent Total Time Spent with Patient: Total time spent is greater than 50% in coordination of care (as documented) at patient's floor/unit and/or counseling patient: (1) Right foot ulcer Non-pressure ulcer stage: unspecified non-pressure ulcer stage Qualified Code(s): L97.519 - Non-pressure chronic ulcer of other part of right foot with unspecified severity
[2019-04-12] MEDS: GABAPENTIN 300 MG CAP PO SCH (20:56)
[2019-04-13] MEDS: RASPBERRY SYRUP 5 ML UDP PO SCH ×4 (00:21→18:01)
[2019-04-13] MEDS: VANCOMYCIN HCL 125 MG/2.5ML SOLN PO SCH ×4 (00:22→18:01)
[2019-04-13 06:29] LABS: Basophils # (auto) 0.02 K/uL (0-0.2); Basophils % (auto) 0.4 %; Eosinophils # (auto) 0.17 K/uL (0-0.5); Eosinophils % (auto) 3.6 %; Hematocrit (blood only) 35.2 % (42-52); Hemoglobin 11.7 g/dL (14.0-18.0); Lymphocytes # (auto) 1.54 K/uL (1.2-3.4); Lymphocytes % (auto) 32.7 %; Mean Corpuscular Hemoglobin 30.7 pg (25-34); Mean Corpuscular Hgb Conc 33.2 g/dL (32-36); Mean Corpuscular Volume 92.4 fL (80-100); Mean Platelet Volume 10.4 fL (7.4-10.4); Monocytes # (auto) 0.62 K/uL (0.11-0.59); Monocytes % (auto) 13.2 %; Neutrophils # (auto) 2.36 K/uL (1.4-6.5); Neutrophils % (auto) 50.1 %; Platelet Count 245 K/uL (130-400); RDW Coefficient of Variation 13.6 % (11.5-14.5); RDW Standard Deviation 46.2 fL (36.4-46.3); Red Blood Count 3.81 M/uL (4.7-6.1); White Blood Count 4.71 K/uL (4.8-10.8)
[2019-04-13 07:05] LABS: Alanine Aminotransferase 23 U/L (12-78); Albumin Level 3.2 gm/dl (3.4-5.0); Aspartate Aminotransferase 23 U/L (15-37); BUN Creatinine Ratio 26.3 (10-20); Blood Urea Nitrogen 34 mg/dl (7-18); Calcium 8.9 mg/dl (8.5-10.1); Carbon Dioxide 28 mmol/L (21-32); Chloride 110 mmol/L (98-107); Creatinine Clr Calc Pharmacy 37.8 ml/min; Est GFR (African American) 57.1; Est GFR (Non-African American) 49.3; Glucose 84 mg/dl (70-99); Potassium 3.9 mmol/L (3.5-5.1); Sodium 143 mmol/L (136-145)
[2019-04-13 07:06] LABS: Albumin Globulin Ratio 1.1 (0.9-2); Alkaline Phosphatase 60 U/L (45-117); Bilirubin,Total 0.5 mg/dl (0.2-1); C Reactive Protein < 0.29 mg/dl (0-0.29); Chol HDL Ratio 4; Cholesterol 129 mg/dl (0-200); HDL Cholesterol 32 mg/dl; LDL Cholesterol Calculated 75 mg/dl; Total Protein 6.2 gm/dl (6.4-8.2); Triglycerides 109 mg/dl (0-150); VLDL Cholesterol 22 mg/dl
[2019-04-13 07:54] LABS: Estimated Average Glucose 114 mg/dl; Hemoglobin A1C 5.6 % (4.5-5.6)
[2019-04-13] MEDS: METOPROLOL SUCC 25MG EXT REL TAB PO SCH (08:03)
[2019-04-13] MEDS: AMLODIPINE BESYLATE 5 MG TAB PO SCH (08:08)
[2019-04-13] MEDS: CLOPIDOGREL BISULFATE 75 MG TAB PO SCH (08:08)
[2019-04-13] MEDS: ASPIRIN 81 MG ECTAB PO SCH (08:08)
[2019-04-13] MEDS: VALSARTAN 80 MG TAB PO SCH (08:08)
[2019-04-13] MEDS: ENOXAPARIN INJ 40 MG/0.4 ML SYR SQ SCH (08:08)
[2019-04-13] MEDS: DOXYCYCLINE HYCLATE 100 MG CAP PO SCH ×2 (08:09→19:20)
--- NOTE | 2019-04-13 17:46 | Hospitalist Progress Note ---
Date of Service April 13, 2019 Assessment & Plan (1) Right foot ulcer: Continue doxycycline Continue wound care as per recommendation of Dr. Stout wound MD consult X-ray no osteomyelitis which was confirmed by MRI DVT prophylaxis with Lovenox 40 mg subcu with every morning Follow-up with Dr. Stout in 1 week after discharge Patient had debridement today and tolerated well PT OT DNR (2) Cellulitis of right foot: As the above (3) Hypertensive urgency: Resolved .Continue home medicine metoprolol succinate 25 mg daily, valsartan 320 mg daily, amlodipine 5 mg daily, aspirin 81 mg daily DVT prophylaxis Lovenox. (4) HLD (hyperlipidemia): Stable continue low-fat diet (5) Paroxysmal A-fib: Currently normal sinus rhythm (6) Diarrhea: Patient continues to report watery diarrhea at least 2-3 times a day. Stool cultures negative so far Present on Admission?: Yes Subjective Patient seen and examined at the bedside. Comfortably resting in the bed.Patient denies fever chills chest pain shortness of breath, headache hemoptysis hematuria dysuria, nausea or vomiting abdominal discomfort bowel changes. Afebrile cooperative. Right foot ulcer wound debrided by Dr. Stout. And dressed with Aquacel AG every other day. Continue doxycycline. Patient would need OT training for off loading. Wound care will follow in the office 1 week after discharge they agreed to continue antibiotics. Patient tolerated procedure well. Denies fever chills chest pain shortness of breath abdominal pain frequency and urgency. Patient reports continuation of watery diarrhea at least 1 or 2 twice a day. Stool cultures so far negative. Review of Systems Review of Systems: All systems reviewed & are unremarkable except as noted in HPI & below Physical Exam Constitutional: WD/WN, vitals as above well developed and + frail appearing Eyes: PERRL, conjunctivae normal, anicteric sclerae ENMT: external ear and nose normal, oropharynx normal Neck: trachea midline, no thyromegaly Respiratory: normal respiratory effort, lungs clear to auscultation Cardiovascular: RRR, no murmur, no edema Chest (Breasts): normal inspection/palpation of breasts Gastrointestinal (Abdomen): normal bowel sounds, soft, nontender, no hepatosplenomegaly Skin: + dry skin Neurologic: patellar DTR's 2+ bilat, sensation intact Psychiatric: A+Ox3, euthymic affect Genitourinary: no testicular masses, no penis abnormality Lymphatic: no cervical or axillary lymphadenopathy Results & Data Vital Signs (Past 12 Hours) Vital Signs Temp Pulse Pulse Resp BP BP Pulse Ox 04/13/19 15:43 36.7 C 63 20 146/62 H 97 04/13/19 11:43 36.7 C 64 18 182/74 H 94 04/13/19 08:00 68 04/13/19 07:01 36.8 C 54 L 18 182/74 H 97 PG Care Time/CCT Total # of Minutes Spent Total Time Spent with Patient: Total time spent is greater than 50% in coordination of care (as documented) at patient's floor/unit and/or counseling patient: (1) Right foot ulcer Non-pressure ulcer stage: unspecified non-pressure ulcer stage Qualified Code(s): L97.519 - Non-pressure chronic ulcer of other part of right foot with unspecified severity
[2019-04-13] MEDS: GABAPENTIN 300 MG CAP PO SCH (19:19)
[2019-04-14] MEDS: VANCOMYCIN HCL 125 MG/2.5ML SOLN PO SCH ×5 (00:18→23:45)
[2019-04-14] MEDS: RASPBERRY SYRUP 5 ML UDP PO SCH ×5 (00:19→23:45)
[2019-04-14 07:12] LABS: Basophils # (auto) 0.02 K/uL (0-0.2); Basophils % (auto) 0.3 %; Eosinophils # (auto) 0.21 K/uL (0-0.5); Hematocrit (blood only) 34.4 % (42-52); Hemoglobin 11.5 g/dL (14.0-18.0); Immature Granulocytes # (auto) 0.01 K/uL (0.00-0.02); Immature Granulocytes % (auto) 0.1 %; Lymphocytes # (auto) 1.92 K/uL (1.2-3.4); Lymphocytes % (auto) 27.6 %; Mean Corpuscular Hgb Conc 33.4 g/dL (32-36); Mean Corpuscular Volume 92.7 fL (80-100); Monocytes # (auto) 0.69 K/uL (0.11-0.59); Monocytes % (auto) 9.9 %; Neutrophils # (auto) 4.11 K/uL (1.4-6.5); Neutrophils % (auto) 59.1 %; Platelet Count 248 K/uL (130-400); RDW Coefficient of Variation 13.7 % (11.5-14.5); RDW Standard Deviation 46.4 fL (36.4-46.3); Red Blood Count 3.71 M/uL (4.7-6.1); White Blood Count 6.96 K/uL (4.8-10.8)
[2019-04-14 07:38] LABS: Alanine Aminotransferase 25 U/L (12-78); Albumin Level 3.3 gm/dl (3.4-5.0); Aspartate Aminotransferase 23 U/L (15-37); BUN Creatinine Ratio 30.8 (10-20); Blood Urea Nitrogen 43 mg/dl (7-18); C Reactive Protein < 0.29 mg/dl (0-0.29); Calcium 9.3 mg/dl (8.5-10.1); Carbon Dioxide 31 mmol/L (21-32); Chloride 111 mmol/L (98-107); Creatinine Clr Calc Pharmacy 35.9 ml/min; Est GFR (African American) 53.6; Est GFR (Non-African American) 46.3; Glucose 90 mg/dl (70-99); Potassium 4.3 mmol/L (3.5-5.1); Sodium 143 mmol/L (136-145)
[2019-04-14 07:41] LABS: Albumin Globulin Ratio 1.1 (0.9-2); Alkaline Phosphatase 62 U/L (45-117); Bilirubin,Total 0.4 mg/dl (0.2-1); Globulin 2.9 gm/dl (2.5-4.0); Total Protein 6.2 gm/dl (6.4-8.2)
[2019-04-14] MEDS: VALSARTAN 80 MG TAB PO SCH (08:34)
[2019-04-14] MEDS: DOXYCYCLINE HYCLATE 100 MG CAP PO SCH ×2 (08:34→20:53)
[2019-04-14] MEDS: METOPROLOL SUCC 25MG EXT REL TAB PO SCH (08:35)
[2019-04-14] MEDS: AMLODIPINE BESYLATE 5 MG TAB PO SCH (08:35)
[2019-04-14] MEDS: CLOPIDOGREL BISULFATE 75 MG TAB PO SCH (08:35)
[2019-04-14] MEDS: ENOXAPARIN INJ 40 MG/0.4 ML SYR SQ SCH (08:35)
[2019-04-14] MEDS: ASPIRIN 81 MG ECTAB PO SCH (08:35)
--- NOTE | 2019-04-14 10:55 | Infectious Disease Progress Nt ---
Date of Service April 14, 2019 Assessment & Plan (1) C. difficile diarrhea: continue po vanco, would give 30 day course while pt is on doxy for cellulitis. (2) Cellulitis of right foot: Subjective pt seen in consult for C. diff diarrhea. pt was admitted for right foot pain and was found in ER to have htn urgency. being treated for this. states he is anxious to go home was initially treated with IV zosyn and vanco. Developed diarrhea and incontinence of stool. C diff done on 04/12 - +. placed on vanco po and is somewhat improved today. denies bleeding or abd cramping, eating well. no gu symptoms, currently denies foot pain. on po doxy for S.aureus growing from wound culture. MRI foot negative for osteo, ESR 7. wbc 6.9. afebrile since admission. tolerating abx well. states he plan to follow with podiatry post d/c. Review of Systems Review of Systems: All systems reviewed & are unremarkable except as noted in HPI & below Physical Exam Constitutional: WD/WN, vitals as above Eyes: PERRL, conjunctivae normal, anicteric sclerae ENMT: external ear and nose normal, oropharynx normal Neck: normal visual inspection Respiratory: normal respiratory effort, lungs clear to auscultation Cardiovascular: RRR, no murmur, no edema Gastrointestinal (Abdomen): normal bowel sounds, soft, nontender, no hepatos plenomegaly Musculoskeletal: no cyanosis or clubbing, extremities motor strength 5/5 Skin: no rashes, warm and dry Psychiatric: A+Ox3, euthymic affect Results & Data Vital Signs (Past 12 Hours) Vital Signs Temp Pulse Pulse Resp BP BP Pulse Ox 04/14/19 07:39 36.4 C L 57 L 17 158/62 H 98 04/14/19 03:57 37.0 C 59 L 17 134/58 L 97 04/13/19 23:52 36.8 C 60 18 117/48 L 96 04/13/19 23:04 62 Laboratory Results Microbiology 04/12/19 11:43 Foot,Right Gram Stain - Final 04/12/19 11:43 Foot,Right Wound Culture - Preliminary Staphylococcus aureus Coag negative Staphylococcus 04/12/19 09:05 Stool Escherichia coli Shiga Toxins Test - Preliminary 04/12/19 09:05 Stool Stool Culture - Preliminary No Salmonella isolated to date, No Shigella isolated to date, No Campylobacter jejuni isolated to date. 04/08/19 14:52 Blood Aerobic Blood Culture - Final No growth in Aerobic bottle after 5 days. 04/08/19 14:52 Blood Anaerobic Blood Culture - Final No growth in Anaerobic bottle after 5 days. 04/08/19 14:44 Blood Aerobic Blood Culture - Final No growth in Aerobic bottle after 5 days. 04/08/19 14:44 Blood Anaerobic Blood Culture - Final No growth in Anaerobic bottle after 5 days. 04/08/19 13:00 Foot,Right Gram Stain - Final 04/08/19 13:00 Foot,Right Wound Culture - Final Staphylococcus aureus PG Care Time/CCT Total # of Minutes Spent Total Time Spent with Patient: Total time spent is greater than 50% in coordination of care (as documented) at patient's floor/unit and/or counseling patient:
[2019-04-14] MEDS: GABAPENTIN 300 MG CAP PO SCH (20:54)
[2019-04-15] MEDS: VANCOMYCIN HCL 125 MG/2.5ML SOLN PO SCH ×2 (05:59→11:45)
[2019-04-15] MEDS: RASPBERRY SYRUP 5 ML UDP PO SCH ×2 (05:59→11:45)
[2019-04-15 06:22] LABS: Basophils # (auto) 0.01 K/uL (0-0.2); Basophils % (auto) 0.2 %; Eosinophils # (auto) 0.19 K/uL (0-0.5); Eosinophils % (auto) 3.3 %; Hematocrit (blood only) 33.1 % (42-52); Immature Granulocytes # (auto) 0.01 K/uL (0.00-0.02); Immature Granulocytes % (auto) 0.2 %; Lymphocytes # (auto) 2.08 K/uL (1.2-3.4); Lymphocytes % (auto) 35.7 %; Mean Corpuscular Hemoglobin 30.8 pg (25-34); Mean Corpuscular Hgb Conc 33.2 g/dL (32-36); Mean Corpuscular Volume 92.7 fL (80-100); Mean Platelet Volume 10.3 fL (7.4-10.4); Monocytes # (auto) 0.61 K/uL (0.11-0.59); Monocytes % (auto) 10.5 %; Neutrophils # (auto) 2.93 K/uL (1.4-6.5); Neutrophils % (auto) 50.1 %; Platelet Count 226 K/uL (130-400); RDW Coefficient of Variation 13.5 % (11.5-14.5); RDW Standard Deviation 46.1 fL (36.4-46.3); Red Blood Count 3.57 M/uL (4.7-6.1); White Blood Count 5.83 K/uL (4.8-10.8)
[2019-04-15 06:49] LABS: Albumin Level 3.3 gm/dl (3.4-5.0); BUN Creatinine Ratio 31.5 (10-20); Calcium 9.3 mg/dl (8.5-10.1); Creatinine Clr Calc Pharmacy 36.9 ml/min; Est GFR (African American) 55.6; Potassium 4.5 mmol/L (3.5-5.1)
[2019-04-15 06:52] LABS: Albumin Globulin Ratio 1.1 (0.9-2); Bilirubin,Total 0.4 mg/dl (0.2-1); C Reactive Protein 0.42 mg/dl (0-0.29); Globulin 2.9 gm/dl (2.5-4.0); Total Protein 6.2 gm/dl (6.4-8.2)
[2019-04-15] MEDS: VALSARTAN 80 MG TAB PO SCH (07:34)
[2019-04-15] MEDS: CLOPIDOGREL BISULFATE 75 MG TAB PO SCH (07:34)
[2019-04-15] MEDS: AMLODIPINE BESYLATE 5 MG TAB PO SCH (07:34)
[2019-04-15] MEDS: METOPROLOL SUCC 25MG EXT REL TAB PO SCH (07:35)
[2019-04-15] MEDS: DOXYCYCLINE HYCLATE 100 MG CAP PO SCH (07:35)
[2019-04-15] MEDS: ASPIRIN 81 MG ECTAB PO SCH (07:35)
[2019-04-15] MEDS: ENOXAPARIN INJ 40 MG/0.4 ML SYR SQ SCH (07:36)
--- NOTE | 2019-04-15 08:44 | Hospitalist Progress Note ---
Date of Service April 14, 2019 Assessment & Plan (1) Right foot ulcer: Continue doxycycline Appreciate input from ID. Continue wound care as per recommendation of Dr. Stout wound MD consult X-ray no osteomyelitis which was confirmed by MRI DVT prophylaxis with Lovenox 40 mg subcu with every morning Follow-up with Dr. Stout in 1 week after discharge Patient had debridement today and tolerated well PT OT DNR (2) Cellulitis of right foot: As the above (3) Hypertensive urgency: Resolved .Continue home medicine metoprolol succinate 25 mg daily, valsartan 320 mg daily, amlodipine 5 mg daily, aspirin 81 mg daily DVT prophylaxis Lovenox. (4) HLD (hyperlipidemia): Stable continue low-fat diet (5) Paroxysmal A-fib: Currently normal sinus rhythm (6) Diarrhea: C. diff colitis. Patient continues to report watery diarrhea but appears to be improved. Patient is on vanco daily. Stool cultures negative so far Spent 35 minutes on management of patient. This included chart review. Subjective Late entry: 83 yo male reports being agreeable to rehab facility. He states he is concerned about his diarrhea. He reports he has had only 1 BM each day. He states his BM continue to be loose. He denies any fever, chills, nausea, vomiting. Review of Systems Review of Systems: All systems reviewed & are unremarkable except as noted in HPI & below Physical Exam Physical Exam: Constitutional: WD/WN, vitals as above well developed Eyes: PERRL, conjunctivae normal, anicteric sclerae ENMT: external ear and nose normal, oropharynx normal Neck: trachea midline, no thyromegaly Respiratory: normal respiratory effort, lungs clear to auscultation Cardiovascular: RRR, no murmur, no edema Chest (Breasts): normal inspection/palpation of breasts Gastrointestinal (Abdomen): normal bowel sounds, soft, nontender, no hepatosplenomegaly Skin: + dry skin Neurologic: patellar DTR's 2+ bilat, sensation intact Psychiatric: A+Ox3, euthymic affect Lymphatic: no cervical or axillary lymphadenopathy Results & Data Vital Signs (Past 12 Hours) Vital Signs Temp Pulse Pulse Resp BP BP Pulse Ox 04/15/19 07:32 36.6 C 57 L 18 148/58 H 96 04/15/19 03:17 36.9 C 61 19 126/56 L 95 04/14/19 23:27 36.9 C 66 16 139/62 95 04/14/19 23:00 68 PG Care Time/CCT Total # of Minutes Spent Total Time Spent with Patient: Total time spent is greater than 50% in coordination of care (as documented) at patient's floor/unit and/or counseling patient: (1) Right foot ulcer Non-pressure ulcer stage: unspecified non-pressure ulcer stage Qualified Code(s): L97.519 - Non-pressure chronic ulcer of other part of right foot with unspecified severity
--- NOTE | 2019-04-25 20:56 | Discharge Summary ---
Date of Service April 15, 2019 Admission HPI Per Admitting Provider This is a 83-year-old male with possible history of retention, hypertensive emergency/urgency, CAD, history of end STEMI, HLD, paroxysmal A. fib, neuropathy who presents via EMS for right foot plantar surface ulceration which has been increasingly painful and difficult for him to walk on. Anything on the foot ulcer for pain relief were ointment chamorro. He notes that there has not been any drainage coming out from it. He denies any redness spreading up his leg. He denies any fevers, chills or sweats. The patient upon coming to the ER was noted to have an elevated blood pressure and during my examination at bedside is systolically greater than 210, diastolically greater than 110. Patient tells me that he has not been taking any medication for about a year, only vitamins. He has not followed with his PCP as he is located in [place]. Patient was previously seen here in January 2018 for similar presentation involving right foot cellulitis and hypertensive emergency. Pertinent social history: Patient previously lived in [place] in an assisted living home with his , who approximately 6 months ago. He is now living in his home which he owns in [place], alone, as this is a cheaper alternative for him. He has had difficulty taking care of himself, does not cook many meals therefore eats out pizza versus [place] on most evenings. He does use a walker at baseline for ambulation assistance. In the past 6 months he has fallen what he can remember 3 times. Principal Diagnosis right foot ulcer Discharge Exam Constitutional: WD/WN, vitals as above well developed Eyes: PERRL, conjunctivae normal, anicteric sclerae ENMT: external ear and nose normal, oropharynx normal Neck: trachea midline, no thyromegaly Respiratory: normal respiratory effort, lungs clear to auscultation Cardiovascular: RRR, no murmur, no edema Gastrointestinal (Abdomen): normal bowel sounds, soft, nontender, no hepatosplenomegaly Skin: + dry skin Neurologic: patellar DTR's 2+ bilat, sensation intact Psychiatric: A+Ox3, euthymic affect Lymphatic: no cervical or axillary lymphadenopathy Discharge Data Allergies Allergy/AdvReac Type Severity Reaction Status Date / Time No Known Allergies Allergy Unverified 01/15/18 18:03 Consultations 04/08/19 14:49 ED Decision to Admit Stat 04/08/19 18:19 Consult Cardiology Routine Consult Case Management - Discharge Planning Routine 04/09/19 16:17 Consult Wound Care Provider Routine 04/13/19 17:33 Consult Infectious Diseases Routine Ordered Studies 04/09/19 11:24 MR foot RT wo/w con Stat 04/10/19 08:00 US ankle/brachial index comp Routine Hospital Course (1) Right foot ulcer: Continue doxycycline Appreciate input from ID. Continue wound care as per recommendation of Dr. Stout wound MD consult X-ray no osteomyelitis which was confirmed by MRI DVT prophylaxis with Lovenox 40 mg subcu with every morning Follow-up with Dr. Stout in 1 week after discharge Patient had debridement and tolerated well during hospital stay. Patient will conitnue for 27 more days of antibiotics. Had extensive discussion with patient who agreed with discharge plan. Patient will require rehab. PT OT DNR (2) Cellulitis of right foot: As the above (3) Hypertensive urgency: Resolved .Continue home medicine metoprolol succinate 25 mg daily, valsartan 320 mg daily, amlodipine 5 mg daily, aspirin 81 mg daily DVT prophylaxis Lovenox. (4) HLD (hyperlipidemia): Stable continue low-fat diet (5) Paroxysmal A-fib: Currently normal sinus rhythm (6) Diarrhea: C. diff colitis. Patient continues to report watery diarrhea but appears to be improved. Patient is on vanco daily. Stool cultures negative so far Total Time Total Time Spent Total Time Spent (In Minutes): 32 Total Time Includes: Examination of the Patient, Discharge Planning and Medication Reconciliation Discharge Plan Discharge Items Patient Disposition: Transfer Inpatient Rehab Fac Reason For Visit: HYPERTENSIVE URGENCY,CELLULITIS Discharge Diagnosis: Cellulitis/ c diff colitis Discharge Goals: Decrease discomfort Activity: Resume your previous activity Non-emergency contact: Primary Care Provider Call non-emergency contact if: you have any medication questions Diet: Regular Addtl Provider Instructions: You will followup with wound care/infectious disease in 1 week. Will recommend followup with PCP in 1-2 weeks. Continue on antibiotics for 27 days. Will defer to PCP on duration of antibiotic Prescriptions: New doxycycline hyclate 100 mg Capsule 100 mg PO BID Qty: 54 RF: 0 vancomycin 1,000 mg Recon Soln 125 mg PO Q6 Qty: 108 RF: 0 raspberry Syrup 5 ml PO Q6 Qty: 108 RF: 0 Continued atorvastatin 40 mg Tablet 40 mg PO DAILY RF: 0 clopidogrel [Plavix] 75 mg Tablet 75 mg PO DAILY RF: 0 amlodipine 5 mg Tablet 5 mg PO DAILY RF: 0 aspirin [Aspirin Low Dose] 81 mg Tablet,Delayed Release (Dr/Ec) 81 mg PO DAILY RF: 0 valsartan 320 mg Tablet 320 mg PO DAILY RF: 0 gabapentin 300 mg Capsule 300 mg PO HS RF: 0 folic acid 1 mg Tablet 1 mg PO DAILY RF: 0 metoprolol succinate 25 mg Tablet Extended Release 24 Hr 25 mg PO DAILY RF: 0 Discontinued digoxin 125 mcg Tablet 125 mcg PO DAILY RF: 0 fenofibrate nanocrystallized 145 mg Tablet 145 mg PO DAILY RF: 0 Stand-Alone Forms: Pending Sale To [facility] Discharge Orders: Discharge Order (Routine); Ordered 04/15/19 Ordered By: Eben Ramirez Skilled Items Patient informed of condition?: Yes DNR: Yes Discharge Level of Care: Skilled Communicable Disease: Yes (c. diff colitis) Discharge Prognosis: Improving Admission Data Admit Date/Time: 04/08/19 15:30 Attending Provider: Eben Ramirez Admit Provider: Peter Keane Primary Care Provider: PCP,NO Other Providers: Jenniffer Llanos ; Daisy Chapman ; Joseph Beverly ; Beni Stout ; Francesca Osman Service: Telemetry Other Interventions: Discharge Summary Assessment (RN) Last Done: 04/15/19 15:02 DC Date/Time DO NOT enter until pt leaves facility: 04/15/19 17:37
== END 2019-04-15 17:37 | DRG 305 ==
LOC: ED 11:34 → SUATTDRO 15:30 → 2S 15:30 → 2E 04-12 12:54
DX: L97.519 Non-pressure chronic ulcer of other part of right foot with unspecified severity; B95.61 Methicillin susceptible Staphylococcus aureus infection as the cause of diseases classified elsewhere; E78.5 Hyperlipidemia, unspecified; Z79.02 Long term (current) use of antithrombotics/antiplatelets; Z91.11 Patient's noncompliance with dietary regimen; I25.10 Atherosclerotic heart disease of native coronary artery without angina pectoris; I10 Essential (primary) hypertension; I25.2 Old myocardial infarction; A04.72 Enterocolitis due to Clostridium difficile, not specified as recurrent; G62.9 Polyneuropathy, unspecified; Z91.128 Patient's intentional underdosing of medication regimen for other reason; L03.115 Cellulitis of right lower limb; I48.0 Paroxysmal atrial fibrillation; I16.0 Hypertensive urgency; Z66 Do not resuscitate; Z79.82 Long term (current) use of aspirin; Z87.891 Personal history of nicotine dependence; Z79.899 Other long term (current) drug therapy

== ENCOUNTER 2020-01-11 19:11 | Inpatient (IN) ==
--- NOTE | 2020-01-11 20:10 | Emergency Department Note ---
History of Present Illness General Chief complaint: Leg Weakness, Bilateral Stated complaint: WEAKNESS Time Seen by Provider: 01/11/20 19:48 Source: patient Mode of arrival: EMS Limitations: no limitations and physical limitation History of Present Illness Provider Complaint: + generalized weakness This is a 84-year-old male who presents to the ED with a chief complaint of generalized weakness. The patient states that he has been weak for the past month. He has fallen twice in the past 24 hours. He fell 4 times this month. He states that yesterday he hit his head. The patient states that he lives alone. He has been increasingly weak especially having difficulty getting out of bed. He has used a walker up until today where he was unable to get out of bed. He came to the hospital by ambulance for evaluation. He denies any other complaints. No fevers or recent illness. No abdominal pains, chest pains or shortness of breath. Home Medications Home Medications Medication Instructions Recorded Confirmed Type amlodipine 5 mg PO DAILY 04/08/19 04/08/19 History aspirin [Aspirin Low Dose] 81 mg PO DAILY 04/08/19 04/08/19 History atorvastatin 40 mg PO DAILY 04/08/19 04/08/19 History clopidogrel [Plavix] 75 mg PO DAILY 04/08/19 04/08/19 History folic acid 1 mg PO DAILY 04/08/19 04/08/19 History gabapentin 300 mg PO HS 04/08/19 04/08/19 History metoprolol succinate 25 mg PO DAILY 04/08/19 04/08/19 History valsartan 320 mg PO DAILY 04/08/19 04/08/19 History doxycycline hyclate 100 mg PO BID #54 cap 04/15/19 Rx raspberry 5 ml PO Q6 #108 ml 04/15/19 Rx vancomycin 125 mg PO Q6 #108 ea 04/15/19 Rx Allergies Allergy/AdvReac Type Severity Reaction Status Date / Time No Known Allergies Allergy Unverified 01/15/18 18:03 Past Med/Surg History Medical History CAD (coronary artery disease) Callus of foot History of non-ST elevation myocardial infarction (NSTEMI) HLD (hyperlipidemia) Hypertensive urgency Neuropathy Paroxysmal A-fib Right foot ulcer Family History Other Family history non-contributory Social History Preferred Language: Slovenian Communication Ability: Effective Advertising Executive Required: No Beliefs That Will Affect Care: None Current Living Situation: Alone Feels Safe at Home: Yes Smoking Status: Former smoker Second Hand Exposure: No ; Hx Alcohol Use: No Hx Substance Use: No Review of Systems A total of 10 systems reviewed and were otherwise negative Physical Exam Vital Signs Vital Signs - 24 hr 01/11/20 19:17 01/11/20 19:21 01/11/20 19:28 Temperature 36.5 C Temperature Source Oral Pulse Rate 58 L 57 L 57 L Pulse Rate from SpO2 Sensor 58 L 56 L Respiratory Rate 21 19 18 Respiratory Effort / Characteristics Non-Labored Spontaneous Respiratory Depth Normal Respiratory Pattern Regular Blood Pressure 191/72 H 191/72 H Blood Pressure Mean 120 111 Blood Pressure Position Lying Pulse Oximetry 95 93 96 Oxygen Delivery Method Room Air Sepsis Recent Fever Within 48 Hours No Sepsis New/Unexplained Change in Mental Status No Sepsis Action Taken by Nursing No Action Required 01/11/20 19:30 01/11/20 20:00 01/11/20 20:04 Temperature Temperature Source Pulse Rate 57 L 57 L Pulse Rate from SpO2 Sensor 57 L 57 L Respiratory Rate 16 18 Respiratory Effort / Characteristics Respiratory Depth Respiratory Pattern Blood Pressure 196/79 H Blood Pressure Mean 94 Blood Pressure Position Pulse Oximetry 95 97 Oxygen Delivery Method Room Air Sepsis Recent Fever Within 48 Hours Sepsis New/Unexplained Change in Mental Status Sepsis Action Taken by Nursing 01/11/20 20:40 01/11/20 20:41 01/11/20 20:59 Temperature Temperature Source Pulse Rate 108 H 54 L 66 Pulse Rate from SpO2 Sensor 52 L 55 L Respiratory Rate 17 16 18 Respiratory Effort / Characteristics Respiratory Depth Respiratory Pattern Blood Pressure 198/74 H 189/79 H Blood Pressure Mean 118 131 Blood Pressure Position Pulse Oximetry 97 92 Oxygen Delivery Method Sepsis Recent Fever Within 48 Hours Sepsis New/Unexplained Change in Mental Status Sepsis Action Taken by Nursing 01/11/20 21:01 01/11/20 21:02 01/11/20 21:35 Temperature Temperature Source Pulse Rate 54 L 54 L 61 Pulse Rate from SpO2 Sensor 54 L 55 L Respiratory Rate 17 19 20 Respiratory Effort / Characteristics Respiratory Depth Respiratory Pattern Blood Pressure 189/77 H Blood Pressure Mean 101 Blood Pressure Position Pulse Oximetry 98 98 Oxygen Delivery Method Sepsis Recent Fever Within 48 Hours Sepsis New/Unexplained Change in Mental Status Sepsis Action Taken by Nursing 01/11/20 22:00 01/11/20 22:01 Temperature Temperature Source Pulse Rate 61 57 L Pulse Rate from SpO2 Sensor 57 L 57 L Respiratory Rate 17 19 Respiratory Effort / Characteristics Respiratory Depth Respiratory Pattern Blood Pressure 188/83 H Blood Pressure Mean 102 Blood Pressure Position Pulse Oximetry 95 96 Oxygen Delivery Method Sepsis Recent Fever Within 48 Hours Sepsis New/Unexplained Change in Mental Status Sepsis Action Taken by Nursing CONSTITUTIONAL/VITAL SIGNS: Reviewed / noted above. GENERAL: Non-toxic in appearance. INTEGUMENTARY: Warm, dry, and [place]. HEAD: Normocephalic. EYES: without scleral icterus or trauma. ENT/OROPHARYNX: clear and moist. LYMPHADENOPATHY/NECK: Is supple without lymphadenopathy or meningismus. RESPIRATORY: Lungs clear and equal. CARDIOVASCULAR: Regular rate and rhythm. GI/ABDOMEN: Soft and nontender. No organomegaly or pulsatile mass. No rebound or guarding. Normal bowel sounds. EXTREMITIES: Warm and well perfused. Patellar reflexes are slightly diminished although his exam was somewhat challenging. BACK: No CVA tenderness. NEUROLOGICAL: Intact without focal deficits. PSYCHIATRIC: normal affect. MUSCULOSKELETAL: Normally developed with good muscle tone. TRIAGE NURSING DOCUMENTATION REVIEWED. Course Administered Medications Discontinued Medications Sodium Chloride (Nss) 500 mls @ 999 mls/hr IV .Q31M DOROTHY Stop: 01/11/20 20:45 Last Infusion: 01/11/20 21:17 Dose: 0 mls/hr Documented by: [id number] Admin: 01/11/20 20:42 Dose: 999 mls/hr Documented by: [id number] Medical Decision Making Differential Diagnosis Differential includes acute coronary syndrome, myocardial infarction, CVA, TIA, anemia, infection, pneumonia, UTI, pyelonephritis, poor nutrition, dehydration, electrolyte disturbance,hypoglycemia. Medical Records Attestation: I reviewed the patient's medical records. Home Medications Current Medication List: was personally reviewed by me Laboratory Data Attestation: I reviewed the patient's lab results. Result diagrams: 01/11/20 19:50 01/11/20 19:50 Lab Results 01/11/20 01/11/20 01/11/20 Range/Units 19:50 19:50 21:50 WBC 6.29 (4.8-10.8) K/uL RBC 3.70 L (4.7-6.1) M/uL Hgb 11.5 L (14.0-18.0) g/dL Hct 35.3 L (42-52) % MCV 95.4 (80-100) fL MCH 31.1 (25-34) pg MCHC 32.6 (32-36) g/dL RDW Std Deviation 46.7 H (36.4-46.3) fL RDW Coeff of [place] 13.3 (11.5-14.5) % Plt Count 278 (130-400) K/uL MPV 10.4 (7.4-10.4) fL Immature Gran % (Auto) 0.2 % Neut % (Auto) 54.5 % Lymph % (Auto) 29.9 % [place] % (Auto) 11.9 % Eos % (Auto) 3.2 % Baso % (Auto) 0.3 % Immature Gran # (Auto) 0.01 (0.00-0.02) K/uL Neut # (Auto) 3.43 (1.4-6.5) K/uL Lymph # (Auto) 1.88 (1.2-3.4) K/uL [place] # (Auto) 0.75 H (0.11-0.59) K/uL Eos # (Auto) 0.20 (0-0.5) K/uL Baso # (Auto) 0.02 (0-0.2) K/uL Sodium 144 (136-145) mmol/L Potassium 4.4 (3.5-5.1) mmol/L Chloride 114 H (98-107) mmol/L Carbon Dioxide 26 (21-32) mmol/L Anion Gap 4.0 (3-11) BUN 31 H (7-18) mg/dl Creatinine 1.37 (0.6-1.4) mg/dl Est Cr Clr Drug Dosing 39.7 ml/min Est GFR ( Amer) 53.7 Est GFR (Non-Af Amer) 46.4 BUN/Creatinine Ratio 22.9 H (10-20) Glucose 136 H (70-99) mg/dl Calcium 9.4 (8.5-10.1) mg/dl Magnesium 2.5 H (1.8-2.4) mg/dl Total Bilirubin 0.7 (0.2-1) mg/dl AST 24 (15-37) U/L ALT 26 (12-78) U/L Alkaline Phosphatase 89 (45-117) U/L Total Creatine Kinase 62 (39-308) U/L Troponin I < 0.015 (0-0.045) ng/ml Total Protein 6.8 (6.4-8.2) gm/dl Albumin 3.7 (3.4-5.0) gm/dl Globulin 3.1 (2.5-4.0) gm/dl Albumin/Globulin Ratio 1.2 (0.9-2) TSH 0.376 (0.300-4.500) uIu/ml Urine Color Yellow Urine Appearance Clear (Clear) Urine pH 5.0 (4.5-7.5) Ur Specific [place] 1.018 (1.000-1.030) Urine Protein Trace H (Negative) Urine Glucose (UA) Negative (Negative) Urine Ketones Negative (Negative) Urine Blood Negative (Negative) Urine Nitrite Negative (Negative) Urine Bilirubin Negative (Negative) Urine Urobilinogen Negative (Negative) Ur Leukocyte Esterase Trace H (Negative) Urine WBC (Auto) 1-5 (0-5) /hpf Urine RBC (Auto) 0-4 (0-4) /hpf U Hyaline Cast (Auto) 1-5 (0-5) /lpf U Epithel Cells (Auto) 5-10 H (0-5) /lpf Urine Bacteria (Auto) Negative (Negative) Imaging Data Radiologist's Impression: Chest x-ray: IMPRESSION: Increased right suprahilar density overlying the medial right clavicle. However, this could be due to patient rotation. Repeat PA and lateral views of the chest or chest CT recommended to exclude a underlying pulmonary abnormality. CT scan of the brain: Impression: No significant change compared to the prior study. No acute intracranial abnormality. Mild ventriculomegaly persists. This could be due to central volume loss. Blood Pressure Blood Pressure Findings: Elevated blood pressure Blood Pressure Disposition: further management by hospitalist KARIN Navarro This is a 84-year-old male who presents to the ED with a chief complaint of generalized weakness. The patient states that he has been weak for the past month. He has fallen twice in the past 24 hours. He fell 4 times this month. He states that yesterday he hit his head. The patient states that he lives alone. He has been increasingly weak especially having difficulty getting out of bed. He has used a walker up until today where he was unable to get out of bed. He came to the hospital by ambulance for evaluation. He denies any other complaints. No fevers or recent illness. No abdominal pains, chest pains or shortness of breath. The patient's blood pressure is elevated. The patient's exam is otherwise significant for generalized weakness. A CT scan of the brain did not show acute process. Chest x-ray did not show any acute process. CBC and chemistry panel was unremarkable. BUN is 31. TSH was normal. Urine did not show infection. Because of the patient's severe weakness, he will be seen by the hospitalist for further evaluation and care. His symptoms are likely related to generalized deconditioning. Guillain-Hensley is felt to be less likely as the patient does have reflexes in his lower extremities. Also he appears to be generally weak. Impression & Plan Generalized muscle weakness, Physical deconditioning Discharge Plan Visit Data Chief Complaint: Leg Weakness, Bilateral Stated Complaint: WEAKNESS ED Provider: Reyes Ruiz Discharge Problem: Generalized muscle weakness, Physical deconditioning Patient Disposition: Being Evaluated by Hospitalist Forms Stand Alone Forms: My [facility] Prescriptions Prescriptions: No Action atorvastatin 40 mg Tablet 40 mg PO DAILY RF: 0 clopidogrel [Plavix] 75 mg Tablet 75 mg PO DAILY RF: 0 amlodipine 5 mg Tablet 5 mg PO DAILY RF: 0 aspirin [Aspirin Low Dose] 81 mg Tablet,Delayed Release (Dr/Ec) 81 mg PO DAILY RF: 0 valsartan 320 mg Tablet 320 mg PO DAILY RF: 0 gabapentin 300 mg Capsule 300 mg PO HS RF: 0 folic acid 1 mg Tablet 1 mg PO DAILY RF: 0 metoprolol succinate 25 mg Tablet Extended Release 24 Hr 25 mg PO DAILY RF: 0 doxycycline hyclate 100 mg Capsule 100 mg PO BID Qty: 54 RF: 0 vancomycin 1,000 mg Recon Soln 125 mg PO Q6 Qty: 108 RF: 0 raspberry Syrup 5 ml PO Q6 Qty: 108 RF: 0 Referrals Referrals: PCP,NO [Primary Care Provider] -
[2020-01-11 20:15] LABS: Basophils # (auto) 0.02 K/uL (0-0.2); Basophils % (auto) 0.3 %; Eosinophils % (auto) 3.2 %; Hematocrit (blood only) 35.3 % (42-52); Hemoglobin 11.5 g/dL (14.0-18.0); Immature Granulocytes # (auto) 0.01 K/uL (0.00-0.02); Immature Granulocytes % (auto) 0.2 %; Lymphocytes # (auto) 1.88 K/uL (1.2-3.4); Lymphocytes % (auto) 29.9 %; Mean Corpuscular Hemoglobin 31.1 pg (25-34); Mean Corpuscular Hgb Conc 32.6 g/dL (32-36); Mean Corpuscular Volume 95.4 fL (80-100); Mean Platelet Volume 10.4 fL (7.4-10.4); Monocytes # (auto) 0.75 K/uL (0.11-0.59); Monocytes % (auto) 11.9 %; Neutrophils # (auto) 3.43 K/uL (1.4-6.5); Neutrophils % (auto) 54.5 %; Platelet Count 278 K/uL (130-400); RDW Coefficient of Variation 13.3 % (11.5-14.5); RDW Standard Deviation 46.7 fL (36.4-46.3); White Blood Count 6.29 K/uL (4.8-10.8)
[2020-01-11] MEDS ORDERED: SODIUM CHLORIDE 0.9% 500 ML IV SCH (20:15)
[2020-01-11 20:34] LABS: Alanine Aminotransferase 26 U/L (12-78); Albumin Level 3.7 gm/dl (3.4-5.0); Aspartate Aminotransferase 24 U/L (15-37); BUN Creatinine Ratio 22.9 (10-20); Blood Urea Nitrogen 31 mg/dl (7-18); Calcium 9.4 mg/dl (8.5-10.1); Carbon Dioxide 26 mmol/L (21-32); Chloride 114 mmol/L (98-107); Creatinine Clr Calc Pharmacy 39.7 ml/min; Est GFR (African American) 53.7; Est GFR (Non-African American) 46.4; Glucose 136 mg/dl (70-99); Magnesium 2.5 mg/dl (1.8-2.4); Potassium 4.4 mmol/L (3.5-5.1); Sodium 144 mmol/L (136-145)
--- NOTE | 2020-01-11 20:37 | XRay Report ---
XR chest 1V portable HISTORY: weakness COMPARISON: Chest 04/06/2019. FINDINGS: Slightly rotated study. The heart is normal in size. No pleural effusions. No pneumothorax. Increased right suprahilar density overlying the medial right clavicle. However, this could be due t o patient rotation. Otherwise, lungs are clear. IMPRESSION: Increased right suprahilar density overlying the medial right clavicle. However, this could be due to patient rotation. Repeat PA and lateral views of the chest or chest CT recommended to exclude a unde rlying pulmonary abnormality. ACT 112: Negative or not required by law. Electronically signed by: Jitendra Ingram M.D. 01/11/2020 8:36 PM
[2020-01-11 20:45] LABS: Albumin Globulin Ratio 1.2 (0.9-2); Alkaline Phosphatase 89 U/L (45-117); Bilirubin,Total 0.7 mg/dl (0.2-1); Creatine Kinase 62 U/L (39-308); Globulin 3.1 gm/dl (2.5-4.0); Thyroid Stimulating Hormone 0.376 uIu/ml (0.300-4.500); Total Protein 6.8 gm/dl (6.4-8.2); Troponin I < 0.015 ng/ml (0-0.045)
--- NOTE | 2020-01-11 20:47 | CT Scan Report ---
HEAD CT NONCONTRAST CT DOSE: 614.27 mGy.cm HISTORY: fall, hit head, weak TECHNIQUE: Multiaxial CT images of the head were performed without the use of intravenous contrast. A utomated exposure control was utilized for this study. A dose lowering technique was utilized adheri ng to the principles of ALARA. Comparison: Head CT 05/23/2017. Findings: Mild mucosal thickening within the left maxillary sinus and a single opacified right dental service chief ior ethmoid air cell. The mastoid air cells are clear. The calvarium and skull base are intact. There is no mass, hematoma, midline shift, acute infarct. White matter hypodensity is nonspecific but sugg estive of microvascular ischemic change. The ventricles and sulci demonstrate mild age-related involu tional changes. Stable mild ventriculomegaly. Impression: No significant change compared to the prior study. No acute intracranial abnormality. Mild ventriculo megaly persists. This could be due to central volume loss. ACT 112: Negative or not required by law. Electronically signed by: Jitendra Ingram M.D. 01/11/2020 8:45 PM
[2020-01-11 22:09] LABS: Appearance Urine Clear (Clear); Bacteria Urine Automated Negative (Negative); Bilirubin Urine Negative (Negative); Blood Urine Negative (Negative); Color Urine Yellow; Glucose Urine UA Negative (Negative); Ketones Urine Negative (Negative); Leukocyte Esterase Urine Trace (Negative); Nitrite Urine Negative (Negative); Protein Urine Trace (Negative); RBC Urine Automated 0-4 /hpf (0-4); Specific Gravity Urine 1.018 (1.000-1.030); Urobilinogen Urine Negative (Negative)
[2020-01-11] MEDS ORDERED: AMLODIPINE BESYLATE 5 MG TAB PO STA (23:24)
[2020-01-11] MEDS ORDERED: ASPIRIN 81 MG ECTAB PO STA (23:24)
[2020-01-11] MEDS ORDERED: ATORVASTATIN 40 MG TAB PO STA (23:24)
[2020-01-11] MEDS ORDERED: METOPROLOL SUCC 25MG EXT REL TAB PO STA (23:25)
[2020-01-11] MEDS ORDERED: GABAPENTIN 300 MG CAP PO STA (23:25)
[2020-01-11] MEDS ORDERED: VALSARTAN 80 MG TAB PO STA (23:25)
[2020-01-11] MEDS ORDERED: CLOPIDOGREL BISULFATE 75 MG TAB PO STA (23:25)
--- NOTE | 2020-01-11 23:55 | History & Physical Report ---
Date of Service January 11, 2020 Assessment & Plan (1) Generalized muscle weakness: Patient is an 84 year old male with PMHx NSTEMI, HLD, Neuropathy, CAD, HTN, who presented with chief complaint of weakness and falls. ED Course: NSS 500ml bolus Generalized Weakness and Hx of Falls -Likely multifactorial including dehydration and deconditioning. -?UTI - UA nonspecific, culture pending -Head CT negative for acute process -PT/OT evaluation -Patient will likely require rehab upon discharge -Will continue hydration with LR 80ml/hr x1L Hypertension -Patient notes not taking any of his medications today. -Will give home meds tonight -Continue home Amlodipine 5mg QD -Continue home Metoprolol succinate 25mg QD -Continue home Valsartan 320mg QD CAD with history of NSTEMI -Continue ASA 81mg -Continue Plavix 75mg QD HLD -Continue Atorvastatin 40mg QD Neuropathy -Continue Gabapentin 300mg HS Dispo: Med/Surg FEN: HH diet, LR 80ml/hr x1L DVT: SCD Code: DNR/DNI (2) Hypertension: (3) History of non-ST elevation myocardial infarction (NSTEMI): (4) CAD (coronary artery disease): (5) HLD (hyperlipidemia): (6) Neuropathy: (7) Fall: History of Present Illness Chief Complaint: Weakness and Falls Primary Care Provider: NO PCP Patient is an 84 year old male with PMHx NSTEMI, HLD, Neuropathy, CAD, HTN, who presented with chief complaint of weakness and falls. Patient notes that he has been feeling increasingly weak in his legs below the knees for over a month now and that it has led to roughly 4 falls in the past month. He notes that in the past 24 hours he has actually fallen twice. He notes that his greatest concern is that this morning when he woke up he was unable to get out of bed secondary to weakness in his legs. He states he attempted several times, but cannot recall if he actually made it out. He lives alone and was brought in by EMT services. He denies any chest pain, pressure, SOB, dizziness, headache and notes that he just "feels weak." Of note, patient states he did not take any of his medications today as he was stuck in bed. Allergies Allergy/AdvReac Type Severity Reaction Status Date / Time No Known Allergies Allergy Unverified 01/15/18 18:03 Home Medications Home Medications Medication Instructions Recorded Confirmed Type Unobtainable 01/11/20 01/11/20 History Past Med/Surg History Medical History CAD (coronary artery disease) Callus of foot History of non-ST elevation myocardial infarction (NSTEMI) HLD (hyperlipidemia) Hypertensive urgency Neuropathy Paroxysmal A-fib Right foot ulcer Family History Other Family history non-contributory Social History Preferred Language: [place] Rican Communication Ability: Effective Director Of Strategic Communications Required: No Beliefs That Will Affect Care: None marital status: Current Living Situation: Alone Other Information That Helps Us Care for You: No Feels Safe at Home: Yes Safety Concerns: Feels Safe At This Time Smoking Status: Never smoker Second Hand Exposure: No ; Hx Alcohol Use: No Hx Substance Use: No Review of Systems Constitutional: + weakness; no fever, no chills and no body aches Eyes: no worsening vision Ear, Nose, Mouth, Throat: no tinnitus and no dizziness Respiratory: no cough, no chest congestion, no dyspnea and no pain on inspiration Cardiovascular: no chest pain, no dyspnea on exertion, no palpitations, no syncope, no edema and no calf pain Gastrointestinal: + constipation; no abdominal pain, no nausea, no vomiting and no diarrhea/loose stools Genitourinary: + urinary incontinence (notes he wears depends and that the incont has not worsened ); no dysuria Musculoskeletal: + muscle weakness (LE b/l ) Integumentary: no rash Neurologic: + unsteadiness and + falls; no headache(s) and no confusion Physical Exam Constitutional: well developed and well nourished; no acute distress Eyes: PERRL, conjunctivae normal, anicteric sclerae normal visual latham by confrontation ENMT: external ear and nose normal, oropharynx normal Neck: trachea midline, no thyromegaly Respiratory: normal respiratory effort, lungs clear to auscultation Cardiovascular: Rate/Rhythm: regular rate and regular rhythm Heart Sounds: no murmur Vessels: no JVD Extremities: no edema Gastrointestinal (Abdomen): normal bowel sounds, soft, nontender, no hepatosplenomegaly Musculoskeletal: Extremity muscle strength testing 5/5 with slight decrease in strength in LLE over RLE Skin: no rashes, warm and dry Neurologic: PERRL, EOMI, accommodation nl, no face palsy, no dysarthria Psychiatric: Orientation: alert, oriented to person, oriented to place and cooperative; + not oriented to time Results & Data Results & Data ([facility]) Vital Signs (Past 12 Hours) Vital Signs Temp Pulse Pulse Resp BP BP Pulse Ox 01/11/20 23:47 71 17 190/98 H 97 01/11/20 22:01 57 L 19 188/83 H 96 01/11/20 22:00 61 17 95 01/11/20 21:35 61 20 01/11/20 21:02 54 L 19 98 01/11/20 21:01 54 L 17 189/77 H 98 01/11/20 20:59 66 18 189/79 H 92 01/11/20 20:41 54 L 16 198/74 H 97 01/11/20 20:40 108 H 17 01/11/20 20:00 57 L 18 196/79 H 97 01/11/20 19:30 57 L 16 95 01/11/20 19:28 36.5 C 57 L 18 191/72 H 96 01/11/20 19:21 57 L 19 93 01/11/20 19:17 58 L 21 191/72 H 95 Supervising Physician Co-Signing Physician Notes Attending addendum: I have physically seen this patient, have supervised the medical residents activities, and agree with the H&P unless as otherwise noted. Assessment and Plan: Generalized weakness/increased frequency of falls- Differential including dehydration, deconditioning, infection, etc.- Follow urine culture and sensitivity. CT head negative for stroke Consult PT/OT. rehydrate with LR at 80 mils per hour CAD/history of non-STEMI/hypertension- Continue amlodipine, metoprolol succinate and valsartan with hold parameters. Continue aspirin and clopidogrel. Remainder of orders and notations as noted. PG Care Time/CCT Total # of Minutes Spent Total Time Spent with Patient: Total time spent is greater than 50% in coordination of care (as documented) at patient's floor/unit and/or counseling patient: Coding Level of Care Code 82508 Initial Inpt Care Lvl 3 Diagnoses Generalized muscle weakness M62.81 Hypertension I10 Hypertension type: unspecified History of non-ST elevation myocardial infarction (NSTEMI) I25.2 CAD (coronary artery disease) I25.10 HLD (hyperlipidemia) E78.5 Neuropathy G62.9 Fall [id number] Resident Activity Tracking Resident Involvement: Resident Care Provided Care Provided: Adult Hospital Medicine (1) Hypertension Hypertension type: unspecified Qualified Code(s): I10 - Essential (primary) hypertension
[2020-01-12] MEDS ORDERED: LACTATED RINGER'S 1,000 ML IV SCH (01:11)
[2020-01-12 07:00] LABS: Basophils # (auto) 0.01 K/uL (0-0.2); Basophils % (auto) 0.2 %; Eosinophils % (auto) 3.3 %; Hematocrit (blood only) 35.2 % (42-52); Hemoglobin 11.8 g/dL (14.0-18.0); Immature Granulocytes # (auto) 0.01 K/uL (0.00-0.02); Immature Granulocytes % (auto) 0.2 %; Lymphocytes # (auto) 1.83 K/uL (1.2-3.4); Lymphocytes % (auto) 30.6 %; Mean Corpuscular Hemoglobin 31.5 pg (25-34); Mean Corpuscular Hgb Conc 33.5 g/dL (32-36); Mean Corpuscular Volume 93.9 fL (80-100); Mean Platelet Volume 10.5 fL (7.4-10.4); Monocytes # (auto) 0.68 K/uL (0.11-0.59); Monocytes % (auto) 11.4 %; Neutrophils # (auto) 3.25 K/uL (1.4-6.5); Neutrophils % (auto) 54.3 %; Platelet Count 255 K/uL (130-400); RDW Coefficient of Variation 13.2 % (11.5-14.5); RDW Standard Deviation 45.8 fL (36.4-46.3); Red Blood Count 3.75 M/uL (4.7-6.1); White Blood Count 5.98 K/uL (4.8-10.8)
[2020-01-12 07:27] LABS: BUN Creatinine Ratio 23.5 (10-20); Creatinine Clr Calc Pharmacy 49.8 ml/min; Est GFR (African American) 74.1; Magnesium 2.2 mg/dl (1.8-2.4); Phosphorus 3.3 mg/dl (2.5-4.9); Potassium 3.8 mmol/L (3.5-5.1)
[2020-01-12] MEDS: ASPIRIN 81 MG ECTAB PO SCH (07:48)
[2020-01-12] MEDS: VALSARTAN 80 MG TAB PO SCH (07:48)
[2020-01-12] MEDS: CLOPIDOGREL BISULFATE 75 MG TAB PO SCH (07:48)
[2020-01-12] MEDS: METOPROLOL SUCC 25MG EXT REL TAB PO SCH (07:48)
[2020-01-12] MEDS: AMLODIPINE BESYLATE 5 MG TAB PO SCH (07:48)
[2020-01-12] MEDS: ATORVASTATIN 40 MG TAB PO SCH (07:49)
--- NOTE | 2020-01-12 10:37 | XRay Report ---
XR chest 2V PA/lateral HISTORY: f/u R suprahilar density seen on AP CXR COMPARISON: Chest 01/11/2020 and 08/07/2017. FINDINGS: No pneumothorax. No pleural effusions. The heart is normal in size. The right suprahilar de nsity is no longer present. The lungs are clear. IMPRESSION: The right suprahilar density is no longer present. ACT 112: Negative or not required by law. Electronically signed by: Jitendra Ingram M.D. 01/12/2020 10:35 AM
--- NOTE | 2020-01-12 13:22 | Electrocardiogram Report ---
Test Reason : Blood Pressure : / mmHG Vent. Rate : 059 BPM Atrial Rate : 059 BPM P-R Int : 248 ms QRS Dur : 088 ms QT Int : 418 ms P-R-T Axes : 018 012 063 degrees QTc Int : 413 ms Sinus bradycardia with 1st degree A-V block Otherwise normal ECG When compared with ECG of 08-APR-2019 12:20, Premature ventricular complexes are no longer Present MS interval has increased Confirmed by Harry Davey ([id number]) on 01/12/2020 1:22:25 PM Referred By: REFERRED SELF Confirmed By:Harry Davey
--- NOTE | 2020-01-12 14:28 | Family Medicine Progress Note ---
Date of Service January 12, 2020 Assessment & Plan (1) Generalized muscle weakness: Patient is an 84 year old male with PMHx NSTEMI, HLD, Neuropathy, CAD, HTN, admitted for weakness and falls likely due to deconditioning. Generalized Weakness and Hx of Falls - Likely multifactorial including dehydration and deconditioning. - UA negative for infection, CXR negative for signs of pneumonia and patient's lung exam is normal. - Head CT negative for acute process. - PT/OT evaluation suggested acute rehab; referral placed to [facility], for likely discharge tomorrow. Hypertension: - Continue home Amlodipine 5mg daily. - Continue home Metoprolol succinate 25mg daily. - Continue home Valsartan 320mg daily. CAD with history of NSTEMI: - Continue ASA 81mg. - Continue Plavix 75mg daily. HLD: - Continue Atorvastatin 40mg daily. Neuropathy: - Continue Gabapentin 300mg HS. Dispo: Med/Surg FEN: Heart Healthy diet DVT: SCD Code: DNR/DNI (2) Hypertension: (3) History of non-ST elevation myocardial infarction (NSTEMI): (4) CAD (coronary artery disease): (5) HLD (hyperlipidemia): (6) Neuropathy: (7) Fall: Admission and Anticipated Discharge Date Admission Date: January 11, 2020 Supervising Physician Co-Signing Physician Notes I personally examined the patient and verified all martell points of history and exam, discussed case, and agree with decision making with Dr Mcdonald. feeling weak. wants therapy but wants to be able to go home - after discussion accepts that he will likely need rehab. discussed with case management vitals noted nad heent nc at mmm. appears weak and frail. breathing unlabored no accessory muscles good effort weakness - appears predominantly deconditioning, appears to need rehab otherwise as above Subjective Patient without acute events overnight. On my interview today he feels sheepish over his recent falls, saying that he feels like he is "constantly tripping over his own feet". He does not feel dizzy or lightheaded causing the falls, nor does he describe weakness when standing. However, he feels weak when he falls, such that he cannot get back up to standing after falling. Does recall "bumping his head lightly" several days ago but did not lose consciousness. On talking to him I asked about his speech difficulties, which he says he has had for several years following a stroke about 5 years ago. Does not have any numbness or tingling of his face, arms, legs. Was able to successfully use the bathroom with nursing assistance. No fevers or chills, chest pain, SOB, nausea, vomiting, abdominal pain, diarrhea, constipation, urinary urgency or frequency, hematuria, dysuria. Review of Systems Review of Systems: All systems reviewed & are unremarkable except as noted in Subjective Physical Exam 2 Constitutional: WD/WN, vitals as above Respiratory: normal respiratory effort, lungs clear to auscultation Cardiovascular: RRR, no murmur, no edema Gastrointestinal (Abdomen): normal bowel sounds, soft, nontender, no hepatosplenomegaly Skin: no rashes, warm and dry Neurologic: CN II-XII intact bilaterally. Moves all extremities. No focal motor deficits. Abnormal speech, sometimes will "get stuck" on words but then move on from the word. Psychiatric: A+Ox3, euthymic affect Results & Data ([facility]) Vital Signs (Past 12 Hours) Vital Signs Temp Pulse Pulse Resp BP BP Pulse Ox 01/12/20 13:44 75 184/69 H 01/12/20 12:24 85 178/72 H 01/12/20 07:45 66 01/12/20 07:26 36.5 C 58 L 18 174/78 H 91 01/12/20 05:39 167/72 H Resident Activity Tracking Resident Involvement: Resident Care Provided Care Provided: Adult Hospital Medicine (1) Hypertension Hypertension type: unspecified Qualified Code(s): I10 - Essential (primary) hypertension
--- NOTE | 2020-01-12 19:19 | Billing Data ---
Date of Service January 12, 2020 Coding Level of Care Code 75758 Subseq Hosp Care Lvl 2
[2020-01-12] MEDS ORDERED: GABAPENTIN 300 MG CAP PO SCH (21:00)
--- NOTE | 2020-01-13 01:25 | Billing Data ---
Date of Service January 13, 2020 Coding Level of Care Code 72239 Initial Inpt Care Lvl 3
[2020-01-13] MEDS: VALSARTAN 80 MG TAB PO SCH (09:07)
[2020-01-13] MEDS: CLOPIDOGREL BISULFATE 75 MG TAB PO SCH (09:07)
[2020-01-13] MEDS: AMLODIPINE BESYLATE 5 MG TAB PO SCH (09:08)
[2020-01-13] MEDS: ASPIRIN 81 MG ECTAB PO SCH (09:08)
[2020-01-13] MEDS: METOPROLOL SUCC 25MG EXT REL TAB PO SCH (09:08)
[2020-01-13] MEDS: ATORVASTATIN 40 MG TAB PO SCH (09:08)
--- NOTE | 2020-01-13 11:50 | Discharge Summary ---
Date of Service January 13, 2020 Admission HPI Per Admitting Provider Patient is an 84 year old male with PMHx NSTEMI, HLD, Neuropathy, CAD, HTN, who presented with chief complaint of weakness and falls. Patient notes that he has been feeling increasingly weak in his legs below the knees for over a month now and that it has led to roughly 4 falls in the past month. He notes that in the past 24 hours he has actually fallen twice. He notes that his greatest concern is that this morning when he woke up he was unable to get out of bed secondary to weakness in his legs. He states he attempted several times, but cannot recall if he actually made it out. He lives alone and was brought in by EMT services. He denies any chest pain, pressure, SOB, dizziness, headache and notes that he just "feels weak." Of note, patient states he did not take any of his medications today as he was stuck in bed. Admission Exam Per Admitting Provider Constitutional: well developed and well nourished; no acute distress Eyes: PERRL, conjunctivae normal, anicteric sclerae normal visual latham by confrontation ENMT: external ear and nose normal, oropharynx normal Neck: trachea midline, no thyromegaly Respiratory: normal respiratory effort, lungs clear to auscultation Cardiovascular: Rate/Rhythm: regular rate and regular rhythm Heart Sounds: no murmur Vessels: no JVD Extremities: no edema Gastrointestinal (Abdomen): normal bowel sounds, soft, nontender, no hepatosplenomegaly Musculoskeletal: Extremity muscle strength testing 5/5 with slight decrease in strength in LLE over RLE Skin: no rashes, warm and dry Neurologic: PERRL, EOMI, accommodation nl, no face palsy, no dysarthria Psychiatric: Orientation: alert, oriented to person, oriented to place and cooperative; + not oriented to time Principal Diagnosis deconditioning vs. dehydration Discharge Exam Constitutional WD/WN, vitals as above Respiratory normal respiratory effort, lungs clear to auscultation Cardiovascular RRR, no murmur, no edema Gastrointestinal (Abdomen) normal bowel sounds, soft, nontender, no hepatosplenomegaly Skin no rashes, warm and dry Psychiatric A+Ox3, euthymic affect Discharge Data Allergies Allergy/AdvReac Type Severity Reaction Status Date / Time No Known Allergies Allergy Unverified 01/15/18 18:03 Consultations 01/11/20 20:56 ED Decision to Admit Stat 01/12/20 01:11 Consult Case Management - Discharge Planning Routine Ordered Studies 01/11/20 20:10 CT head/brain wo con Stat Hospital Course (1) Generalized muscle weakness: Patient is an 84 year old male with PMHx NSTEMI, HLD, Neuropathy, CAD, HTN, admitted for weakness and falls likely due to deconditioning. Generalized Weakness and Hx of Falls - Likely multifactorial including dehydration and deconditioning. - UA negative for infection, CXR negative for signs of pneumonia and patient's lung exam is normal. - Head CT negative for acute process. - PT/OT evaluation suggested acute rehab; referral placed to [facility], for likely discharge tomorrow. Hypertension: - Continue home Amlodipine 5mg daily. - Continue home Metoprolol succinate 25mg daily. - Continue home Valsartan 320mg daily. CAD with history of NSTEMI: - Continue ASA 81mg. - Continue Plavix 75mg daily. HLD: - Continue Atorvastatin 40mg daily. Neuropathy: - Continue Gabapentin 300mg HS. Dispo: [facility] FEN: Heart Healthy diet Code: DNR/DNI (2) Hypertension: (3) History of non-ST elevation myocardial infarction (NSTEMI): (4) CAD (coronary artery disease): (5) HLD (hyperlipidemia): (6) Neuropathy: (7) Fall: Total Time Total Time Spent Total Time Spent (In Minutes): <30 Discharge Plan Discharge Items Patient Disposition: Transfer Inpatient Rehab Fac Reason For Visit: WEAKNESS, FALLS Discharge Diagnosis: deconditioning Activity: Per Instructions section Non-emergency contact: Primary Care Provider Call non-emergency contact if: you have any medication questions and your symptoms worsen Follow-up/Referrals: PCP,NO [Primary Care Provider] - Diet: Heart Healthy Addtl Attending Provider Instructions: 84 year old male with PMHx NSTEMI, HLD, Neuropathy, CAD, HTN, admitted for weakness and falls likely due to deconditioning. Generalized Weakness and Hx of Falls: - Likely multifactorial including dehydration and deconditioning. - UA negative for infection, CXR negative for signs of pneumonia and patient's lung exam is normal. - Head CT negative for acute process. No new neurologic symptoms suggestive of new CVA. - PT/OT evaluation suggested acute rehab. Will need continued PT/OT to help with strengthening prior to return home. Patient currently lives alone and family does not live nearby (son in [place], daughter in [place]). Hypertension: - Continue home amlodipine 5mg daily. - Continue home metoprolol succinate 25mg daily. - Continue home valsartan 320mg daily. CAD with history of NSTEMI: - Continue ASA 81mg. - Continue Plavix 75mg daily. HLD: - Continue atorvastatin 40mg daily. Neuropathy: - Continue gabapentin 300mg HS. FEN: Heart Healthy diet Code: DNR/DNI Pending Studies at Discharge: No Stand-Alone Forms: My [facility] [employer] Skilled Items Patient informed of condition?: Yes DNR: Yes Discharge Level of Care: Acute rehab Communicable Disease: No Discharge Prognosis: Stable Lines: None Urinary Catheter: No Medications and DC Order Prescriptions: No Action Unobtainable RF: 0 Discharge Orders: Discharge Order (Routine); Ordered 01/13/20 Ordered By: Magdalena Brantley Admission Data Admit Date/Time: 01/11/20 23:01 Attending Provider: Nathen Avitia Admit Provider: Gregory Romero Primary Care Provider: PCP,NO Other Providers: Gregory Romero ; [facility] Other Interventions: Discharge Summary Assessment (RN) Last Done: 01/13/20 13:04 DC Date/Time DO NOT enter until pt leaves facility: 01/13/20 14:30 Supervising Physician Co-Signing Physician Notes I personally examined the patient and verified all martell points of history and exam, discussed case, and agree with decision making with Dr Mcdonald. no new complaints - ready to go to rehab, just waiting on approvals when i saw him vitals noted nad heent nc at mmm. appears weak and frail. breathing unlabored no accessory muscles good effort weakness - appears predominantly deconditioning, appears to need rehab - stable for transfer otherwise as above Resident Activity Tracking Resident Involvement: Resident Care Provided Care Provided: Adult Hospital Medicine
--- NOTE | 2020-01-13 19:54 | Billing Data ---
Date of Service January 13, 2020 Coding Level of Care Code D/C Day Management <30 mins
== END 2020-01-13 14:30 | DRG 556 ==
LOC: ED 19:11 → 3N 23:01 → SUATTDRO 23:01 → 3N 01-12 00:22

== ENCOUNTER 2021-01-29 13:02 | Inpatient (IN) ==
[2021-01-29] MEDS ORDERED: SODIUM CHLORIDE 0.9% 1000ML 1,000 ML IV SCH (14:30)
[2021-01-29 14:56] LABS: Appearance Urine Clear (Clear); Bacteria Urine Automated Negative (Negative); Bilirubin Urine Negative (Negative); Blood Urine 2+ (Negative); Color Urine Yellow; Epithelial Cell Urine Auto >30 /lpf (0-5); Glucose Urine UA Negative (Negative); Ketones Urine 1+ (Negative); Leukocyte Esterase Urine Negative (Negative); Nitrite Urine Negative (Negative); Protein Urine 3+ (Negative); Specific Gravity Urine 1.021 (1.000-1.030); Urobilinogen Urine Negative (Negative); pH Urine 6.5 (4.5-7.5)
--- NOTE | 2021-01-29 15:07 | XRay Report ---
XR chest 1V portable HISTORY: weakness COMPARISON: Chest 01/12/2020. FINDINGS: The lungs are clear. Cardiac silhouette is normal in size. No pleural effusions. No pneumot horax. IMPRESSION: No acute process. ACT 112: Negative or not required by law. Electronically signed by: Jitendra Ingram M.D. 01/29/2021 3:05 PM
[2021-01-29 15:21] LABS: Basophils # (auto) 0.01 K/uL (0-0.2); Basophils % (auto) 0.1 %; Eosinophils # (auto) 0.01 K/uL (0-0.5); Eosinophils % (auto) 0.1 %; Hematocrit (blood only) 41.2 % (42-52); Hemoglobin 14.2 g/dL (14.0-18.0); Immature Granulocytes # (auto) 0.03 K/uL (0.00-0.02); Immature Granulocytes % (auto) 0.2 %; Mean Corpuscular Hemoglobin 31.6 pg (25-34); Mean Corpuscular Hgb Conc 34.5 g/dL (32-36); Mean Corpuscular Volume 91.8 fL (80-100); Mean Platelet Volume 10.1 fL (7.4-10.4); Monocytes # (auto) 1.12 K/uL (0.11-0.59); Monocytes % (auto) 9.1 %; Neutrophils # (auto) 9.98 K/uL (1.4-6.5); Neutrophils % (auto) 81.5 %; Platelet Count 314 K/uL (130-400); RDW Coefficient of Variation 13.1 % (11.5-14.5); RDW Standard Deviation 43.9 fL (36.4-46.3); Red Blood Count 4.49 M/uL (4.7-6.1); White Blood Count 12.25 K/uL (4.8-10.8)
--- NOTE | 2021-01-29 15:37 | CT Scan Report ---
CT SCAN OF THE BRAIN WITHOUT IV CONTRAST CLINICAL HISTORY: Fall. COMPARISON STUDY: CT of the brain dated 01/11/2020. TECHNIQUE: Unenhanced axial CT scan of the brain is performed from the vertex to the skull base. A do se lowering technique was utilized adhering to the principles of ALARA. FINDINGS: Brain parenchyma: There are age-related involutional changes noting moderate subcortical and periven tricular microangiopathic change. There is no hemorrhage, mass effect, or evidence of acute territori al ischemia by CT criteria. Travis-white matter differentiation is preserved. No extra-axial fluid lucia ection is seen. Ventricles, sulci, cisterns: Prominent secondary to involutional change. Intracranial vasculature: There is atherosclerotic calcification of the cavernous carotid and vertebr al arteries. Calvarium: Unremarkable. Sinuses and mastoids: Trace mucosal thickening is seen in the left maxillary antrum and the ethmoid s inuses. The remaining visualized paranasal sinuses are clear. The mastoid air cells are well pneumati zed. Orbits: The bony orbits are grossly intact. IMPRESSION: There is no hemorrhage, mass effect, or evidence of acute territorial ischemia by CT dao tijerina. ACT 112: Negative or not required by law. Electronically signed by: Amor Peterson M.D. 01/29/2021 3:35 PM
[2021-01-29 15:38] LABS: BUN Creatinine Ratio 15.7 (10-20); Calcium 9.3 mg/dl (8.5-10.1); Est GFR (African American) 60.8 ml/min; Est GFR (Non-African American) 52.5 ml/min; Magnesium 2.2 mg/dl (1.8-2.4)
[2021-01-29 15:49] LABS: Albumin Globulin Ratio 1.1 (0.9-2); Bilirubin,Total 1.4 mg/dl (0.2-1); Globulin 3.6 gm/dl (2.5-4.0); Phosphorus 2.3 mg/dl (2.5-4.9); Thyroid Stimulating Hormone 0.532 uIu/ml (0.300-4.500); Total Protein 7.6 gm/dl (6.4-8.2)
--- NOTE | 2021-01-29 15:55 | CT Scan Report ---
CT OF THE CERVICAL SPINE CLINICAL HISTORY: fall COMPARISON STUDY: No previous studies for comparison. CT DOSE: 1086.69 mGy.cm TECHNIQUE: CT scan of the cervical spine was performed from the skull base to the thoracic inlet. Johana ges are reviewed in the axial, sagittal, and coronal planes. IV contrast was not administered for thi s examination. A dose lowering technique was utilized adhering to the principles of ALARA. FINDINGS: The visualized portions of the lung apices reveal no evidence of pneumothorax. The prevertebral soft tissues are normal. No fractures or subluxations are visualized. There are multilevel degenerative changes. Exaggerated cervical lordosis is seen. Mild diffuse osteopenia is demonstrated. Multilevel anterior o steophytes are seen. Heavy vascular calcifications are seen in the anatomical region of bilateral carotid arteries. C2-C3: Intervertebral disc space is preserved. Osseous portion of the central canal and bilateral argenis roforamina are patent. C3-C4: Mild narrowing of intervertebral disc space. Osseous portion of the central canal and right ne ural foramina are patent. Mild narrowing of the left neuroforamina. C4-C5: Intervertebral disc space is preserved. Posterior osteophytes are seen. Central canal is paten t. Bilateral neuroforamina are patent. C5-C6: Intervertebral disc space is preserved. Central canal is patent. Mild to moderate narrowing of the right neural foramina. Mild narrowing of the left neuroforamina due to osteophytes. C6-7: Intervertebral disc space narrowing and posterior osteophytes are seen. Evaluation of the centr al canal on the axial images limited due to exaggerated cervical lordosis. Central canal and right ne ural foramina is patent. Mild narrowing of the left neuroforamina. C7-T1: Intervertebral disc spaces preserved. Central canal and bilateral neuroforamina are patent. IMPRESSION: 1. No acute fracture or traumatic malalignment is seen. Evaluation is limited due to severe diffuse osteopenia. 2. Multilevel degenerative changes as detailed above. ACT 112: Negative or not required by law. The above report was generated using voice recognition software. It may contain grammatical, syntax o r spelling errors. Electronically signed by: Virginia Araiza DO 01/29/2021 3:54 PM
--- NOTE | 2021-01-29 17:07 | Electrocardiogram Report ---
Test Reason : Blood Pressure : / mmHG Vent. Rate : 066 BPM Atrial Rate : 066 BPM P-R Int : 188 ms QRS Dur : 082 ms QT Int : 412 ms P-R-T Axes : 017 021 065 degrees QTc Int : 431 ms Poor data quality, interpretation may be adversely affected Normal sinus rhythm When compared with ECG of 11-JAN-2020 19:19, [place] interval has decreased Confirmed by Edgar Moise ([id number]) on 01/29/2021 5:06:43 PM Referred By: REFERRED SELF Confirmed By:Perry Moise
--- NOTE | 2021-01-29 18:00 | History & Physical Report ---
Date of Service January 29, 2021 Assessment & Plan (1) Fall: Patient post fall and found down presumed overnight, with caregiver friend notifying EMS today - Patient continues to have poor use of his ambulatory aid as well as cognitive and muscular decline - PT evals from December consistent with recommending skilled rehab- patient has been resistant - Case management consult placed - PT/OT consult placed - High fall risk - Initial CT scan negative for acute process - neuro checks q4 hours, any acute change repeat non-con head CT (2) Bilateral leg weakness: as above- continue ambulatory aids - strengthening and coordination needed, patient unlikely to be able to perform by himself (3) Physical deconditioning: As above (4) Elevated CK: CK 788 mild Adhikari score at cutoff of 6 for low risk - Change IVF to LR at 125 ml/hr overnight - BMP in the morning (5) Hypertension: Controlled, no acute needs and does not appear to be syncopal episode - Continue amlodipine - Continue Metoprolol succinate 25mg daily - Hold ARB for now in regards to CK elevation, protein and blood in urine, follow BMP in the morning (6) Paroxysmal A-fib: Rate controlled currently NSR - per chart review found in 2019- with acute illness (7) CAD (coronary artery disease): NSTEMI history As above (8) Urinary retention: bladder scan with straight cath as needed his urine is nonspecific, but with RBC, protein and casts. - resend urine in morning following hydration if desired History of Present Illness Primary Care Provider: NO PCP 85 YOM with past medical history of: Afib (not on anticoagulation), HLD, CAD, NSTEMI, deconditioning, weakness, frequent falls, urinary retention. Patient lives by himself in a condo and has a friend who checks on him per his report. Patient comes in today after his friend found him on the ground this morning, she called EMS and he was brought to the emergency room. He recalls that "he put himself on the floor last night", because he didin't have his walker close by. Patient has been admitted in December 2020 for a falls, at that time it was recorded as 2 falls in one day an 4 falls over the month. The patient is difficult to get history out secondary to stuttering and stammering. However, when he is just talking about regular things, he has no defect in speech. He has followed up with orthopaedics in December for workup of his lower extremity weakness, was set up with physical therapy. PT evaluation with impaired cognitive and motor processing and impaired functional mobility. Was given an exercise plan that patient is unlikely able to complete on his own. Patient had cervical CT spine performed and head CT performed in the [facility] with no acute fin dings. ECG- was NSR. Labs revealed mild elevation of CPK to 788, his Adhikari score is 6. Will be admitted to continue IV resuscitation as well as PT/OT, case management consult placed. Patient will likely need rehab facility to get him to a better functional status if possible. Allergies Allergy/AdvReac Type Severity Reaction Status Date / Time No Known Allergies Allergy Unverified 01/29/21 13:56 Home Medications Medication Instructions Recorded Confirmed Type amlodipine 5 mg PO DAILY 01/29/21 01/29/21 History atorvastatin 40 mg PO DAILY 01/29/21 01/29/21 History folic acid 1 mg PO DAILY 01/29/21 01/29/21 History metoprolol succinate 25 mg PO DAILY 01/29/21 01/29/21 History valsartan 320 mg PO DAILY 01/29/21 01/29/21 History Past Med/Surg History Medical History (Updated 01/31/21 @ 09:01 by Rigo Boyd MD) CAD (coronary artery disease) Callus of foot History of non-ST elevation myocardial infarction (NSTEMI) HLD (hyperlipidemia) Hypertensive urgency Neuropathy Paroxysmal A-fib Right foot ulcer Family History Other Family history non-contributory Social History Smoking Status: Former smoker Tobacco Type: Cigarettes Second Hand Exposure: No; Do You Dip or Chew Tobacco: No; Tobacco Cessation Education Requested by Patient: No Hx Alcohol Use: No Hx Substance Use: No Preferred Language: Albanian Communication Ability: Effective Carbider Required: No Beliefs That Will Affect Care: None marital status: Current Living Situation: Alone Current Living Situation Comment: Has a chronic care nurse that comes 3 days a week Other Information That Helps Us Care for You: No Feels Safe at Home: Yes Safety Concerns: Feels Safe At This Time Assistive Devices: Walker Review of Systems Review of Systems: REVIEW OF SYSTEMS: Constitutional: No fever, sweats or chills Eyes: No diplopia, no worsening or blurred vision ENT: (+) difficulty hearing, no trouble swallowing Respiratory: No cough, sputum, dyspnea at rest or on exertion Cardiovascular: No chest pain, tightness or palpitations Abdomen: No pain, nausea, vomiting, diarrhea or constipation Musculoskeletal: No joint pain, calf pain, swelling Neurologic: (+) bilateral lower weakness, balance problems; No numbness/tingling, Psychiatric: No anxiety or depression Skin: No rash or itch Physical Exam Physical Exam: PHYSICAL EXAM: General: awake, alert, no apparent distress Head: Normocephalic, atraumatic ENT: PERRL, EOMI, no pharyngeal exudate, mucous membranes moist Neuro: AAO x 3, speech clear and appropriate, strength intact bilaterally 5/5, sensation intact and equal all extremities and dermatomes, no pronator drift Chest: equal rise and fall of the chest, no accessory muscle use, no heaves or thrills, Clear to auscultation, on room air, Cardiac: Regular rate and rhythm, telemetry reviewed, skin warm dry, cap refill <3 seconds, peripheral pulses +2 no JVD, no murmur, no edema GI: NABS x 4 quadrants, soft, nontender to palpation, no rebound, guarding or tenderness : Spontaneously voiding, no pain, no CVA tenderness, Extremities: Normal inspection, no peripheral edema or erythema, calfs nontender to palpation, scratch to dave Psych: Normal mood and affect Skin: no rash or erythema Results & Data Results & Data ([facility]) Vital Signs (Past 12 Hours) Vital Signs Temp Pulse Resp BP Pulse Ox 01/29/21 16:20 71 21 97 01/29/21 16:16 72 23 152/75 H 96 01/29/21 16:10 79 19 97 01/29/21 16:02 94 H 23 01/29/21 16:01 26 H 124/101 H 01/29/21 16:00 79 19 01/29/21 15:58 73 21 162/77 H 97 01/29/21 15:50 72 21 95 01/29/21 15:45 80 22 152/79 H 96 01/29/21 15:40 72 20 95 01/29/21 15:31 67 19 97 01/29/21 15:30 96 H 22 200/72 H 97 01/29/21 15:16 66 24 178/79 H 96 01/29/21 15:11 70 17 98 01/29/21 15:10 30 H 162/72 H 96 01/29/21 15:08 69 17 185/89 H 96 01/29/21 15:00 82 31 H 97 01/29/21 14:50 66 20 97 01/29/21 14:40 68 22 96 01/29/21 14:30 68 21 97 01/29/21 14:24 73 3 L 98 01/29/21 14:10 20 95 01/29/21 14:00 10 L 96 01/29/21 13:50 67 21 95 01/29/21 13:40 66 21 95 01/29/21 13:33 36.7 C 67 19 190/75 H 96 01/29/21 13:30 68 19 96 01/29/21 13:27 66 18 96 01/29/21 13:23 68 9 L 190/75 H 96 Laboratory Results Abnormal lab results 01/29/21 01/29/21 01/29/21 Range/Units 14:26 15:14 15:14 WBC 12.25 H (4.8-10.8) K/uL RBC 4.49 L (4.7-6.1) M/uL Hct 41.2 L (42-52) % Neut # (Auto) 9.98 H (1.4-6.5) K/uL Lymph # (Auto) 1.10 L (1.2-3.4) K/uL [place] # (Auto) 1.12 H (0.11-0.59) K/uL Immature Gran # (Auto) 0.03 H (0.00-0.02) K/uL Chloride 108 H (98-107) mmol/L BUN 19 H (7-18) mg/dl Glucose 110 H (70-99) mg/dl Phosphorus 2.3 L (2.5-4.9) mg/dl Total Bilirubin 1.4 H (0.2-1) mg/dl AST 42 H (15-37) U/L Total Creatine Kinase 788 H (39-308) U/L Urine Protein 3+ H (Negative) Urine Ketones 1+ H (Negative) Urine Blood 2+ H (Negative) Urine WBC (Auto) 5-10 H (0-5) /hpf Urine RBC (Auto) 5-10 H (0-4) /hpf U Hyaline Cast (Auto) 5-10 H (0-5) /lpf U Epithel Cells (Auto) >30 H (0-5) /lpf Diagnostic Findings Cervical Spine CT 01/29/21 14:30 CT OF THE CERVICAL SPINE CLINICAL HISTORY: fall COMPARISON STUDY: No previous studies for comparison. CT DOSE: 1086.69 mGy.cm TECHNIQUE: CT scan of the cervical spine was performed from the skull base to the thoracic inlet. Images are reviewed in the axial, sagittal, and coronal planes. IV contrast was not administered for this examination. A dose lowering technique was utilized adhering to the principles of ALARA. FINDINGS: The visualized portions of the lung apices reveal no evidence of pneumothorax. The prevertebral soft tissues are normal. No fractures or subluxations are visualized. There are multilevel degenerative changes. Exaggerated cervical lordosis is seen. Mild diffuse osteopenia is demonstrated. Multilevel anterior osteophytes are seen. Heavy vascular calcifications are seen in the anatomical region of bilateral carotid arteries. C2-C3: Intervertebral disc space is preserved. Osseous portion of the central canal and bilateral neuroforamina are patent. C3-C4: Mild narrowing of intervertebral disc space. Osseous portion of the central canal and right neural foramina are patent. Mild narrowing of the left neuroforamina. C4-C5: Intervertebral disc space is preserved. Posterior osteophytes are seen. Central canal is patent. Bilateral neuroforamina are patent. C5-C6: Intervertebral disc space is preserved. Central canal is patent. Mild to moderate narrowing of the right neural foramina. Mild narrowing of the left neuroforamina due to osteophytes. C6-7: Intervertebral disc space narrowing and posterior osteophytes are seen. Evaluation of the central canal on the axial images limited due to exaggerated cervical lordosis. Central canal and right neural foramina is patent. Mild narrowing of the left neuroforamina. C7-T1: Intervertebral disc spaces preserved. Central canal and bilateral neuroforamina are patent. IMPRESSION: 1. No acute fracture or traumatic malalignment is seen. Evaluation is limited due to severe diffuse osteopenia. 2. Multilevel degenerative changes as detailed above. Electronically signed by: DO Patti Reddy/14/2021 3:54 PM Chest X-Ray 01/29/21 14:30 XR chest 1V portable HISTORY: weakness COMPARISON: Chest 01/12/2020. FINDINGS: The lungs are clear. Cardiac silhouette is normal in size. No pleural effusions. No pneumothorax. IMPRESSION: No acute process. Electronically signed by: Jitendra Ingram M.D. 01/29/2021 3:[address] 01/29/21 14:30 CT SCAN OF THE BRAIN WITHOUT IV CONTRAST CLINICAL HISTORY: Fall. COMPARISON STUDY: CT of the brain dated 01/11/2020. TECHNIQUE: Unenhanced axial CT scan of the brain is performed from the vertex to the skull base. A dose lowering technique was utilized adhering to the principles of ALARA. FINDINGS: Brain parenchyma: There are age-related involutional changes noting moderate subcortical and periventricular microangiopathic change. There is no hemorrhage, mass effect, or evidence of acute territorial ischemia by CT criteria. Travis- white matter differentiation is preserved. No extra-axial fluid collection is seen. Ventricles, sulci, cisterns: Prominent secondary to involutional change. Intracranial vasculature: There is atherosclerotic calcification of the cavernous carotid and vertebral arteries. Calvarium: Unremarkable. Sinuses and mastoids: Trace mucosal thickening is seen in the left maxillary antrum and the ethmoid sinuses. The remaining visualized paranasal sinuses are clear. The mastoid air cells are well pneumatized. Orbits: The bony orbits are grossly intact. IMPRESSION: There is no hemorrhage, mass effect, or evidence of acute territorial ischemia by CT criteria. Electronically signed by: Amor Peterson M.D. 01/29/2021 3:35 PM Medications Administered Sodium Chloride (Nss 1000ml) 1,000 mls @ 125 mls/hr IV .Q8H DOROTHY Stop: 01/29/21 22:29 Last Admin: 01/29/21 15:12 Dose: 125 mls/hr Documented by: [id number] Home Medications amlodipine 5 mg PO DAILY 01/29/21 [History Confirmed 01/29/21] atorvastatin 40 mg PO DAILY 01/29/21 [History Confirmed 01/29/21] folic acid 1 mg PO DAILY 01/29/21 [History Confirmed 01/29/21] metoprolol succinate 25 mg PO DAILY 01/29/21 [History Confirmed 01/29/21] valsartan 320 mg PO DAILY 01/29/21 [History Confirmed 01/29/21] Active Medications Sodium Chloride (Nss 1000ml) 1,000 mls @ 125 mls/hr IV .Q8H DOROTHY Stop: 01/29/21 22:29 Last Admin: 01/29/21 15:12 Dose: 125 mls/hr Documented by: Lactated Ringer's (Lr) 1,000 mls @ 125 mls/hr IV .Q8H DOROTHY Stop: 02/28/21 17:59 ECG Additional Comments: Vent. Rate : 066 BPM Atrial Rate : 066 BPM P-R Int : 188 ms QRS Dur : 082 ms QT Int : 412 ms P-R-T Axes : 017 021 065 degrees QTc Int : 431 ms Normal sinus rhythm Code Status & VTE Plan Code Status CODE: FULL VTE: SCD's, Heparin 500 subq TID VTE Prophylaxis Plan VTE Prophylaxis will be ordered: Yes Supervising Physician Co-Signing Physician Notes Attending Attestation and Admission Note - Pt seen/examined, chart reviewed, care plan d/w CHEMA Kwok. I agree with the martell components of his admission documentation. 85yo male with ambulatory dysfunction, HTN, hyperlipidemia, PAF, CAD - presents after being found down at his home covered in stool. Was admitted in late December for similar issues (falls, weakness, etc). Declined SNF / rehab at that time. Pt adamantly tells me that he "didn't fall - but carefully lowered himself to the ground." When asked why he did that he said it was because he was weak. He then said "it's because of my knees." During the visit he was unable to provide much history. Mildly confused. Denied any dyspnea or chest pain during my rounds. PMH, PSH, allergies, meds, sochx, famhx - reviewed VSS gen - NAD, mild confusion mouth - MMM, no bite amanda on tongue neck - no JVD heart - RRR, s1 s2 lungs - CTA b/l abd - soft NT ext - no edema neuro - mild proximal muscle weakness of legs (hips); distal leg strength near 5/5; arm strength 5/5 - no proximal muscle weakness of arms psych - a/o x 2 musculo - crepitus b/l knees; no effusion; no tenderness to palpation labs reviewed imaging reviewed EKG - NSR, no ST changes A/P: 1. ambulatory dysfunction with falls - etiology? some mild proximal muscle weakness of hips - check sed rate/crp. Check B12 level. certainly OA of knees can cause locking of legs then set people up for falls. can't rule out dysrhythmia contributing to falls - does have prior h/o PAF per records. 2. h/o NSTEMI - check troponin, r/o NSTEMI as cause of presentation. Although no obvious ischemic sx's or ekg changes at this time. 3. rhabdomyolysis - mild - if CPK trends down no need to hold statin but low threshold to hold if CPK worsens. Hydrate. Repeat CPK am. 4. mild metabolic encephalopathy - supportive care. 5. h/o PAF - is in NSR at presentation today. Telemetry to watch for such. 6. CKD stage 3a - bmp in am for stability. Patient is UNSAFE to be at home alone. Needs SNF placement. I also don't believe patient - at least tonight - understands ramifications of his falls and living alone. Srinivas Turner MD PG Care Time/CCT Total # of Minutes Spent Total Time Spent with Patient: Total time spent is greater than 50% in coordination of care (as documented) at patient's floor/unit and/or counseling patient: Coding Level of Care Code 28412 Initial Inpt Care Lvl 3 Diagnoses Fall W19.XXXD Encounter type: subsequent encounter Bilateral leg weakness R29.898 Physical deconditioning R53.81 Elevated CK R74.8 Hypertension I10 Hypertension type: unspecified Paroxysmal A-fib I48.0 CAD (coronary artery disease) I25.10 Associated angina: without angina Coronary Disease-Associated Artery/Lesion type: unspecified vessel or lesion type [place] vs. transplanted heart: [place] heart Urinary retention R33.9 (1) CAD (coronary artery disease) Associated angina: without angina Coronary Disease-Associated Artery/Lesion type: unspecified vessel or lesion type [place] vs. transplanted heart: [place] heart Qualified Code(s): I25.10 - Atherosclerotic heart disease of [place] coronary artery without angina pectoris (2) Hypertension Hypertension type: unspecified Qualified Code(s): I10 - Essential (primary) hypertension (3) Fall Encounter type: subsequent encounter Qualified Code(s): W19.XXXD - Unspecified fall, subsequent encounter
[2021-01-29] MEDS ORDERED: POLYETHYLENE (MIRALAX) 17 GM PACK PO PRN (19:55)
[2021-01-29] MEDS ORDERED: ACETAMINOPHEN 325 MG TAB PO PRN (19:55)
[2021-01-29] MEDS: LACTATED RINGER'S 1,000 ML IV SCH (20:14)
[2021-01-29 22:03] LABS: C Reactive Protein 1.24 mg/dl (0-0.29); Troponin I 1.38 ng/ml (0-0.045)
[2021-01-29] MEDS: HEPARIN SOD 5,000 UNIT/0.5 ML VIAL SQ SCH (23:03)
[2021-01-30] MEDS ORDERED: LABETALOL HCL IV 5 MG/ML 20ML IV STA (01:47)
[2021-01-30] MEDS: LACTATED RINGER'S 1,000 ML IV SCH ×2 (04:55→11:09)
[2021-01-30] MEDS: HEPARIN SOD 5,000 UNIT/0.5 ML VIAL SQ SCH ×3 (06:24→21:27)
[2021-01-30 07:57] LABS: Basophils # (auto) 0.01 K/uL (0-0.2); Basophils % (auto) 0.1 %; Eosinophils # (auto) 0.03 K/uL (0-0.5); Eosinophils % (auto) 0.4 %; Hematocrit (blood only) 37.6 % (42-52); Hemoglobin 12.7 g/dL (14.0-18.0); Immature Granulocytes # (auto) 0.01 K/uL (0.00-0.02); Immature Granulocytes % (auto) 0.1 %; Lymphocytes # (auto) 1.71 K/uL (1.2-3.4); Lymphocytes % (auto) 21.8 %; Mean Corpuscular Hemoglobin 31.7 pg (25-34); Mean Corpuscular Hgb Conc 33.8 g/dL (32-36); Mean Corpuscular Volume 93.8 fL (80-100); Mean Platelet Volume 10.4 fL (7.4-10.4); Monocytes # (auto) 0.75 K/uL (0.11-0.59); Monocytes % (auto) 9.6 %; Neutrophils # (auto) 5.34 K/uL (1.4-6.5); Platelet Count 294 K/uL (130-400); RDW Coefficient of Variation 13.1 % (11.5-14.5); RDW Standard Deviation 45.1 fL (36.4-46.3); Red Blood Count 4.01 M/uL (4.7-6.1); White Blood Count 7.85 K/uL (4.8-10.8)
[2021-01-30 08:34] LABS: Calcium 9.3 mg/dl (8.5-10.1)
[2021-01-30 08:40] LABS: Phosphorus 2.6 mg/dl (2.5-4.9); Troponin I 1.45 ng/ml (0-0.045)
[2021-01-30 08:52] LABS: BUN Creatinine Ratio 18.7 (10-20); Creatinine Clr Calc Pharmacy 48.1 ml/min; Est GFR (African American) 71.1 ml/min; Est GFR (Non-African American) 61.4 ml/min; Magnesium 2.1 mg/dl (1.8-2.4)
[2021-01-30] MEDS: amLODIPine BESYLATE 5 MG TAB PO SCH (08:57)
[2021-01-30] MEDS: FOLIC ACID 1 MG TAB PO SCH (08:57)
[2021-01-30] MEDS: METOPROLOL SUCC 25MG EXT REL TAB PO SCH (08:57)
[2021-01-30] MEDS: ATORVASTATIN 40 MG TAB PO SCH (08:58)
[2021-01-30 09:02] LABS: Potassium 3.9 mmol/L (3.5-5.1)
[2021-01-30] MEDS ORDERED: LACTATED RINGER'S 1,000 ML IV ONE (10:47)
--- NOTE | 2021-01-30 11:02 | Hospitalist Progress Note ---
Date of Service January 30, 2021 Assessment & Plan (1) Fall: Patient post fall and found down presumed overnight into [id number], with caregiver friend notifying EMS yesterday - Patient continues to have poor use of his ambulatory aid as well as cognitive and muscular decline - PT evals from December consistent with recommending skilled rehab- patient has been resistant - Case management consult placed- As of this morning patient appears to be willing to go to rehab facility - PT/OT consult placed - High fall risk - Initial CT scan negative for acute process - neuro checks q4 hours, any acute change repeat non-con head CT - will discontinue neurological exams today as no acute changes overnight. (2) Bilateral leg weakness: as above- continue ambulatory aids - strengthening and coordination needed, patient unlikely to be able to perform by himself (3) Physical deconditioning: As above- await Physical therapy evaluation today - Discuss with case management as above (4) Elevated CK: CK 788 mild---down to 624 this morning. Rosales score at cutoff of 6 for low risk - Change IVF to LR at 90 ml/hr for one more liter today - BMP in the morning (5) Elevated troponin I level: Unlikely acute event with no dynamic ECG changes - Troponin may be elevated with his Mild rhabdo- as troponin may increases with this but the troponin increase is not proportionally relative to the severity of rhabdo - Will obtain ECHO today evaluate for WMA or arrythmias - Trend out Troponins with ECG - BP control as below (6) Hypertension: Controlled, no acute needs and does not appear to be syncopal episode - Continue amlodipine - Continue Metoprolol succinate 25mg daily - Restart ARB this morning. re-evaluate protein and blood in urine- His [employer] downtrended to 1.08 froom 1.23 - BUN [employer] stable, did require one dose of Labetalol last eveing (7) Paroxysmal A-fib: Rate controlled currently NSR - per chart review found in 2019- with acute illness - No events- ECG pending this morning (8) CAD (coronary artery disease): NSTEMI history As above (9) Urinary retention: bladder scan with straight cath as needed his urine is nonspecific, but with RBC, protein and casts. - resend urine in morning following hydration if desired Admission and Anticipated Discharge Date Admission Date: January 29, 2021 Supervising Physician Co-Signing Physician Notes Patient was seen and examined independently I discussed the case with Abbe BEAR I reviewed pertinent past medical social family history and also the plan of care and agree with the plan of care. Patient had some delirium in the afternoon refusing to take certain medications I am concerned about sundowning behavior tonight will offer some melatonin and have as needed Ativan and see how it goes Any exceptions will be noted below Subjective Patient sleeping upon arrival in room. Said he slept very good last night. Breakfast finished. He remains with mild delirium/confusion on date time and location. Awaiting physical therapy evaluation today. We did discuss his needs for rehab and strengthening this morning. At this time he understands that will not be at home, and will be a place to help him recover and get stronger to possibly go back home safer. At this time he said he thinks he "would like that, and he needs to get stronger." He had a Troponin I sent on admission which was 1. 3 and this morning is at 1.4. ECG is pending for this morning. Will continue to trend these out does not appear as an acute dynamic event, but unreliable historian and whether he has symptoms or not may also be unreliable. Will remain in house for the above and appreciate Case managment assistance. Review of Systems Review of Systems: REVIEW OF SYSTEMS: Constitutional: No fever, sweats or chills Eyes: No diplopia, no worsening or blurred vision ENT: (+) difficulty hearing, no trouble swallowing Respiratory: No cough, sputum, dyspnea at rest or on exertion Cardiovascular: No chest pain, tightness or palpitations Abdomen: No pain, nausea, vomiting, diarrhea or constipation Musculoskeletal: No joint pain, calf pain, swelling Neurologic: (+) bilateral lower weakness, balance problems; No numbness/tingling, Psychiatric: No anxiety or depression Skin: No rash or itch Physical Exam Physical Exam: PHYSICAL EXAM: General: awake, alert, no apparent distress Head: Normocephalic, atraumatic ENT: PERRL, EOMI, no pharyngeal exudate, mucous membranes moist Neuro: AAO x 1-2, speech clear but stammering, strength intact bilaterally 5/5, sensation intact and equal all extremities and dermatomes, no pronator drift. Did sit up on the edge of the bed but needs frequent directions. Chest: equal rise and fall of the chest, no accessory muscle use, no heaves or thrills, Clear to auscultation, on room air, Cardiac: Regular rate and rhythm, S1S2, skin warm dry, cap refill <3 seconds, peripheral pulses +2 no JVD, no murmur, no edema GI: NABS x 4 quadrants, soft, nontender to palpation, no rebound, guarding or tenderness : Spontaneously voiding, no pain, no CVA tenderness, Extremities: Normal inspection, no peripheral edema or erythema, calfs nontender to palpation, scratch to dave Psych: Normal mood and affect Skin: no rash or erythema Results & Data Results & Data ([facility]) Vital Signs (Past 12 Hours) Vital Signs Temp Pulse Pulse Resp BP BP Pulse Ox 01/30/21 07:49 36.7 C 67 18 146/75 H 97 01/30/21 02:11 36.6 C 67 20 165/64 H 97 01/30/21 00:59 208/83 H 01/29/21 23:49 68 01/29/21 23:40 36.6 C 66 18 216/71 H 200/77 H 97 01/29/21 22:58 36.8 C 72 16 176/69 H 98 Laboratory Results Abnormal lab results 01/29/21 01/29/21 01/29/21 Range/Units 14:26 15:14 15:14 WBC 12.25 H (4.8-10.8) K/uL RBC 4.49 L (4.7-6.1) M/uL Hgb (14.0-18.0) g/dL Hct 41.2 L (42-52) % Neut # (Auto) 9.98 H (1.4-6.5) K/uL Lymph # (Auto) 1.10 L (1.2-3.4) K/uL Wheeler # (Auto) 1.12 H (0.11-0.59) K/uL Immature Gran # (Auto) 0.03 H (0.00-0.02) K/uL Chloride 108 H (98-107) mmol/L BUN 19 H (7-18) mg/dl Glucose 110 H (70-99) mg/dl Phosphorus 2.3 L (2.5-4.9) mg/dl Total Bilirubin 1.4 H (0.2-1) mg/dl AST 42 H (15-37) U/L Total Creatine Kinase 788 H (39-308) U/L Troponin I (0-0.045) ng/ml C-Reactive Protein (0-0.29) mg/dl Urine Protein 3+ H (Negative) Urine Ketones 1+ H (Negative) Urine Blood 2+ H (Negative) Urine WBC (Auto) 5-10 H (0-5) /hpf Urine RBC (Auto) 5-10 H (0-4) /hpf U Hyaline Cast (Auto) 5-10 H (0-5) /lpf U Epithel Cells (Auto) >30 H (0-5) /lpf 01/29/21 01/30/21 01/30/21 Range/Units 21:06 07:11 07:11 WBC (4.8-10.8) K/uL RBC 4.01 L (4.7-6.1) M/uL Hgb 12.7 L (14.0-18.0) g/dL Hct 37.6 L (42-52) % Neut # (Auto) (1.4-6.5) K/uL Lymph # (Auto) (1.2-3.4) K/uL Wheeler # (Auto) 0.75 H (0.11-0.59) K/uL Immature Gran # (Auto) (0.00-0.02) K/uL Chloride 109 H (98-107) mmol/L BUN 20 H (7-18) mg/dl Glucose (70-99) mg/dl Phosphorus (2.5-4.9) mg/dl Total Bilirubin (0.2-1) mg/dl AST (15-37) U/L Total Creatine Kinase (39-308) U/L Troponin I 1.380 H* 1.450 H* (0-0.045) ng/ml C-Reactive Protein 1.24 H (0-0.29) mg/dl Urine Protein (Negative) Urine Ketones (Negative) Urine Blood (Negative) Urine WBC (Auto) (0-5) /hpf Urine RBC (Auto) (0-4) /hpf U Hyaline Cast (Auto) (0-5) /lpf U Epithel Cells (Auto) (0-5) /lpf 01/30/21 Range/Units 07:11 WBC (4.8-10.8) K/uL RBC (4.7-6.1) M/uL Hgb (14.0-18.0) g/dL Hct (42-52) % Neut # (Auto) (1.4-6.5) K/uL Lymph # (Auto) (1.2-3.4) K/uL Wheeler # (Auto) (0.11-0.59) K/uL Immature Gran # (Auto) (0.00-0.02) K/uL Chloride (98-107) mmol/L BUN (7-18) mg/dl Glucose (70-99) mg/dl Phosphorus (2.5-4.9) mg/dl Total Bilirubin (0.2-1) mg/dl AST (15-37) U/L Total Creatine Kinase 624 H (39-308) U/L Troponin I (0-0.045) ng/ml C-Reactive Protein (0-0.29) mg/dl Urine Protein (Negative) Urine Ketones (Negative) Urine Blood (Negative) Urine WBC (Auto) (0-5) /hpf Urine RBC (Auto) (0-4) /hpf U Hyaline Cast (Auto) (0-5) /lpf U Epithel Cells (Auto) (0-5) /lpf Diagnostic Findings Cervical Spine CT 01/29/21 14:30 CT OF THE CERVICAL SPINE CLINICAL HISTORY: fall COMPARISON STUDY: No previous studies for comparison. CT DOSE: 1086.69 mGy.cm TECHNIQUE: CT scan of the cervical spine was performed from the skull base to the thoracic inlet. Images are reviewed in the axial, sagittal, and coronal planes. IV contrast was not administered for this examination. A dose lowering technique was utilized adhering to the principles of ALARA. FINDINGS: The visualized portions of the lung apices reveal no evidence of pneumothorax. The prevertebral soft tissues are normal. No fractures or subluxations are visualized. There are multilevel degenerative changes. Exaggerated cervical lordosis is seen. Mild diffuse osteopenia is demonstrated. Multilevel anterior osteophytes are seen. Heavy vascular calcifications are seen in the anatomical region of bilateral carotid arteries. C2-C3: Intervertebral disc space is preserved. Osseous portion of the central canal and bilateral neuroforamina are patent. C3-C4: Mild narrowing of intervertebral disc space. Osseous portion of the central canal and right neural foramina are patent. Mild narrowing of the left neuroforamina. C4-C5: Intervertebral disc space is preserved. Posterior osteophytes are seen. Central canal is patent. Bilateral neuroforamina are patent. C5-C6: Intervertebral disc space is preserved. Central canal is patent. Mild to moderate narrowing of the right neural foramina. Mild narrowing of the left neuroforamina due to osteophytes. C6-7: Intervertebral disc space narrowing and posterior osteophytes are seen. Evaluation of the central canal on the axial images limited due to exaggerated cervical lordosis. Central canal and right neural foramina is patent. Mild narrowing of the left neuroforamina. C7-T1: Intervertebral disc spaces preserved. Central canal and bilateral neuroforamina are patent. IMPRESSION: 1. No acute fracture or traumatic malalignment is seen. Evaluation is limited due to severe diffuse osteopenia. 2. Multilevel degenerative changes as detailed above. ACT 112: Negative or not required by law. The above report was generated using voice recognition software. It may contain grammatical, syntax or spelling errors. Electronically signed by: Virginia Araiza DO 01/29/2021 3:54 PM Chest X-Ray 01/29/21 14:30 XR chest 1V portable HISTORY: weakness COMPARISON: Chest 01/12/2020. FINDINGS: The lungs are clear. Cardiac silhouette is normal in size. No pleural effusions. No pneumothorax. IMPRESSION: No acute process. ACT 112: Negative or not required by law. Electronically signed by: Jitendra Ingram M.D. 01/29/2021 3:[address] 01/29/21 14:30 CT SCAN OF THE BRAIN WITHOUT IV CONTRAST CLINICAL HISTORY: Fall. COMPARISON STUDY: CT of the brain dated 01/11/2020. TECHNIQUE: Unenhanced axial CT scan of the brain is performed from the vertex to the skull base. A dose lowering technique was utilized adhering to the principles of ALARA. FINDINGS: Brain parenchyma: There are age-related involutional changes noting moderate subcortical and periventricular microangiopathic change. There is no hemorrhage, mass effect, or evidence of acute territorial ischemia by CT criteria. Travis- white matter differentiation is preserved. No extra-axial fluid collection is seen. Ventricles, sulci, cisterns: Prominent secondary to involutional change. Intracranial vasculature: There is atherosclerotic calcification of the cavernous carotid and vertebral arteries. Calvarium: Unremarkable. Sinuses and mastoids: Trace mucosal thickening is seen in the left maxillary antrum and the ethmoid sinuses. The remaining visualized paranasal sinuses are clear. The mastoid air cells are well pneumatized. Orbits: The bony orbits are grossly intact. IMPRESSION: There is no hemorrhage, mass effect, or evidence of acute territorial ischemia by CT criteria. ACT 112: Negative or not required by law. Electronically signed by: Amor Peterson M.D. 01/29/2021 3:35 PM Medications Administered Home Medications amlodipine 5 mg PO DAILY 01/29/21 [History Confirmed 01/29/21] atorvastatin 40 mg PO DAILY 01/29/21 [History Confirmed 01/29/21] folic acid 1 mg PO DAILY 01/29/21 [History Confirmed 01/29/21] metoprolol succinate 25 mg PO DAILY 01/29/21 [History Confirmed 01/29/21] valsartan 320 mg PO DAILY 01/29/21 [History Confirmed 01/29/21] Active Medications Acetaminophen (Acetaminophen 325 Mg Tab) 650 mg PO Q4H PRN PRN Reason: pain/fever Stop: 02/28/21 19:54 Amlodipine Besylate (Amlodipine Besylate 5 Mg Tab) 5 mg PO DAILY DOROTHY Stop: 03/01/21 08:59 Last Admin: 01/30/21 08:57 Dose: 5 mg Documented by: Atorvastatin Calcium (Atorvastatin 40 Mg Tab) 40 mg PO DAILY DOROTHY Stop: 03/01/21 08:59 Last Admin: 01/30/21 08:58 Dose: 40 mg Documented by: Folic Acid (Folic Acid 1 Mg Tab) 1 mg PO DAILY DOROTHY Stop: 03/01/21 08:59 Last Admin: 01/30/21 08:57 Dose: 1 mg Documented by: Heparin Sodium (Porcine) (Heparin Sod 5,000 Unit/0.5 Ml Vial) 5,000 units SQ Q8 DOROTHY Stop: 02/28/21 21:59 Last Admin: 01/30/21 06:24 Dose: 5,000 units Documented by: Lactated Ringer's (Lr) 1,000 mls @ 90 mls/hr IV .[id number] ONE Stop: 01/30/21 21:53 Metoprolol Succinate (Metoprolol Succ 25mg Ext Rel Tab) 25 mg PO DAILY DOROTHY Stop: 03/01/21 08:59 Last Admin: 01/30/21 08:57 Dose: 25 mg Documented by: Polyethylene Glycol (Polyethylene (Miralax) 17 Gm Pack) 17 gm PO DAILY PRN PRN Reason: Constipation Stop: 02/28/21 19:54 PG Care Time/CCT Total # of Minutes Spent Total Time Spent with Patient: Total time spent is greater than 50% in coordination of care (as documented) at patient's floor/unit and/or counseling patient: Coding Level of Care Code 74820 Subseq Hosp Care Lvl 3 Diagnoses Fall W19.XXXD Encounter type: subsequent encounter Bilateral leg weakness R29.898 Physical deconditioning R53.81 Elevated CK R74.8 Elevated troponin I level R77.8 Hypertension I10 Hypertension type: unspecified Paroxysmal A-fib I48.0 CAD (coronary artery disease) I25.10 Associated angina: without angina Coronary Disease-Associated Artery/Lesion type: unspecified vessel or lesion type [place] vs. transplanted heart: ruby heart Urinary retention R33.9 (1) CAD (coronary artery disease) Associated angina: without angina Coronary Disease-Associated Artery/Lesion type: unspecified vessel or lesion type [place] vs. transplanted heart: ruby heart Qualified Code(s): I25.10 - Atherosclerotic heart disease of ruby coronary artery without angina pectoris (2) Hypertension Hypertension type: unspecified Qualified Code(s): I10 - Essential (primary) hypertension (3) Fall Encounter type: subsequent encounter Qualified Code(s): W19.XXXD - Unsp ecified fall, subsequent encounter
[2021-01-30] MEDS ORDERED: VALSARTAN 80 MG TAB PO SCH (11:30)
[2021-01-30 16:37] LABS: Appearance Urine Clear (Clear); Bacteria Urine Automated Negative (Negative); Bilirubin Urine Negative (Negative); Blood Urine Trace (Negative); Cast Urine Automated 0 /lpf (0-5); Color Urine Yellow; Epithelial Cell Urine Auto 0-5 /lpf (0-5); Glucose Urine UA Negative (Negative); Ketones Urine Negative (Negative); Leukocyte Esterase Urine Negative (Negative); Nitrite Urine Negative (Negative); Protein Urine 1+ (Negative); RBC Urine Automated 0-4 /hpf (0-4); Specific Gravity Urine 1.009 (1.000-1.030); Urobilinogen Urine Negative (Negative); WBC Urine Automated 0 /hpf (0-5)
--- NOTE | 2021-01-30 17:55 | Electrocardiogram Report ---
Test Reason : Blood Pressure : / mmHG Vent. Rate : 065 BPM Atrial Rate : 065 BPM P-R Int : 222 ms QRS Dur : 084 ms QT Int : 422 ms P-R-T Axes : -11 -03 045 degrees QTc Int : 438 ms Sinus rhythm with 1st degree A-V block possible Inferior infarct , age undetermined Abnormal ECG When compared with ECG of 29-JAN-2021 13:22, SC interval has increased Inferior infarct is now Present Confirmed by Edgar Moise ([id number]) on 01/30/2021 5:54:48 PM Referred By: REFERRED SELF Confirmed By:Perry Moise
--- NOTE | 2021-01-30 18:03 | Emergency Department Note ---
History of Present Illness General Chief complaint: Fall Stated complaint: Caregiver found on floor. Time Seen by Provider: 01/29/21 13:45 Source: patient, EMS and RN notes reviewed Mode of arrival: EMS Limitations: altered mental status (Some limitation to memory of recent events) History of Present Illness Provider complaint: Found on the floor Maximum Pain Intensity: 0 This patient is an 85-year-old male who presents to the emergency department after being found on the floor by his caregiver. The patient apparently lives at home by himself and has a caregiver 3 days a week. At sometime over the weekend he fell, he believes it was yesterday. Patient was found incontinent of stool and urine. He is uncertain of what happened, he denies losing consciousness or hitting his head but is unclear of the events. He believes that his legs became weak and he collapsed to the ground. Patient states he in general cooks his own food, but his caregiver grocery shops for him. He believ es he has been drinking enough fluids recently. He does not see the doctor very regularly. He denies any vomiting or diarrhea. History is somewhat limited due to his inability to remember the events preceding the visit. Home Medications Medication Instructions Recorded Confirmed Type amlodipine 5 mg PO DAILY 01/29/21 01/29/21 History atorvastatin 40 mg PO DAILY 01/29/21 01/29/21 History folic acid 1 mg PO DAILY 01/29/21 01/29/21 History metoprolol succinate 25 mg PO DAILY 01/29/21 01/29/21 History valsartan 320 mg PO DAILY 01/29/21 01/29/21 History Allergies Allergy/AdvReac Type Severity Reaction Status Date / Time No Known Allergies Allergy Unverified 01/29/21 13:56 Past Med/Surg History Medical History (Updated 01/30/21 @ 21:18 by Ginger Banda MD) CAD (coronary artery disease) Callus of foot History of non-ST elevation myocardial infarction (NSTEMI) HLD (hyperlipidemia) Hypertensive urgency Neuropathy Paroxysmal A-fib Right foot ulcer Family History Other Family history non-contributory Social History Smoking Status: Former smoker Tobacco Type: Cigarettes Second Hand Exposure: No; Do You Dip or Chew Tobacco: No; Tobacco Cessation Education Requested by Patient: No Hx Alcohol Use: No Hx Substance Use: No Preferred Language: Niuean Communication Ability: Effective Generator Repairer Required: No Beliefs That Will Affect Care: None marital status: Current Living Situation: Alone Current Living Situation Comment: Has a home care manager that comes 3 days a week Other Information That Helps Us Care for You: No Feels Safe at Home: Yes Safety Concerns: Feels Safe At This Time Assistive Devices: None Review of Systems See HPI for pertinent positives & negatives. and A total of 10 systems reviewed and were otherwise negative Physical Exam Vital signs reviewed. General: Elderly, somewhat ill-appearing 85-year-old male, in no significant distress. Noted by nursing staff to be incontinent of stool and urine. HEENT: No scleral icterus, PERRLA, neck supple. Atraumatic. Dry mucous membranes. Cardiovascular: Regular rate and rhythm, no extra sounds. Pulmonary: Crackles in the bases bilaterally, normal work of breathing. Abdomen: Soft, nontender, nondistended, positive bowel sounds. Musculoskeletal: Pressure wound, stage I to left hip of approximately 7 cm with erythema. Full range of motion of the bilateral lower extremities without difficulty. No pain with pelvic rocking. : Normal external male genitals, no swelling or rash appreciated. Neurologic: Patient awake alert and answers most questions appropriately. Memory is somewhat unclear. Skin: Warm, dry, no rash Course Administered Medications Amlodipine Besylate (Amlodipine Besylate 5 Mg Tab) 5 mg PO DAILY [facility] Stop: 03/01/21 08:59 Last Admin: 01/30/21 08:57 Dose: 5 mg Documented by: [id number] Atorvastatin Calcium (Atorvastatin 40 Mg Tab) 40 mg PO DAILY [facility] Stop: 03/01/21 08:59 Last Admin: 01/30/21 08:58 Dose: 40 mg Documented by: [id number] Folic Acid (Folic Acid 1 Mg Tab) 1 mg PO DAILY [facility] Stop: 03/01/21 08:59 Last Admin: 01/30/21 08:57 Dose: 1 mg Documented by: [id number] Heparin Sodium (Porcine) (Heparin Sod 5,000 Unit/0.5 Ml Vial) 5,000 units SQ Q8 [facility] Stop: 02/28/21 21:59 Last Admin: 01/30/21 14:50 Dose: Not Given Documented by: [id number] Admin: 01/30/21 06:24 Dose: 5,000 units Documented by: [id number] Admin: 01/29/21 23:03 Dose: 5,000 units Documented by: [id number] Lactated Ringer's (Lr) 1,000 mls @ 90 mls/hr IV .Q11H7M ONE Stop: 01/30/21 21:53 Last Admin: 01/30/21 11:11 Dose: 90 mls/hr Documented by: [id number] Metoprolol Succinate (Metoprolol Succ 25mg Ext Rel Tab) 25 mg PO DAILY [facility] Stop: 03/01/21 08:59 Last Admin: 01/30/21 08:57 Dose: 25 mg Documented by: [id number] Valsartan (Valsartan 80 Mg Tab) 320 mg PO DAILY [facility] Stop: 03/01/21 11:29 Last Admin: 01/30/21 12:31 Dose: 80 mg Documented by: [id number] Discontinued Medications Sodium Chloride (Nss 1000ml) 1,000 mls @ 125 mls/hr IV .Q8H [facility] Stop: 01/29/21 22:29 Last Infusion: 01/29/21 20:08 Dose: 0 mls/hr Documented by: [id number] Infusion: 01/29/21 20:07 Dose: 125 mls/hr Documented by: [id number] Admin: 01/29/21 15:12 Dose: 125 mls/hr Documented by: [id number] Lactated Ringer's (Lr) 1,000 mls @ 125 mls/hr IV .Q8H [facility] Stop: 02/28/21 17:59 Last Admin: 01/30/21 11:09 Dose: Not Given Documented by: [id number] Infusion: 01/30/21 11:08 Dose: 0 mls/hr Documented by: [id number] Admin: 01/30/21 04:55 Dose: 125 mls/hr Documented by: [id number] Infusion: 01/30/21 04:14 Dose: 125 mls/hr Documented by: [id number] Admin: 01/29/21 20:14 Dose: 125 mls/hr Documented by: [id number] Labetalol HCl (Labetalol Hcl Iv 5 Mg/Ml 20ml) 10 mg IV NOW STA Stop: 01/30/21 01:48 Last Admin: 01/30/21 02:21 Dose: Not Given Documented by: [id number] Medical Decision Making Differential Diagnosis Infection, dehydration, metabolic abnormality, hypo/hyperglycemia, electrolyte disturbance, anemia, hypoxia, cardiac sources, intracerebral event, toxicologic, neurologic, as well as other pathologies. Medical Records Attestation: I reviewed the patient's medical records. Home Medications Current Medication List: was personally reviewed by me Laboratory Data Attestation: I reviewed the patient's lab results. Result diagrams: 01/30/21 07:11 01/30/21 07:11 Lab Results 01/29/21 01/29/21 01/29/21 Range/Units 14:26 15:14 15:14 WBC 12.25 H (4.8-10.8) K/uL RBC 4.49 L (4.7-6.1) M/uL Hgb 14.2 (14.0-18.0) g/dL Hct 41.2 L (42-52) % MCV 91.8 (80-100) fL MCH 31.6 (25-34) pg MCHC 34.5 (32-36) g/dL RDW Std Deviation 43.9 (36.4-46.3) fL RDW Coeff of Allison 13.1 (11.5-14.5) % Plt Count 314 (130-400) K/uL MPV 10.1 (7.4-10.4) fL Immature Gran % (Auto) 0.2 % Neut % (Auto) 81.5 % Lymph % (Auto) 9.0 % [place] % (Auto) 9.1 % Eos % (Auto) 0.1 % Baso % (Auto) 0.1 % Neut # (Auto) 9.98 H (1.4-6.5) K/uL Lymph # (Auto) 1.10 L (1.2-3.4) K/uL [place] # (Auto) 1.12 H (0.11-0.59) K/uL Eos # (Auto) 0.01 (0-0.5) K/uL Baso # (Auto) 0.01 (0-0.2) K/uL Immature Gran # (Auto) 0.03 H (0.00-0.02) K/uL Sodium 141 (136-145) mmol/L Potassium 5.0 (3.5-5.1) mmol/L Chloride 108 H (98-107) mmol/L Carbon Dioxide 27 (21-32) mmol/L Anion Gap 6.0 (3-11) BUN 19 H (7-18) mg/dl Creatinine 1.23 (0.6-1.4) mg/dl Est Cr Clr Drug Dosing 43.0 ml/min Est GFR ( Amer) 60.8 ml/min Est GFR (Non-Af Amer) 52.5 ml/min BUN/Creatinine Ratio 15.7 (10-20) Glucose 110 H (70-99) mg/dl Calcium 9.3 (8.5-10.1) mg/dl Phosphorus 2.3 L (2.5-4.9) mg/dl Magnesium 2.2 (1.8-2.4) mg/dl Total Bilirubin 1.4 H (0.2-1) mg/dl AST 42 H (15-37) U/L ALT 22 (12-78) U/L Alkaline Phosphatase 83 (45-117) U/L Total Creatine Kinase 788 H (39-308) U/L Total Protein 7.6 (6.4-8.2) gm/dl Albumin 4.0 (3.4-5.0) gm/dl Globulin 3.6 (2.5-4.0) gm/dl Albumin/Globulin Ratio 1.1 (0.9-2) TSH 0.532 (0.300-4.500) uIu/ml Urine Color Yellow Urine Appearance Clear (Clear) Urine pH 6.5 (4.5-7.5) Ur Specific [place] 1.021 (1.000-1.030) Urine Protein 3+ H (Negative) Urine Glucose (UA) Negative (Negative) Urine Ketones 1+ H (Negative) Urine Blood 2+ H (Negative) Urine Nitrite Negative (Negative) Urine Bilirubin Negative (Negative) Urine Urobilinogen Negative (Negative) Ur Leukocyte Esterase Negative (Negative) Urine WBC (Auto) 5-10 H (0-5) /hpf Urine RBC (Auto) 5-10 H (0-4) /hpf U Hyaline Cast (Auto) 5-10 H (0-5) /lpf U Epithel Cells (Auto) >30 H (0-5) /lpf Urine Bacteria (Auto) Negative (Negative) Ur Renal Epithelial Cell Not Reportable COVID-19 Eval Order SARS-CoV-2 (PCR) (Negative) 01/29/21 01/29/21 Range/Units 16:06 16:06 WBC (4.8-10.8) K/uL RBC (4.7-6.1) M/uL Hgb (14.0-18.0) g/dL Hct (42-52) % MCV (80-100) fL MCH (25-34) pg MCHC (32-36) g/dL RDW Std Deviation (36.4-46.3) fL RDW Coeff of Allison (11.5-14.5) % Plt Count (130-400) K/uL MPV (7.4-10.4) fL Immature Gran % (Auto) % Neut % (Auto) % Lymph % (Auto) % [place] % (Auto) % Eos % (Auto) % Baso % (Auto) % Neut # (Auto) (1.4-6.5) K/uL Lymph # (Auto) (1.2-3.4) K/uL [place] # (Auto) (0.11-0.59) K/uL Eos # (Auto) (0-0.5) K/uL Baso # (Auto) (0-0.2) K/uL Immature Gran # (Auto) (0.00-0.02) K/uL Sodium (136-145) mmol/L Potassium (3.5-5.1) mmol/L Chloride (98-107) mmol/L Carbon Dioxide (21-32) mmol/L Anion Gap (3-11) BUN (7-18) mg/dl Creatinine (0.6-1.4) mg/dl Est Cr Clr Drug Dosing ml/min Est GFR ( Amer) ml/min Est GFR (Non-Af Amer) ml/min BUN/Creatinine Ratio (10-20) Glucose (70-99) mg/dl Calcium (8.5-10.1) mg/dl Phosphorus (2.5-4.9) mg/dl Magnesium (1.8-2.4) mg/dl Total Bilirubin (0.2-1) mg/dl AST (15-37) U/L ALT (12-78) U/L Alkaline Phosphatase (45-117) U/L Total Creatine Kinase (39-308) U/L Total Protein (6.4-8.2) gm/dl Albumin (3.4-5.0) gm/dl Globulin (2.5-4.0) gm/dl Albumin/Globulin Ratio (0.9-2) TSH (0.300-4.500) uIu/ml Urine Color Urine Appearance (Clear) Urine pH (4.5-7.5) Ur Specific [place] (1.000-1.030) Urine Protein (Negative) Urine Glucose (UA) (Negative) Urine Ketones (Negative) Urine Blood (Negative) Urine Nitrite (Negative) Urine Bilirubin (Negative) Urine Urobilinogen (Negative) Ur Leukocyte Esterase (Negative) Urine WBC (Auto) (0-5) /hpf Urine RBC (Auto) (0-4) /hpf U Hyaline Cast (Auto) (0-5) /lpf U Epithel Cells (Auto) (0-5) /lpf Urine Bacteria (Auto) (Negative) Ur Renal Epithelial Cell COVID-19 Eval Order Covid19 at [facility] SARS-CoV-2 (PCR) NEGATIVE (Negative) Imaging Data Radiologist's Impression: Cervical Spine CT 01/29/21 14:30 CT OF THE CERVICAL SPINE CLINICAL HISTORY: fall COMPARISON STUDY: No previous studies for comparison. CT DOSE: 1086.69 mGy.cm TECHNIQUE: CT scan of the cervical spine was performed from the skull base to the thoracic inlet. Images are reviewed in the axial, sagittal, and coronal planes. IV contrast was not administered for this examination. A dose lowering technique was utilized adhering to the principles of ALARA. FINDINGS: The visualized portions of the lung apices reveal no evidence of pneumothorax. The prevertebral soft tissues are normal. No fractures or subluxations are visualized. There are multilevel degenerative changes. Exaggerated cervical lordosis is seen. Mild diffuse osteopenia is demonstrated. Multilevel anterior osteophytes are seen. Heavy vascular calcifications are seen in the anatomical region of bilateral ca rotid arteries. C2-C3: Intervertebral disc space is preserved. Osseous portion of the central canal and bilateral neuroforamina are patent. C3-C4: Mild narrowing of intervertebral disc space. Osseous portion of the central canal and right neural foramina are patent. Mild narrowing of the left neuroforamina. C4-C5: Intervertebral disc space is preserved. Posterior osteophytes are seen. Central canal is patent. Bilateral neuroforamina are patent. C5-C6: Intervertebral disc space is preserved. Central canal is patent. Mild to moderate narrowing of the right neural foramina. Mild narrowing of the left neuroforamina due to osteophytes. C6-7: Intervertebral disc space narrowing and posterior osteophytes are seen. Evaluation of the central canal on the axial images limited due to exaggerated cervical lordosis. Central canal and right neural foramina is patent. Mild narrowing of the left neuroforamina. C7-T1: Intervertebral disc spaces preserved. Central canal and bilateral neurof oramina are patent. IMPRESSION: 1. No acute fracture or traumatic malalignment is seen. Evaluation is limited due to severe diffuse osteopenia. 2. Multilevel degenerative changes as detailed above. ACT 112: Negative or not required by law. The above report was generated using voice recognition software. It may contain grammatical, syntax or spelling errors. Electronically signed by: Virginia Araiza DO 01/29/2021 3:54 PM Chest X-Ray 01/29/21 14:30 XR chest 1V portable HISTORY: weakness COMPARISON: Chest 01/12/2020. FINDINGS: The lungs are clear. Cardiac silhouette is normal in size. No pleural effusions. No pneumothorax. IMPRESSION: No acute process. ACT 112: Negative or not required by law. Electronically signed by: Jitendra Ingram M.D. 01/29/2021 3:[address] 01/29/21 14:30 CT SCAN OF THE BRAIN WITHOUT IV CONTRAST CLINICAL HISTORY: Fall. COMPARISON STUDY: CT of the brain dated 01/11/2020. TECHNIQUE: Unenhanced axial CT scan of the brain is performed from the vertex to the skull base. A dose lowering technique was utilized adhering to the principles of ALARA. FINDINGS: Brain parenchyma: There are age-related involutional changes noting moderate subcortical and periventricular microangiopathic change. There is no hemorrhage, mass effect, or evidence of acute territorial ischemia by CT criteria. Travis- white matter differentiation is preserved. No extra-axial fluid collection is seen. Ventricles, sulci, cisterns: Prominent secondary to involutional change. Intracranial vasculature: There is atherosclerotic calcification of the cavernous carotid and vertebral arteries. Calvarium: Unremarkable. Sinuses and mastoids: Trace mucosal thickening is seen in the left maxillary antrum and the ethmoid sinuses. The remaining visualized paranasal sinuses are c lear. The mastoid air cells are well pneumatized. Orbits: The bony orbits are grossly intact. IMPRESSION: There is no hemorrhage, mass effect, or evidence of acute territorial ischemia by CT criteria. ACT 112: Negative or not required by law. Electronically signed by: Amor Peterson M.D. 01/29/2021 3:35 PM ECG Data Attestation: I personally reviewed and interpreted this ECG as follows: Rate (beats per minute): 66 Rhythm: + normal sinus ECG Intervals/blocks: + Normal QT-c ECG Jonancy: + Normal ECG ST segments: + Normal ST segments ECG Findings: no PACs and no PVCs Blood Pressure Blood Pressure Findings: Elevated blood pressure Blood Pressure Disposition: further management by hospitalist MDM Narrative This patient was evaluated and appeared to be in no significant distress. IV access was obtained and laboratory work was drawn. An order for cardiac monitoring was placed and the patient was noted to be in a normal sinus rhythm. Patient was hydrated with normal saline solution. Patient's total CK is 788. Head CT reveals no evidence of acute intracranial abnormality. EKG reveals no acute abnormality. Urinalysis is contaminated, unlikely to be infected. In the mean and the patient is not safe with his current living environment and will require intensive case management support for safe disposition. The hospitalist has been consulted for further management. Patient is aware of the plan and a grees. Impression & Plan Unable to care for self, Weakness, Fall Discharge Plan Visit Data Chief Complaint: Fall Stated Complaint: Caregiver found on floor. ED Provider: Ginger Banda Discharge Problem: Unable to care for self, Weakness, Fall Patient Disposition: Admitted As Inpatient Discharge Instructions Interventions: ED Discharge Assessment Last Done: 01/29/21 18:49 Discharge Problem: Fall Qualifiers: Encounter type: initial encounter Qualified Code(s): W19.XXXA - Unspecified fall, initial encounter
[2021-01-30] MEDS ORDERED: LORazepam 0.5 MG/1 ML VIAL IV PRN (18:11)
--- NOTE | 2021-01-30 18:16 | XCELERA ---
[id number]
[2021-01-30] MEDS ORDERED: MELATONIN 3 MG TAB PO ONE (21:00)
[2021-01-31] MEDS: HEPARIN SOD 5,000 UNIT/0.5 ML VIAL SQ SCH ×3 (06:00→21:52)
[2021-01-31 06:56] LABS: Basophils # (auto) 0.01 K/uL (0-0.2); Basophils % (auto) 0.1 %; Eosinophils # (auto) 0.08 K/uL (0-0.5); Eosinophils % (auto) 1.1 %; Hematocrit (blood only) 37.9 % (42-52); Hemoglobin 12.6 g/dL (14.0-18.0); Immature Granulocytes # (auto) 0.01 K/uL (0.00-0.02); Immature Granulocytes % (auto) 0.1 %; Lymphocytes # (auto) 1.96 K/uL (1.2-3.4); Lymphocytes % (auto) 26.5 %; Mean Corpuscular Hemoglobin 31.4 pg (25-34); Mean Corpuscular Hgb Conc 33.2 g/dL (32-36); Mean Corpuscular Volume 94.5 fL (80-100); Mean Platelet Volume 9.9 fL (7.4-10.4); Monocytes # (auto) 0.77 K/uL (0.11-0.59); Monocytes % (auto) 10.4 %; Neutrophils # (auto) 4.57 K/uL (1.4-6.5); Neutrophils % (auto) 61.8 %; Platelet Count 279 K/uL (130-400); RDW Coefficient of Variation 13.1 % (11.5-14.5); RDW Standard Deviation 45.4 fL (36.4-46.3); Red Blood Count 4.01 M/uL (4.7-6.1)
[2021-01-31 07:29] LABS: BUN Creatinine Ratio 21.7 (10-20); Calcium 9.4 mg/dl (8.5-10.1); Creatinine Clr Calc Pharmacy 45.5 ml/min; Est GFR (African American) 68.1 ml/min; Est GFR (Non-African American) 58.7 ml/min; Magnesium 2.1 mg/dl (1.8-2.4)
[2021-01-31] MEDS: FOLIC ACID 1 MG TAB PO SCH (08:09)
[2021-01-31] MEDS: VALSARTAN 80 MG TAB PO SCH (08:09)
[2021-01-31] MEDS: amLODIPine BESYLATE 5 MG TAB PO SCH (08:09)
[2021-01-31] MEDS: METOPROLOL SUCC 25MG EXT REL TAB PO SCH (08:09)
[2021-01-31] MEDS: ATORVASTATIN 40 MG TAB PO SCH (08:09)
--- NOTE | 2021-01-31 09:05 | Hospitalist Progress Note ---
Date of Service January 31, 2021 Assessment & Plan (1) Fall: Patient post fall and found down presumed overnight into [id number], with caregiver friend notifying EMS yesterday - Patient continues to have poor use of his ambulatory aid as well as cognitive and muscular decline - PT evals from December consistent with recommending skilled rehab- patient has been resistant - Case management consult placed- As of this morning patient appears to be willing to go to rehab facility - PT/OT consult placed - High fall risk - Initial CT scan negative for acute process - neuro checks q4 hours, any acute change repeat non-con head CT - will discontinue neurological exams today as no acute changes overnight. (2) Bilateral leg weakness: as above- continue ambulatory aids - strengthening and coordination needed, patient unlikely to be able to perform by himself (3) Physical deconditioning: As above- await Physical therapy evaluation today - Discuss with case management as above (4) Elevated CK: CK 788 mild---down to 624 this morning. Rosales score at cutoff of 6 for low risk - Change IVF to LR at 90 ml/hr for one more liter today - BMP in the morning (5) Elevated troponin I level: Unlikely acute event with no dynamic ECG changes - Troponin may be elevated with his Mild rhabdo- as troponin may increases with this but the troponin increase is not proportionally relative to the severity of rhabdo - Will obtain ECHO today evaluate for WMA or arrythmias - Trend out Troponins with ECG - BP control as below (6) Hypertension: Controlled, no acute needs and does not appear to be syncopal episode - Continue amlodipine - Continue Metoprolol succinate 25mg daily - Restart ARB this morning. re-evaluate protein and blood in urine- His WALL SCRAPER downtrended to 1.08 froom 1.23 - BUN WALL SCRAPER stable, did require one dose of Labetalol last eveing (7) Paroxysmal A-fib: Rate controlled currently NSR - per chart review found in 2019- with acute illness - No events- ECG pending this morning (8) CAD (coronary artery disease): NSTEMI history As above (9) Urinary retention: bladder scan with straight cath as needed his urine is nonspecific, but with RBC, protein and casts. - resend urine in morning following hydration if desired (10) Hypertensive crisis: initially treated with iv labetalol (11) Demand ischemia: secondary to hypertensive crisis Admission and Anticipated Discharge Date Admission Date: January 29, 2021 Results & Data Results & Data ([facility]) Vital Signs (Past 12 Hours) Vital Signs Temp Pulse Pulse Resp BP BP Pulse Ox 01/31/21 07:45 97.9 F 63 20 158/63 H 96 01/31/21 03:52 97.3 F L 64 16 197/86 H 96 01/30/21 23:42 65 01/30/21 23:33 97.5 F L 62 16 186/80 H 96 PG Care Time/CCT Total # of Minutes Spent Total Time Spent with Patient: Total time spent is greater than 50% in coordination of care (as documented) at patient's floor/unit and/or counseling patient: Coding Diagnoses Fall W19.XXXD Encounter type: subsequent encounter Bilateral leg weakness R29.898 Physical deconditioning R53.81 Elevated CK R74.8 Elevated troponin I level R77.8 Hypertension I10 Hypertension type: unspecified Paroxysmal A-fib I48.0 CAD (coronary artery disease) I25.10 Coronary Disease-Associated Artery/Lesion type: unspecified vessel or lesion type [place] vs. transplanted heart: [place] heart Associated angina: without angina Urinary retention R33.9 Hypertensive crisis I16.9 Demand ischemia I24.8 (1) Fall Encounter type: subsequent encounter Qualified Code(s): W19.XXXD - Unspecified fall, subsequent encounter (2) Hypertension Hypertension type: unspecified Qualified Code(s): I10 - Essential (primary) hypertension (3) CAD (coronary artery disease) Coronary Disease-Associated Artery/Lesion type: unspecified vessel or lesion type [place] vs. transplanted heart: [place] heart Associated angina: without angina Qualified Code(s): I25.10 - Atherosclerotic heart disease of [place] coronary artery without angina pectoris
[2021-02-01] MEDS: HEPARIN SOD 5,000 UNIT/0.5 ML VIAL SQ SCH ×2 (05:43→14:59)
[2021-02-01] MEDS: ATORVASTATIN 40 MG TAB PO SCH (08:27)
[2021-02-01] MEDS: amLODIPine BESYLATE 5 MG TAB PO SCH (08:27)
[2021-02-01] MEDS: VALSARTAN 80 MG TAB PO SCH (08:27)
[2021-02-01] MEDS: METOPROLOL SUCC 25MG EXT REL TAB PO SCH (08:28)
[2021-02-01] MEDS: FOLIC ACID 1 MG TAB PO SCH (08:28)
[2021-02-01 10:28] LABS: Basophils # (auto) 0.01 K/uL (0-0.2); Basophils % (auto) 0.2 %; Eosinophils % (auto) 1.6 %; Hemoglobin 12.3 g/dL (14.0-18.0); Immature Granulocytes # (auto) 0.01 K/uL (0.00-0.02); Immature Granulocytes % (auto) 0.2 %; Lymphocytes # (auto) 1.85 K/uL (1.2-3.4); Mean Corpuscular Hemoglobin 31.6 pg (25-34); Mean Corpuscular Hgb Conc 33.2 g/dL (32-36); Mean Corpuscular Volume 95.1 fL (80-100); Mean Platelet Volume 10.1 fL (7.4-10.4); Monocytes # (auto) 0.72 K/uL (0.11-0.59); Monocytes % (auto) 11.7 %; Neutrophils # (auto) 3.48 K/uL (1.4-6.5); Neutrophils % (auto) 56.3 %; Platelet Count 292 K/uL (130-400); RDW Coefficient of Variation 13.4 % (11.5-14.5); RDW Standard Deviation 46.5 fL (36.4-46.3); Red Blood Count 3.89 M/uL (4.7-6.1); White Blood Count 6.17 K/uL (4.8-10.8)
[2021-02-01 10:47] LABS: BUN Creatinine Ratio 26.4 (10-20); Calcium 9.4 mg/dl (8.5-10.1); Creatinine Clr Calc Pharmacy 37.8 ml/min; Est GFR (African American) 54.3 ml/min; Est GFR (Non-African American) 46.9 ml/min; Magnesium 2.1 mg/dl (1.8-2.4); Potassium 4.2 mmol/L (3.5-5.1)
--- NOTE | 2021-02-01 15:08 | Electrocardiogram Report ---
Test Reason : Blood Pressure : / mmHG Vent. Rate : 072 BPM Atrial Rate : 072 BPM P-R Int : 210 ms QRS Dur : 088 ms QT Int : 408 ms P-R-T Axes : 079 028 064 degrees QTc Int : 446 ms Poor data quality, interpretation may be adversely affected Sinus rhythm with 1st degree A-V block Otherwise normal ECG When compared with ECG of 30-JAN-2021 11:49, No significant change was found Confirmed by Edgar Moise ([id number]) on 02/01/2021 3:08:11 PM Referred By: REFERRED SELF Confirmed By:Perry Moise
--- NOTE | 2021-02-01 18:15 | Discharge Summary ---
Date of Service February 01, 2021 Admission HPI Per Admitting Provider 85 YOM with past medical history of: Afib (not on anticoagulation), HLD, CAD, NSTEMI, deconditioning, weakness, frequent falls, urinary retention. Patient lives by himself in a condo and has a friend who checks on him per his report. Patient comes in today after his friend found him on the ground this morning, she called EMS and he was brought to the emergency room. He recalls that "he put himself on the floor last night", because he didin't have his walker close by. Patient has been admitted in December 2020 for a falls, at that time it was recorded as 2 falls in one day an 4 falls over the month. The patient is difficult to get history out secondary to stuttering and stammering. However, when he is just talking about regular things, he has no defect in speech. He has followed up with orthopaedics in December for workup of his lower extremity weakness, was set up with physical therapy. PT evaluation with impaired cognitive and motor processing and impaired functional mobility. Was given an exercise plan that patient is unlikely able to complete on his own. Patient had cervical CT spine performed and head CT performed in the [facility] with no acute findings. ECG- was NSR. Labs revealed mild elevation of CPK to 788, his Adhikari score is 6. Will be admitted to continue IV resuscitation as well as PT/OT, case management consult placed. Patient will likely need rehab facility to get him to a better functional status if possible. Principal Diagnosis Mechanical fall and deconditioning Discharge Exam The patient appeared well Vital signs as documented. Lungs are clear to auscultation and appear unlabored Cardiac exam, Rhythm is regular.. No murmurs, rubs or gallops. Abdominal exam reveals normal bowel sounds, soft non tender, no masses Extremities are nonedematous and both pedal pulses are normal. Neurologic exam is alert and oriented, no focal loss of strength or sensation Skin is without bruises or rashes Psychologically is without concerns for anxiety or depression. Discharge Data Allergies Allergy/AdvReac Type Severity Reaction Status Date / Time No Known Allergies Allergy Unverified 01/29/21 13:56 Consultations 01/29/21 16:55 ED Decision to Admit Stat Ordered Studies 01/29/21 14:30 CT cervical spine wo con Stat CT head/brain wo con Stat Hospital Course (1) Fall: Patient post fall and found down presumed overnight into [id number], with caregiver friend notifying EMS yesterday - Patient continues to have poor use of his ambulatory aid as well as cognitive and muscular decline - PT evals from December consistent with recommending skilled rehab- patient has been resistant - Case management consult placed- As of this morning patient appears to be willing to go to rehab facility - PT/OT consult placed - High fall risk - Initial CT scan negative for acute process - (2) Bilateral leg weakness: as above- continue ambulatory aids - strengthening and coordination needed, patient unlikely to be able to perform by himself (3) Physical deconditioning: As above- await Physical therapy evaluation today - Discuss with case management as above (4) Elevated CK: CK 788 mild---down patient has no physical untoward effects from his elevated CK (5) Hypertension: Controlled, no acute needs and does not appear to be syncopal episode - Continue amlodipine - Continue Metoprolol succinate 25mg daily -Valsartan 320 mg a day (6) Paroxysmal A-fib: Rate controlled currently remains in NSR - per chart review found in 2019- with acute illness - (7) CAD (coronary artery disease): NSTEMI history As above (8) Urinary retention: bladder scan with straight cath as needed his urine is nonspecific, but with RBC, protein and casts. - resend urine in morning following hydration if desired Total Time Total Time Spent Total Time Spent (In Minutes): It required less than 30 minutes to prepare this patient for discharge Discharge Plan Discharge Items Patient Disposition: Transfer Prison [facility] Reason For Visit: FALL Discharge Diagnosis: mechanical fall deconditioning memory loss Activity: Per Instructions section Activity Comment: pr PT/OT Non-emergency contact: Primary Care Provider Call non-emergency contact if: you have any medication questions, your symptoms worsen and you have a fever Follow-up/Referrals: PCP,NO [Primary Care Provider] - Diet: Heart Healthy Addtl Attending Provider Instructions: please follow instructions as listed from rehab strongly consider home health Pending Studies at Discharge: No Stand-Alone Forms: My [employer] Skilled Items Patient informed of condition?: Yes DNR: No Discharge Level of Care: Acute rehab Communicable Disease: No Discharge Prognosis: Stable Lines: None Urinary Catheter: No Medications and DC Order Prescriptions: New polyethylene glycol 3350 [Miralax] 17 gram Powder In Packet 17 g PO DAILY PRN (Reason: constipation) Qty: 30 RF: 0 Continued atorvastatin 40 mg tablet 40 mg PO DAILY RF: 0 amlodipine 5 mg tablet 5 mg PO DAILY RF: 0 valsartan 320 mg tablet 320 mg PO DAILY RF: 0 folic acid 1 mg tablet 1 mg PO DAILY RF: 0 metoprolol succinate 25 mg tablet extended release 24 hr 25 mg PO DAILY RF: 0 Discharge Orders: Discharge Order (Routine); Ordered 02/01/21 Ordered By: Rigo Boyd Admission Data Admit Date/Time: 01/29/21 18:20 Attending Provider: Rigo Boyd Admit Provider: Srinivas Turner Primary Care Provider: PCP,DANIEL Other Providers: Srinivas Turner ; [facility] Other Interventions: Discharge Summary Assessment (RN) Last Done: 02/01/21 13:07 Coding Level of Care Code D/C Day Management <30 mins Diagnoses Fall W19.XXXD Encounter type: subsequent encounter Bilateral leg weakness R29.898 Physical deconditioning R53.81 Elevated CK R74.8 Hypertension I10 Hypertension type: unspecified Paroxysmal A-fib I48.0 CAD (coronary artery disease) I25.10 Coronary Disease-Associated Artery/Lesion type: unspecified vessel or lesion type [place] vs. transplanted heart: [place] heart Associated angina: without angina Urinary retention R33.9
--- NOTE | 2021-02-09 11:41 | Coding Query ---
CODING QUERY To promote full compliance with coding requirements relating to patient care, provider participation is requested in all cases of turret lathe operator uncertainty. Please assist us with the question(s) below: Coding Question(s): "Mild Metabolic Encephalopathy-supportive care" is documented on the H&P and does not make discharge summary. Please clarify below: ( ) Metabolic Encephalopathy ( xx) Metabolic Encephalopathy Ruled Out ( ) Other Please Explain: Thank you Srikanth Thompson Principal Diagnosis: "that condition established after study, to be chiefly responsible for occasioning the admission of the patient to the hospital for care." Co-Existing Principal Diagnosis: "when two or more diagnoses equally meet the criteria for principal diagnosis as determined by the circumstances of admission, diagnostic work up, and/or therapy provided, and the Alphabetic Index, Tabular List, or another coding guideline does not provide sequencing direction, any one of the diagnoses may be sequenced first." "When the physician has documented what appears to be a current diagnosis in the body of the record, but has not included the diagnosis in the final diagnostic statement, the physician should be asked whether the diagnosis should be added." (Source Coding [facility] 2 QTR90. p3-4) THERESA
== END 2021-02-01 16:16 | DRG 92 ==
LOC: ED 13:02 → SUATTDRO 18:20 → 3N 18:20 → 2N 23:20

== ENCOUNTER 2021-03-06 14:55 | Inpatient (IN) ==
[2021-03-06] MEDS ORDERED: SODIUM CHLORIDE 0.9% 500 ML IV ONE (16:05)
[2021-03-06 16:12] LABS: Basophils # (auto) 0.01 K/uL (0-0.2); Basophils % (auto) 0.2 %; Eosinophils # (auto) 0.03 K/uL (0-0.5); Eosinophils % (auto) 0.6 %; Hematocrit (blood only) 35.8 % (42-52); Hemoglobin 11.9 g/dL (14.0-18.0); Immature Granulocytes # (auto) 0.01 K/uL (0.00-0.02); Immature Granulocytes % (auto) 0.2 %; Lymphocytes # (auto) 1.19 K/uL (1.2-3.4); Lymphocytes % (auto) 24.8 %; Mean Corpuscular Hemoglobin 31.4 pg (25-34); Mean Corpuscular Hgb Conc 33.2 g/dL (32-36); Mean Corpuscular Volume 94.5 fL (80-100); Mean Platelet Volume 9.8 fL (7.4-10.4); Monocytes # (auto) 0.52 K/uL (0.11-0.59); Monocytes % (auto) 10.8 %; Neutrophils # (auto) 3.04 K/uL (1.4-6.5); Neutrophils % (auto) 63.4 %; Platelet Count 273 K/uL (130-400); RDW Coefficient of Variation 13.3 % (11.5-14.5); RDW Standard Deviation 45.5 fL (36.4-46.3); Red Blood Count 3.79 M/uL (4.7-6.1)
[2021-03-06 16:19] LABS: Alanine Aminotransferase 24 U/L (12-78); Albumin Level 3.7 gm/dl (3.4-5.0); Aspartate Aminotransferase 21 U/L (15-37); BUN Creatinine Ratio 15.1 (10-20); Blood Urea Nitrogen 20 mg/dl (7-18); Calcium 9.1 mg/dl (8.5-10.1); Carbon Dioxide 27 mmol/L (21-32); Chloride 111 mmol/L (98-107); Creatinine Clr Calc Pharmacy 39.9 ml/min; Est GFR (African American) 56.9 ml/min; Est GFR (Non-African American) 49.1 ml/min; Glucose 90 mg/dl (70-99); Lipase 196 U/L (73-393); Magnesium 2.3 mg/dl (1.8-2.4); Potassium 4.5 mmol/L (3.5-5.1); Sodium 143 mmol/L (136-145)
[2021-03-06 16:21] LABS: Partial Thromboplastin Time 27.4 Seconds (21.0-31.0); Prothrombin Time 10.4 Seconds (9.0-12.0)
[2021-03-06 16:23] LABS: Albumin Globulin Ratio 1.1 (0.9-2); Alkaline Phosphatase 74 U/L (45-117); Bilirubin,Total 0.6 mg/dl (0.2-1); Creatine Kinase 35 U/L (39-308); Globulin 3.2 gm/dl (2.5-4.0); Total Protein 6.9 gm/dl (6.4-8.2); Troponin I < 0.015 ng/ml (0-0.045)
--- NOTE | 2021-03-06 16:24 | XRay Report ---
XR chest 1V portable CLINICAL HISTORY: Atypical chest pain COMPARISON STUDY: 01/29/2021 FINDINGS: The cardiac and mediastinal contours are normal. There is no evidence of focal pulmonary co nsolidation. There is no evidence of failure. No pleural effusions are visualized.[ IMPRESSION: No active disease in the chest. ACT 112: Negative or not required by law. Electronically signed by: Osmany Agustin M.D. 03/06/2021 4:22 PM
[2021-03-06 16:55] LABS: Appearance Urine Clear (Clear); Bilirubin Urine Negative (Negative); Blood Urine Negative (Negative); Color Urine Yellow; Glucose Urine UA Negative (Negative); Ketones Urine Negative (Negative); Leukocyte Esterase Urine Negative (Negative); Nitrite Urine Negative (Negative); Protein Urine Negative (Negative); Specific Gravity Urine 1.007 (1.000-1.030); Urobilinogen Urine Negative (Negative); pH Urine 5.5 (4.5-7.5)
--- NOTE | 2021-03-06 16:58 | Emergency Department Note ---
Impression & Plan Generalized muscle weakness, Neuropathy, Impaired ambulation, Unable to care for self ED Provider Note NAME: BLANCA MURDOCK AGE: 85 SEX: M ARRIVES VIA: Ambulance INFORMANT: Patient, ED PROVIDER(S): Wilfred Gunderson MD CHIEF COMPLAINT: Weakness PLAN: Disposition: Admit MEDICAL DECISION MAKING: The patient is a pleasant 85-year-old gentleman with a past medical history of CAD, afib not on anticoagulation, history of an STEMI, hypertension, HLD, neuropathy, ambulatory dysfunction who presents to the emergency department from home for generalized weakness that he reports has progressively worsened over the past week and much more severe today where he felt he could not get out of bed due to his leg weakness. He reports to me that he contacted his son who called the ambulance for him was brought to the hospital. This occurs in the setting of admission from 01/29-02/01 for similar lower extremity weakness that led to the patient being found down by a friend who found him on the ground in his condo after a suspected prolonged period on the ground overnight, his CPK was mildly elevated at that time, and he was ultimately transferred to [facility] for acute rehab. He is a poor historian regarding any of the details of his recent medical issues and cannot remember how long he was at rehab/when he was discharged. On arrival the patient is chronically ill-appearing but no acute distress, afebrile, with BP elevated in the setting of not taking his medications today and otherwise vital signs are stable. He exhibits generalized weakness throughout without focal neurologic deficits. EKG without overt acute ischemia. Chest x-ray negative for acute cardiopulmonary process. WBC and platelets within normal limits. H/H 11.9/35.8 similar to prior range of values. Chemistry without metabolic acidosis. BUN 20 consistent with patient's clinically dry appearance. LFTs are unremarkable. CPK is not elevated. Troponin negative/undetectable. UA without convincing evidence of infection. COVID-[address] of the head negative for acute process. CT of the abdomen pelvis negative for acute process. Upon reevaluation patient denied any significant improvement following IV fluid hydration. We did inquire with [facility] acute rehab to see if they had beds available to place directly from the emergency department, however there were no beds tonight. Of note, they did confirm that his prior admission to their facility from from his [facility] discharge on 02/01 to 02/16. The patient's initial response to the possibility of returning to [facility] was that he did not want to return there but ultimately acknowledges that he would if there is "no other option". He is in agreement with plan for admission for further evaluation and likely placement. Case was discussed with Dr. Quinones, [facility] hospitalist, who will evaluate the patient for admission. Triage Nursing notes reviewed and agree them. Prior medical records reviewed Vital Signs: reviewed and remarkable for hypertension in setting of not taking his medications. Differential diagnosis: Infection, dehydration, metabolic abnormality, hypo/hyperglycemia, electrolyte disturbance, anemia, hypoxia, cardiac sources, intracerebral event, toxicologic, neurologic, as well as other pathologies. ER treatment provided: See below. Diagnostics interpreted by me: ECG: Likely atrial fibrillation, 66 bpm, no ectopy, TWA, no overt ST elevation or depression, QTC 423, QRS 74. Significant baseline artifact noted. Cardiac Monitoring: An order for continuous cardiac monitoring was placed and demonstrated atrial fibrillation, 66 bpm, no ectopy. Laboratory studies: See below Imaging studies: See below Consultation(s): Case was discussed with Dr. Quinones, [facility] hospitalist, who will evaluate the pat ient for admission. HPI: The patient is a pleasant 85-year-old gentleman with a past medical history of CAD, afib not on anticoagulation, history of an STEMI, hypertension, HLD, neuropathy, ambulatory dysfunction who presents to the emergency department from home for generalized weakness that he reports has progressively worsened over the past week and much more severe today where he felt he could not get out of bed due to his leg weakness. He reports to me that he contacted his son who called the ambulance for him was brought to the hospital. This occurs in the setting of admission from 01/29-02/01 for similar lower extremity weakness that led to the patient being found down by a friend who found him on the ground in his condo after a suspected prolonged period on the ground overnight, his CPK was mildly elevated at that time, and he was ultimately transferred to [facility] for acute rehab. He is a poor historian regarding any of the details of his recent medical issues and cannot remember how long he was at rehab/when he was discharged. ROS: See above HPI for pertinent positives & negatives. A total of 10 systems reviewed and were otherwise negative. PAST MEDICAL HISTORY:See Below PAST SURGICAL HISTORY:See Below FAMILY HISTORY:See Below SOCIAL HISTORY:See Below HOME MEDICATIONS:See Below ALLERGIES:See Below VITALS:See Below PHYSICAL EXAMINATION: GENERAL: Awake, alert, fatigued/chronically ill-appearing, in no distress HENT: Normocephalic, atraumatic. Oropharynx with dry mucous membranes and otherwise unremarkable. EYES: Normal conjunctiva. Sclera non-icteric. NECK: Supple. No nuchal rigidity. FROM. No JVD. RESPIRATORY: Clear to auscultation. CARDIAC: Regular rate, irregular rhythm. Extremities warm and well perfused. Pulses equal. ABDOMEN: Soft, non-distended. No tenderness to palpation. No rebound or guarding. No masses. RECTAL: Deferred. MUSCULOSKELETAL: Chest examination reveals no tenderness. The back is symmetrical on inspection without obvious abnormality. There is no CVA tenderness to palpation. No joint edema. LOWER EXTREMITIES: Calves are equal size bilaterally and non-tender. No edema. No discoloration. NEURO: No focal sensory or motor deficits. He has generalized weakness with 4/5 strength and SILT x 4 ext. SKIN: No rash or jaundice noted. 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 Installer Required: No Beliefs That Will Affect Care: None marital status: / Current Living Situation: Alone Current Living Situation Comment: Has a home care companion that comes 3 days a week Feels Safe at Home: No Is there a partner from a previous relationship who is making you feel unsafe now?: No Assistive Devices: Walker Allergies Allergies Allergy/AdvReac Type Severity Reaction Status Date / Time No Known Allergies Allergy Verified 03/06/21 17:08 Home Meds Home Medications Medication Instructions Recorded Confirmed amlodipine 5 mg tablet 5 mg PO DAILY 01/29/21 03/06/21 atorvastatin 40 mg tablet 40 mg PO DAILY 01/29/21 03/06/21 folic acid 1 mg tablet 1 mg PO DAILY 01/29/21 03/06/21 metoprolol succinate 25 mg 25 mg PO DAILY 01/29/21 03/06/21 tablet,extended release 24 hr valsartan 320 mg tablet 320 mg PO DAILY 01/29/21 03/06/21 Previous Rx's Medication Instructions Recorded polyethylene glycol 3350 17 gram 17 g PO DAILY PRN #30 ea 02/01/21 oral powder packet (Miralax) Results & Data (ED) Vital Signs Vital Signs - 24 hr 03/06/21 15:00 03/06/21 15:12 03/06/21 15:30 Temperature 36.8 C Temperature Source Oral Pulse Rate 71 70 68 Pulse Rate from SpO2 Sensor 69 69 Respiratory Rate 20 21 20 Respiratory Effort / Characteristics Non-Labored Respiratory Depth Normal Blood Pressure 167/75 H 167/75 H 188/88 H Blood Pressure Mean 105 105 121 Blood Pressure Position Lying Pulse Oximetry 96 96 98 Oxygen Delivery Method Room Air Sepsis Recent Fever Within 48 Hours No Sepsis New/Unexplained Change in Mental Status No Sepsis Action Taken by Nursing No Action Required 03/06/21 15:48 03/06/21 16:02 03/06/21 16:15 Temperature Temperature Source Pulse Rate 60 60 Pulse Rate from SpO2 Sensor 60 59 L Respiratory Rate 22 20 Respiratory Effort / Characteristics Respiratory Depth Blood Pressure Blood Pressure Mean Blood Pressure Position Pulse Oximetry 96 96 99 Oxygen Delivery Method Room Air Sepsis Recent Fever Within 48 Hours Sepsis New/Unexplained Change in Mental Status Sepsis Action Taken by Nursing 03/06/21 16:30 03/06/21 17:00 03/06/21 17:36 Temperature 36.7 C Temperature Source Pulse Rate 59 L 60 172 H Pulse Rate from SpO2 Sensor 60 Respiratory Rate 18 20 19 Respiratory Effort / Characteristics Respiratory Depth Blood Pressure 194/73 H Blood Pressure Mean 113 Blood Pressure Position Pulse Oximetry 97 Oxygen Delivery Method Sepsis Recent Fever Within 48 Hours Sepsis New/Unexplained Change in Mental Status Sepsis Action Taken by Nursing 03/06/21 18:00 03/06/21 18:30 Temperature Temperature Source Pulse Rate 65 79 Pulse Rate from SpO2 Sensor 66 Respiratory Rate 19 27 H Respiratory Effort / Characteristics Respiratory Depth Blood Pressure 194/84 H 215/89 H Blood Pressure Mean 120 131 Blood Pressure Position Pulse Oximetry 97 Oxygen Delivery Method Sepsis Recent Fever Within 48 Hours Sepsis New/Unexplained Change in Mental Status Sepsis Action Taken by Nursing Laboratory Data Attestation: I reviewed the patient's lab results. Result diagrams: 03/06/21 15:45 03/06/21 15:45 Lab Results 03/06/21 03/06/21 03/06/21 Range/Units 15:38 15:45 15:45 WBC (4.8-10.8) K/uL RBC (4.7-6.1) M/uL Hgb (14.0-18.0) g/dL Hct (42-52) % MCV (80-100) fL MCH (25-34) pg MCHC (32-36) g/dL RDW Std Deviation (36.4-46.3) fL RDW Coeff of Allison (11.5-14.5) % Plt Count (130-400) K/uL MPV (7.4-10.4) fL Immature Gran % (Auto) % Neut % (Auto) % Lymph % (Auto) % Morrison % (Auto) % Eos % (Auto) % Baso % (Auto) % Neut # (Auto) (1.4-6.5) K/uL Lymph # (Auto) (1.2-3.4) K/uL Morrison # (Auto) (0.11-0.59) K/uL Eos # (Auto) (0-0.5) K/uL Baso # (Auto) (0-0.2) K/uL Immature Gran # (Auto) (0.00-0.02) K/uL PT 10.4 (9.0-12.0) Seconds INR 1.0 (0.9-1.1) APTT 27.4 (21.0-31.0) Seconds PTT Ratio 1.0 Sodium 143 (136-145) mmol/L Potassium 4.5 (3.5-5.1) mmol/L Chloride 111 H (98-107) mmol/L Carbon Dioxide 27 (21-32) mmol/L Anion Gap 4.0 (3-11) BUN 20 H (7-18) mg/dl Creatinine 1.30 (0.6-1.4) mg/dl Est Cr Clr Drug Dosing 39.9 ml/min Est GFR ( Amer) 56.9 ml/min Est GFR (Non-Af Amer) 49.1 ml/min BUN/Creatinine Ratio 15.1 (10-20) Glucose 90 (70-99) mg/dl Calcium 9.1 (8.5-10.1) mg/dl Phosphorus 3.0 (2.5-4.9) mg/dl Magnesium 2.3 (1.8-2.4) mg/dl Total Bilirubin 0.6 (0.2-1) mg/dl AST 21 (15-37) U/L ALT 24 (12-78) U/L Alkaline Phosphatase 74 (45-117) U/L Total Creatine Kinase 35 L (39-308) U/L Troponin I < 0.015 (0-0.045) ng/ml Total Protein 6.9 (6.4-8.2) gm/dl Albumin 3.7 (3.4-5.0) gm/dl Globulin 3.2 (2.5-4.0) gm/dl Albumin/Globulin Ratio 1.1 (0.9-2) Lipase 196 (73-393) U/L Urine Color Yellow Urine Appearance Clear (Clear) Urine pH 5.5 (4.5-7.5) Ur Specific [place] 1.007 (1.000-1.030) Urine Protein Negative (Negative) Urine Glucose (UA) Negative (Negative) Urine Ketones Negative (Negative) Urine Blood Negative (Negative) Urine Nitrite Negative (Negative) Urine Bilirubin Negative (Negative) Urine Urobilinogen Negative (Negative) Ur Leukocyte Esterase Negative (Negative) COVID-19 Eval Order SARS-CoV-2 (PCR) (Negative) 03/06/21 03/06/21 03/06/21 Range/Units 15:45 16:24 16:24 WBC 4.80 (4.8-10.8) K/uL RBC 3.79 L (4.7-6.1) M/uL Hgb 11.9 L (14.0-18.0) g/dL Hct 35.8 L (42-52) % MCV 94.5 (80-100) fL MCH 31.4 (25-34) pg MCHC 33.2 (32-36) g/dL RDW Std Deviation 45.5 (36.4-46.3) fL RDW Coeff of Allison 13.3 (11.5-14.5) % Plt Count 273 (130-400) K/uL MPV 9.8 (7.4-10.4) fL Immature Gran % (Auto) 0.2 % Neut % (Auto) 63.4 % Lymph % (Auto) 24.8 % Morrison % (Auto) 10.8 % Eos % (Auto) 0.6 % Baso % (Auto) 0.2 % Neut # (Auto) 3.04 (1.4-6.5) K/uL Lymph # (Auto) 1.19 L (1.2-3.4) K/uL Morrison # (Auto) 0.52 (0.11-0.59) K/uL Eos # (Auto) 0.03 (0-0.5) K/uL Baso # (Auto) 0.01 (0-0.2) K/uL Immature Gran # (Auto) 0.01 (0.00-0.02) K/uL PT (9.0-12.0) Seconds INR (0.9-1.1) APTT (21.0-31.0) Seconds PTT Ratio Sodium (136-145) mmol/L Potassium (3.5-5.1) mmol/L Chloride (98-107) mmol/L Carbon Dioxide (21-32) mmol/L Anion Gap (3-11) BUN (7-18) mg/dl Creatinine (0.6-1.4) mg/dl Est Cr Clr Drug Dosing ml/min Est GFR ( Amer) ml/min Est GFR (Non-Af Amer) ml/min BUN/Creatinine Ratio (10-20) Glucose (70-99) mg/dl Calcium (8.5-10.1) mg/dl Phosphorus (2.5-4.9) mg/dl Magnesium (1.8-2.4) mg/dl Total Bilirubin (0.2-1) mg/dl AST (15-37) U/L ALT (12-78) U/L Alkaline Phosphatase (45-117) U/L Total Creatine Kinase (39-308) U/L Troponin I (0-0.045) ng/ml Total Protein (6.4-8.2) gm/dl Albumin (3.4-5.0) gm/dl Globulin (2.5-4.0) gm/dl Albumin/Globulin Ratio (0.9-2) Lipase (73-393) U/L Urine Color Urine Appearance (Clear) Urine pH (4.5-7.5) Ur Specific [place] (1.000-1.030) Urine Protein (Negative) Urine Glucose (UA) (Negative) Urine Ketones (Negative) Urine Blood (Negative) Urine Nitrite (Negative) Urine Bilirubin (Negative) Urine Urobilinogen (Negative) Ur Leukocyte Esterase (Negative) COVID-19 Eval Order Covid19 at [facility] SARS-CoV-2 (PCR) NEGATIVE (Negative) Administered Medications Discontinued Medications Amlodipine Besylate (Amlodipine Besylate 5 Mg Tab) 5 mg PO NOW ONE Stop: 03/06/21 18:54 Last Admin: 03/06/21 19:39 Dose: 5 mg Documented by: [id number] Sodium Chloride (Nss) 500 mls @ 999 mls/hr IV .Q31M ONE Stop: 03/06/21 16:35 Last Infusion: 03/06/21 16:45 Dose: 0 mls/hr Documented by: [id number] Admin: 03/06/21 16:13 Dose: 999 mls/hr Documented by: [id number] Metoprolol Succinate (Metoprolol Succ 50mg Ext Rel Tab) 25 mg PO NOW STA Stop: 03/06/21 18:54 Last Admin: 03/06/21 19:37 Dose: 25 mg Documented by: [id number] Olanzapine (Olanzapine 5 Mg Tablet) 5 mg PO NOW STA Stop: 03/06/21 20:58 Last Admin: 03/06/21 21:19 Dose: 5 mg Documented by: [id number] Valsartan (Valsartan 80 Mg Tab) 320 mg PO QAM DOROTHY Stop: 04/05/21 18:59 Last Admin: 03/06/21 19:38 Dose: 320 mg Documented by: [id number] Imaging Data Radiologist's Impression: Abdomen/Pelvis CT 03/06/21 15:59 CT abd pelvis IV con only CLINICAL HISTORY: Pain and lower extremity weakness COMPARISON STUDY: 08/07/2017 TECHNIQUE: The patient was scanned in a dynamic helical fashion during intravenous administration of 94 cc of Optiray 320 A dose lowering technique was utilized adhering to the principles of ALARA. CT DOSE: FINDINGS: Lower chest: There are mild dependent atelectatic changes. Liver: The contrast-enhanced liver is normal in size, contour, and attenuation. There is no intrahepatic biliary ductal dilatation. The hepatic veins and portal veins are patent. Gallbladder: Unremarkable. Spleen: Normal in size and attenuation. Pancreas: Unremarkable. Adrenal glands: Unremarkable. Kidneys: There are bilateral renal cortical cysts. No solid renal masses are visualized. There is no hydronephrosis. Bowel: There are no transition zones to indicate bowel obstruction. There is no evidence of acute diverticulitis. There is scattered small bowel and colonic air-fluid levels. This a nonspecific finding which can be seen in an enteritis. Peritoneum: There is no intraperitoneal free air or abdominal ascites. There are postsurgical changes are prior right inguinal hernia repair. There is a small fat-containing left inguinal hernia. Vasculature: The abdominal aorta is normal in course and caliber. Adenopathy: None. Pelvic viscera: There is mild prostatomegaly. There is borderline bladder wall thickening. Skeletal structures: No destructive osseous lesions are seen. 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 IMPRESSION: 1. No evidence of bowel obstruction. No evidence of free air 2. Colonic diverticulosis. No evidence of acute diverticulitis 3. No evidence of acute appendicitis 4. Scattered small bowel and colonic air-fluid levels. This is a nonspecific finding which can be seen in an enteritis. 5. Prostatomegaly ACT 112: Negative or not required by law. Electronically signed by: Osmany Agustin M.D. 03/06/2021 5:[address] 03/06/21 15:59 CT head/brain wo con CLINICAL HISTORY: weakness COMPARISON STUDY: 01/29/2021 TECHNIQUE: Axial CT of the brain is performed from the vertex to the skull base. IV contrast was not administered for this examination. A dose lowering technique was utilized adhering to the principles of ALARA. CT DOSE: 1054.26 mGy.cm FINDINGS: No intra or extra-axial mass lesions are visualized. There is no CT evidence of acute cortical infarction. There is no evidence of midline shift. There is no acute hemorrhage. No calvarial fractures are visualized. There are patchy white matter hypodensities likely on a small vessel basis. There is mild ventricular dilatation, finding which is likely secondary to volume loss There is an opacified right-sided ethmoid air cell. There is minor maxillary sinus mucosal thickening. IMPRESSION: No acute intracranial findings ACT 112: Negative or not required by law. Electronically signed by: Osmany Agustin M.D. 03/06/2021 5:46 PM Chest X-Ray 03/06/21 16:00 XR chest 1V portable CLINICAL HISTORY: Atypical chest pain COMPARISON STUDY: 01/29/2021 FINDINGS: The cardiac and mediastinal contours are normal. There is no evidence of focal pulmonary consolidation. There is no evidence of failure. No pleural effusions are visualized.[ IMPRESSION: No active disease in the chest. ACT 112: Negative or not required by law. Electronically signed by: Osmany Agustin M.D. 03/06/2021 4:22 PM Discharge Plan Visit Data Chief Complaint: Weakness Stated Complaint: FALL ED Provider: Wilfred Gunderson Discharge Problem: Generalized muscle weakness, Neuropathy, Impaired ambulation, Unable to care for self Discharge Instructions Interventions: ED Discharge Assessment Last Done: 03/06/21 22:19
--- NOTE | 2021-03-06 17:47 | CT Scan Report ---
CT head/brain wo con CLINICAL HISTORY: weakness COMPARISON STUDY: 01/29/2021 TECHNIQUE: Axial CT of the brain is performed from the vertex to the skull base. IV contrast was not administered for this examination. A dose lowering technique was utilized adhering to the principles of ALARA. CT DOSE: 1054.26 mGy.cm FINDINGS: No intra or extra-axial mass lesions are visualized. There is no CT evidence of acute cortical infarc tion. There is no evidence of midline shift. There is no acute hemorrhage. No calvarial fractures ar e visualized. There are patchy white matter hypodensities likely on a small vessel basis. There is mild ventricular dilatation, finding which is likely secondary to volume loss There is an opacified right-sided ethmoid air cell. There is minor maxillary sinus mucosal thickening . IMPRESSION: No acute intracranial findings ACT 112: Negative or not required by law. Electronically signed by: Osmany Agustin M.D. 03/06/2021 5:46 PM
--- NOTE | 2021-03-06 17:47 | CT Scan Report ---
CT abd pelvis IV con only CLINICAL HISTORY: Pain and lower extremity weakness COMPARISON STUDY: 08/07/2017 TECHNIQUE: The patient was scanned in a dynamic helical fashion during intravenous administration of 94 cc of Optiray 320 A dose lowering technique was utilized adhering to the principles of ALARA. CT DOSE: FINDINGS: Lower chest: There are mild dependent atelectatic changes. Liver: The contrast-enhanced liver is normal in size, contour, and attenuation. There is no intrahepa tic biliary ductal dilatation. The hepatic veins and portal veins are patent. Gallbladder: Unremarkable. Spleen: Normal in size and attenuation. Pancreas: Unremarkable. Adrenal glands: Unremarkable. Kidneys: There are bilateral renal cortical cysts. No solid renal masses are visualized. There is no hydronephrosis. Bowel: There are no transition zones to indicate bowel obstruction. There is no evidence of acute div erticulitis. There is scattered small bowel and colonic air-fluid levels. This a nonspecific finding which can be seen in an enteritis. Peritoneum: There is no intraperitoneal free air or abdominal ascites. There are postsurgical changes are prior right inguinal hernia repair. There is a small fat-containing left inguinal hernia. Vasculature: The abdominal aorta is normal in course and caliber. Adenopathy: None. Pelvic viscera: There is mild prostatomegaly. There is borderline bladder wall thickening. Skeletal structures: No destructive osseous lesions are seen. 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 IMPRESSION: 1. No evidence of bowel obstruction. No evidence of free air 2. Colonic diverticulosis. No evidence of acute diverticulitis 3. No evidence of acute appendicitis 4. Scattered small bowel and colonic air-fluid levels. This is a nonspecific finding which can be see n in an enteritis. 5. Prostatomegaly ACT 112: Negative or not required by law. Electronically signed by: Osmany Agustin M.D. 03/06/2021 5:46 PM
[2021-03-06] MEDS ORDERED: METOPROLOL SUCC 50MG EXT REL TAB PO STA (18:53)
[2021-03-06] MEDS ORDERED: amLODIPine BESYLATE 5 MG TAB PO ONE (18:53)
[2021-03-06] MEDS ORDERED: VALSARTAN 80 MG TAB PO SCH (19:00)
[2021-03-06] MEDS ORDERED: OLANZapine 5 MG TABLET PO STA (20:57)
--- NOTE | 2021-03-06 22:12 | History & Physical Report ---
Date of Service March 06, 2021 Assessment & Plan (1) Generalized muscle weakness: Plan: No objective weakness on exam. CK is low at 35. No muscle tenderness. Suspect deconditioning as primary cause for progressive weakness. -Admit to medical -Fall precautions -PT/OT evaluation (2) Hypertension: Plan: Patient with markedly elevated blood pressure in ER. Reports he has not taken his medications for >1 month. PO agents given in ER. Patient with chronic, longstanding poorly controlled hypertension -Continue Amlodipine -Continue Metoprolol -Continue Valsartan -Continue to monitor - gradual lowering of BP (3) Paroxysmal A-fib: Plan: Presently in NSR -Continue Metoprolol -No anticoagulation (4) HLD (hyperlipidemia): Plan: Chronic -Continue Atorvastatin Plan: Patient with episode of confusion in ER - became somewhat agitated and combative -Zyprexa 5mg po given F/E/N - Heplock. Monitor electrolytes. AHA diet as tolerated Ppx - SCDs Code - DNR/DNI Dispo -Observation to medical History of Present Illness Chief Complaint: weakness Primary Care Provider: NO PCP Ernesto Crooks is an 85yo male with history of CAD, HTN and HLP presenting with generalized weakness. Patient lives alone at home, has had frequent falls in the past. Most recently hospitalized in January 2021 for a fall -was discharged to [facility] where he completed rehabilitation but was unhappy with the care. He returned home. Reports generalized weakness with difficulty ambulating. Today he was unable to get out of bed due to weakness. He reports not taking his medications for > 1 months. Patient has a nut sorter come to the home 3x / week. No additional complaints. He specifically denies fever/chills/body aches/malaise/chest pain/palpitations/cough/SOB/dizziness/abdominal pain/nausea/vomiting/diarrhea/constipation. No urinary complaints. NSS 500 Allergies Allergy/AdvReac Type Severity Reaction Status Date / Time No Known Allergies Allergy Verified 03/06/21 17:08 Home Medications Medication Instructions Recorded Confirmed Type amlodipine 5 mg tablet 5 mg PO DAILY 01/29/21 03/06/21 History atorvastatin 40 mg tablet 40 mg PO DAILY 01/29/21 03/06/21 History folic acid 1 mg tablet 1 mg PO DAILY 01/29/21 03/06/21 History metoprolol succinate 25 mg 25 mg PO DAILY 01/29/21 03/06/21 History tablet,extended release 24 hr valsartan 320 mg tablet 320 mg PO DAILY 01/29/21 03/06/21 History polyethylene glycol 3350 17 gram 17 g PO DAILY PRN #30 ea 02/01/21 03/06/21 Rx oral powder packet (Miralax) Past Med/Surg History Medical History (Updated 03/06/21 @ 18:15 by Wilfred Gunderson MD) CAD (coronary artery disease) Callus of foot History of non-ST elevation myocardial infarction (NSTEMI) HLD (hyperlipidemia) Hypertensive urgency Neuropathy Paroxysmal A-fib Right foot ulcer Family History Other Family history non-contributory Social History Smoking Status: Former smoker Tobacco Type: Cigarettes Second Hand Exposure: No; Hx Alcohol Use: No Hx Substance Use: No Preferred Language: Colombian Communication Ability: Effective Technical Account Manager Required: No Beliefs That Will Affect Care: None marital status: / Current Living Situation: Alone Current Living Situation Comment: Has a career education teacher that comes 3 days a week Feels Safe at Home: No Is there a partner from a previous relationship who is making you feel unsafe now?: No Assistive Devices: Walker Review of Systems Review of Systems: All systems reviewed & are unremarkable except as noted in HPI & below Physical Exam Physical Exam: General: patient resting comfortably, NAD, non-toxic in appearance, AA&O x 4, stuttering speech Skin: warm, dry, intact, no rashes or lesions HEENT: NC/AT, PERRL, EOMI, anicteric sclera, conjunctiva without injection, external ear normal to inspection and nontender, nares patent, moist mucus membranes, dentition intact, no oropharyngeal lesions, neck supple, trachea midline, no LAD, no thyromegaly, no JVD Heart: +S1/S2, regular, no m/r/g Lungs: equal air entry bilaterally, no rales/rhonchi/wheezes Abd: +BS, soft, NT/ND, no masses/organomegaly/ascites Ext: warm, 2+ pulses in UE/LE bilaterally, no clubbing/cyanosis or edema Neuro: nonfocal, patient AA&O x 4, speech intact, no facial droop, moving all extremities on command with equal strength 5/5 Results & Data Results & Data ([facility]) Vital Signs (Past 12 Hours) Vital Signs Temp Pulse Pulse Resp BP BP Pulse Ox 03/06/21 21:47 65 20 213/91 H 96 03/06/21 20:33 68 20 220/138 H 96 03/06/21 19:41 73 20 189/64 H 92 03/06/21 18:30 79 27 H 215/89 H 03/06/21 18:00 65 19 194/84 H 97 03/06/21 17:36 172 H 19 03/06/21 17:00 36.7 C 60 20 194/73 H 97 03/06/21 16:30 59 L 18 03/06/21 16:15 60 20 99 03/06/21 16:02 60 22 96 03/06/21 15:48 96 03/06/21 15:30 68 20 188/88 H 98 03/06/21 15:12 36.8 C 70 21 167/75 H 96 03/06/21 15:00 71 20 167/75 H 96 Laboratory Results Laboratory Results WBC 4.80 K/uL (4.8-10.8) 03/06/21 15:45 RBC 3.79 M/uL (4.7-6.1) L 03/06/21 15:45 Hgb 11.9 g/dL (14.0-18.0) L 03/06/21 15:45 Hct 35.8 % (42-52) L 03/06/21 15:45 MCV 94.5 fL (80-100) 03/06/21 15:45 MCH 31.4 pg (25-34) 03/06/21 15:45 MCHC 33.2 g/dL (32-36) 03/06/21 15:45 RDW Std Deviation 45.5 fL (36.4-46.3) 03/06/21 15:45 RDW Coeff of Allison 13.3 % (11.5-14.5) 03/06/21 15:45 Plt Count 273 K/uL (130-400) 03/06/21 15:45 MPV 9.8 fL (7.4-10.4) 03/06/21 15:45 Immature Gran % (Auto) 0.2 % 03/06/21 15:45 Neut % (Auto) 63.4 % 03/06/21 15:45 Lymph % (Auto) 24.8 % 03/06/21 15:45 Greer % (Auto) 10.8 % 03/06/21 15:45 Eos % (Auto) 0.6 % 03/06/21 15:45 Baso % (Auto) 0.2 % 03/06/21 15:45 Neut # (Auto) 3.04 K/uL (1.4-6.5) 03/06/21 15:45 Lymph # (Auto) 1.19 K/uL (1.2-3.4) L 03/06/21 15:45 Greer # (Auto) 0.52 K/uL (0.11-0.59) 03/06/21 15:45 Eos # (Auto) 0.03 K/uL (0-0.5) 03/06/21 15:45 Baso # (Auto) 0.01 K/uL (0-0.2) 03/06/21 15:45 Immature Gran # (Auto) 0.01 K/uL (0.00-0.02) 03/06/21 15:45 PT 10.4 Seconds (9.0-12.0) 03/06/21 15:45 INR 1.0 (0.9-1.1) 03/06/21 15:45 APTT 27.4 Seconds (21.0-31.0) 03/06/21 15:45 PTT Ratio 1.0 03/06/21 15:45 Sodium 143 mmol/L (136-145) 03/06/21 15:45 Potassium 4.5 mmol/L (3.5-5.1) 03/06/21 15:45 Chloride 111 mmol/L (98-107) H 03/06/21 15:45 Carbon Dioxide 27 mmol/L (21-32) 03/06/21 15:45 Anion Gap 4.0 (3-11) 03/06/21 15:45 BUN 20 mg/dl (7-18) H 03/06/21 15:45 Creatinine 1.30 mg/dl (0.6-1.4) 03/06/21 15:45 Est Cr Clr Drug Dosing 39.9 ml/min 03/06/21 15:45 Est GFR ( Amer) 56.9 ml/min 03/06/21 15:45 Est GFR (Non-Af Amer) 49.1 ml/min 03/06/21 15:45 BUN/Creatinine Ratio 15.1 (10-20) 03/06/21 15:45 Glucose 90 mg/dl (70-99) 03/06/21 15:45 Calcium 9.1 mg/dl (8.5-10.1) 03/06/21 15:45 Phosphorus 3.0 mg/dl (2.5-4.9) 03/06/21 15:45 Magnesium 2.3 mg/dl (1.8-2.4) 03/06/21 15:45 Total Bilirubin 0.6 mg/dl (0.2-1) 03/06/21 15:45 AST 21 U/L (15-37) 03/06/21 15:45 ALT 24 U/L (12-78) 03/06/21 15:45 Alkaline Phosphatase 74 U/L (45-117) 03/06/21 15:45 Total Creatine Kinase 35 U/L (39-308) L 03/06/21 15:45 Troponin I < 0.015 ng/ml (0-0.045) 03/06/21 15:45 Total Protein 6.9 gm/dl (6.4-8.2) 03/06/21 15:45 Albumin 3.7 gm/dl (3.4-5.0) 03/06/21 15:45 Globulin 3.2 gm/dl (2.5-4.0) 03/06/21 15:45 Albumin/Globulin Ratio 1.1 (0.9-2) 03/06/21 15:45 Lipase 196 U/L (73-393) 03/06/21 15:45 Urine Color Yellow 03/06/21 15:38 Urine Appearance Clear (Clear) 03/06/21 15:38 Urine pH 5.5 (4.5-7.5) 03/06/21 15:38 Ur Specific [place] 1.007 (1.000-1.030) 03/06/21 15:38 Urine Protein Negative (Negative) 03/06/21 15:38 Urine Glucose (UA) Negative (Negative) 03/06/21 15:38 Urine Ketones Negative (Negative) 03/06/21 15:38 Urine Blood Negative (Negative) 03/06/21 15:38 Urine Nitrite Negative (Negative) 03/06/21 15:38 Urine Bilirubin Negative (Negative) 03/06/21 15:38 Urine Urobilinogen Negative (Negative) 03/06/21 15:38 Ur Leukocyte Esterase Negative (Negative) 03/06/21 15:38 COVID-19 Eval Order Covid19 at [facility] 03/06/21 16:24 SARS-CoV-2 (PCR) NEGATIVE (Negative) 03/06/21 16:24 Impressions Abdomen/Pelvis CT 03/06/21 15:59 CT abd pelvis IV con only CLINICAL HISTORY: Pain and lower extremity weakness COMPARISON STUDY: 08/07/2017 TECHNIQUE: The patient was scanned in a dynamic helical fashion during intravenous administration of 94 cc of Optiray 320 A dose lowering technique was utilized adhering to the principles of ALARA. CT DOSE: FINDINGS: Lower chest: There are mild dependent atelectatic changes. Liver: The contrast-enhanced liver is normal in size, contour, and attenuation. There is no intrahepatic biliary ductal dilatation. The hepatic veins and portal veins are patent. Gallbladder: Unremarkable. Spleen: Normal in size and attenuation. Pancreas: Unremarkable. Adrenal glands: Unremarkable. Kidneys: There are bilateral renal cortical cysts. No solid renal masses are visualized. There is no hydronephrosis. Bowel: There are no transition zones to indicate bowel obstruction. There is no evidence of acute diverticulitis. There is scattered small bowel and colonic air-fluid levels. This a nonspecific finding which can be seen in an enteritis. Peritoneum: There is no intraperitoneal free air or abdominal ascites. There are postsurgical changes are prior right inguinal hernia repair. There is a small fat-containing left inguinal hernia. Vasculature: The abdominal aorta is normal in course and caliber. Adenopathy: None. Pelvic viscera: There is mild prostatomegaly. There is borderline bladder wall thickening. Skeletal structures: No destructive osseous lesions are seen. 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 IMPRESSION: 1. No evidence of bowel obstruction. No evidence of free air 2. Colonic diverticulosis. No evidence of acute diverticulitis 3. No evidence of acute appendicitis 4. Scattered small bowel and colonic air-fluid levels. This is a nonspecific finding which can be seen in an enteritis. 5. Prostatomegaly ACT 112: Negative or not required by law. Electronically signed by: Osmany Agustin M.D. 03/06/2021 5:[address] 03/06/21 15:59 CT head/brain wo con CLINICAL HISTORY: weakness COMPARISON STUDY: 01/29/2021 TECHNIQUE: Axial CT of the brain is performed from the vertex to the skull base. IV contrast was not administered for this examination. A dose lowering technique was utilized adhering to the principles of ALARA. CT DOSE: 1054.26 mGy.cm FINDINGS: No intra or extra-axial mass lesions are visualized. There is no CT evidence of acute cortical infarction. There is no evidence of midline shift. There is no acute hemorrhage. No calvarial fractures are visualized. There are patchy white matter hypodensities likely on a small vessel basis. There is mild ventricular dilatation, finding which is likely secondary to volume loss There is an opacified right-sided ethmoid air cell. There is minor maxillary sinus mucosal thickening. IMPRESSION: No acute intracranial findings ACT 112: Negative or not required by law. Electronically signed by: Osmany Agustin M.D. 03/06/2021 5:46 PM Chest X-Ray 03/06/21 16:00 XR chest 1V portable CLINICAL HISTORY: Atypical chest pain COMPARISON STUDY: 01/29/2021 FINDINGS: The cardiac and mediastinal contours are normal. There is no evidence of focal pulmonary consolidation. There is no evidence of failure. No pleural effusions are visualized.[ IMPRESSION: No active disease in the chest. ACT 112: Negative or not required by law. Electronically signed by: Osmany Agustin M.D. 03/06/2021 4:22 PM PG Care Time/CCT Total # of Minutes Spent Total Time Spent with Patient: Total time spent is greater than 50% in coordination of care (as documented) at patient's floor/unit and/or counseling patient: Coding Level of Care Code INT OBSERVATION CARE 50M LVL 2 Diagnoses Generalized muscle weakness M62.81 Hypertension I10 Hypertension type: unspecified Paroxysmal A-fib I48.0 HLD (hyperlipidemia) E78.5 (1) Hypertension Hypertension type: unspecified Qualified Code(s): I10 - Essential (primary) hypertension
[2021-03-07] MEDS: FOLIC ACID 1 MG TAB PO SCH (07:36)
[2021-03-07] MEDS: METOPROLOL SUCC 25MG EXT REL TAB PO SCH (07:37)
[2021-03-07] MEDS: ATORVASTATIN 40 MG TAB PO SCH (07:37)
[2021-03-07] MEDS: VALSARTAN 80 MG TAB PO SCH (07:38)
[2021-03-07 07:43] LABS: Basophils # (auto) 0.02 K/uL (0-0.2); Basophils % (auto) 0.4 %; Eosinophils # (auto) 0.06 K/uL (0-0.5); Eosinophils % (auto) 1.1 %; Hematocrit (blood only) 38.3 % (42-52); Hemoglobin 12.7 g/dL (14.0-18.0); Immature Granulocytes # (auto) 0.01 K/uL (0.00-0.02); Immature Granulocytes % (auto) 0.2 %; Lymphocytes # (auto) 1.85 K/uL (1.2-3.4); Lymphocytes % (auto) 35.2 %; Mean Corpuscular Hemoglobin 31.4 pg (25-34); Mean Corpuscular Hgb Conc 33.2 g/dL (32-36); Mean Corpuscular Volume 94.6 fL (80-100); Monocytes # (auto) 0.62 K/uL (0.11-0.59); Monocytes % (auto) 11.8 %; Neutrophils % (auto) 51.3 %; Platelet Count 281 K/uL (130-400); RDW Coefficient of Variation 13.1 % (11.5-14.5); RDW Standard Deviation 45.7 fL (36.4-46.3); Red Blood Count 4.05 M/uL (4.7-6.1); White Blood Count 5.26 K/uL (4.8-10.8)
[2021-03-07 08:19] LABS: Calcium 9.5 mg/dl (8.5-10.1); Creatinine Clr Calc Pharmacy 44.7 ml/min; Est GFR (African American) 67.4 ml/min; Est GFR (Non-African American) 58.1 ml/min; Potassium 3.8 mmol/L (3.5-5.1)
[2021-03-07] MEDS ORDERED: amLODIPine BESYLATE 5 MG TAB PO SCH (09:00)
[2021-03-07] MEDS: amLODIPine BESYLATE 5 MG TAB PO SCH (09:31)
[2021-03-07] MEDS ORDERED: HALOPERIDOL LACTATE 5 MG/ML 1 ML VIAL IM PRN (13:45)
--- NOTE | 2021-03-07 15:15 | Hospitalist Progress Note ---
Date of Service March 07, 2021 Assessment & Plan (1) Generalized muscle weakness: Plan: * There does not appear to be an acute metabolic cause for his generalized weakness. No evidence of infection. Head CT negative. Initially was going to pursue MRI due to aphasia and stuttering speech pattern; however, patient adamantly refused and after talking with the sonthis is not new. Will hold off for now. Will add aspirin as this would be management if patient did in fact have an acute neurological event. Patient already on statin therapy. Lengthy discussion with patient regarding the importance of taking his blood pressure medications and keeping his blood pressure controlled. * His generalized weakness is likely just progressive generalized deconditioning with muscular decline * Consult PT/OT. I appreciate recommendations * I have had a lengthy discussion with the son regarding patient's disposition. Unfortunately, he is oriented and able to make his own decisions (despite making poor decisionslike not taking his medications and not excepting help). If therapy believes patient would benefit from acute rehab/short-term placementwill discuss with patient. Not sure that he would be agreeable. If not, will make all attempts to provide additional support/help at home (including visiting nurses, visiting aide, home PT/OT). (2) Hypertension: Plan: * Patient has since been resumed on his metoprolol and valsartan. I have since increased his amlodipine to 10 mg. Blood pressure now 136/61. (3) Paroxysmal A-fib: Plan: * Currently in a normal sinus rhythm with controlled ventricular rate. Continue beta-blockade (4) HLD (hyperlipidemia): Plan: Chronic -Continue Atorvastatin (5) Cognitive impairment: Plan: * This is not new and progressive (lengthy discussion with son and ongoing X 8+ years). * Patient does not carry a diagnosis of dementia. Given his history of heart disease and vascular changes seen on CT scan, he likely has vascular dementia * Prior to memory impairment, patient was very stubborn. This seems to have only been exacerbated with further decline in his cognition. Unfortunately, this is causing difficulty for appropriate care for patient. He has been having frequent hospitalizations, frequent placement to nursing facilities/personal care facilities, and acute rehab facilities. Ultimately, he does answer questions appropriately and is able to make his own decisions; however, is not always willing/agreeable to accept help. At times, he does get combative. He did require Zyprexa in the ED. He has gotten agitated with myself and nursing staff. I do have as needed Haldol ordered if needed. Will consider addition of Seroquel at night. Plan: -Continue hospitalization. Awaiting PT/OT eval. Disposition unclear at this time. Even if SNF recommended, uncertain if patient would be agreeable. Appreciate recommendations from therapy services. -Plan of care to be discussed with Dr. Sierra. Further orders as warranted. - did call and speak to both Son and [employer]. Admission and Anticipated Discharge Date Admission Date: March 06, 2021 Subjective Patient seen on daily rounds today. He is an 85-year-old white male with a past medical history of dementia, CAD, HTN, HLD, recent NSTEMI (January/2021), and paroxysmal A. fib (not on anticoagulation therapy). He was hospitalized here at [facility] following a fall. At that time, he was found to have a mildly elevated troponin and elevated CK which was thought to be supply demand ischemia. Echocardiogram completed showing an EF of 60 to 65%. There was mild concentric LV hypertrophy. Left ventricular wall motion was normal. Mild AR. Right ventricular systolic pressure was normal. He continued to display ambulatory dysfunction/generalized weakness along with cognitive and muscular decline. He was subsequently discharged to [facility] for inpatient rehab. Patient completed his rehab therapy and has been home for approximately 1 to 2 weeks. Over the course of the past 4 to 5 days, he has been unable to get out of bed. He has a hvac engineering technician that comes in 3-4 times a we ek. When she was in yesterday, she had found him on the floor. He claims that he did not fall. He was attempting to get out of bed but was "too weak" that he ended up trying to crawl to the bathroom. He had stool incontinence because he could not make it to the toilet. He did not lose consciousness. No reported injury. His work-up in the emergency department showed hypertensive urgency of 219/91 but otherwise was unremarkable. CBC and metabolic panel were essentially within normal limits. Urinalysis was not grossly infected. Covid PCR negative. CT of the abdomen and pelvis showed no acute pathology. CXR showed no acute cardiopulmonary process. CT of the head showed no acute intracranial process. When examined by myself, patient was oriented X4. He did have some mild aphasia with stuttering speech pattern. I had ordered an MRI to rule out an acute CVA. Patient adamantly refused. I have since spoken to the son who claims that this aphasia/stuttering speech pattern is not new. This has been ongoing for approximately 4 weeks. My conversation with the son was enlightening. Patient has been living alone since the of his 8 years ago. He relied primarily on her. Son pays privately for a hvac engineering technician who comes in 3-4 times a week. Patient does not drive. Son lives 3 hours away so cannot visit often. There is a behavior that checks on him daily and brings him food. Patient has lived in an assisted living facility 3 times and has moved home. He has been in multiple different [facility] facilities and most recently was in [facility]. Patient is very stubborn and refuses to take his medications. Refuses help when offered. Son is the power of real estate attorney. Patient does have mild cognitive impairment/dementia (likely vascular); however, answers all questions appropriately thus is able to currently make his own decisions. Son is very aw are of this reality. Reports he has been dealing with generalized decline and his father's stubbornness and unwillingness to accept help for the past 8 years. Review of Systems Review of Systems: All systems reviewed and are unremarkable except as noted in HPI and below Denies fevers, chills, headache, nasal congestion, sore throat, cough, chest pain, shortness of breath, abdominal pain, nausea, vomiting, dysuria, hematuria, frequency, skin lesions or rashes. Physical Exam Physical Exam: General: Resting comfortably in his hospital bed. Is easily agitated but also calms easily with redirection. Neck: No JVD. Negative hepatojugular reflex Cardiac: Currently in a normal sinus rhythm with controlled ventricular rate Lungs: CTA without W/R/R Abdomen: Normoactive X4. Soft and nontender in all quadrants. Extremities: No peripheral clubbing cyanosis or edema Neuro: A&O X4 is oriented to self/person, place, time and situation. Does have a stuttering speech pattern with some mild aphasia (not new per son). Otherwise, cranial nerves II through XII are grossly intact. No focal neuro deficits. Nutrition Professor strength equal and symmetrical bilaterally (although decreased). Negative modified Romberg/pronator drift. Downward Babinski. Skin: No obvious skin lesions or rashes Results & Data Results & Data ([facility]) Vital Signs (Past 12 Hours) Vital Signs Temp Pulse Resp BP Pulse Ox 03/07/21 07:07 36.4 C L 50 L 16 187/73 H 97 03/07/21 04:28 190/76 H Laboratory Results 03/07/21 06:39 03/07/21 06:[address] of the abdomen pelvis: IMPRESSION: 1. No evidence of bowel obstruction. No evidence of free air 2. Colonic diverticulosis. No evidence of acute diverticulitis 3. No evidence of acute appendicitis 4. Scattered small bowel and colonic air-fluid levels. This is a nonspecific finding which can be seen in an enteritis. 5. Prostatomegaly CT of the head: No intra or extra-axial mass lesions are visualized. There is no CT evidence of acute cortical infarction. There is no evidence of midline shift. There is no acute hemorrhage. No calvarial fractures are visualized. There are patchy white matter hypodensities likely on a small vessel basis. There is mild ventricular dilatation, finding which is likely secondary to volume loss There is an opacified right-sided ethmoid air cell. There is minor maxillary sinus mucosal thickening. IMPRESSION: No acute intracranial findings and no change when compared to study done 01/29/2021 CXR: No acute cardiopulmonary process EKG: Normal sinus rhythm with significant artifact. Normal axis. EKG difficult to interpret due to artifact. PG Care Time/CCT Total # of Minutes Spent Total Time Spent with Patient: Total time spent is greater than 50% in co ordination of care (as documented) at patient's floor/unit and/or counseling patient: [place] [address] Subseq Hosp Care Lvl 3 Patient Type Established History Detailed Exam Detailed Medical Decision Making High Complexity Diagnoses Generalized muscle weakness M62.81 Hypertension I10 Hypertension type: unspecified Paroxysmal A-fib I48.0 HLD (hyperlipidemia) E78.5 Cognitive impairment R41.89 Time Spent (min) 90 Comment lengthy time spent in d/w urgent care physician assistant, son and review of old records (1) Hypertension Hypertension type: unspecified Qualified Code(s): I10 - Essential (primary) hypertension
--- NOTE | 2021-03-07 16:06 | Electrocardiogram Report ---
Test Reason : Blood Pressure : / mmHG Vent. Rate : 066 BPM Atrial Rate : 072 BPM P-R Int : 000 ms QRS Dur : 074 ms QT Int : 404 ms P-R-T Axes : 000 026 053 degrees QTc Int : 423 ms Poor data quality, interpretation may be adversely affected Possible Sinus rhythm Inferior infarct , age undetermined T wave abnormality, consider lateral ischemia Abnormal ECG When compared with ECG of 31-JAN-2021 22:05, Inferior infarct is now Present Confirmed by Harry Davey ([id number]) on 03/07/2021 4:05:43 PM Referred By: REFERRED SELF Confirmed By:Harry Davey
[2021-03-07] MEDS: QUEtiapine FUMARATE 25 MG TABLET PO SCH (22:04)
[2021-03-08 07:39] LABS: Basophils # (auto) 0.01 K/uL (0-0.2); Basophils % (auto) 0.2 %; Eosinophils % (auto) 1.8 %; Hematocrit (blood only) 38.5 % (42-52); Hemoglobin 12.7 g/dL (14.0-18.0); Lymphocytes # (auto) 1.68 K/uL (1.2-3.4); Lymphocytes % (auto) 30.1 %; Mean Corpuscular Hemoglobin 31.1 pg (25-34); Mean Corpuscular Volume 94.4 fL (80-100); Mean Platelet Volume 9.8 fL (7.4-10.4); Monocytes # (auto) 0.76 K/uL (0.11-0.59); Monocytes % (auto) 13.6 %; Neutrophils # (auto) 3.04 K/uL (1.4-6.5); Neutrophils % (auto) 54.3 %; Platelet Count 275 K/uL (130-400); RDW Coefficient of Variation 13.1 % (11.5-14.5); RDW Standard Deviation 45.3 fL (36.4-46.3); Red Blood Count 4.08 M/uL (4.7-6.1); White Blood Count 5.59 K/uL (4.8-10.8)
[2021-03-08 07:41] LABS: Calcium 9.5 mg/dl (8.5-10.1); Creatinine Clr Calc Pharmacy 37.4 ml/min; Est GFR (African American) 54.3 ml/min; Est GFR (Non-African American) 46.9 ml/min; Magnesium 2.3 mg/dl (1.8-2.4); Potassium 4.1 mmol/L (3.5-5.1)
[2021-03-08] MEDS: FOLIC ACID 1 MG TAB PO SCH (08:52)
[2021-03-08] MEDS: METOPROLOL SUCC 25MG EXT REL TAB PO SCH (08:52)
[2021-03-08] MEDS: ASPIRIN 81 MG ECTAB PO SCH (08:52)
[2021-03-08] MEDS: ATORVASTATIN 40 MG TAB PO SCH (08:54)
[2021-03-08] MEDS: amLODIPine BESYLATE 5 MG TAB PO SCH (08:54)
[2021-03-08] MEDS: VALSARTAN 80 MG TAB PO SCH (08:54)
[2021-03-08] MEDS: ACETAMINOPHEN 325 MG TAB PO PRN (12:20)
[2021-03-08] MEDS: ENOXAPARIN INJ 40 MG/0.4 ML SYR SQ SCH (16:06)
--- NOTE | 2021-03-08 17:02 | Hospitalist Progress Note ---
Date of Service March 08, 2021 Assessment & Plan (1) Generalized muscle weakness: Plan: * There does not appear to be an acute metabolic cause for his generalized weakness. No evidence of infection. Head CT negative. Initially was going to pursue MRI due to aphasia and stuttering speech pattern; however, patient adamantly refused and after talking with the sonthis is not new. Will hold off for now. Aspirin as this would be management if patient did in fact have an acute neurological event. Patient already on statin therapy. Lengthy discussion with patient regarding the importance of taking his blood pressure medications and keeping his blood pressure controlled. * His generalized weakness is likely just progressive generalized deconditioning with muscular decline * PT/OT on board and recommending placement to SNF for strength training. I appreciate recommendations * Patient agreeable. Case management on board. Plan is for hopeful discharge to [facility] tomorrow * Son updated (2) Hypertension: Plan: * Patient has since been resumed on his metoprolol and valsartan. His amlo dipine has been increased to 10 mg. Blood pressure controlled (3) Paroxysmal A-fib: Plan: * Currently in a normal sinus rhythm with controlled ventricular rate. Continue beta-blockade * Patient notably not on anticoagulation therapy. He is a fall risk. * [id number]-BBLd 2 score is 4; however, his risk right now of falling with subse quent intracranial hemorrhage given his deconditioned state is much higher (4) HLD (hyperlipidemia): Plan: Chronic -Continue Atorvastatin (5) Cognitive impairment: Plan: * This is not new and progressive (lengthy discussion with son and ongoing X 8+ years). * Patient does not carry a diagnosis of dementia. Given his history of heart disease and vascular changes seen on CT scan, he likely has vascular dementia * Prior to memory impairment, patient was very stubborn. This seems to have only been exacerbated with further decline in his cognition. Unfortunately, this is causing difficulty for appropriate care for patient. He has been having frequent hospitalizations, frequent placement to nursing facilities/personal care facilities, and acute rehab facilities. Ultimately, he does answer questions appropriately and is able to make his own decisions; however, is not always willing/agreeable to accept help. At times, he does get combative. He did require Zyprexa in the ED. He has gotten agitated with myself and nursing staff. I do have as needed Chaval ordered if needed. 1 dose of Seroquel needed when patient became agitated and irate over attempts for MRI. He is now on nightly Seroquel. He is tolerating it without ill effects and has not been combative/agitated requiring Haldol since. Plan: -Continue hospitalization with plan for discharge to [facility] tomorrow -PT/OT and case management on boardappreciate team efforts -Son updated -Plan of care discussed with Dr. Sierra Admission and Anticipated Discharge Date Admission Date: March 08, 2021 Subjective Patient seen on daily rounds today. Vocalizes no complaints or concerns. Denied MRI ordered yesterday. After discussion with son, aphasia/stuttering speech pattern is not new. MRI canceled. Patient now on Plavix, statin therapy, and his BP medications resumed. Blood pressure is controlled at 115/58. PT/OT has been evaluating patient and recommending placement to care home facility to focus on his deconditioned state and inpatient rehab/strength training. Currently, patient is agreeable. Plan is for hopeful discharge to [facility] tomorrow. Review of Systems Review of Systems: All systems reviewed and are unremarkable except as noted in HPI and below Denies fevers, chills, headache, nasal congestion, sore throat, cough, chest pain, shortness of breath, abdominal pain, nausea, vomiting, dysuria, hematuria, frequency, skin lesions or rashes. Physical Exam Physical Exam: General: Resting comfortably in his hospital bed. Currently eating lunch. NAD. Neck: No JVD. Negative hepatojugular reflex Cardiac: RRR Lungs: CTA without W/R/R Abdomen: Normoactive X4. Soft and nontender in all quadrants. Extremities: No peripheral clubbing cyanosis or edema Neuro: A&O X4 cranial nerves II through XII are grossly intact no focal neuro deficits Skin: No obvious skin lesions or rashes Results & Data Results & Data ([place]) Vital Signs (Past 12 Hours) Vital Signs Temp Pulse Resp BP Pulse Ox 03/08/21 15:50 36.8 C 61 20 115/58 L 98 03/08/21 07:28 36.4 C L 53 L 18 128/64 97 Laboratory Results 03/08/21 07:03 03/08/21 07:03 PG Care Time/CCT Total # of Minutes Spent Total Time Spent with Patient: Total time spent is greater than 50% in coordination of care (as documented) at patient's floor/unit and/or counseling patient: [place] [address] Subseq Hosp Care Lvl 1 Patient Type Established History Problem Focused Exam Problem Focused Medical Decision Making Straight Forward Diagnoses Generalized muscle weakness M62.81 Hypertension I10 Hypertension type: unspecified Paroxysmal A-fib I48.0 HLD (hyperlipidemia) E78.5 Cognitive impairment R41.89 (1) Hypertension Hypertension type: unspecified Qualified Code(s): I10 - Essential (primary) hypertension
[2021-03-08] MEDS: QUEtiapine FUMARATE 25 MG TABLET PO SCH (19:55)
[2021-03-09] MEDS: ASPIRIN 81 MG ECTAB PO SCH (08:29)
[2021-03-09] MEDS: FOLIC ACID 1 MG TAB PO SCH (08:29)
[2021-03-09] MEDS: VALSARTAN 80 MG TAB PO SCH (08:30)
[2021-03-09] MEDS: METOPROLOL SUCC 25MG EXT REL TAB PO SCH (08:30)
[2021-03-09] MEDS: ATORVASTATIN 40 MG TAB PO SCH (08:30)
[2021-03-09] MEDS: amLODIPine BESYLATE 5 MG TAB PO SCH (08:31)
[2021-03-09] MEDS: ENOXAPARIN INJ 40 MG/0.4 ML SYR SQ SCH (08:32)
[2021-03-09] MEDS: POLYETHYLENE (MIRALAX) 17 GM PACK PO PRN (08:47)
[2021-03-09] MEDS: ACETAMINOPHEN 325 MG TAB PO PRN ×2 (10:40→17:06)
[2021-03-09] MEDS: CLOTRIMAZOLE 10 MG TROCHE BUCCAL SCH ×3 (16:00→22:19)
--- NOTE | 2021-03-09 17:08 | Hospitalist Progress Note ---
Date of Service March 09, 2021 Assessment & Plan (1) Generalized muscle weakness: Plan: * There does not appear to be an acute metabolic cause for his generalized weakness. No evidence of infection. Head CT negative. Initially was going to pursue MRI due to aphasia and stuttering speech pattern; however, patient adamantly refused and after talking with the sonthis is not new. MRI canceled. Aspirin as this would be management if patient did in fact have an acute neurological event. Patient already on statin therapy. Lengthy discussion with patient regarding the importance of taking his blood pressure medications and keeping his blood pressure controlled. * His generalized weakness is likely just progressive generalized deconditioning with muscular decline * PT/OT on board and recommending placement to SNF for strength training. I appreciate recommendations * Patient agreeable. Case management on board. Plan is for hopeful discharge to [facility] when bed availableSu or Friday per case management (2) Thrush: Plan: * Mycelex khris 5 times a day X 5 days (3) Cognitive impairment: Plan: * This is not new and progressive (lengthy discussion with son and ongoing X 8+ years). * Patient does not carry a diagnosis of dementia. Given his history of heart disease and vascular changes seen on CT scan, he likely has vascular dementia * Prior to memory impairment, patient was very stubborn. This seems to have only been exacerbated with further decline in his cognition. Unfortunately, this is causing difficulty for appropriate care for patient. He has been having frequent hospitalizations, frequent placement to nursing facilities/personal care facilities, and acute rehab facilities. Ultimately, he does answer questions appropriately and is able to make his own decisions; however, is not always willing/agreeable to accept help. At times, he does get combative. He did require Zyprexa in the ED. * Has since been started on Seroquel at bedtime. Haldol ordered as needed but not utilized. (4) Hypertension: Plan: * Patient has since been resumed on his metoprolol and valsartan. His amlodipine has been increased to 10 mg. Blood pressure controlled (5) Paroxysmal A-fib: Plan: * Currently in a normal sinus rhythm with controlled ventricular rate. Continue beta-blockade * Patient notably not on anticoagulation therapy. He is a fall risk. * KFK7MX1-ZAXm 2 score is 4; however, his risk right now of falling with subsequent intracranial hemorrhage given his deconditioned state is much higher (6) HLD (hyperlipidemia): Plan: Chronic -Continue Atorvastatin Plan: -Continue hospitalization with plan for discharge to [facility] when bed available -PT/OT and case management on boardappreciate team efforts -Plan of care discussed with Dr. Sierra Admission and Anticipated Discharge Date Admission Date: March 08, 2021 Subjective Patient seen on daily rounds today. Complains of a sore throat but otherwise voices no other complaints or concerns. Denies fevers, chills, chest pain, shortness of breath, abdominal pain, nausea or vomiting. Does not have a cough or shortness of breath. Is not currently on any inhalers. abx's or steroids. Awaiting placement to SNF. Told bed will be available on Friday or Friday. Review of Systems Review of Systems: All systems reviewed and are unremarkable except as noted in HPI and below + sore throat. Denies fevers, chills, headache, nasal congestion, sore throat, cough, chest pain, shortness of breath, abdominal pain, nausea, vomiting, dysuria, hematuria, frequency, skin lesions or rashes. Physical Exam Physical Exam: General: Resting comfortably in his bedside chair. NAD. HEENT: "black hairy tongue" noted at the posterior aspect of the tongue with white patches at the posterior tongue and oropharynx. No exudates. Uvula mildly erythematous Neck: No JVD. Negative hepatojugular reflex Cardiac: RRR but distant Lungs: CTA without W/R/R Abdomen: Normoactive X4. Soft and nontender in all quadrants. Extremities: No peripheral clubbing cyanosis or edema Neuro: A&O X4 very soft spoken. Stuttering speech pattern. cranial nerves II through XII are grossly intact no focal neuro deficits Skin: No obvious skin lesions or rashes Results & Data Results & Data ([facility]) Vital Signs (Past 12 Hours) Vital Signs Temp Pulse Resp BP Pulse Ox 03/09/21 15:33 36.4 C L 69 22 102/62 97 03/09/21 08:12 36.6 C 63 16 160/66 H 99 Laboratory Results No lab data today PG Care Time/CCT Total # of Minutes Spent Total Time Spent with Patient: Total time spent is greater than 50% in coordination of care (as documented) at patient's floor/unit and/or counseling patient: Coding [place] [address] Subseq Hosp Care Lvl 2 Patient Type Established History Expanded Problem Focused Exam Expanded Problem Focused Medical Decision Making Low Complexity Diagnoses Generalized muscle weakness M62.81 Hypertension I10 Hypertension type: unspecified Paroxysmal A-fib I48.0 HLD (hyperlipidemia) E78.5 Cognitive impairment R41.89 Thrush B37.0 (1) Hypertension Hypertension type: unspecified Qualified Code(s): I10 - Essential (primary) hypertension
[2021-03-09] MEDS: QUEtiapine FUMARATE 25 MG TABLET PO SCH (21:39)
[2021-03-10] MEDS: ACETAMINOPHEN 325 MG TAB PO PRN ×3 (06:06→21:34)
[2021-03-10] MEDS: CLOTRIMAZOLE 10 MG TROCHE BUCCAL SCH ×5 (06:07→23:10)
[2021-03-10] MEDS: amLODIPine BESYLATE 5 MG TAB PO SCH (09:09)
[2021-03-10] MEDS: FOLIC ACID 1 MG TAB PO SCH (09:09)
[2021-03-10] MEDS: ATORVASTATIN 40 MG TAB PO SCH (09:09)
[2021-03-10] MEDS: METOPROLOL SUCC 25MG EXT REL TAB PO SCH (09:09)
[2021-03-10] MEDS: ASPIRIN 81 MG ECTAB PO SCH (09:10)
[2021-03-10] MEDS: ENOXAPARIN INJ 40 MG/0.4 ML SYR SQ SCH (09:10)
[2021-03-10] MEDS: VALSARTAN 80 MG TAB PO SCH (09:10)
--- NOTE | 2021-03-10 17:17 | Hospitalist Progress Note ---
Date of Service March 10, 2021 Assessment & Plan (1) Generalized muscle weakness: Plan: * There does not appear to be an acute metabolic cause for his generalized weakness. No evidence of infection. Head CT negative. Initially was going to pursue MRI due to aphasia and stuttering speech pattern; however, patient adamantly refused and after talking with the sonthis is not new. MRI canceled. Son, after seeing patient today for the first time in several weeksconcerned at his appearance. I did explain that this is been stable since admission. Aspirin as this would be management if patient did in fact have an acute neurological event. No focal neuro deficits noted. Statin therapy resumed. Lengthy discussion with patient regarding the importance of taking his blood pressure medications and keeping his blood pressure controlled. * His generalized weakness is likely just progressive generalized deconditioning with muscular decline * PT/OT on board and recommending placement to SNF for strength training. I appreciate recommendations * Patient agreeable. Case management on board. Plan is for hopeful discharge to [facility] when bed availableSund or Friday per case management (2) Thrush: Plan: * Mycelex khris 5 times a day X 5 days * obtain throat culture and rapid strep (3) Cognitive impairment: Plan: * This is not new and progressive (lengthy discussion with son and ongoing X 8+ years). * Patient does not carry a diagnosis of dementia. Given his history of heart disease and vascular changes seen on CT scan, he likely has vascular dementia * Prior to memory impairment, patient was very stubborn. This seems to have only been exacerbated with further decline in his cognition. Unfortunately, this is causing difficulty for appropriate care for patient. He has been having frequent hospitalizations, frequent placement to nursing facilities/personal care facilities, and acute rehab facilities. Ultimately, he does answer questions appropriately and is able to make his own decisions; however, is not always willing/agreeable to accept help. At times, he does get combative. He did require Zyprexa in the ED. * Has since been started on Seroquel at bedtime. Haldol ordered as needed but not utilized. (4) Hypertension: Plan: * Patient has since been resumed on his metoprolol and valsartan. His amlodipine has been increased to 10 mg. Blood pressure controlled (5) Paroxysmal A-fib: Plan: * Currently in a normal sinus rhythm with controlled ventricular rate. Continue beta-blockade * Patient notably not on anticoagulation therapy. He is a fall risk. * LGF7EI1-DOHb 2 score is 4; however, his risk right now of falling with subsequent intracranial hemorrhage given his deconditioned state is much higher (6) HLD (hyperlipidemia): Plan: Chronic -Continue Atorvastatin Plan: -Continue hospitalization with plan for discharge to [facility] when bed available -PT/OT and case management on boardappreciate team efforts -Plan of care discussed with Dr. Mijares - son updated Admission and Anticipated Discharge Date Admission Date: March 08, 2021 Subjective Patient seen on daily rounds today. Awaiting placement (Told bed at [facility] will be available on Friday or Friday). Still with sore throat. No on mycelex. Son in today (lives 3 hours from patient and hasn't seen father in weeks) but c oncerned at how weak he looks today. This is far from baseline. This is a stable appearance from admission. Patient denies F/C, CP, SOB, abd pain, N/V, GI/ symptoms. Review of Systems Review of Systems: All systems reviewed and are unremarkable except as noted in HPI and below + sore thraot. Otherwise, Denies fevers, chills, headache, nasal congestion, sore throat, cough, chest pain, shortness of breath, abdominal pain, nausea, vomiting, dysuria, hematuria, frequency, skin lesions or rashes. Physical Exam Constitutional: General: Resting comfortably in his hospital bed. Mumbled/stuttered speech but baseline throughout this entire hospital course. Does not appear ill or toxic Neck: No JVD. Negative hepatojugular reflex Cardiac: Currently in a normal sinus rhythm with controlled ventricular rate Lungs: CTA without W/R/R Abdomen: Normoactive X4. Soft and nontender in all quadrants. Extremities: No peripheral clubbing cyanosis or edema Neuro: A&O X4 cranial nerves II through XII are grossly intact no focal neuro deficits Skin: No obvious skin lesions or rashes Results & Data Results & Data ([facility]) Vital Signs (Past 12 Hours) Vital Signs Temp Pulse Pulse Resp BP Pulse Ox 03/10/21 15:24 36.3 C L 61 18 145/63 H 97 03/10/21 12:23 36.9 C 61 18 122/73 97 07/24/21 08:14 36.7 C 63 18 120/64 97 03/10/21 07:21 36.5 C 66 16 159/66 H 98 Laboratory Results No lab data PG Care Time/CCT Total # of Minutes Spent Total Time Spent with Patient: Total time spent is greater than 50% in coordination of care (as documented) at patient's floor/unit and/or counseling patient: Coding [place] [address] Subseq Hosp Care Lvl 1 Patient Type Established Medical Decision Making Straight Forward Diagnoses Generalized muscle weakness M62.81 Thrush B37.0 Cognitive impairment R41.89 Hypertension I10 Hypertension type: unspecified Paroxysmal A-fib I48.0 HLD (hyperlipidemia) E78.5 (1) Hypertension Hypertension type: unspecified Qualified Code(s): I10 - Essential (primary) hypertension
[2021-03-10] MEDS: POLYETHYLENE (MIRALAX) 17 GM PACK PO PRN (21:34)
[2021-03-10] MEDS: QUEtiapine FUMARATE 25 MG TABLET PO SCH (21:34)
[2021-03-11] MEDS: CLOTRIMAZOLE 10 MG TROCHE BUCCAL SCH ×5 (05:57→20:59)
[2021-03-11] MEDS: amLODIPine BESYLATE 5 MG TAB PO SCH (09:18)
[2021-03-11] MEDS: ASPIRIN 81 MG ECTAB PO SCH (09:19)
[2021-03-11] MEDS: ATORVASTATIN 40 MG TAB PO SCH (09:19)
[2021-03-11] MEDS: ENOXAPARIN INJ 40 MG/0.4 ML SYR SQ SCH (09:20)
[2021-03-11] MEDS: METOPROLOL SUCC 25MG EXT REL TAB PO SCH (09:20)
[2021-03-11] MEDS: FOLIC ACID 1 MG TAB PO SCH (09:20)
[2021-03-11] MEDS: VALSARTAN 80 MG TAB PO SCH (09:21)
[2021-03-11] MEDS: ACETAMINOPHEN 325 MG TAB PO PRN (10:36)
--- NOTE | 2021-03-11 18:00 | Hospitalist Progress Note ---
Date of Service March 11, 2021 Assessment & Plan (1) Generalized muscle weakness: Plan: * There does not appear to be an acute metabolic cause for his generalized weakness. No evidence of infection. Head CT negative. Initially was going to pursue MRI due to aphasia and stuttering speech pattern; however, patient adamantly refused and after talking with the son-reported as chronic. Son came for a visit yesterday was very concerned that his stuttering speech patte rn and weakness seems much more pronounced. Patient still refusing MRI. Encouraged son that patient has been stable and in this state since hospitalization. Is possible he may have had an acute neurological event. Now on aspirin/Lipitor in addition to his BP meds (which he was not taking prior to this hospitalization). * Spoke with son that patient may continue to decline while awaiting placement. * PT/OT on board and recommending placement to SNF for strength training. I appreciate recommendations * Patient agreeable. Plan was for hopeful discharge to [facility]; however, they are uncertain if they will take him because he is not Covid vaccinated. Case management on board (2) Thrush: Plan: * Mycelex khris 5 times a day X 5 days * obtain throat culture and rapid strep (3) Cognitive impairment: Plan: * This is not new and progressive (lengthy discussion with son and ongoing X 8+ years). * Patient does not carry a diagnosis of dementia. Given his history of heart disease and vascular changes seen on CT scan, he likely has vascular dementia * Prior to memory impairment, patient was very stubborn. This seems to have only been exacerbated with further decline in his cognition. Unfortunately, this is causing difficulty for appropriate care for patient. He has been having frequent hospitalizations, frequent placement to nursing facilities/personal care facilities, and acute rehab facilities. Ultimately, he does answer questions appropriately and is able to make his own decisions; however, is not always willing/agreeable to accept help. At times, he does get combative. He did require Zyprexa in the ED. * Has since been started on Seroquel at bedtime. Haldol ordered as needed but not utilized. Patient very cooperative and compliant (4) Hypertension: Plan: * Patient has since been resumed on his metoprolol and valsartan. His amlodipine has been increased to 10 mg. Blood pressure controlled (5) Paroxysmal A-fib: Plan: * Currently in a normal sinus rhythm with controlled ventricular rate. Continue beta-blockade * Patient notably not on anticoagulation therapy. He is a fall risk. * OWG7VL3-IPLr 2 score is 4; however, his risk right now of falling with subsequent intracranial hemorrhage given his deconditioned state is much higher (6) HLD (hyperlipidemia): Plan: Chronic -Continue Atorvastatin Plan: -Continue hospitalization with plan for discharge SNF -PT/OT and case management on boardappreciate team efforts -Plan of care discussed with Dr. Mijares - son updated Admission and Anticipated Discharge Date Admission Date: March 08, 2021 Subjective Patient seen on daily rounds today. Claims that his sore throat is improving. Throat culture pending. On Mycelex for? Early thrush given "black hairy tongue" seen on exam. Remains weak and very deconditioned without an obvious metabolic cause. As outlined in my prior notes, I was concerned given some expressive aphasia and stuttering speech that was seen when I 1st saw the patient on 03/07. I did discuss this with the son and ordered an MRI. Patient adamantly refused MRI. I did explain to the son that I thought he may have had an acute neurological event but he reported that this speech pattern was ongoing for quite a while. In the interim, patient's son came to visit for the 1st time in months yesterday and was very concerned that "this is the worst I have ever seen my dad". He said his speech was much worse than he ever remembers. I did reassure patient's son that this is how the patient has been throughout his entire hospital course. Again, it is likely that he may have had an acute neurological event; however, he refused the MRI. He has been awake and alert and can make these decisions. At any rate, he was placed back on his blood pressure medication with the addition of aspirin and Lipitor for cardiac/cerebral protection. Awaiting placement. Plan was for discharge to [facility] today or tomorrow when a bed became available. Authorization already obtained. Now being told by case management that [facility] may not accept patient as he is not had his Covid vaccine. They need to "discuss this with the administrative team". Review of Systems Review of Systems: All systems reviewed and are unremarkable except as noted in HPI and below sore throat improving. Denies fevers, chills, headache, nasal congestion, cough, chest pain, shortness of breath, abdominal pain, nausea, vomiting, dysuria, hematuria, frequency, skin lesions or rashes. Physical Exam Physical Exam: General: Resting comfortably in his hospital bed. Mumbled/stuttered speech but baseline throughout this entire hospital course. Does not appear ill or toxic Neck: No JVD. Negative hepatojugular reflex Cardiac: Currently in a normal sinus rhythm with controlled ventricular rate Lungs: CTA without W/R/R Abdomen: Normoactive X4. Soft and nontender in all quadrants. Extremities: No peripheral clubbing cyanosis or edema Neuro: A&O X4 cranial nerves II through XII are grossly intact no focal neuro deficits Skin: No obvious skin lesions or rashes Results & Data Results & Data ([facility]) Vital Signs (Past 12 Hours) Vital Signs Temp Pulse Pulse Resp BP Pulse Ox 03/11/21 14:49 36.4 C L 71 16 146/71 H 96 03/11/21 12:03 36.4 C L 70 18 116/60 99 03/11/21 07:23 36.6 C 65 16 118/60 97 Laboratory Results No lab data today Throat culture pending Rapid strep test negative PG Care Time/CCT Total # of Minutes Spent Total Time Spent with Patient: Total time spent is greater than 50% in coordination of care (as documented) at patient's floor/unit and/or counseling patient:45 Coding [place] [address] Subseq Hosp Care Lvl 1 Patient Type Established Medical Decision Making Low Complexity Diagnoses Generalized muscle weakness M62.81 Thrush B37.0 Cognitive impairment R41.89 Hypertension I10 Hypertension type: unspecified Paroxysmal A-fib I48.0 HLD (hyperlipidemia) E78.5 (1) Hypertension Hypertension type: unspecified Qualified Code(s): I10 - Essential (primary) hypertension
[2021-03-11] MEDS: QUEtiapine FUMARATE 25 MG TABLET PO SCH (20:57)
[2021-03-12] MEDS: CLOTRIMAZOLE 10 MG TROCHE BUCCAL SCH ×5 (06:18→20:56)
[2021-03-12] MEDS: amLODIPine BESYLATE 5 MG TAB PO SCH (08:08)
[2021-03-12] MEDS: ATORVASTATIN 40 MG TAB PO SCH (08:09)
[2021-03-12] MEDS: VALSARTAN 80 MG TAB PO SCH (08:09)
[2021-03-12] MEDS: ASPIRIN 81 MG ECTAB PO SCH (08:09)
[2021-03-12] MEDS: METOPROLOL SUCC 25MG EXT REL TAB PO SCH (08:10)
[2021-03-12] MEDS: ENOXAPARIN INJ 40 MG/0.4 ML SYR SQ SCH (08:11)
[2021-03-12] MEDS: FOLIC ACID 1 MG TAB PO SCH (08:11)
[2021-03-12] MEDS: POLYETHYLENE (MIRALAX) 17 GM PACK PO PRN (09:44)
[2021-03-12] MEDS ORDERED: MAGNESIUM CITRATE 296 ML/BTL PO ONE (13:45)
[2021-03-12] MEDS: SENNA 8.6 MG TAB PO SCH (15:42)
[2021-03-12] MEDS: ACETAMINOPHEN 325 MG TAB PO PRN ×2 (18:18→23:24)
[2021-03-12] MEDS: QUEtiapine FUMARATE 25 MG TABLET PO SCH (20:56)
--- NOTE | 2021-03-12 23:45 | Hospitalist Progress Note ---
Date of Service March 12, 2021 Assessment & Plan (1) Generalized muscle weakness: Plan: There does not appear to be an acute metabolic cause for his generalized weakness. No evidence of infection. Head CT negative. Initially was going to pursue MRI due to aphasia and stuttering speech pattern; however, patient adamantly refused and after talking with the sonthis is not new. MRI canceled. Son, after seeing patient here in the hospital for the first time in several weekswas concerned at his appearance. In case of acute stroke, aspirin was started as this would be management if patient did in fact have an acute neurological event. No focal neuro deficits noted. Statin therapy resumed. Lengthy discussion with patient regarding the importance of taking his blood pressure medications and keeping his blood pressure controlled. Perhaps hypertensive encephalopathy contributed to his weakness and confusion His generalized weakness is likely just progressive generalized deconditioning with muscular decline PT/OT on board and recommending placement to SNF for strength training Patient agreeable to rehab placement. Case management on board. [facility] will not accept him as he has not had a Covid vaccine and there are no private rooms available -I discussed his care with his home health nurse on the phone who is ordering in a Covid vaccine for him but it may not be available for at least 1 week -I have also asked case management social worker to discuss with the hospital ministration about getting him a vaccine from the hospital to facilitate discharge (2) Thrush: Plan: Continue Mycelex khris 5 times a day X 5 days obtain throat culture and rapid strep-negative Tongue appears dry but no exudate (3) Cognitive impairment: Plan: This is not new and progressive (lengthy discussion with son and ongoing X 8+ years). I have taken care of this patient for years ago and experienced similar cognitive deficits although not as significant as now Patient does not carry a diagnosis of dementia. Given his history of heart disease and vascular changes seen on CT scan, he likely has vascular dementia Prior to memory impairment, patient was very stubborn. This seems to have only been exacerbated with further decline in his cognition. Unfortunately, this is causing difficulty for appropriate care for patient. He has been having frequent hospitalizations, frequent placement to nursing facilities/personal care facilities, and acute rehab facilities. Ultimately, he does answer questi ons appropriately and is able to make his own decisions; however, is not always willing/agreeable to accept help. At times, he does get combative. He did require Zyprexa in the ED. Has since been started on Seroquel at bedtime. Haldol ordered as needed but not utilized. (4) Hypertension: Plan: Possibly with hypertensive encephalopathy upon admission, blood pressures were in the 190s to 200s systolic Patient has since been resumed on his metoprolol and valsartan. His amlodipine has been increased to 10 mg. Blood pressure now controlled (5) Paroxysmal A-fib: Plan: Remains normal sinus rhythm with controlled ventricular rate. Continue beta-blockade Patient notably not on anticoagulation therapy. This is due to a high fall risk. [id number] 2 score is 4; however, his risk right now of falling with subsequent intracranial hemorrhage given his deconditioned state is much higher (6) HLD (hyperlipidemia): Plan: Chronic -Continue Atorvastatin (7) Constipation: Plan: No bowel movement documented in 1 week Give half bottle of magnesium citrate and senna Plan: DVT prophylaxis-Lovenox Disposition-medically stable for discharge, awaiting placement Admission and Anticipated Discharge Date Admission Date: March 08, 2021 Subjective Patient was drowsy this morning as per nursing but woke up to verbal stimulus when I talk to him. He knows he is in the hospital but cannot remember the name of the hospital. When I asked about his fall prior to admission, he stated "that is a lie, why does no one believe me." He does ask if he can get the Covid vaccine while he is here. He denies pain anywhere. He is eating and drinking, moving his bowels. He has no other complaints. Review of Systems Review of Systems: All systems reviewed & are unremarkable except as noted in HPI & below (Except with sore throat) Physical Exam Constitutional: WD/WN, vitals as above Eyes: PERRL, conjunctivae normal, anicteric sclerae ENMT: external ear and nose normal, oropharynx normal (Except dry tongue) Neck: trachea midline, no thyromegaly Respiratory: normal respiratory effort, lungs clear to auscultation Cardiovascular: RRR, no murmur, no edema Chest (Breasts): Chest: normal inspection of chest Gastrointestinal (Abdomen): normal bowel sounds, soft, nontender, no hepatosplenomegaly Musculoskeletal: Extremities: extremities normal to inspection; no cyanosis and no clubbing Skin: no rashes, warm and dry Neurologic: moves all extremities and awake; no focal motor deficits Psychiatric: Orientation: alert, oriented to person, oriented to place (Place but not name of the place) and cooperative Lymphatic: no lymphedema Results & Data Results & Data ([facility]) Vital Signs (Past 12 Hours) Vital Signs Temp Pulse Resp BP Pulse Ox 03/12/21 22:57 36.5 C 65 16 125/70 97 03/12/21 15:37 36.4 C L 68 18 123/66 97 PG Care Time/CCT Total # of Minutes Spent Total Time Spent with Patient: Total time spent is greater than 50% in coordination of care (as documented) at patient's floor/unit and/or counseling patient: Coding Level of Care Code 77250 Subseq Hosp Care Lvl 2 Diagnoses Generalized muscle weakness M62.81 Thrush B37.0 Cognitive impairment R41.89 Hypertension I10 Hypertension type: unspecified Paroxysmal A-fib I48.0 HLD (hyperlipidemia) E78.5 Constipation K59.00 (1) Hypertension Hypertension type: unspecified Qualified Code(s): I10 - Essential (primary) hypertension
[2021-03-13] MEDS: CLOTRIMAZOLE 10 MG TROCHE BUCCAL SCH ×5 (06:09→22:31)
[2021-03-13 07:44] LABS: Basophils # (auto) 0.01 K/uL (0-0.2); Basophils % (auto) 0.2 %; Eosinophils # (auto) 0.14 K/uL (0-0.5); Eosinophils % (auto) 2.4 %; Hematocrit (blood only) 37.9 % (42-52); Hemoglobin 12.2 g/dL (14.0-18.0); Immature Granulocytes # (auto) 0.01 K/uL (0.00-0.02); Immature Granulocytes % (auto) 0.2 %; Lymphocytes # (auto) 1.74 K/uL (1.2-3.4); Lymphocytes % (auto) 30.4 %; Mean Corpuscular Hemoglobin 30.6 pg (25-34); Mean Corpuscular Hgb Conc 32.2 g/dL (32-36); Mean Platelet Volume 10.1 fL (7.4-10.4); Monocytes # (auto) 0.65 K/uL (0.11-0.59); Monocytes % (auto) 11.3 %; Neutrophils # (auto) 3.18 K/uL (1.4-6.5); Neutrophils % (auto) 55.5 %; Platelet Count 238 K/uL (130-400); RDW Coefficient of Variation 13.2 % (11.5-14.5); RDW Standard Deviation 46.2 fL (36.4-46.3); Red Blood Count 3.99 M/uL (4.7-6.1); White Blood Count 5.73 K/uL (4.8-10.8)
[2021-03-13 08:10] LABS: BUN Creatinine Ratio 34.2 (10-20); Calcium 9.2 mg/dl (8.5-10.1); Creatinine Clr Calc Pharmacy 36.9 ml/min; Est GFR (African American) 53.4 ml/min
[2021-03-13 08:15] LABS: Ferritin 154.9 ng/ml (8-388)
[2021-03-13] MEDS: amLODIPine BESYLATE 5 MG TAB PO SCH (08:47)
[2021-03-13] MEDS: METOPROLOL SUCC 25MG EXT REL TAB PO SCH (08:47)
[2021-03-13] MEDS: ATORVASTATIN 40 MG TAB PO SCH (08:47)
[2021-03-13] MEDS: SENNA 8.6 MG TAB PO SCH (08:47)
[2021-03-13] MEDS: ASPIRIN 81 MG ECTAB PO SCH (08:47)
[2021-03-13] MEDS: FOLIC ACID 1 MG TAB PO SCH (08:47)
[2021-03-13] MEDS: VALSARTAN 80 MG TAB PO SCH (08:48)
[2021-03-13] MEDS: ENOXAPARIN INJ 40 MG/0.4 ML SYR SQ SCH (08:48)
[2021-03-13 09:01] LABS: Folate (Folic Acid) > 20.00 ng/ml (>5.38); Vitamin B12 315 pg/ml (193-986)
[2021-03-13] MEDS ORDERED: CYANOCOBALAMIN 1000 MCG/ML VIAL IM ONE (11:30)
[2021-03-13] MEDS: THIAMINE HCL 100 MG TAB PO SCH (11:54)
[2021-03-13] MEDS: ACETAMINOPHEN 325 MG TAB PO PRN (11:55)
[2021-03-13] MEDS ORDERED: MAGNESIUM CITRATE 296 ML/BTL PO SCH (12:20)
--- NOTE | 2021-03-13 12:20 | Hospitalist Progress Note ---
Date of Service March 13, 2021 Assessment & Plan (1) Generalized muscle weakness: Plan: There does not appear to be an acute metabolic cause for his generalized weakness. No evidence of infection. Head CT negative. Initially was going to pursue MRI due to aphasia and stuttering speech pattern; however, patient adamantly refused and after talking with the sonthis is not new. MRI canceled. Son, after seeing patient here in the hospital for the first time in several weekswas concerned at his appearance. In case of acute stroke, aspirin was started as this would be management if patient did in fact have an acute neurological event. No focal neuro deficits noted. Statin therapy continues Lengthy discussion with patient regarding the importance of taking his blood pressure medications and keeping his blood pressure controlled. Perhaps hypertensive encephalopathy contributed to his weakness and confusion Vitamin B1 level checked and is pending-start thiamine 100 mg p.o. daily empirically Started B12 for deficiency as below His generalized weakness is likely just progressive generalized deconditioning with muscular decline PT/OT on board and recommending placement to SNF for strength training Patient agreeable to rehab placement. Case management on board. [facility] will not accept him as he has not had a Covid vaccine and there are no private rooms available -I discussed his care with his home health nurse on the phone who is ordering in a Covid vaccine for him but it may not be available for at least 1 week -I have also asked sample case porter to discuss with the hospital ministration about getting him a vaccine from the hospital to facilitate discharge (2) Thrush: Plan: Continue Mycelex khris 5 times a day X 5 days obtain throat culture and rapid strep-negative Tongue appears dry but no exudate currently (3) Cognitive impairment: Plan: This is not new and progressive (lengthy discussion with son and ongoing X 8+ years). I have taken care of this patient for years ago and experienced similar cognitive deficits although not as significant as now TSH normal Patient does not carry a diagnosis of dementia. Given his history of heart disease and vascular changes seen on CT scan, he likely has vascular dementia Prior to memory impairment, patient was very stubborn. This seems to have only been exacerbated with further decline in his cognition. Unfortunately, this is causing difficulty for appropriate care for patient. He has been having frequent hospitalizations, frequent placement to nursing facilities/personal care facilities, and acute rehab facilities. Ultimately, he does answer questions appropriately and is able to make his own decisions; however, is not always willing/agreeable to accept help. At times, he does get combative. He did require Zyprexa in the ED. Has since been started on Seroquel at bedtime. Haldol ordered as needed but not utilized. Check B1 level as above and start thiamine p.o. empirically Starting B12 replacement (4) Hypertension: Plan: Possibly with hypertensive encephalopathy upon admission, blood pressures were in the 190s to 200s systolic Patient has since been resumed on his metoprolol and valsartan. His amlodipine has been increased to 10 mg. Blood pressure now controlled (5) Paroxysmal A-fib: Plan: Remains normal sinus rhythm with controlled ventricular rate. Continue beta- blockade Patient notably not on anticoagulation therapy. This is due to a high fall risk. [id number] 2 score is 4; however, his risk right now of falling with subsequent intracranial hemorrhage given his deconditioned state is much higher (6) HLD (hyperlipidemia): Plan: Chronic -Continue Atorvastatin (7) Constipation: Plan: No bowel movement documented in over 1 week Give another half bottle of magnesium citrate today and continue senna (8) Vitamin B12 deficiency: Plan: B12 level low at 300 and was 200 last month but never replaced Give cyanocobalamin 1000 mcg IM x1 now and then start 500 mcg p.o. once daily tomorrow Plan: DVT prophylaxis-Lovenox Disposition-medically stable for discharge, awaiting placement Admission and Anticipated Discharge Date Admission Date: March 08, 2021 Subjective Patient reports he is frustrated with being here and says that doctors never do anything. He does complain of bilateral heel pain this morning. Otherwise he is still constipated. He is eating and drinking. He seems much more alert and awake and oriented today. He then later does apologize in hopes that he did not send me with his comment about doctors. Review of Systems Review of Systems: All systems reviewed & are unremarkable except as noted in HPI & below Physical Exam Constitutional: WD/WN, vitals as above Eyes: + anicteric sclerae ENMT: external ear and nose normal, oropharynx normal (Except dry tongue) Neck: trachea midline, no thyromegaly Respiratory: normal respiratory effort, lungs clear to auscultation Cardiovascular: RRR, no murmur, no edema Vessels: dorsalis pedis pulses present Chest (Breasts): Chest: normal inspection of chest Gastrointestinal (Abdomen): normal bowel sounds, soft, nontender, no hepatosplenomegaly Musculoskeletal: Extremities: extremities normal to inspection; no cyanosis and no clubbing Skin: no rashes, warm and dry Neurologic: moves all extremities and awake; no focal motor deficits Psychiatric: Orientation: alert, oriented x 3 and cooperative Lymphatic: no lymphedema Results & Data Results & Data ([facility]) Vital Signs (Past 12 Hours) Vital Signs Temp Pulse Resp BP Pulse Ox 03/13/21 07:31 36.5 C 64 18 119/63 97 Laboratory Results 03/13/21 03/13/21 03/13/21 Range/Units 07:26 07:26 07:26 WBC (4.8-10.8) K/uL RBC (4.7-6.1) M/uL Hgb (14.0-18.0) g/dL Hct (42-52) % MCV (80-100) fL MCH (25-34) pg MCHC (32-36) g/dL RDW Std Deviation (36.4-46.3) fL RDW Coeff of Allison (11.5-14.5) % Plt Count (130-400) K/uL MPV (7.4-10.4) fL Immature Gran % (Auto) % Neut % (Auto) % Lymph % (Auto) % Humphreys % (Auto) % Eos % (Auto) % Baso % (Auto) % Neut # (Auto) (1.4-6.5) K/uL Lymph # (Auto) (1.2-3.4) K/uL Humphreys # (Auto) (0.11-0.59) K/uL Eos # (Auto) (0-0.5) K/uL Baso # (Auto) (0-0.2) K/uL Immature Gran # (Auto) (0.00-0.02) K/uL Sodium 139 (136-145) mmol/L Potassium 5.0 (3.5-5.1) mmol/L Chloride 110 H (98-107) mmol/L Carbon Dioxide 26 (21-32) mmol/L Anion Gap 3.0 (3-11) BUN 47 H (7-18) mg/dl Creatinine 1.37 (0.6-1.4) mg/dl Est Cr Clr Drug Dosing 36.9 ml/min Est GFR ( Amer) 53.4 ml/min Est GFR (Non-Af Amer) 46.0 ml/min BUN/Creatinine Ratio 34.2 H (10-20) Glucose 105 H (70-99) mg/dl Calcium 9.2 (8.5-10.1) mg/dl Iron 96 (35-175) mcg/dl TIBC 192 L (250-450) mcg/dl Transferrin 161 L (200-360) mg/dl Transferrin % Sat 42 (20-50) % Ferritin 154.9 (8-388) ng/ml Whole Bld Vitamin B1 Pending Vitamin B12 315 (193-986) pg/ml Folate > 20.00 (>5.38) ng/ml 03/13/21 Range/Units 07:26 WBC 5.73 (4.8-10.8) K/uL RBC 3.99 L (4.7-6.1) M/uL Hgb 12.2 L (14.0-18.0) g/dL Hct 37.9 L (42-52) % MCV 95.0 (80-100) fL MCH 30.6 (25-34) pg MCHC 32.2 (32-36) g/dL RDW Std Deviation 46.2 (36.4-46.3) fL RDW Coeff of Allison 13.2 (11.5-14.5) % Plt Count 238 (130-400) K/uL MPV 10.1 (7.4-10.4) fL Immature Gran % (Auto) 0.2 % Neut % (Auto) 55.5 % Lymph % (Auto) 30.4 % Humphreys % (Auto) 11.3 % Eos % (Auto) 2.4 % Baso % (Auto) 0.2 % Neut # (Auto) 3.18 (1.4-6.5) K/uL Lymph # (Auto) 1.74 (1.2-3.4) K/uL Humphreys # (Auto) 0.65 H (0.11-0.59) K/uL Eos # (Auto) 0.14 (0-0.5) K/uL Baso # (Auto) 0.01 (0-0.2) K/uL Immature Gran # (Auto) 0.01 (0.00-0.02) K/uL Sodium (136-145) mmol/L Potassium (3.5-5.1) mmol/L Chloride (98-107) mmol/L Carbon Dioxide (21-32) mmol/L Anion Gap (3-11) BUN (7-18) mg/dl Creatinine (0.6-1.4) mg/dl Est Cr Clr Drug Dosing ml/min Est GFR ( Amer) ml/min Est GFR (Non-Af Amer) ml/min BUN/Creatinine Ratio (10-20) Glucose (70-99) mg/dl Calcium (8.5-10.1) mg/dl Iron (35-175) mcg/dl TIBC (250-450) mcg/dl Transferrin (200-360) mg/dl Transferrin % Sat (20-50) % Ferritin (8-388) ng/ml Whole Bld Vitamin B1 Vitamin B12 (193-986) pg/ml Folate (>5.38) ng/ml PG Care Time/CCT Total # of Minutes Spent Total Time Spent with Patient: Total time spent is greater than 50% in coordination of care (as documented) at patient's floor/unit and/or counseling patient: Coding Level of Care Code 38490 Subseq Hosp Care Lvl 2 Diagnoses Generalized muscle weakness M62.81 Thrush B37.0 Cognitive impairment R41.89 Hypertension I10 Hypertension type: unspecified Paroxysmal A-fib I48.0 HLD (hyperlipidemia) E78.5 Constipation K59.00 Vitamin B12 deficiency E53.8 (1) Hypertension Hypertension type: unspecified Qualified Code(s): I10 - Essential (primary) hypertension
[2021-03-13] MEDS: QUEtiapine FUMARATE 25 MG TABLET PO SCH (21:16)
[2021-03-14] MEDS: CLOTRIMAZOLE 10 MG TROCHE BUCCAL SCH ×2 (06:08→10:40)
[2021-03-14] MEDS: ATORVASTATIN 40 MG TAB PO SCH (08:27)
[2021-03-14] MEDS: amLODIPine BESYLATE 5 MG TAB PO SCH (08:27)
[2021-03-14] MEDS: FOLIC ACID 1 MG TAB PO SCH (08:27)
[2021-03-14] MEDS: THIAMINE HCL 100 MG TAB PO SCH (08:27)
[2021-03-14] MEDS: ENOXAPARIN INJ 40 MG/0.4 ML SYR SQ SCH (08:28)
[2021-03-14] MEDS: VALSARTAN 80 MG TAB PO SCH (08:28)
[2021-03-14] MEDS: SENNA 8.6 MG TAB PO SCH (08:28)
[2021-03-14] MEDS: ASPIRIN 81 MG ECTAB PO SCH (08:28)
[2021-03-14] MEDS: METOPROLOL SUCC 25MG EXT REL TAB PO SCH (08:30)
[2021-03-14] MEDS ORDERED: CYANOCOBALAMIN 500 MCG TABLET (VITAMIN B-12) PO SCH (09:00)
--- NOTE | 2021-03-14 10:51 | Discharge Summary ---
Date of Service March 14, 2021 Admission HPI Per Admitting Provider Ernesto Crooks is an 85yo male with history of CAD, HTN and HLP presenting with generalized weakness. Patient lives alone at home, has had frequent falls in the past. Most recently hospitalized in January 2021 for a fall -was discharged to [facility] where he completed rehabilitation but was unhappy with the care. He returned home. Reports generalized weakness with difficulty ambulating. Today he was unable to get out of bed due to weakness. He reports not taking his medications for > 1 months. 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 No additional complaints. He specifically denies fever/chills/body aches/malaise/chest pain/palpitations/cough/SOB/dizziness/abdominal pain/nausea/vomiting/diarrhea/constipation. No urinary complaints. NSS 500 Principal Diagnosis Generalized weakness, fall, encephalopathy Discharge Exam Constitutional WD/WN, vitals as above Eyes + anicteric sclerae ENMT external ear and nose normal, oropharynx normal Neck trachea midline, no thyromegaly Respiratory normal respiratory effort, lungs clear to auscultation Cardiovascular RRR, no murmur, no edema Vessels: dorsalis pedis pulses present Chest (Breasts) Chest: normal inspection of chest Gastrointestinal (Abdomen) normal bowel sounds, soft, nontender, no hepatosplenomegaly Musculoskeletal Extremities: extremities normal to inspection; no cyanosis and no clubbing Skin no rashes, warm and dry Neurologic moves all extremities and awake; no focal motor deficits Psychiatric Orientation: alert, oriented x 3 and cooperative Lymphatic no lymphedema Discharge Data Allergies Allergy/AdvReac Type Severity Reaction Status Date / Time No Known Allergies Allergy Verified 03/06/21 17:08 Ordered Studies 03/06/21 15:59 CT abd pelvis IV con only Stat CT head/brain wo con Stat Abdomen/Pelvis CT 03/06/21 15:59 CT abd pelvis IV con only CLINICAL HISTORY: Pain and lower extremity weakness COMPARISON STUDY: 08/07/2017 TECHNIQUE: The patient was scanned in a dynamic helical fashion during intravenous administration of 94 cc of Optiray 320 A dose lowering technique was utilized adhering to the principles of ALARA. CT DOSE: FINDINGS: Lower chest: There are mild dependent atelectatic changes. Liver: The contrast-enhanced liver is normal in size, contour, and attenuation. There is no intrahepatic biliary ductal dilatation. The hepatic veins and portal veins are patent. Gallbladder: Unremarkable. Spleen: Normal in size and attenuation. Pancreas: Unremarkable. Adrenal glands: Unremarkable. Kidneys: There are bilateral renal cortical cysts. No solid renal masses are visualized. There is no hydronephrosis. Bowel: There are no transition zones to indicate bowel obstruction. There is no evidence of acute diverticulitis. There is scattered small bowel and colonic air-fluid levels. This a nonspecific finding which can be seen in an enteritis. Peritoneum: There is no intraperitoneal free air or abdominal ascites. There are postsurgical changes are prior right inguinal hernia repair. There is a small fat-containing left inguinal hernia. Vasculature: The abdominal aorta is normal in course and caliber. Adenopathy: None. Pelvic viscera: There is mild prostatomegaly. There is borderline bladder wall thickening. Skeletal structures: No destructive osseous lesions are seen. 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 IMPRESSION: 1. No evidence of bowel obstruction. No evidence of free air 2. Colonic diverticulosis. No evidence of acute diverticulitis 3. No evidence of acute appendicitis 4. Scattered small bowel and colonic air-fluid levels. This is a nonspecific finding which can be seen in an enteritis. 5. Prostatomegaly ACT 112: Negative or not required by law. Electronically signed by: Osmany Agustin M.D. 03/06/2021 5:[address] 03/06/21 15:59 CT head/brain wo con CLINICAL HISTORY: weakness COMPARISON STUDY: 01/29/2021 TECHNIQUE: Axial CT of the brain is performed from the vertex to the skull base. IV contrast was not administered for this examination. A dose lowering technique was utilized adhering to the principles of ALARA. CT DOSE: 1054.26 mGy.cm FINDINGS: No intra or extra-axial mass lesions are visualized. There is no CT evidence of acute cortical infarction. There is no evidence of midline shift. There is no acute hemorrhage. No calvarial fractures are visualized. There are patchy white matter hypodensities likely on a small vessel basis. There is mild ventricular dilatation, finding which is likely secondary to volume loss There is an opacified right-sided ethmoid air cell. There is minor maxillary sinus mucosal thickening. IMPRESSION: No acute intracranial findings ACT 112: Negative or not required by law. Electronically signed by: Osmany Agustin M.D. 03/06/2021 5:46 PM Chest X-Ray 03/06/21 16:00 XR chest 1V portable CLINICAL HISTORY: Atypical chest pain COMPARISON STUDY: 01/29/2021 FINDINGS: The cardiac and mediastinal contours are normal. There is no evidence of focal pulmonary consolidation. There is no evidence of failure. No pleural effusions are visualized.[ IMPRESSION: No active disease in the chest. ACT 112: Negative or not required by law. Electronically signed by: Osmany Agustin M.D. 03/06/2021 4:22 PM Hospital Course (1) Generalized muscle weakness: There does not appear to be an acute metabolic cause for his generalized weakness. No evidence of infection. Head CT negative. Initially was going to pursue MRI due to aphasia and stuttering speech pattern; however, patient adamantly refused and after talking with the sonthis is not new. MRI canceled. Son, after seeing patient here in the hospital for the first time in several weekswas concerned at his appearance. However, he is significantly improved with proper control of his blood pressure and he is eating and drinking, moving his bowels, started on B vitamins, doing very well but needs rehab. In case of acute stroke, aspirin was started as this would be management if patient did in fact have an acute neurological event. No focal neuro deficits noted. Statin therapy continues Lengthy discussion with patient regarding the importance of taking his blood pressure medications and keeping his blood pressure controlled. Perhaps hypertensive encephalopathy contributed to his weakness and confusion Vitamin B1 level checked and is pending-start thiamine 100 mg p.o. daily empirically and needs follow-up on B1 level after discharge Started B12 for deficiency as below His generalized weakness is likely just progressive generalized deconditioning with muscular decline (2) Thrush: Continue Mycelex khris 5 times a day X 5 days-completed therapy obtain throat culture and rapid strep-negative Tongue appears dry but no exudate currently (3) Cognitive impairment: This is not new and progressive (lengthy discussion with son and ongoing X 8+ years). I have taken care of this patient for years ago and experienced similar cognitive deficits although not as significant as now TSH normal Patient does not carry a diagnosis of dementia. Given his history of heart disease and vascular changes seen on CT scan, he likely has vascular dementia Prior to memory impairment, patient was very stubborn. This seems to have only been exacerbated with further decline in his cognition. Unfortunately, this is causing difficulty for appropriate care for patient. He has been having frequent hospitalizations, frequent placement to nursing facilities/personal care facilities, and acute rehab facilities. Ultimately, he does answer questions appropriately and is able to make his own decisions; however, is not always willing/agreeable to accept help. At times, he previously was combative. He did require Zyprexa in the ED. however, now he is doing very well and has no issues. Has since been started on Seroquel at bedtime at low dose and should be continued as above Check B1 level as above and start thiamine p.o. empirically Starting B12 replacement (4) Hypertension: Possibly with hypertensive encephalopathy upon admission, blood pressures were in the 190s to 200s systolic Patient has since been resumed on his metoprolol and valsartan. His amlodipine has been increased to 10 mg. Blood pressure now very well controlled (5) Paroxysmal A-fib: Remains normal sinus rhythm with controlled ventricular rate. Continue beta-blockade Patient notably not on anticoagulation therapy. This is due to a high fall risk. [id number] 2 score is 4; however, his risk right now of falling with subsequent intracranial hemorrhage given his deconditioned state is much higher (6) HLD (hyperlipidemia): Chronic -Continue Atorvastatin (7) Constipation: No bowel movement documented in over 1 week until finally on 03/13 had a very large bowel movement Continue MiraLAX as needed (8) Vitamin B12 deficiency: B12 level low at 300 and was 200 last month but never replaced Gave 1 dose of cyanocobalamin 1000 mcg IM and then start 500 mcg p.o. once daily DVT prophylaxis-Lovenox Disposition-medically stable for discharge, plan for discharge to [facility] rehab today Total Time Total Time Spent Total Time Spent (In Minutes): 35 minutes Discharge Plan Discharge Items Patient Disposition: Transfer Long Term Fac Reason For Visit: FALL Discharge Diagnosis: Fall, weakness Condition on Discharge: Fair Activity: As commented below Lifting: Gradually increase as tolerated Bathing: No limitations Exercise/Sports: Gradually increase as tolerated Weightbearing: Full weightbearing Non-emergency contact: Primary Care Provider Call non-emergency contact if: you have any medication questions and your symptoms worsen Follow-up/Referrals: PCP,NO [Primary Care Provider] - Diet: Heart Healthy Addtl Attending Provider Instructions: You admitted for weakness and fall with encephalopathy and high blood pressures. This is now been well controlled. You will need rehab to get stronger again. Pending Studies at Discharge: No Stand-Alone Forms: My [facility] Skilled Items Patient informed of condition?: Yes DNR: Yes Discharge Level of Care: Skilled Communicable Disease: No Discharge Prognosis: Improving Lines: None Urinary Catheter: No Medications and DC Order Prescriptions: New amlodipine 10 mg tablet 10 mg PO DAILY Qty: 30 RF: 0 acetaminophen 325 mg Tablet 650 mg PO Q4H PRN (Reason: pain) Qty: 30 RF: 0 quetiapine 25 mg Tablet 12.5 mg PO HS Qty: 15 RF: 0 sennosides [Senokot] 8.6 mg Tablet 8.6 mg PO QAM Qty: 30 RF: 0 thiamine HCl (vitamin B1) [Vitamin B-1] 100 mg Tablet 100 mg PO QAM Qty: 30 RF: 0 aspirin 81 mg Tablet,Delayed Release (Dr/Ec) 81 mg PO QAM Qty: 30 RF: 0 cyanocobalamin (vitamin B-12) 500 mcg Tablet 500 mcg PO QAM Qty: 30 RF: 0 Continued atorvastatin 40 mg tablet 40 mg PO DAILY RF: 0 valsartan 320 mg tablet 320 mg PO DAILY RF: 0 folic acid 1 mg tablet 1 mg PO DAILY RF: 0 metoprolol succinate 25 mg tablet extended release 24 hr 25 mg PO DAILY RF: 0 polyethylene glycol 3350 [Miralax] 17 gram Powder In Packet 17 g PO DAILY PRN (Reason: constipation) Qty: 30 RF: 0 Discontinued amlodipine 5 mg tablet 5 mg PO DAILY RF: 0 Discharge Orders: Discharge Order (Routine); Ordered 03/14/21 Ordered By: Joyce Howard Admission Data Admit Date/Time: 03/08/21 13:32 Attending Provider: Joyce Howard Admit Provider: Zee Quinones Primary Care Provider: PCP,NO Other Providers: [facility] ; [facility], Coding Level of Care Code D/C DAY MANAGEMENT >30 MINS Diagnoses Generalized muscle weakness M62.81 Thrush B37.0 Cognitive impairment R41.89 Hypertension I10 Hypertension type: unspecified Paroxysmal A-fib I48.0 HLD (hyperlipidemia) E78.5 Constipation K59.00 Vitamin B12 deficiency E53.8
== END 2021-03-14 15:30 | DRG 556 ==
LOC: 3W 14:55 → ED 14:55 → SUATTDRO 19:16 → 3W 22:19 → SUATTDRO 03-08 13:32
DX: E78.5 Hyperlipidemia, unspecified; Z91.14 Patient's other noncompliance with medication regimen; Z91.81 History of falling; I25.2 Old myocardial infarction; Z79.899 Other long term (current) drug therapy; M62.81 Muscle weakness (generalized); I10 Essential (primary) hypertension; R29.6 Repeated falls; I48.0 Paroxysmal atrial fibrillation; G62.9 Polyneuropathy, unspecified; Z20.822 Contact with and (suspected) exposure to COVID-19; F01.51 Vascular dementia, unspecified severity, with behavioral disturbance; R53.81 Other malaise; Z53.20 Procedure and treatment not carried out because of patient's decision for unspecified reasons; E53.8 Deficiency of other specified B group vitamins; Z66 Do not resuscitate; I67.4 Hypertensive encephalopathy; B37.0 Candidal stomatitis; I25.10 Atherosclerotic heart disease of native coronary artery without angina pectoris; Z87.891 Personal history of nicotine dependence; K59.00 Constipation, unspecified